=== PATIENT | male | born 1950 | race Caucasian/White ===

== ENCOUNTER 2022-06-10 05:51 | Outpatient (CLI) | payer MEDICARE, MEDICAID, SELFPAY | END 2022-06-10 05:52 | disposition home or self-care (01) | LOC: AMB 06-28 12:09 | PROVIDERS: Visit Provider Internal Medicine | DX: R10.2 Pelvic and perineal pain (principal); Z46.6 Encounter for fitting and adjustment of urinary device | CPT/HCPCS: A0425; A0429 ==

== ENCOUNTER 2022-06-10 06:03 | Emergency (ER) | payer MEDICARE, MEDICAID, SELFPAY ==
[2022-06-10 06:18] VITALS: BP 138/100; PULSE 88; RESP 18; TEMP 36.6; O2SAT 98; BMI 23.1
--- NOTE | 2022-06-10 06:22 | ED_ITS ---
HPI - Male Genitourinary General Chief complaint: Urogenital Problems, Male Stated complaint: Catheter issues Time Seen by Provider: 06/10/22 06:17 History of Present Illness HPI Narrative: Pt is a 71 year old gentleman from [place] [facility] who comes in today via EMS stating that his urinary catheter does not appear to be working. Pt has noted decreased outpt for the past 24 hours. Pt has a long history of catheter use and has had similar presentations in the past. No significant abdominal pain. No fevers chills. No other signs of urinary tract infection. Pt not sure when the catheter was last changed. Related Data Home Medications Medication Instructions Recorded Confirmed acetaminophen 325 mg tablet 650 mg PO Q6H PRN 06/10/22 06/10/22 finasteride 5 mg tablet 5 mg PO DAILY 06/10/22 06/10/22 multivitamin with folic acid 400 1 tab PO DAILY 06/10/22 06/10/22 mcg tablet (Tab-A-Jennifer) pantoprazole 40 mg tablet,delayed 40 mg PO DAILY 06/10/22 06/10/22 release polyethylene glycol 3350 17 17 g PO DAILY 06/10/22 06/10/22 gram/dose oral powder (Gavilax) sertraline 50 mg tablet 50 mg PO Q24H 06/10/22 06/10/22 tamsulosin 0.4 mg capsule 0.4 mg PO DAILY 06/10/22 06/10/22 Allergies Allergy/AdvReac Type Severity Reaction Status Date / Time No Known Drug Allergies Allergy Verified 06/10/22 06:22 Review of Systems Status of ROS: Reports: 10 or more systems reviewed and unremarkable except as noted in History and below [facility] Medical History (Updated 06/10/22 @ 07:03 by Romeo Serrano RN) Acute renal failure Benign prostatic hyperplasia with urinary retention Bipolar disorder Chronic GERD Degenerative disease of nervous system Frontotemporal dementia History of melanoma Hx of nephrolithotomy with removal of calculi Kidney stone Renal insufficiency Tinnitus Urinary retention Social History Smoking Status: Former smoker Do you use any of these nicotine containing products: None How often do you have a drink containing alcohol: never How often do you have six or more drinks on one occasion: Never AUDIT-C Alcohol total score: 0 Non-prescribed substance use: denies use Exam Narrative: Exam Narrative: EXAM GENERAL: Patient appears comfortable and well. EYES: No scleral icterus. ENT: Tympanic membranes and oropharynx normal. THYROID: no thyroid nodules or thyromegaly. LYMPH: No supraclavicular or cervical lymphadenopathy. SKIN: Visible skin seen during exam normal or with benign process only. EXT: No dependent lower extremity pedal edema. HEART: Regular rate and rhythm with no murmurs, rubs, or gallops. LUNGS: Clear to auscultation bilaterally with no crackles or wheezes. ABD: Soft, non tender, non distended. Flores catheter in place PSYCH: Good eye contact, speech is not pressured. Const: Vital Signs, click to edit/add: Vital Signs - 24 hr 06/10/22 06:18 Temperature 97.8 F Pulse Rate [Right Pulse Oximeter] 88 Respiratory Rate 18 Blood Pressure [Ri ght Upper Arm] 138/100 H Pulse Oximetry 98 Oxygen Delivery Me thod Room Air Course Course Hospital Course: Flores catheter successfully changed and is draining well. Reevaluation(s) Reevaluation #1: Doing well and ready to go home. Time: 07:28 Vital Signs Vital signs: Initial Vital Signs Temperature 97.8 F 06/10/22 06:18 Temperature Source Temporal Artery Scan 06/10/22 06:18 Pulse Rate 88 06/10/22 06:18 Respiratory Rate 18 06/10/22 06:18 Blood Pressure 138/100 H 06/10/22 06:18 Blood Pressure Mean 112 06/10/22 06:18 Blood Pressure Position Sitting 06/10/22 06:18 Pulse Oximetry 98 06/10/22 06:18 Oxygen Delivery Method 06/10/22 06:18 Vital Signs Temperature 97.8 F 06/10/22 06:18 Pulse Rate 88 06/10/22 06:18 Respiratory Rate 18 06/10/22 06:18 Blood Pressure 138/100 H 06/10/22 06:18 Pulse Oximetry 98 06/10/22 06:18 Oxygen Delivery Method 06/10/22 06:18 Temperature 97.8 F 06/10/22 06:18 Pulse Rate 88 06/10/22 06:18 Respiratory Rate 18 06/10/22 06:18 Blood Pressure 138/100 H 06/10/22 06:18 Pulse Oximetry 98 06/10/22 06:18 Oxygen Delivery Method 06/10/22 06:18 MDM - Male Genitourinary MDM Narrative Medical decision making narrative: Pt is a 71 year old gentleman with a chronic urinary catheter who shows no signs of UTI symptoms who presents with catheter not functioning. Flores was changed and pt now feeling well. Differential Diagnosis Differential diagnosis: Likely urinary tract infection, urethritis, prostatitis and acute retention of urine Discharge Plan Discharge Clinical Impression: Blocked urinary catheter Patient Disposition: Home, Self-Care Condition: Stable Additional Instructions: Continue current care and routine catheter changes. Discharge Diet: Regular Prescriptions: No Action acetaminophen 325 mg tablet 650 mg PO Q6H PRN finasteride 5 mg tablet 5 mg PO DAILY multivitamin with folic acid [Tab-A-Jennifer] 400 mcg tablet 1 tab PO DAILY pantoprazole 40 mg tablet,delayed release (DR/EC) 40 mg PO DAILY polyethylene glycol 3350 [Gavilax] 17 gram/dose powder 17 g PO DAILY sertraline 50 mg tablet 50 mg PO Q24H tamsulosin 0.4 mg capsule 0.4 mg PO DAILY Stand Alone Forms: [employer] Info Instructions
[2022-06-10] MEDS: lidocaine HCL 2 % JELLY (TOP) STERILE 6 ML UR (07:03)
--- NOTE | 2022-06-10 07:31 | PC.NURSE ---
16F coude catheter placed after urojet injection. Draining urine, herber in color, foul smelling. emptied 750 cc into graduate, catheter continues to drain into leg bag. Dr. Daniel notified of catheter placement.
--- NOTE | 2022-06-10 07:43 | PC.NURSE ---
another 800 cc drained from leg bag. pt feeling better. assisted pt dressing. trying to get a hold of [facility] to pick pt up.
--- NOTE | 2022-06-10 07:47 | PC.NURSE ---
called multiple times to [facility] with no answer, spoke to nurse Fred and she will try to get in touch with staff
--- NOTE | 2022-06-10 07:54 | ED.NURSE ---
dc complete, pt waiting for [facility] to pick him up.
== END 2022-06-10 07:55 | disposition home or self-care (01) ==
LOC: ED 07:47
PROVIDERS: Emergency Provider Internal Medicine
DX: T83.098A Other mechanical complication of other urinary catheter, initial encounter (principal); Y73.8 Miscellaneous gastroenterology and urology devices associated with adverse incidents, not elsewhere classified; Y92.019 Unspecified place in single-family (private) house as the place of occurrence of the external cause
CPT/HCPCS: 51702; 99282; 99283

== ENCOUNTER 2022-07-03 06:06 | Outpatient (CLI) | payer MEDICARE, MEDICAID, SELFPAY ==
--- OUTSIDE RECORDS SUMMARY | 2022-07-17 05:55 | XMS_ITS ---
[...] Bilirubin-Status Negative ? Ketones-Status Negative ? Sp [place]-Status 1.010 ? pH-Status 5.5 ? Protein-Status 5.0 ? Urobilinogen-Statu 0.2 ? ? s ? ? ? Nitrates-Status negative ? Blood-Status Moderate ? Leuko-Status Negative ? Specimen Type Catheterized ? Performed by SERGIO Christine/BSN ? Total Urine Volume 235ml ? ? Past Encounters 02/28/2022 Retention of Urine Erick Cooley MD: [address], [place] [address], Ph. Social History Tobacco Smoking Status Former [...]
--- OUTSIDE RECORDS SUMMARY | 2022-07-17 05:55 | XMS_ITS | Clinical Summary ---
:1950 Author Organization [facility] [place] [address] Care Team Providers Name Role Phone Feli Babin MD Primary Care Provider [phone] [facility] Unavailable Allergies No known active allergies Medications [...] Encounters Date Type Specialty Care Team Description 07/09/2022 Telephone Feli Babin Referral (u [facility]) MD [place] 05/24/2022 Nurse/Clinic Staff Only 05/24/2022 Travel 04/24/2022 Refill Feli Babin Refill Requ est MD [place] (Polyethylene G lycol) 04/23/2022 Nurse/Clinic Staff Only Art rt (Routine catheter change) 04/23/2022 Travel from Last 3 Months Immunizations Name Administration Dates Next Due COVID-19 vaccine (Moderna 100mcg/0.5mL) 09/12/2021, 12/20/19, 11/21/2020 PFLIN COVID-19 vaccine ([employer] 02/22/2022 30mcg/0.3mL) MD ERICAV Influenza, High-dose Inactivated 06/30/2018 Tdap 09/30/2014, 09/30/2009, [...] CDT Respiratory Rate 16 11/27/2021 11:55 AM 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 Oxygen Saturation 100% 02/22/2022 11:14 AM CDT Inhaled Oxygen Concentration - - Weight 75.3 kg (166 lb) 02/22/2022 11:14 AM CDT Height 182.9 cm (6') 11/23/2021 1:41 PM 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 Body Mass Index 22.51 11/23/2021 1:41 PM 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 Plan of Treatment Upcoming Encounters Date Type Specialty Care Team Description 11/29/2022 Office Visit Ryan Davies MD [address] [place] [phone] (Wo rk) Health Maintenance Due Date Last Done Comments [...] / Subscriber ID Effective Phone Address T ype Group Dates [employer] [id number] Effective [employer] for all OFFICE OF [facility] [address] [address] [place] [address] MEDICARE - PB USE MEDICARE PB ONLY [id number] 2019-Pre ATTN: CLAIMS ONLY sent [address] [place] [address] MEDICARE - PB USE MEDICARE PB ONLY [id number] 2019-Pre ATTN: CLAIMS ONLY sent [address] [place] [address] LIANA RAMIREZ 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
== END 2022-07-03 06:07 | disposition home or self-care (01) ==
PROVIDERS: Visit Provider Internal Medicine
DX: T83.038A Leakage of other urinary catheter, initial encounter (principal); N48.89 Other specified disorders of penis
CPT/HCPCS: A0425; A0429

== ENCOUNTER 2022-07-03 06:20 | Emergency (ER) | payer MEDICARE, MEDICAID, SELFPAY ==
[2022-07-03 07:03] VITALS: BP 145/79; PULSE 93; RESP 18; TEMP 37.2; O2SAT 99; BMI 24.4
[2022-07-03 07:06] VITALS: BP 145/79; PULSE 93; RESP 18; TEMP 37.2; O2SAT 99; BMI 24.4
--- NOTE | 2022-07-03 07:07 | ED.NURSE ---
Pt arrived via ems, brief full of dirt and crystallized urine. pt catheter leaking from around catheter, pt lower abdomen observably extended and hard, catheter had observable growth in leg bag tubing and into catheter tubing going into urethra. pt catheter only had 10cc fluid with balloon listed to have 30cc. removed old catheter, placed new coude 18f catheter with 30cc saline in balloon, instant output of blood tinged then yellow urine with large yellowish/white clots of 2100cc of urine. pt abdomen flat and soft post cath, pt tolerated without complaints, pt states pain relief.
--- NOTE | 2022-07-03 07:27 | ED.MALEGU ---
HPI - Male Genitourinary General Chief complaint: Urogenital Problems, Male Stated complaint: ILL Time Seen by Provider: 07/03/22 06:39 History of Present Illness HPI Narrative: Pt is a 71 gentleman who lives at [facility] and has a chronic Chun Catheter who presents with no urinary output from his catheter overnight. Pt has distension and discomfort in his bladder region but no abd pain, fever, chills nausea or vomiting. Catheter was changed upon arrival and 2200 cc of urine was removed. UA pending. Pt now feeling well. Pt presented approximately 3 weeks ago with similar presentation which was the last time the chun was replaced. Related Data Home Medications Medication Instructions Recorded Confirmed acetaminophen 325 mg tablet 650 mg PO Q6H PRN 06/10/22 06/10/22 finasteride 5 mg tablet 5 mg PO DAILY 06/10/22 06/10/22 multivitamin with folic acid 400 1 tab PO DAILY 06/10/22 06/10/22 mcg tablet (Tab-A-Jennifer) pantoprazole 40 mg tablet,delayed 40 mg PO DAILY 06/10/22 06/10/22 release polyethylene glycol 3350 17 17 g PO DAILY 06/10/22 06/10/22 gram/dose oral powder (Gavilax) sertraline 50 mg tablet 50 mg PO Q24H 06/10/22 06/10/22 tamsulosin 0.4 mg capsule 0.4 mg PO DAILY 06/10/22 06/10/22 Previous Rx's Medication Instructions Recorded ciprofloxacin HCl 250 mg tablet 250 mg PO BID UTI #14 tabs 07/03/22 Allergies Allergy/AdvReac Type Severity Reaction Status Date / Time No Known Drug Allergies Allergy Verified 06/10/22 06:22 Review of Systems Status of ROS: Reports: 10 or more systems reviewed and unremarkable except as noted in History and below [facility] Medical History (Updated 07/03/22 @ 08:11 by Mahesh Wang MD) Acute renal failure Benign prostatic hyperplasia with urinary retention Bipolar disorder Chronic GERD Degenerative disease of nervous system Frontotemporal dementia History of melanoma Hx of nephrolithotomy with removal of calculi Kidney stone Renal insufficiency Tinnitus Urinary retention Social History Smoking Status: Former smoker Do you use any of these nicotine containing products: None How often do you have a drink containing alcohol: never How often do you have six or more drinks on one occasion: Never AUDIT-C Alcohol total score: 0 Non-prescribed substance use: denies use Exam Narrative: Exam Narrative: EXAM GENERAL: Patient appears comfortable and well. EYES: No scleral icterus. THYROID: no thyroid nodules or thyromegaly. LYMPH: No supraclavicular or cervical lymphadenopathy. SKIN: Visible skin seen during exam normal or with benign process only. EXT: No dependent lower extremity pedal edema. HEART: Regular rate and rhythm with no murmurs, rubs, or gallops. LUNGS: Clear to auscultation bilaterally with no crackles or wheezes. ABD: Soft, non tender, non distended. Chun catheter in place. PSYCH: Good eye contact, speech is not pressured. Const: Vital Signs, click to edit/add: Vital Signs - 24 hr 07/03/22 07:03 07/03/22 07:06 Temperature 98.9 F 98.9 F Pulse Rate [Right Pulse Oximeter] 93 93 Respiratory Rate 18 18 Blood Pressure [Le ft Upper Arm] 145/79 H 145/79 H Pulse Oximetry 99 99 Oxygen Delivery Me thod Room Air Room Air Course Course Hospital Course: Chun replaced with excellent results. UA pending. Vital Signs Vital signs: Initial Vital Signs Temperature 98.9 F 07/03/22 07:03 Temperature Source Temporal Artery Scan 07/03/22 07:03 Pulse Rate 93 07/03/22 07:03 Respiratory Rate 18 07/03/22 07:03 Blood Pressure 145/79 H 07/03/22 07:03 Blood Pressure Mean 101 07/03/22 07:03 Blood Pressure Position Sitting 07/03/22 07:03 Pulse Oximetry 99 07/03/22 07:03 Oxygen Delivery Method 07/03/22 07:03 Vital Signs Temperature 98.9 F 07/03/22 07:03 Pulse Rate 93 07/03/22 07:03 Respiratory Rate 18 07/03/22 07:03 Blood Pressure 145/79 H 07/03/22 07:03 Pulse Oximetry 99 07/03/22 07:03 Oxygen Delivery Method 07/03/22 07:03 Temperature 98.9 F 07/03/22 07:06 Pulse Rate 93 07/03/22 07:06 Respiratory Rate 18 07/03/22 07:06 Blood Pressure 145/79 H 07/03/22 07:06 Pulse Oximetry 99 07/03/22 07:06 Oxygen Delivery Method 07/03/22 07:06 MDM - Male Genitourinary MDM Narrative Medical decision making narrative: Chun changed. Feeling fine. Urine grossly abnormal. Will send for culture and place the patient on Cipro 500 mg twice per day for 7 days. Continue current meds. Routine changing of chun catheter. Differential Diagnosis Differential diagnosis: Likely urinary tract infection, urethritis, prostatitis and acute retention of urine Lab Data Labs: Lab Results 07/03/22 Range/Units 07:12 Urine Color Yellow (Yellow) Urine Appearance Slightly Cloudy A (Clear) Urine pH >= 9.0 H (5.0-8.5) Ur Specific [place] Path 1.015 (1.000-1.030) Urine Protein 2+ A (Negative) Urine Glucose (UA) Negative (Negative) Urine Ketones 1+ A (Negative) Urine Blood 3+ A (Negative) Urine Nitrite Negative (Negative) Urine Bilirubin Negative (Negative) Urine Urobilinogen 0.2 (0.2-1.0) Ur Leukocyte Esterase 2+ A (Negative) Urine RBC 25-50 A (0-2) Urine WBC 10-25 A (0-5) Ur Squamous Epith Cells None (None-Few) Urine Bacteria Many A (None) Discharge Plan Discharge Clinical Impression: Urinary tract infection Condition: Stable Instructions: Urinary Incontinence (ED) Activity Level: No Restrictions Discharge Diet: Regular Prescriptions: New ciprofloxacin HCl 250 mg tablet 250 mg PO BID Qty: 14 0RF No Action acetaminophen 325 mg tablet 650 mg PO Q6H PRN finasteride 5 mg tablet 5 mg PO DAILY multivitamin with folic acid [Tab-A-Jennifer] 400 mcg tablet 1 tab PO DAILY pantoprazole 40 mg tablet,delayed release (DR/EC) 40 mg PO DAILY polyethylene glycol 3350 [Gavilax] 17 gram/dose powder 17 g PO DAILY sertraline 50 mg tablet 50 mg PO Q24H tamsulosin 0.4 mg capsule 0.4 mg PO DAILY Stand Alone Forms: [employer] Info Instructions
[2022-07-03 07:40] LABS: Appearance Urine Slightly Cloudy (Clear); Bilirubin Urine Negative (Negative); Blood Urine 3+ (Negative); Color Urine Yellow (Yellow); Glucose Urine Negative (Negative); Ketones Urine 1+ (Negative); Leukocyte Esterase Urine 2+ (Negative); Nitrite Urine Negative (Negative); Protein Urine 2+ (Negative); Specific Gravity Urine 1.015 (1.000-1.030); Urobilinogen Urine 0.2 (0.2-1.0)
[2022-07-03 07:50] LABS: pH Urine >= 9.0 (5.0-8.5)
[2022-07-03 07:51] LABS: Bacteria Urine Many; RBC Urine 25-50 (0-2)
--- NOTE | 2022-07-03 08:21 | ED.NURSE ---
Spoke with [facility] staff. They will send a ride. Will get a dose of cirpo here. Script sent into [facility]. This was communicated with staff at [facility]. Recommended he follow up with urologist for possible irrigation orders to prevent further plugging. Staff verbalized understanding.
--- NOTE | 2022-07-03 08:30 | ED.NURSE ---
Changed to leg bag per patient request. okay with this. Urine pink tinged. Facility aware. Watch for clots.
[2022-07-03] MEDS: CIPROFLOXACIN 250 MG TABLET PO (08:37)
== END 2022-07-03 08:45 | disposition home or self-care (01) ==
PROVIDERS: Emergency Provider Internal Medicine
DX: N39.0 Urinary tract infection, site not specified (principal)
CPT/HCPCS: 81003; 81015; 87086; 87186; 99283; A9270

== ENCOUNTER 2022-07-05 10:20 | Emergency (ER) | payer MEDICARE, MEDICAID, SELFPAY ==
[2022-07-05 10:31] VITALS: BP 92/61; PULSE 77; RESP 16; TEMP 36.6; O2SAT 100; BMI 23.1
--- NOTE | 2022-07-05 11:30 | ED.GENADULT ---
HPI - General Adult General Time Seen by Provider: 11:30 Date Seen: 07/05/22 Chief complaint: Flank Pain Stated complaint: Blood in urine/back pain Time Seen by Provider: 07/05/22 11:24 Source: patient, RN notes reviewed and old records reviewed Mode of arrival: ambulatory (With a walker) Limitations: no limitations History of Present Illness HPI narrative: Patient is a 71-year-old male from [place] coming in with concern of ongoing blood in his urine. The catheter seems like it has been occluding somewhat to the ongoing blood. He was diagnosed with a UTI in a patient with a chronic Flores catheter on 07/03/2022. He was started on Cipro and has been taking it. The blood in the urine has not improved. He is having some occasional abdominal pain and tells me it is more in the suprapubic area right now. He had noted that more flank pain to nursing staff. He does report he has a history of kidney stones. He denies any fevers, no night sweats. His appetite has been fine, is able to eat. No nausea or vomiting noted. I was able to see his urine culture is back today and showed Staphylococcus cohnii with resistance to Cipro/levofloxacin, intermediate resistance to moxifloxacin. Sensitive to clindamycin, daptomycin, doxycycline, gentamicin, Macrobid, rifampin, tetracycline, tigecycline, Septra, vancomycin. Intermediate resistance to erythromycin. Related Data Home Medications Medication Instructions Recorded Confirmed acetaminophen 325 mg tablet 650 mg PO Q6H PRN 06/10/22 07/05/22 finasteride 5 mg tablet 5 mg PO DAILY 06/10/22 07/05/22 multivitamin with folic acid 400 1 tab PO DAILY 06/10/22 07/05/22 mcg tablet (Tab-A-Jennifer) pantoprazole 40 mg tablet,delayed 40 mg PO DAILY 06/10/22 07/05/22 release polyethylene glycol 3350 17 17 g PO DAILY 06/10/22 07/05/22 gram/dose oral powder (Gavilax) sertraline 50 mg tablet 50 mg PO Q24H 06/10/22 07/05/22 tamsulosin 0.4 mg capsule 0.4 mg PO DAILY 06/10/22 07/05/22 Previous Rx's Medication Instructions Recorded ciprofloxacin HCl 250 mg tablet 250 mg PO BID UTI #14 tabs 07/03/22 doxycycline monohydrate 100 mg 100 mg PO BID #20 tabs 07/05/22 tablet Allergies Allergy/AdvReac Type Severity Reaction Status Date / Time No Known Drug Allergies Allergy Verified 07/05/22 10:39 Review of Systems Status of ROS: Reports: 6 or more systems reviewed and unremarkable except as noted in History and below [facility] Medical History (Updated 07/05/22 @ 13:29 by Yessica Patel MD) Acute renal failure Benign prostatic hyperplasia with urinary retention Bipolar disorder Chronic GERD Degenerative disease of nervous system Frontotemporal dementia History of melanoma Hx of nephrolithotomy with removal of calculi Kidney stone Renal insufficiency Tinnitus Urinary retention Social History Smoking Status: Former smoker Do you use any of these nicotine containing products: None How often do you have a drink containing alcohol: never How often do you have six or more drinks on one occasion: Never AUDIT-C Alcohol total score: 0 Non-prescribed substance use: denies use Exam Const: Vital Signs, click to edit/add: Vital Signs - 24 hr 07/05/22 10:31 Temperature 97.9 F Pulse Rate [Right Pulse Oximeter] 77 Respiratory Rate 16 Blood Pressure [Ri ght Upper Arm] 92/61 Pulse Oximetry 100 Oxygen Delivery Me thod Room Air Documenting provider has reviewed patient's vital signs: yes Common normals: no apparent distress, oriented x3, no limitations and alert General appearance: cooperative, comfortable, well kempt and frail appearing Nutritional appearance: thin HENMT: Common normals: normocephalic, head/scalp atraumatic and hearing grossly normal bilaterally Head and scalp: normocephalic and atraumatic Eye: Common normals: PERRL, EOMs intact bilaterally, conjunctivae normal and no scleral icterus Conjunctiva: conjunctiva(e) normal Pupil: PERRL Neck & C-Spine: Common normals: full ROM, no lymphadenopathy, supple and no JVD Resp: Common normals: normal respiratory effort, no retractions, no use of accessory muscles and clear to auscultation bilaterally Auscultation: clear to auscultation bilaterally Cardio: Common normals: no JVD, regular rate, regular rhythm, S1 normal heart sound, S2 normal heart sound, no gallops, no clicks and no murmurs Rate: regular rate Rhythm: regular rhythm Heart sounds: S1 normal and S2 normal GI: Common normals: Normal to inspection, nondistended, normoactive bowel sounds present, soft to palpation, non-tender, no hepatosplenomegaly and no masses Palpation: soft and no hepatosplenomegaly : Other: Flores catheter has red appearing urine in the tubing. Appears to have normal draining bloody urine. Neuro: Common normals: oriented x3 Sensorium/orientation: alert Psych: Appearance: well kempt Course Course Hospital Course: He obviously needs an antibiotic change. I do think doxycycline might be an option. Will get baseline labs and get a CT abdomen pelvis just to ensure that there is no underlying obstructive kidney stone. Reevaluation(s) Reevaluation #1: Patient states he is feeling fine. Catheter is still draining clear but red tinged urine I have reviewed with them that this is likely to continue happen until the infection is being adequately treated. I did order 100 mg oral doxycycline here. His initial blood pressure was mildly low but he absolutely has no endorsement of any fever. He states he is feeling fine, has not been lightheaded, does not feel dizzy. Is not having any significant pain at this time. Vitals prior to leaving without as intervening with anything showed a blood pressure of 131/83. He actually has been sitting up on the edge of the bed the whole time he has been here. Did review the urinary stones within the bladder that were seen. I do not feel that these are infected at this time in absolutely do not need emergent removal. I would recommend however that he follow up with Urology outpatient. Time: 13:21 Vital Signs Vital signs: Initial Vital Signs Temperature 97.9 F 07/05/22 10:31 Temperature Source Temporal Artery Scan 07/05/22 10:31 Pulse Rate 77 07/05/22 10:31 Respiratory Rate 16 07/05/22 10:31 Blood Pressure 92/61 07/05/22 10:31 Blood Pressure Mean 71 07/05/22 10:31 Blood Pressure Position Sitting 07/05/22 10:31 Pulse Oximetry 100 07/05/22 10:31 Oxygen Delivery Method 07/05/22 10:31 Vital Signs Temperature 97.9 F 07/05/22 10:31 Pulse Rate 77 07/05/22 10:31 Respiratory Rate 16 07/05/22 10:31 Blood Pressure 92/61 07/05/22 10:31 Pulse Oximetry 100 07/05/22 10:31 Oxygen Delivery Method 07/05/22 10:31 Temperature 97.9 F 07/05/22 10:31 Pulse Rate 77 07/05/22 10:31 Respiratory Rate 16 07/05/22 10:31 Blood Pressure 92/61 07/05/22 10:31 Pulse Oximetry 100 07/05/22 10:31 Oxygen Delivery Method 07/05/22 10:31 Medical Decision Making Lab Data Lab results reviewed: Yes I reviewed the patient's lab results Labs: Lab Results 07/05/22 07/05/22 07/05/22 Range/Units 11:44 11:44 11:44 WBC 3.60 L (4.50-11.00) K/uL RBC 4.06 L (4.30-5.90) m/uL Hgb 12.4 L (13.5-17.5) gm/dL Hct 38.8 (37.0-53.0) % MCV 96 (80-100) fL MCH 31 (26-34) pg MCHC 32 (32-36) gm/dL RDW Coeff of Vidhya 13.1 (11.5-15.5) % Plt Count 127 L (140-440) K/uL Neut % (Auto) 63.0 (42.0-72.0) % Lymph % (Auto) 25.0 (20-44) % [place] % (Auto) 10.0 (0.0-11.0) % Eos % (Auto) 1.7 (0.0-7.0) % Baso % (Auto) 0.3 (0.0-3.0) % Neut # (Auto) 2.30 (1.7-7.0) K/uL Lymph # (Auto) 0.90 (0.90-2.90) K/uL [place] # (Auto) 0.40 (0.00-0.90) K/UL Eos # (Auto) 0.10 (0.00-0.50) K/uL Baso # (Auto) 0.00 (0.00-0.30) K/uL Abs Immat Gran (auto) 0.00 (0.00-0.30) K/uL Sodium 144 (135-149) mmol/L Potassium 3.8 (3.6-5.1) mmol/L Chloride 106 (96-114) mmol/L Carbon Dioxide 29 (20-32) mmol/L BUN 40 H (7-30) mg/dL Creatinine 1.3 (0.5-1.5) mg/dL Estimated Creat Clear 58.49 Estimated GFR 59 ml/min Glucose 119 H (60-115) mg/dL Lactate 1.3 (0.5-1.9) mmol/L Calcium 9.8 (8.4-10.6) mg/dL C-Reactive Protein 2.5 H (0.5-1.0) mg/dL Imaging Data CT scan - abdomen: Attestation: I have reviewed the pertinent imaging results. My impression: Did review his CT images preliminarily. Flores and possible other calcified structures within the bladder. Do need to wait radiology over read on this. Radiologist's impression: Patient: RASHMI SYED Facility:?[facility] Patient ID:?[id number] Site Patient ID:?[id number]. Site :?[id number] Study:?CT Abdomen/Pelvis W/O-07/05/2022 11:54:47 AM Ordering Physician:?Jorge Jaun Final Report: INDICATION: UTI. Abdominal pain. History of kidney stones. COMPARISON: None TECHNIQUE: CT examination of the abdomen and pelvis was performed without intravenous contrast. Thin section axial images were obtained from the lung bases through the pubic symphysis. Oral contrast was not administered. The study shows technical limitations related to lack of contrast and paucity of fat planes. Please note that all CT scans at this facility use dose modulation, iterative reconstruction, and/or weight-based dosing when appropriate to reduce radiation dose to as low as reasonably achievable. FINDINGS: LUNG BASES: The lung bases as visualized appear normal.The heart size is normal at the lung bases. LIVER/BILIARY SYSTEM:The liver is normal in size and configuration given the lack of intravenous contrast. There is no visible focal mass and there is no intra- or extra hepatic biliary ductal dilatation.There is cholelithiasis but no evidence of acute cholecystitis or common duct obstruction ADRENALS: Normal non-contrast appearance KIDNEYS, URETERS and BLADDER:The kidneys are normal in size. There are no intrarenal calculi. There are scattered bilateral renal lesions that are difficult to fully characterize without contrast but probably benign. The ureters are not dilated. There is a Flores catheter in the bladder. The bladder wall is thickened and there are multiple relatively large calculi within the bladder. The prostate is significantly enlarged. SPLEEN:Normal non-contrast appearance. PANCREAS: Poorly evaluated due to lack of contrast and lack of fat planes. The body and tail appear normal. The head is not well-visualized RETROPERITONEUM and MESENTERY: Limited visualization. Atherosclerotic vascular calcifications. No lefty aneurysm GASTROINTESTINAL SYSTEM: There is no definite bowel obstruction. There is significant fecal retention diffusely but there is no indication of mechanical obstruction. Limited evaluation due to lack of contrast. PELVIS: Abnormal bladder and prostate as mentioned above. OSSEOUS STRUCTURES and ABDOMINAL WALL: There is an age-appropriate appearance of the osseous structures.No significant abdominal wall defect. OTHER: No free fluid or free air. IMPRESSION: 1. Technically limited examination. 2. A Flores catheter ends in the bladder. There is bladder wall thickening which can be due to chronic obstruction or infection. There are numerous relatively large calculi within the bladder. However, there is no hydronephrosis or hydroureter and there are no calculi identified within the kidneys or ureters. 3. Fecal retention without mechanical obstruction. 4. Cholelithiasis without indication of acute cholecystitis or common duct obstruction Please note that all CT scans at this facility use dose modulation, iterative reconstruction, and/or weight-based dosing when appropriate to reduce radiation dose to as low as reasonably achievable. Dictated by Torsten Siddiqui MD @ 07/05/2022 12:23:25 PM (Electronic Signature) Critical Care Time Critical Care Time Critical Care Time: No Discharge Plan Discharge Clinical Impression: Urinary tract infection, Bladder stones Condition: Stable Instructions: Catheter-associated Urinary Tract Infection (ED), Bladder Stones (ED) Additional Instructions: The urine culture grew a staphylococci S which was resistant to Cipro. Thus, need to stop the Cipro. He has received his 1st dose of doxycycline here and should get another dose tonight. We will initiate doxycycline 100 mg twice a day for [address] scan did demonstrate what appears to be bladder stones. Clinically, there is not concern about these being infected at this time. His urinary tract infection certainly needs adequate antibiotic treatment. I would recommend a urology followup outpatient within the next few months for routine management of his Flores catheter as well as discussion of the bladder stones. The bloody is likely to continue within the catheter until the bladder infection is being adequately treated. His catheter was draining good while he was here today but if it should become obstructed will need further management. Activity Level: Activity as Tolerated Prescriptions: New doxycycline monohydrate 100 mg tablet 100 mg PO BID Qty: 20 0RF No Action acetaminophen 325 mg tablet 650 mg PO Q6H PRN finasteride 5 mg tablet 5 mg PO DAILY multivitamin with folic acid [Tab-A-Jennifer] 400 mcg tablet 1 tab PO DAILY pantoprazole 40 mg tablet,delayed release (DR/EC) 40 mg PO DAILY polyethylene glycol 3350 [Gavilax] 17 gram/dose powder 17 g PO DAILY sertraline 50 mg tablet 50 mg PO Q24H tamsulosin 0.4 mg capsule 0.4 mg PO DAILY ciprofloxacin HCl 250 mg tablet 250 mg PO BID Qty: 14 0RF Follow Up/Referrals: Provider,Not a Local [Primary Care Provider] - Stand Alone Forms: [employer] Info Instructions
--- NOTE | 2022-07-05 11:35 | CRLHL7_ITS ---
For Patients: As a result of the 21st Century Cures Act, medical imaging exams and procedure reports are released immediately into your electronic medical record. You may view this report before your referring provider. If you have questions, please contact your health care provider. INDICATION: UTI. Abdominal pain. History of kidney stones. COMPARISON: None TECHNIQUE: CT examination of the abdomen and pelvis was performed without intravenous contrast. Thin section axial images were obtained from the lung bases through the pubic symphysis. Oral contrast was not administered. The study shows technical limitations related to lack of contrast and paucity of fat planes. Please note that all CT scans at this facility use dose modulation, iterative reconstruction, and/or weight-based dosing when appropriate to reduce radiation dose to as low as reasonably achievable. FINDINGS: LUNG BASES: The lung bases as visualized appear normal.The heart size is normal at the lung bases. LIVER/BILIARY SYSTEM:The liver is normal in size and configuration given the lack of intravenous contrast. There is no visible focal mass and there is no intra- or extra hepatic biliary ductal dilatation.There is cholelithiasis but no evidence of acute cholecystitis or common duct obstruction ADRENALS: Normal non-contrast appearance KIDNEYS, URETERS and BLADDER:The kidneys are normal in size. There are no intrarenal calculi. There are scattered bilateral renal lesions that are difficult to fully characterize without contrast but probably benign. The ureters are not dilated. There is a Flores catheter in the bladder. The bladder wall is thickened and there are multiple relatively large calculi within the bladder. The prostate is significantly enlarged. SPLEEN:Normal non-contrast appearance. PANCREAS: Poorly evaluated due to lack of contrast and lack of fat planes. The body and tail appear normal. The head is not well-visualized RETROPERITONEUM and MESENTERY: Limited visualization. Atherosclerotic vascular calcifications. No lefty aneurysm GASTROINTESTINAL SYSTEM: There is no definite bowel obstruction. There is significant fecal retention diffusely but there is no indication of mechanical obstruction. Limited evaluation due to lack of contrast. PELVIS: Abnormal bladder and prostate as mentioned above. OSSEOUS STRUCTURES and ABDOMINAL WALL: There is an age-appropriate appearance of the osseous structures.No significant abdominal wall defect. OTHER: No free fluid or free air. IMPRESSION: 1. Technically limited examination. 2. A Flores catheter ends in the bladder. There is bladder wall thickening which can be due to chronic obstruction or infection. There are numerous relatively large calculi within the bladder. However, there is no hydronephrosis or hydroureter and there are no calculi identified within the kidneys or ureters. 3. Fecal retention without mechanical obstruction. 4. Cholelithiasis without indication of acute cholecystitis or common duct obstruction Please note that all CT scans at this facility use dose modulation, iterative reconstruction, and/or weight-based dosing when appropriate to reduce radiation dose to as low as reasonably achievable. Dictated by Torsten Siddiqui MD @ 07/05/2022 12:23:25 PM (Electronically Signed)
[2022-07-05 11:47] LABS: Lactate* 1.3 mmol/L (0.5-1.9)
[2022-07-05 11:49] LABS: Basophils Percent Auto 0.3 % (0.0-3.0); Eosinophils Percent Auto 1.7 % (0.0-7.0); Hematocrit 38.8 % (37.0-53.0); Hemoglobin* 12.4 gm/dL (13.5-17.5); Mean Corpuscular HGB Conc 32 gm/dL (32-36); Mean Corpuscular Hemoglobin 31 pg (26-34); Mean Corpuscular Volume 96 fL (80-100); Platelet Count* 127 K/uL (140-440); RDW Coefficient of Variation % 13.1 % (11.5-15.5); Red Blood Count 4.06 m/uL (4.30-5.90)
[2022-07-05 11:51] LABS: Slide Review Reflex No
[2022-07-05 12:08] LABS: Chloride* 106 mmol/L (96-114); Potassium* 3.8 mmol/L (3.6-5.1); Sodium* 144 mmol/L (135-149)
[2022-07-05 12:11] LABS: Creatinine* 1.3 mg/dL (0.5-1.5); Est. Creatinine Clearance* 58.49; Estimated Glomerular Filt Rate 59 ml/min
[2022-07-05 12:12] LABS: Blood Urea Nitrogen* 40 mg/dL (7-30); Calcium* 9.8 mg/dL (8.4-10.6); Carbon Dioxide* 29 mmol/L (20-32); Glucose* 119 mg/dL (60-115)
[2022-07-05 12:15] LABS: C Reactive Protein* 2.5 mg/dL (0.5-1.0)
[2022-07-05] MEDS: DOXYCYCLINE HYCLATE 100 MG CAPSULE PO (13:22)
[2022-07-05 13:23] VITALS: BP 131/83; PULSE 63; RESP 16
--- NOTE | 2022-07-05 14:00 | ED.NURSE ---
Pt d/c instructions given to pt and RN at [facility]. Pt and RN verbalize understanding of d/c plan and rx for Doxycycline. Pt's catheter emptied and [place] on their way to transport pt back to facility.
== END 2022-07-05 14:05 | disposition home or self-care (01) ==
PROVIDERS: Emergency Provider Family Medicine
DX: N39.0 Urinary tract infection, site not specified (principal); N21.0 Calculus in bladder
CPT/HCPCS: 36415; 74176; 80048; 83605; 85025; 86140; 99284; A9270

== ENCOUNTER 2022-07-06 18:04 | Emergency (ER) | payer MEDICARE, MEDICAID, SELFPAY ==
[2022-07-06 18:16] VITALS: BP 119/78; PULSE 68; RESP 18; TEMP 36.2; O2SAT 91
--- NOTE | 2022-07-06 18:53 | ED.NURSE ---
1100cc dk colored urine
--- NOTE | 2022-07-06 18:55 | ED_ITS ---
HPI - General Adult General Chief complaint: Urogenital Problems, Male Stated complaint: Possible catheter blockage Time Seen by Provider: 07/06/22 18:12 Source: patient Mode of arrival: ambulatory Limitations: no limitations History of Present Illness HPI narrative: 71-year-old male coming in today concerned about his indwelling catheter being plugged. He has had no urine output since this morning. Complaining of suprapubic pressure. No other concerns. Had his Flores changed earlier in the week as well secondary to it being clogged up with sediment. Related Data Home Medications Medication Instructions Recorded Confirmed acetaminophen 325 mg tablet 650 mg PO Q6H PRN 06/10/22 07/05/22 finasteride 5 mg tablet 5 mg PO DAILY 06/10/22 07/05/22 multivitamin with folic acid 400 1 tab PO DAILY 06/10/22 07/05/22 mcg tablet (Tab-A-Jennifer) pantoprazole 40 mg tablet,delayed 40 mg PO DAILY 06/10/22 07/05/22 release polyethylene glycol 3350 17 17 g PO DAILY 06/10/22 07/05/22 gram/dose oral powder (Gavilax) sertraline 50 mg tablet 50 mg PO Q24H 06/10/22 07/05/22 tamsulosin 0.4 mg capsule 0.4 mg PO DAILY 06/10/22 07/05/22 Previous Rx's Medication Instructions Recorded ciprofloxacin HCl 250 mg tablet 250 mg PO BID UTI #14 tabs 07/03/22 doxycycline monohydrate 100 mg 100 mg PO BID #20 tabs 07/05/22 tablet Allergies Allergy/AdvReac Type Severity Reaction Status Date / Time No Known Drug Allergies Allergy Verified 07/05/22 10:39 Review of Systems Status of ROS: Reports: 10 or more systems reviewed and unremarkable except as noted in History and below PFSH PFS Medical History Acute renal failure Benign prostatic hyperplasia with urinary retention Bipolar disorder Chronic GERD Degenerative disease of nervous system Frontotemporal dementia History of melanoma Hx of nephrolithotomy with removal of calculi Kidney stone Renal insufficiency Tinnitus Urinary retention Social History Smoking Status: Former smoker Do you use any of these nicotine containing products: None How often do you have a drink containing alcohol: never How often do you have six or more drinks on one occasion: Never AUDIT-C Alcohol total score: 0 Non-prescribed substance use: denies use Exam Narrative: Exam Narrative: Thin, elderly patient in no acute distress. Alert and oriented. Answers questions appropriately. Mood and affect are appropriate. Thoughts are goal oriented and rational. No tangential or magical thinking noted. Patient speaks in full sentences without needing to catch his breath. HEENT: Normocephalic atraumatic. Pupils are equally round reactive to light. Extraocular muscles are intact. Conjunctivae are moist without any icterus noted. Abdomen: Soft and nondistended with normal bowel sounds. He has fullness in the suprapubic region and mild tenderness. Extremities: Bilateral lower extremities are without edema. Normal DP and PT pulses. Skin: Well perfused without any obvious rashes. Const: Vital Signs, click to edit/add: Vital Signs - 24 hr 07/06/22 18:16 Temperature 97.2 F L Pulse Rate [Right Pulse Oximeter] 68 Respiratory Rate 18 Blood Pressure [Ri ght Upper Arm] 119/78 Pulse Oximetry 91 Oxygen Delivery Me thod Room Air Course Course Hospital Course: Flores was easily changed per nursing. 1100 mL of clear urine was expelled. Sediment inside the Flores catheter. Vital Signs Vital signs: Initial Vital Signs Temperature 97.2 F L 07/06/22 18:16 Temperature Source Temporal Artery Scan 07/06/22 18:16 Pulse Rate 68 07/06/22 18:16 Respiratory Rate 18 07/06/22 18:16 Blood Pressure 119/78 07/06/22 18:16 Blood Pressure Mean 91 07/06/22 18:16 Blood Pressure Position Sitting 07/06/22 18:16 Pulse Oximetry 91 07/06/22 18:16 Oxygen Delivery Method 07/06/22 18:16 Vital Signs Temperature 97.2 F L 07/06/22 18:16 Pulse Rate 68 07/06/22 18:16 Respiratory Rate 18 07/06/22 18:16 Blood Pressure 119/78 07/06/22 18:16 Pulse Oximetry 91 07/06/22 18:16 Oxygen Delivery Method 07/06/22 18:16 Temperature 97.2 F L 07/06/22 18:16 Pulse Rate 68 07/06/22 18:16 Respiratory Rate 18 07/06/22 18:16 Blood Pressure 119/78 07/06/22 18:16 Pulse Oximetry 91 07/06/22 18:16 Oxygen Delivery Method 07/06/22 18:16 Medical Decision Making MDM Narrative Medical decision making narrative: Urinary retention secondary to a blocked Flores catheter. Flores exchange per above. Discharge Plan Discharge Clinical Impression: Acute urinary retention, Complication, blocked Flores catheter Patient Disposition: Home, Self-Care Condition: Improved Prescriptions: No Action doxycycline monohydrate 100 mg tablet 100 mg PO BID Qty: 20 0RF acetaminophen 325 mg tablet 650 mg PO Q6H PRN finasteride 5 mg tablet 5 mg PO DAILY multivitamin with folic acid [Tab-A-Jennifer] 400 mcg tablet 1 tab PO DAILY pantoprazole 40 mg tablet,delayed release (DR/EC) 40 mg PO DAILY polyethylene glycol 3350 [Gavilax] 17 gram/dose powder 17 g PO DAILY sertraline 50 mg tablet 50 mg PO Q24H tamsulosin 0.4 mg capsule 0.4 mg PO DAILY ciprofloxacin HCl 250 mg tablet 250 mg PO BID Qty: 14 0RF Follow Up/Referrals: Provider,Not a Local [Primary Care Provider] - Stand Alone Forms: [employer] Info Instructions
--- OUTSIDE RECORDS SUMMARY | 2022-07-06 19:04 | XMS_ITS ---
:1950 Author Care Team Providers Name Role Phone Erick Cooley Primary Care Provider Unavailable Allergies Code Code System Name Reaction Severity Status Onset NKDA ? Medications Notes: Finasteride 5mg; Gavilax POW; H igh-Potency MVI; Pantoprazole 40mg; Tamsulosin 0.4mg Problems Name Status Onset Date Source ? Clinical Finding Active 08/05/2015 History Procedure on Genitourinary System Active 10/14/2015 History Postoperative Care Active 10/14/2015 History Foreign Body Active 10/14/2015 History Procedures Date Name Performed by ? 10/14/2015 Cystoscopy and Treatment Information not available Notes: 10/14/2015 - CYSTOSCOPY AND CHANDLER ATMENT 08/31/2015 Fragmenting of Kidney Stone Information not available Notes: 08/31/2015 - FRAGMENTING OF KID NENA STONE Results Lab Results Date Name Specimen Result Interpretation Description Value Range Status Address ? 02/28/2022 Urinalysis, ? Color-Status Yellow ? ? Dipstick ? ? ? Clarity-Status Clear ? Glucose-Status Negative ? Bilirubin-Status Negative ? Ketones-Status Negative ? Sp [place]-Status 1.010 ? pH-Status 5.5 ? Protein-Status 5.0 ? Urobilinogen-Statu 0.2 ? ? s ? ? ? Nitrates-Status negative ? Blood-Status Moderate ? Leuko-Status Negative ? Specimen Type Catheterized ? Performed by SERGIO Christine/BSN ? Total Urine Volume 235ml ? ? Past Encounters 02/28/2022 Retention of Urine Erick Cooley MD: [address], [place] [address], Ph. Social History Tobacco Smoking Status Former Smoker Vaccine List None recorded. Plan of Care Reminders Provider Appointments None recorded. ? ? Lab None recorded. ? ? Referral None recorded. ? ? Procedures None recorded. ? ? Surgeries None recorded. ? ? Imaging None recorded. ? ? Vitals Height Weight BMI 6 ft 170 lbs 23.1 kg/m2
--- OUTSIDE RECORDS SUMMARY | 2022-07-06 19:04 | XMS_ITS | Clinical Summary ---
:[address] [facility] [place] [address] Care Team Providers Name Role Phone Feli Babin MD Primary Care Provider [phone] [facility] Unavailable Allergies No known active allergies Medications Medication Sig Dispensed Refills Start Date End Date Status finasteride (PROSCAR) 5 Take 1 Tablet (5 90 Tablet 3 2 Active mg tabletIndications: mg) by mouth BPH with urinary every morning. obstruction pantoprazole (PROTONIX) Take 1 Tablet 90 Tablet 3 11/23/2021 Active 40 mg delayed-release (40 mg) by mouth tabletIndications: once daily. Chronic GERD tamsulosin (FLOMAX) 0.4 Take 1 Capsule 90 Capsule 3 11/23/2021 Active mg capsuleIndications: (0.4 mg) by BPH with urinary mouth once daily obstruction, Chronic after a meal. constipation acetaminophen (TYLENOL) Take 650 mg by 0 11/06/2021 Active 325 mg tablet mouth every 4 hours if needed. Tab-A-Jennifer Take 1 Tablet by 0 02/13/2022 A ctive mouth once daily. 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 History of melanoma 11/23/2021 Acute renal failure 11/23/2021 Chronic GERD 11/23/2021 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 Encounters Date Type Specialty Care Team Description 05/24/2022 Nurse/Clinic Staff Only 05/24/2022 Travel 04/24/2022 Refill Feli Babin Refill Requ est MD [place] (Polyethylene G lycol) 04/23/2022 Nurse/Clinic Staff Insert (R outine catheter Only change) 04/23/2022 Travel from Last 3 Months Immunizations Name Administration Dates Next Due COVID-19 vaccine (Moderna 100mcg/0.5mL) 09/12/2021, 12/20/19, 11/21/2020 PFLIN COVID-19 vaccine ([employer] 02/22/2022 30mcg/0.3mL) PFLIN Influenza, High-dose Inactivated 06/30/2018 Tdap 09/30/2014, 09/30/2009, 07/24/2007 Family History Medical History Relation Name Comments Heart Disease Brother Relation Name Status Comments Brother Social History Tobacco Use Types Packs/Day Years Used Date Former Smoker Smokeless Tobacco: Never Used Tobacco Cessation: Counseling Given: Yes Alcohol Use Standard Drinks/Week Comments Not Currently 0 (1 standard drink = 0.6 oz pure alcoho l) very little Sex Assigned at Date Recorded Not on file Obstetrics History Last Filed Vital Signs Vital Sign Reading Time Taken Comments Blood Pressure 119/85 02/22/2022 11:14 AM CDT Pulse 72 02/22/2022 11:14 AM CDT Temperature 35.8 ??C (96.4 ??F) 04/19/2006 11:37 AM CDT Respiratory Rate 16 11/27/2021 11:55 AM 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 Oxygen Saturation 100% 02/22/2022 11:14 AM CDT Inhaled Oxygen Concentration - - Weight 75.3 kg (166 lb) 02/22/2022 11:14 AM CDT Height 182.9 cm (6') 11/23/2021 1:41 PM 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 Body Mass Index 22.51 11/23/2021 1:41 PM 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 Plan of Treatment Health Maintenance Due Date Last Done Comments Pneumococcal series for age 65+ (1 1958 - PCV) Zoster (shingles) series for age 1209/02/1971 50+ (1 of 2) Colonoscopy through age 75 1997 AAA screening age 55-77 2007 Medicare Wellness for age 65+ 2017 COVID-19 vaccine series (5 - 04/19/2022 02/22/2022, 021, Booster for Moderna series) 12/19/2020, Addition al history exists Influenza for age 65+ 05/31/2022 06/30/2018 BMI (ht and wt on same day) for 11/23/2022 11/23/2021 age 18+ Depression screening for age 12+ 11/27/2022 11/27/2021, Tetanus booster 09/30/2024 09/30/2014, 09/30/2009, 07/24/2007 Lipids for age 45-75 02/22/2027 02/22/2022 Tdap Completed 09/30/2014, 09/30/2009, 07/24/2007 Hepatitis C screening for age Completed 02/22/2022 18-79 Results Not on filefrom Last 3 Months Insurance Payer Benefit Plan / Subscriber ID Effective Phone Address T e Group Dates [employer] [id number] Effective [employer] for all OFFICE OF [facility] [address] [address] [place] [address] MEDICARE - PB USE MEDICARE PB ONLY [id number] 2019-Pre ATTN: CLAIMS ONLY sent [address] [place] [address] MEDICARE - PB USE MEDICARE PB ONLY [id number] 2019-Pre ATTN: CLAIMS ONLY sent [address] [place] [address] [facility] [id number] 2021-Pre [address] [place] [address] [facility] [id number] 2021-Pre [address] [place] [address] 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
--- OUTSIDE RECORDS SUMMARY | 2022-07-06 19:04 | XMS_ITS ---
[...] Bilirubin-Status Negative ? Ketones-Status Negative ? Sp Sharon-Status 1.010 ? pH-Status 5.5 ? Protein-Status 5.0 ? Urobilinogen-Statu 0.2 ? ? s ? ? ? Nitrates-Status negative ? Blood-Status Moderate ? Leuko-Status Negative ? Specimen Type Catheterized ? Performed by SERGIO Christine/BSN ? Total Urine Volume 235ml ? ? Past Encounters 02/28/2022 Retention of Urine Erick Cooley MD: [address], [place] [address], Ph. Social History Tobacco Smoking Status Former [...]
== END 2022-07-06 19:09 | disposition home or self-care (01) ==
LOC: ED 19:02
PROVIDERS: Emergency Provider Family Medicine
DX: R33.9 Retention of urine, unspecified (principal); T83.098A Other mechanical complication of other urinary catheter, initial encounter
CPT/HCPCS: 51702; 99283

== ENCOUNTER 2022-08-09 00:16 | Outpatient (CLI) | payer MEDICARE, MEDICAID, SELFPAY ==
--- OUTSIDE RECORDS SUMMARY | 2022-09-08 11:07 | XMS_ITS ---
[...] Bilirubin-Status Negative ? Ketones-Status Negative ? Sp [place]-Status 1.010 ? pH-Status 5.5 ? Protein-Status 5.0 ? Urobilinogen-Status 0.2 ? Nitrates-Status negative ? Blood-Status Moderate ? Leuko-Status Negative ? Specimen Type Catheterized ? Performed by Nanci,RN/BSN ? Total Urine Volume 235ml ? ? Past Encounters Encounter Date Diagnosis Provider 07/25/2022 JUAN Zepeda: [id number] [place] [phone], Ph. 02/28/2022 Retention of Urine Erick Cooley MD: [id number] [place] [phone], Ph. Social History Tobacco Smoking Status Former [...]
--- OUTSIDE RECORDS SUMMARY | 2022-09-08 11:07 | XMS_ITS | Encounter Summary ---
[...] History Tobacco Smoking Status Former Smoker What is your level of alcohol consumption? None Marital status What was the date of your most recent tobacco 02/28/2022 screening? What is your level of caffeine consumption? None Race White When did you quit smoking? 1-5yearssincelastcigarette Functional Status Unknown. Past Encounters Encounter Date Diagnosis Provider 07/25/2022 JUAN ZepedaC: [address] [facility] [place] [address], Ph. [phone] History of Present Illness Note: <div>11/27/21 ([facility]): 71 yo male with history of frontrotemporal [...] Chun was last changed around 07/10 in [place]. Remains on 0.4 mg of tamsulosin and [...]
--- OUTSIDE RECORDS SUMMARY | 2022-09-08 11:07 | XMS_ITS | Clinical Summary ---
:1950 Author Organization [facility] [place] [address] Care Team Providers Name Role Phone Feli Babin MD Primary Care Provider [phone] [facility] Unavailable Sabina Chang RN Unavailable Amelia [...] Encounters Date Type Specialty Care Team Description 08/30/2022 Patient Outreach Boni, Population Health KAYDEN Montano (Social work community resource naviga tion. /) 08/16/2022 Office Visit Feli Babin [facility] F/ U (DOD: MD Alona 08/11/22) 08/16/2022 Travel 08/14/2022 Telephone [facility], Feli Lab (Lab wo rk needed?) MD Alona 08/13/2022 Telephone Brenda Rosado Appointment JUAN Nogueira 08/13/2022 Telephone Feli Babin Concerns (Dell Sage MD leaving facilit y ) 08/09/2022 Orders Only 2 scans: (2-Ord ) ECHO COMPLETE WO CON TRAST ([id number]) 08/02/2022 Nurse/Clinic Staff Insert (Lang chun Only change) 08/02/2022 Travel 07/30/2022 Telephone Feli Babin Appointment (Nurse MD Alona visit- catheter change) 07/09/2022 Telephone Feli Babin Referral ([facility]) MD Alona from Last 3 Months Immunizations Name Administration Dates Next Due COVID-19 vaccine (Moderna 100mcg/0.5mL) 09/12/2021, 12/20/19, 11/21/2020 PF, MDV COVID-19 vaccine (Tocagen 02/22/2022 30mcg/0.3mL) PF, MDV Influenza, High-dose Inactivated 06/30/2018 Tdap 09/30/2014, 09/30/2009, 07/24/2007 Family History Medical History Relation Name Comments Heart Disease Brother Relation Name Status Comments Brother Social History Tobacco Use Types Packs/Day Years Used Date Smoking Tobacco: Former Smokeless Tobacco: Never Tobacco Cessation: Counseling Given: Yes Alcohol Use Standard Drinks/Week Comments Not Currently 0 (1 standard drink = 0.6 oz pure alcoho l) Sex Assigned at Date Recorded Not on file COVID-19 Exposure Response Date Recorded In the last 10 days, have you been in contact with No / Unsu re 08/16/2022 1:40 PM INFECTION PREVENTION PRACTITIONER someone who was confirmed or suspected to have Coronavirus/COVID-19? Obstetrics History Last Filed Vital Signs Vital Sign Reading Time Taken Comments Blood Pressure 106/70 08/16/2022 2:07 PM INFECTION PREVENTION PRACTITIONER Pulse 78 08/16/2022 2:07 PM INFECTION PREVENTION PRACTITIONER Temperature 35.8 ??C (96.4 ??F) 04/19/2006 11:37 AM CDT Respiratory Rate 16 11/27/2021 11:55 AM INFECTION PREVENTION PRACTITIONER Oxygen Saturation 98% 08/16/2022 2:07 PM INFECTION PREVENTION PRACTITIONER Inhaled Oxygen Concentration - - Weight 75.3 kg (166 lb) 08/16/2022 2:07 PM INFECTION PREVENTION PRACTITIONER Height 182.9 cm (6') 11/23/2021 1:41 PM INFECTION PREVENTION PRACTITIONER Body Mass Index 22.51 11/23/2021 1:41 PM INFECTION PREVENTION PRACTITIONER Plan of Treatment Upcoming Encounters Date Type Specialty Care Team Description 11/29/2022 Office Visit Ryan Davies MD [address] [place] [address] (Wo rk) Health Maintenance Due [...] unknown Result s for this DIFFERENTIAL PM INFECTION PREVENTION PRACTITIONER etiology procedure are i n the results section. VITAMIN B12 Routine 08/16/2022 2:56 Frontotemporal Results fo r this PM INFECTION PREVENTION PRACTITIONER dementia (HC) procedure are in the results section. TSH WITH REFLEX Routine 08/16/2022 2:56 Frontotemporal Results for this PM INFECTION PREVENTION PRACTITIONER dementia (HC) procedure are in the results section. CBC WITH AUTO Routine 08/16/2022 2:56 Anemia of unknown Result s for this DIFFERENTIAL PM INFECTION PREVENTION PRACTITIONER etiology procedure are i n the results section. COMP METABOLIC PANEL Routine 08/16/2022 2:56 Frontotemporal Re sults for this PM INFECTION PREVENTION PRACTITIONER dementia (HC) procedure are in Renal insufficiency the resu lts section. ECHO COMPLETE WO Routine 08/09/2022 4:20 Elevated tropon in Results for this CONTRAST PM INFECTION PREVENTION PRACTITIONER NSTEMI (non-ST procedure are in elevated myocardial [...] CBC WITH AUTO DIFFERENTIAL (08/16/2022 2:56 PM INFECTION PREVENTION PRACTITIONER) [facility] Method Time Signature WHITE BLOOD 4.4 (L) 4.5 - 08/16/2022 [facility] COUNT 11.0 3:09 PM [facility]/ CLINIC mm RED BLOOD COUNT 3.86 (L) 4.30 - 08/16/2022 [facility] 5.90 3:09 PM [facility]/ mm CLINIC HEMOGLOBIN 12.1 (L) 13.5 - 08/16/2022 [facility] 17.5 g/dL 3:09 PM [facility] HEMATOCRIT 35.9 (L) 37.0 - 08/16/2022 [facility] 53.0 % 3:09 PM [facility] MCV 93 80 - 100 08/16/2022 [facility] fL 3:09 PM [facility] MCH 31.3 26.0 - 08/16/2022 [facility] 34.0 pg 3:09 PM [facility] MCHC 33.7 32.0 - 08/16/2022 [facility] 36.0 g/dL 3:09 PM [facility] RDW 14.6 11.5 - 08/16/2022 [facility] 15.5 % 3:09 PM [facility] PLATELET COUNT 160 140 - 440 08/16/2022 [facility] thou/cu 3:09 PM [facility] MPV 11.3 (H) 6.5 - 08/16/2022 [facility] 11.0 fL 3:09 PM [facility] % NEUT 70.9 % 08/16/2022 [facility] 3:09 PM [facility] % LYMPH 16.7 % 08/16/2022 [facility] 3:09 PM [facility] % MONO 11.1 % 08/16/2022 [facility] 3:09 PM [facility] % EOS 1.1 % 08/16/2022 [facility] 3:09 PM [facility] % BASO 0.2 % 08/16/2022 [facility] 3:09 PM [facility] ABSOLUTE 3.1 1.7 - 7.0 08/16/2022 [facility] NEUTROPHILS thou/cu 3:09 PM [facility] ABSOLUTE 0.7 (L) 0.9 - 2.9 08/16/2022 [facility] LYMPHOCYTES thou/cu 3:09 PM [facility] ABSOLUTE 0.5 <0.9 08/16/2022 [facility] MONOCYTES thou/cu 3:09 PM [facility] ABSOLUTE 0.1 <0.5 08/16/2022 [facility] EOSINOPHILS thou/cu 3:09 PM [facility] ABSOLUTE 0.0 <0.3 08/16/2022 [facility] BASOPHILS thou/cu 3:09 PM [facility] Specimen Anatomical Collection Method / Collection Time Recei yohannes Time (Source) Location / Volume Laterality Blood BLOOD SPECIMEN / Venipuncture / 08/16/2022 2:56 2021 3:00 Unknown Unknown PM INFECTION PREVENTION PRACTITIONER PM INFECTION PREVENTION PRACTITIONER Feli Babin MD HEMATOLOGY Performing Organization Address City/State/ZIP Code Phon e Number [facility] [address] [place] [address] TSH WITH REFLEX (08/16/2022 2:56 PM INFECTION PREVENTION PRACTITIONER) athologist Signature TSH 2.47 0.35 - 4.94 08/18/2022 [facility] uIU/mL 10:32 PM INFECTION PREVENTION PRACTITIONER LABORATORY-CENTR AL LABORATORY Specimen Anatomical Collection Method / Collection Time Recei yohannes Time (Source) Location / Volume Laterality Blood BLOOD SPECIMEN / Venipuncture / 08/16/2022 2:56 2021 3:00 Unknown Unknown PM INFECTION PREVENTION PRACTITIONER PM INFECTION PREVENTION PRACTITIONER Narrative [facility] LABORATORY-CENTRAL LABORAT ORY - 08/18/2022 10:32 PM INFECTION PREVENTION PRACTITIONER In Adults, TSH values between 5.00 and 10.00 uIU/ml do not necessarily indicate the presence of Hyp othyroidism. Correlation with clinical findings such as presence of goiter and/or Thyroperoxidase (TPO) Antibody ma y be helpful. For more information please refer to LEONCIO 20 ; 291: 228-238. Feli Babin MD CHEMISTRY Performing Organization Address City/State/ZIP Code Phon e Number [facility] [address] [place] [address] [place] [address] LABORATORY-CENTRAL 2000 LABORATORY VITAMIN B12 (08/16/2022 2:56 PM INFECTION PREVENTION PRACTITIONER) P athologist Signature VITAMIN B12 651 180 - 914 08/17/2022 [facility] pg/mL 10:38 AM INFECTION PREVENTION PRACTITIONER LABORATORY-CENT RAL LABORATORY Specimen Anatomical Collection Method / Collection Time Recei yohannes Time (Source) Location / Volume Laterality Blood BLOOD SPECIMEN / Venipuncture / 08/16/2022 2:56 2021 3:00 Unknown Unknown PM INFECTION PREVENTION PRACTITIONER PM INFECTION PREVENTION PRACTITIONER Feli Babin MD CHEMISTRY Performing Organization Address City/State/ZIP Code Phon e Number [facility] [address] [place], [place] [address] [address] LABORATORY-CENTRAL 2000 LABORATORY (ABNORMAL) COMP METABOLIC PANEL (08/16/2022 2:56 PM INFECTION PREVENTION PRACTITIONER) Patholo gist Method Time Signature SODIUM 145 135 - 145 08/18/2022 [facility] mmol/L 10:16 PM INFECTION PREVENTION PRACTITIONER [facility] TRAL LABORATORY POTASSIUM 3.9 3.5 - 5.0 08/18/2022 [facility] mmol/L 10:16 PM INFECTION PREVENTION PRACTITIONER [facility] TRAL LABORATORY CHLORIDE 108 98 - 110 08/18/2022 [facility] mmol/L 10:16 PM INFECTION PREVENTION PRACTITIONER LAB[facility] TRAL LABORATORY CO2,TOTAL 30 21 - 31 08/18/2022 [facility] mmol/L 10:16 PM INFECTION PREVENTION PRACTITIONER LAB[facility] TRAL LABORATORY ANION GAP 7 5 - 18 08/18/2022 [facility] 10:16 PM INFECTION PREVENTION PRACTITIONER [facility] TRAL LABORATORY GLUCOSE 158 (H) 65 - 100 08/18/2022 [facility] mg/dL 10:16 PM INFECTION PREVENTION PRACTITIONER LAB[facility]ATORY[facility] TRAL LABORATORY CALCIUM 9.0 8.5 - 08/18/2022 [facility] 10.5 10:16 PM INFECTION PREVENTION PRACTITIONER LAB[facility]ATORY-[facility] mg/dL TRAL LABORATORY BUN 17 8 - 25 08/18/2022 [facility] mg/dL 10:16 PM INFECTION PREVENTION PRACTITIONER LAB[facility] TRAL LABORATORY CREATININE 1.29 (H) 0.72 - 08/18/2022 [facility] 1.25 10:16 PM INFECTION PREVENTION PRACTITIONER [facility] mg/dL TRAL LABORATORY BUN/CREAT RATIO 13 10 - 20 08/18/2022 [facility] 10:16 PM INFECTION PREVENTION PRACTITIONER LAB[facility]ORY[facility] TRAL LABORATORY ALBUMIN 3.6 3.2 - 4.6 08/18/2022 [facility] g/dL 10:16 PM INFECTION PREVENTION PRACTITIONER LAB[facility]AT[facility] TRAL LABORATORY PROTEIN,TOTAL 5.6 (L) 6.0 - 8.0 08/18/2022 [facility] g/dL 10:16 PM INFECTION PREVENTION PRACTITIONER LAB[facility]AT[facility] TRAL LABORATORY GLOBULIN 2.0 2.0 - 3.7 08/18/2022 [facility] g/dL 10:16 PM INFECTION PREVENTION PRACTITIONER LAB[facility]ATORY[facility] TRAL LABORATORY A/G RATIO 1.8 1.0 - 2.0 08/18/2022 [facility] 10:16 PM INFECTION PREVENTION PRACTITIONER LAB[facility]ATORY[facility] TRAL LABORATORY BILIRUBIN,TOTAL 0.4 0.2 - 1.2 08/18/2022 [facility] mg/dL 10:16 PM INFECTION PREVENTION PRACTITIONER LAB[facility]ATORY[facility] TRAL LABORATORY ALK PHOSPHATASE 79 50 - 136 08/18/2022 [facility] IU/L 10:16 PM INFECTION PREVENTION PRACTITIONER LAB[facility] TRAL LABORATORY ALT (SGPT) 47 (H) 8 - 45 08/18/2022 [facility] IU/L 10:16 PM INFECTION PREVENTION PRACTITIONER LAB[facility] LABORATORY AST (SGOT) 65 (H) 2 - 40 08/18/2022 [facility] IU/L 10:16 PM INFECTION PREVENTION PRACTITIONER LAB[facility] TRAL LABORATORY eGFR 60 (L) >90 08/18/2022 [facility] mL/min/1. 10:16 PM INFECTION PREVENTION PRACTITIONER LAB[facility]ATORY-[facility] 73m2 TRAL LABORATORY Comment: As of [...] 08/16/2022 2:56 2021 3:00 Unknown Unknown PM INFECTION PREVENTION PRACTITIONER PM INFECTION PREVENTION PRACTITIONER Feli Babin MD CHEMISTRY Performing Organization Address City/State/ZIP Code Phon e Number [facility] [address] [place] [address] LABORATORY-CENTRAL 2000 LABORATORY ECHO COMPLETE WO CONTRAST (08/09/2022 4:20 PM INFECTION PREVENTION PRACTITIONER) P athologist Signature AORTIC VALVE 14 mmHg MEAN PG EJECTION 82 % FRACTION PEAK TR 2.5 m/s VELOCITY LVEDD 3.9 cm EJECTION 70 - 75% FRACTION Anatomical Region Laterality Modality HEART Ultrasound Specimen (Source) Anatomical Collection Method Collection Time Re ceived Time Location / / Volume Laterality 08/09/2022 3:41 PM INFECTION PREVENTION PRACTITIONER Narrative 08/09/2022 4:48 PM INFECTION PREVENTION PRACTITIONER ECHOCARDIOGRAM RASHMI CUEVA ? Accessi on#: ?? [id number] : ?1950 71 years Study Date: ?? 08/09/2022 3:41:48 PM Gender: M ?BP: ? 140/84 mmHg Height: 183.00 cm ?BSA: ?1.90 m? ?? Weight: 69.00 kg ? Tech: ? MCK ? Referring MD: JESSA PERDOMO Site: ? [facility] Reading Location: [place] Procedure: 2D, Color Doppler and Spectra l [...] . This study was interpreted by an [email or web address] CC: [facility], Med/ Surg - IP [facility]. ??Final ?? Procedure Note Meet Murillo MD - 08/09/2022Forma tting of this note might be different from the original. ECHOCARDIOGRAM RASHMI CUEVA : 1950 71 years Study Date: 07/31 3:41:48 PM Gender: M BP: 140/84 mmHg Height: 183.00 cm BSA: 1.90 m? ?? Weight: 69.00 kg Tech: [facility] Referring MD: JESSA PERDOMO Site: [facility] Reading Location: [facility] Procedure: 2D, Color Doppler and Spectra l [...] . This study was interpreted by an [email or web address]. CC: [facility], Med/ Surg - IP [facility]. Final Jessa Perdomo MD ECHO ORD (ABNORMAL) URINALYSIS MICROSCOPIC (08/02/2022 9:45 AM CDT) [facility] Method Time Signature RBC - (A) 0-2, None 08/02/2022 [facility] Seen /HPF 10:03 AM CDT [facility] WBC -25 (A) 0-2, 3-5, 08/02/2022 [facility] None Seen 10:03 AM CDT [place] /HPF CLINIC BACTERIA Moderate (A) None 08/02/2022 [facility] Seen, 10:03 AM CDT [place] Rare, Few CLINIC Bacteria/ HPF EPITHELIAL Few None 08/02/2022 [facility] CELLS Seen, Few 10:03 AM CDT [place] Epi/HPF CLINIC Mucus Present 08/02/2022 [facility] 10:03 AM CDT [facility] WHITE CELL Present (A) (none) 08/02/2022 [facility] CLUMPS 10:03 AM T [facility] HYALINE CASTS -25 (A) 0-2, 3-5 08/02/2022 [facility] /LPF 10:03 AM CDT [facility] AMORPHOUS Present (A) (none) 08/02/2022 [facility] 10:03 AM T [facility] Specimen Anatomical Collection Method Collection Time Receive d Time (Source) Location / / Volume Laterality Urine URINE SPECIMEN / Non-Blood / 08/02/2022 9:45 AM 08/02 9:52 Unknown Unknown CDT AM CDT Feli Babin MD URINE Performing Organization Address City/State/ZIP Code Phon e Number [facility] [address] [place] [address] URINE CULTURE (08/02/2022 9:45 AM CDT) [facility] Method Time Signature CULTURE 10-50,000 CFU/mL 08/04/2022 [facility] H of multiple 2:12 PM CDT LABORATORY-[facility] organisms, TRAL probable LABORATORY contaminants Specimen Anatomical Collection Method Collection Time Receive d Time (Source) Location / / Volume Laterality Urine URINE SPECIMEN / Non-Blood / 08/02/2022 9:45 AM 08/02 9:52 Unknown Unknown CDT AM CDT Feli Babin MD MICROBIOLOGY Performing Organization Address City/State/ZIP Code Phon e Number [facility] [address] [place] [address] LABORATORY-CENTRAL 2000 LABORATORY (ABNORMAL) UA W/ SEDIMENT EXAM REFLEXED PER CRITERIA (08/02/2022 9:45 AM CDT) [facility] Method Time Signature COLOR Yellow Yellow Color 08/02/2022 [facility] 9:58 AM CDT [facility] CLARITY Slightly Clear 08/02/2022 [facility] Cloudy (A) Clarity 9:58 AM T [facility] SPECIFIC >=1.030 (A) 1.010, 08/02/2022 [facility] GRAVITY,URINE 1.015, 9:58 AM [facility] 1.020, 1.025 [facility] PH,URINE 6.0 6.0, 7.0, 08/02/2022 [facility] 8.0, 5.5, 9:58 AM T [place] 6.5, 7.5, CLINIC 8.5 UROBILINOGEN, Normal Normal EU/dl 08/02/2022 [facility] QUALITATIVE 9:58 AM T [facility] PROTEIN, 30 (A) Negative 08/02/2022 [facility] URINE mg/dL 9:58 AM [facility] GLUCOSE, Negative Negative 08/02/2022 [facility] URINE mg/dL 9:58 AM T [facility] KETONES,URINE Trace (A) Negative 08/02/2022 [facility] mg/dL 9:58 AM T [facility] BILIRUBIN,URI Abnormal (A) Negative 08/02/2022 [facility] NE 9:58 AM CDT [facility] Comment: A variety of metabolites and/or medications may result in a positive bilirubin result. Clinical correlation i s recommended. OCCULT BLOOD,URINE Moderate (A) Negative 08/02/2022 9:58 AM [facility] NITRITE Positive (A) Negative 08/02/2022 9:58 AM [facility] CDT [facility] LEUKOCYTE ESTERASE Small (A) Negative 08/02/2022 9:58 AM [facility] Specimen Anatomical Collection Method Collection Time Receive d Time (Source) Location / / Volume Laterality Urine URINE SPECIMEN / Non-Blood / 08/02/2022 9:45 AM 08/02 9:52 Unknown Unknown CDT AM CDT Feli Babin MD URINE Performing Organization Address City/State/ZIP Code Phon e Number [facility] [address] [place] [address] from Last 3 Months Insurance Payer Benefit Plan / Subscriber ID Effective Phone Address T e Group [place] [id number] Effective [employer] for all OFFICE OF [facility] [employer] [facility] [address] [address] [place] [address] MEDICARE - PB USE MEDICARE PB ONLY [id number] 2019-Pre ATTN: CLAIMS ONLY sent [address] [place] [address] MEDICARE - PB USE MEDICARE PB ONLY [id number] 2019-Pre ATTN: CLAIMS ONLY sent [address] [place] [address] [facility] [id number] 2021-Pre [address] [place] [address] [facility] [id number] 2021-Pre [address] [place] [address] Care Teams Want Ad Receiver Relationship Specialty Start Date End Date Feli Babin MD PCP - General Family Practice 11/15/21 [address] [place] [address] [facility] 11/15/[address] [id number] Sabina Chang, pipe line gauger - [facility] Registered Nurse 06/30/[address] [address] Amelia Mukherjee, pipe line gauger - [facility] Registered Nurse 06/30/[address] [id number]
== END 2022-08-09 00:17 | disposition home or self-care (01) ==
LOC: AMB 09-08 11:05
PROVIDERS: PCP Family Medicine; Visit Provider Family Medicine
DX: I95.9 Hypotension, unspecified (principal)
CPT/HCPCS: A0425; A0427

== ENCOUNTER 2022-08-09 00:43 | Inpatient (IN) | payer MEDICARE, MEDICAID, SELFPAY ==
[2022-08-09] VITALS (29 sets, daily range): BP systolic 89–140; BP diastolic 51–93; PULSE 64–73; RESP 15–16; TEMP 35.9–37; O2SAT 95–100; BMI 20.6
--- NOTE | 2022-08-09 01:10 | ED_ITS ---
HPI - General Adult General Time Seen by Provider: 01:11 Date Seen: 08/09/22 Chief complaint: Unspecified Complaint, Adult Stated complaint: Low Blood Pressure Time Seen by Provider: 08/09/22 01:10 Source: patient, EMS, RN notes reviewed and old records reviewed Mode of arrival: EMS Limitations: no limitations History of Present Illness HPI narrative: Dawood is a very pleasant 71-year-old male with history of bladder stones, urinary retention now with indwelling catheter, bipolar disorder and resident of [facility] who is brought to the emergency room by EMS after he was found outside walking. Dawood had departed [facility] for a walk at approximately 2200 hours per nursing report. EMS was driving by and noticed that he appeared to be staggering and when they stopped to talk to him found that he had a blood pressure of 70 systolic. They gave him IV fluids and transported him here to the emergency room. At this time Dawood states that he came in because he was staggering and had low blood pressure. He denies feeling poorly but does not know why he was staggering. He states that he has had diarrhea for a while but denies chest pain shortness of breath abdominal pain or fever. I do ask where he lives and he states [facility] although he follows up with the fact that they have told him that he does not live there. He denies any other issues at this time. He denies alcohol use or drug use. I was able to place a call to Luma the nurse from [facility]. Indeed, Dawood does live at [facility] and has been more confused. Nurse states that 48 hours ago he was telling somebody that he had COVID and he was going to be discharged shortly. She states that he she was worried about a UTI as this has happened in the past but he refused to go to the hospital. She does not know of any recent falls or trauma. Related Data Home Medications Medication Instructions Recorded Confirmed acetaminophen 325 mg tablet 650 mg PO Q6H PRN 06/10/22 07/05/22 finasteride 5 mg tablet 5 mg PO DAILY 06/10/22 07/05/22 multivitamin with folic acid 400 1 tab PO DAILY 06/10/22 07/05/22 mcg tablet (Tab-A-Jennifer) pantoprazole 40 mg tablet,delayed 40 mg PO DAILY 06/10/22 07/05/22 release polyethylene glycol 3350 17 17 g PO DAILY 06/10/22 07/05/22 gram/dose oral powder (Gavilax) sertraline 50 mg tablet 50 mg PO Q24H 06/10/22 07/05/22 tamsulosin 0.4 mg capsule 0.4 mg PO DAILY 06/10/22 07/05/22 Previous Rx's Medication Instructions Recorded ciprofloxacin HCl 250 mg tablet 250 mg PO BID UTI #14 tabs 07/03/22 doxycycline monohydrate 100 mg 100 mg PO BID #20 tabs 07/05/22 tablet Allergies Allergy/AdvReac Type Severity Reaction Status Date / Time No Known Drug Allergies Allergy Verified 07/05/22 10:39 Review of Systems Status of ROS: Reports: 10 or more systems reviewed and unremarkable except as noted in History and below Const: Denies: fever, chills or fatigue Eyes: Denies: change in vision ENMT: Denies: throat pain, neck pain or difficulty swallowing Cardio: Denies: chest pain, edema, swelling of feet/ankles or shortness of breath with exertion Resp: Denies: shortness of breath or cough GI: Reports: diarrhea; Denies: abdominal pain, nausea, vomiting, difficulty swallowing or blood in stool Musculo: Denies: back pain, neck pain or extremity pain Integ/Breast: Denies: rash Neuro: Reports: weakness in extremities; Denies: headache or slurred speech Psych: Denies: anxiety Endo: Denies: fatigue PFSH PFS Medical History Acute renal failure Benign prostatic hyperplasia with urinary retention Bipolar disorder Chronic GERD Degenerative disease of nervous system Frontotemporal dementia History of melanoma Hx of nephrolithotomy with removal of calculi Kidney stone Renal insufficiency Tinnitus Urinary retention Social History Smoking Status: Former smoker Do you use any of these nicotine containing products: None How often do you have a drink containing alcohol: never How often do you have six or more drinks on one occasion: Never AUDIT-C Alcohol total score: 0 Non-prescribed substance use: denies use Exam Narrative: Exam Narrative: Dawood is alert and oriented. Makes 1 untrue statement and that he was told by [facility] staff that he does not live there anymore. This is wrong. Moderate eye contact. Pupils are constricted at approximately 2-3 mm. EOM is full. Obeys commands. GCS of 15. Head appears atraumatic normocephalic. Neck is supple. No midline tenderness. Oral cavity with tacky mucous membranes. Heart with a regular rate and rhythm and lungs are clear to auscultation. Abdomen is soft nontender. Moving all extremities. No evidence of fall. Const: Vital Signs, click to edit/add: Vital Signs - 24 hr 08/09/22 00:50 08/09/22 01:00 08/09/22 03:00 Temperature 96.7 F L Pulse Rate Pulse Rate [Left P ulse Oximeter] 73 72 69 Respiratory Rate 16 16 16 Blood Pressure Blood Pressure [Le ft Upper Arm] 90/51 L 89/53 L 124/78 Pulse Oximetry 98 97 98 Oxygen Delivery Me thod Room Air Room Air Room Air 08/09/22 01:15 08/09/22 01:30 08/09/22 02:00 Temperature Pulse Rate Pulse Rate [Left P ulse Oximeter] 71 72 69 Respiratory Rate 16 16 16 Blood Pressure Blood Pressure [Le ft Upper Arm] 96/60 102/64 100/62 Pulse Oximetry 98 98 98 Oxygen Delivery Me thod Room Air Room Air Room Air 08/09/22 02:30 08/09/22 03:22 08/09/22 03:44 Temperature Pulse Rate 67 70 Pulse Rate [Left P ulse Oximeter] 69 Respiratory Rate 16 Blood Pressure 116/68 124/80 Blood Pressure [Le ft Upper Arm] 113/75 Pulse Oximetry 98 100 98 Oxygen Delivery Me thod Room Air 08/09/22 04:01 08/09/22 04:41 08/09/22 05:01 Temperature Pulse Rate 68 67 68 Pulse Rate [Left P ulse Oximeter] Respiratory Rate Blood Pressure 119/76 124/84 133/82 Blood Pressure [Le ft Upper Arm] Pulse Oximetry 98 99 100 Oxygen Delivery Me thod Documenting provider has reviewed patient's vital signs: yes Course Course Hospital Course: At this time Dawood is alert and oriented. Initially hypotensive at 70 systolic according to EMS he is now improved to 89 and now 96 after 500 mL of fluid. We will repeat this amount. It is noted that he appears to be more confused. We will also obtain a urinalysis, CBC, comprehensive panel, CRP, drug screen, head CT, ETOH. Reevaluation(s) Reevaluation #1: Patient noted to have a drop in his hemoglobin from 12.4-10.7. He does describe ongoing diarrhea but no reports of blood. Will guaiac stool and also check C d iff as I do see that he was placed on antibiotic recently. Also noted elevated troponin at 0.7 in the setting of a creatinine elevated at 1.7. 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 Will repeat troponin in 90 minutes. Patient denies chest pain. Vital Signs Vital signs: Initial Vital Signs Temperature 96.7 F L 08/09/22 00:50 Temperature Source Temporal Artery Scan 08/09/22 00:50 Pulse Rate 73 08/09/22 00:50 Pulse Rhythm 08/09/22 00:50 Respiratory Rate 16 08/09/22 00:50 Blood Pressure 90/51 L 08/09/22 00:50 Blood Pressure Mean 64 08/09/22 00:50 Blood Pressure Position Sitting 08/09/22 00:50 Pulse Oximetry 98 08/09/22 00:50 Oxygen Delivery Method 08/09/22 00:50 Vital Signs Temperature 96.7 F L 08/09/22 00:50 Pulse Rate 73 08/09/22 00:50 Respiratory Rate 16 08/09/22 00:50 Blood Pressure 90/51 L 08/09/22 00:50 Pulse Oximetry 98 08/09/22 00:50 Oxygen Delivery Method 08/09/22 00:50 Temperature 96.7 F L 08/09/22 00:50 Pulse Rate 68 08/09/22 05:01 Respiratory Rate 16 08/09/22 03:00 Blood Pressure 133/82 08/09/22 05:01 Pulse Oximetry 100 08/09/22 05:01 Oxygen Delivery Method 08/09/22 03:00 Medical Decision Making MDM Narrative Medical decision making narrative: 1. Hypotension-resolved with fluids. Blood pressure now 130 systolic. Likely secondary to dehydration possibly from diarrhea which patient describes as creatinine was elevated at 1.7 with previous values recently being normal. 2. UTI-Rocephin 1 g IV. No signs of sepsis at this time. 3. . Diarrhea -unable to test any stools at this time. I had ordered a Hemoccult as well as C diff. no abdominal pain. Abdominal exam benign. Recent treatment with doxycycline and Cipro. 4. . Anemia-hemoglobin previously 12.4 and now a low 10.7. No evidence of tachycardia. 5. . Elevated troponin-initial troponin 0.07 in the setting of an creatinine of 1.7. It then double to 0.14 and then 0.18. However, patient had no chest pain, nausea, dizziness during this time. 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 I did speak with Cardiology. At this time they are in agreement with aspirin but would hold off on heparin. They suggest a recheck of EKG and troponin in a few hours. They also suggest echocardiogram. Suspect that the prolonged hypotension may be the cause of leaked troponins. 6. Bipolar disorder-stable. Patient has been cooperative. 7. Disposition-admission under outpatient observation to Dr. Rosalinda HAJI. But there had been a question regarding bilateral pneumothoraces on the x-ray of the chest. This was noted by radiologist and so I did follow-up with a CT of the chest and there is no evidence of pneumothorax Medical Records Medical records reviewed: Yes I reviewed the patient's medical records Lab Data Lab results reviewed: Yes I reviewed the patient's lab results Labs: Lab Results 08/09/22 08/09/22 08/09/22 Range/Units 01:25 01:25 01:25 WBC 5.24 (4.50-11.00) K/uL RBC 3.50 L (4.30-5.90) m/uL Hgb 10.7 L (13.5-17.5) gm/dL Hct 32.4 L (37.0-53.0) % MCV 93 (80-100) fL MCH 31 (26-34) pg MCHC 33 (32-36) gm/dL RDW Coeff of Vidhya 13.2 (11.5-15.5) % Plt Count 135 L (140-440) K/uL Neut % (Auto) 81.8 H (42.0-72.0) % Lymph % (Auto) 8.8 L (20-44) % [place] % (Auto) 8.4 (0.0-11.0) % Eos % (Auto) 0.4 (0.0-7.0) % Baso % (Auto) 0.4 (0.0-3.0) % Neut # (Auto) 4.30 (1.7-7.0) K/uL Lymph # (Auto) 0.50 L (0.90-2.90) K/uL [place] # (Auto) 0.40 (0.00-0.90) K/UL Eos # (Auto) 0.02 (0.00-0.50) K/uL Baso # (Auto) 0.02 (0.00-0.30) K/uL Abs Immat Gran (auto) 0.01 (0.00-0.30) K/uL Imm/Tot Granulo (auto) 0.2 % Sodium 141 (135-149) mmol/L Potassium 3.9 (3.6-5.1) mmol/L Chloride 107 (96-114) mmol/L Carbon Dioxide 25 (20-32) mmol/L BUN 30 (7-30) mg/dL Creatinine 1.7 H (0.5-1.5) mg/dL Estimated GFR 43 ml/min Glucose 76 (60-115) mg/dL Venous Lactic Acid (Serial Order) Calcium 9.1 (8.4-10.6) mg/dL Total Bilirubin 0.7 (0.1-1.5) mg/dL AST 72 H (12-35) U/L ALT 32 (4-50) U/L Alkaline Phosphatase 77 (40-150) U/L Troponin I (0.01-0.04) ng/mL C-Reactive Protein 1.2 H (0.5-1.0) mg/dL Total Protein 5.9 L (6.0-8.3) g/dL Albumin 3.8 (3.3-5.0) g/dL Urine Color (Yellow) Urine Appearance (Clear) Urine pH (5.0-8.5) Ur Specific [place] (1.000-1.030) Urine Protein (Negative) Urine Glucose (UA) (Negative) Urine Ketones (Negative) Urine Blood (Negative) Urine Nitrite (Negative) Urine Bilirubin (Negative) Urine Urobilinogen (0.2-1.0) Ur Leukocyte Esterase (Negative) Urine RBC (0-2) Urine WBC (0-5) Ur Squamous Epith Cells (None-Few) Amorphous Sediment (None) Urine Bacteria (None) Urine Mucus (None) Urine Opiates Screen (Negative) Ur Oxycodone Screen (Negative) Urine Methadone Screen (Negative) Ur Propoxyphene Screen (Negative) Ur Barbiturates Screen (Negative) U Tricyclic Antidepress (Negative) Ur Phencyclidine Scrn (Negative) Ur Amphetamines Screen (Negative) U Methamphetamines Scrn (Negative) U Benzodiazepines Scrn (Negative) Urine Cocaine Screen (Negative) U Marijuana (THC) Screen (Negative) Ur Drug Screen Comment Ethyl Alcohol < 0.01 L (0.01-0.03) % SARS-CoV-2 (PCR) Negative SARS-CoV-2 (Negative) Influenza Type A (PCR) Negative PCR FLU A (Negative) Influenza Type B (PCR) Negative PCR FLU B (Negative) POC Creatinine (0.6-1.3) mg/dl POC Troponin I (0.01-0.04) ng/ml 08/09/22 08/09/22 08/09/22 Range/Units 01:25 01:32 01:32 WBC (4.50-11.00) K/uL RBC (4.30-5.90) m/uL Hgb (13.5-17.5) gm/dL Hct (37.0-53.0) % MCV (80-100) fL MCH (26-34) pg MCHC (32-36) gm/dL RDW Coeff of Vidhya (11.5-15.5) % Plt Count (140-440) K/uL Neut % (Auto) (42.0-72.0) % Lymph % (Auto) (20-44) % [place] % (Auto) (0.0-11.0) % Eos % (Auto) (0.0-7.0) % Baso % (Auto) (0.0-3.0) % Neut # (Auto) (1.7-7.0) K/uL Lymph # (Auto) (0.90-2.90) K/uL [place] # (Auto) (0.00-0.90) K/UL Eos # (Auto) (0.00-0.50) K/uL Baso # (Auto) (0.00-0.30) K/uL Abs Immat Gran (auto) (0.00-0.30) K/uL Imm/Tot Granulo (auto) % Sodium (135-149) mmol/L Potassium (3.6-5.1) mmol/L Chloride (96-114) mmol/L Carbon Dioxide (20-32) mmol/L BUN (7-30) mg/dL Creatinine (0.5-1.5) mg/dL Estimated GFR ml/min Glucose (60-115) mg/dL Venous Lactic Acid (Serial Order) Calcium (8.4-10.6) mg/dL Total Bilirubin (0.1-1.5) mg/dL AST (12-35) U/L ALT (4-50) U/L Alkaline Phosphatase (40-150) U/L Troponin I 0.07 H* (0.01-0.04) ng/mL C-Reactive Protein (0.5-1.0) mg/dL Total Protein (6.0-8.3) g/dL Albumin (3.3-5.0) g/dL Urine Color Yellow (Yellow) Urine Appearance Cloudy A (Clear) Urine pH 6.0 (5.0-8.5) Ur Specific [place] 1.025 (1.000-1.030) Urine Protein 2+ A (Negative) Urine Glucose (UA) Negative (Negative) Urine Ketones 1+ A (Negative) Urine Blood 3+ A (Negative) Urine Nitrite Positive A (Negative) Urine Bilirubin Negative (Negative) Urine Urobilinogen 0.2 (0.2-1.0) Ur Leukocyte Esterase 2+ A (Negative) Urine RBC 10-25 A (0-2) Urine WBC 5-10 A (0-5) Ur Squamous Epith Cells Few (None-Few) Amorphous Sediment Moderate A (None) Urine Bacteria Many A (None) Urine Mucus Moderate A (None) Urine Opiates Screen Negative (Negative) Ur Oxycodone Screen Negative (Negative) Urine Methadone Screen Negative (Negative) Ur Propoxyphene Screen Negative (Negative) Ur Barbiturates Screen Negative (Negative) U Tricyclic Antidepress Negative (Negative) Ur Phencyclidine Scrn Negative (Negative) Ur Amphetamines Screen Negative (Negative) U Methamphetamines Scrn Negative (Negative) U Benzodiazepines Scrn Negative (Negative) Urine Cocaine Screen Negative (Negative) U Marijuana (THC) Screen Negative (Negative) Ur Drug Screen Comment See Note Ethyl Alcohol (0.01-0.03) % SARS-CoV-2 (PCR) (Negative) Influenza Type A (PCR) (Negative) Influenza Type B (PCR) (Negative) POC Creatinine (0.6-1.3) mg/dl POC Troponin I (0.01-0.04) ng/ml 08/09/22 08/09/22 08/09/22 Range/Units 03:00 03:29 04:28 WBC (4.50-11.00) K/uL RBC (4.30-5.90) m/uL Hgb (13.5-17.5) gm/dL Hct (37.0-53.0) % MCV (80-100) fL MCH (26-34) pg MCHC (32-36) gm/dL RDW Coeff of Vidhya (11.5-15.5) % Plt Count (140-440) K/uL Neut % (Auto) (42.0-72.0) % Lymph % (Auto) (20-44) % [place] % (Auto) (0.0-11.0) % Eos % (Auto) (0.0-7.0) % Baso % (Auto) (0.0-3.0) % Neut # (Auto) (1.7-7.0) K/uL Lymph # (Auto) (0.90-2.90) K/uL [place] # (Auto) (0.00-0.90) K/UL Eos # (Auto) (0.00-0.50) K/uL Baso # (Auto) (0.00-0.30) K/uL Abs Immat Gran (auto) (0.00-0.30) K/uL Imm/Tot Granulo (auto) % Sodium (135-149) mmol/L Potassium (3.6-5.1) mmol/L Chloride (96-114) mmol/L Carbon Dioxide (20-32) mmol/L BUN (7-30) mg/dL Creatinine (0.5-1.5) mg/dL Estimated GFR ml/min Glucose (60-115) mg/dL Venous Lactic Acid (Serial Order) Calcium (8.4-10.6) mg/dL Total Bilirubin (0.1-1.5) mg/dL AST (12-35) U/L ALT (4-50) U/L Alkaline Phosphatase (40-150) U/L Troponin I 0.14 H* (0.01-0.04) ng/mL C-Reactive Protein (0.5-1.0) mg/dL Total Protein (6.0-8.3) g/dL Albumin (3.3-5.0) g/dL Urine Color (Yellow) Urine Appearance (Clear) Urine pH (5.0-8.5) Ur Specific [place] (1.000-1.030) Urine Protein (Negative) Urine Glucose (UA) (Negative) Urine Ketones (Negative) Urine Blood (Negative) Urine Nitrite (Negative) Urine Bilirubin (Negative) Urine Urobilinogen (0.2-1.0) Ur Leukocyte Esterase (Negative) Urine RBC (0-2) Urine WBC (0-5) Ur Squamous Epith Cells (None-Few) Amorphous Sediment (None) Urine Bacteria (None) Urine Mucus (None) Urine Opiates Screen (Negative) Ur Oxycodone Screen (Negative) Urine Methadone Screen (Negative) Ur Propoxyphene Screen (Negative) Ur Barbiturates Screen (Negative) U Tricyclic Antidepress (Negative) Ur Phencyclidine Scrn (Negative) Ur Amphetamines Screen (Negative) U Methamphetamines Scrn (Negative) U Benzodiazepines Scrn (Negative) Urine Cocaine Screen (Negative) U Marijuana (THC) Screen (Negative) Ur Drug Screen Comment Ethyl Alcohol (0.01-0.03) % SARS-CoV-2 (PCR) (Negative) Influenza Type A (PCR) (Negative) Influenza Type B (PCR) (Negative) POC Creatinine 1.6 H (0.6-1.3) mg/dl POC Troponin I 0.18 H (0.01-0.04) ng/ml 08/09/22 Range/Units 05:35 WBC (4.50-11.00) K/uL RBC (4.30-5.90) m/uL Hgb (13.5-17.5) gm/dL Hct (37.0-53.0) % MCV (80-100) fL MCH (26-34) pg MCHC (32-36) gm/dL RDW Coeff of Vidhya (11.5-15.5) % Plt Count (140-440) K/uL Neut % (Auto) (42.0-72.0) % Lymph % (Auto) (20-44) % [place] % (Auto) (0.0-11.0) % Eos % (Auto) (0.0-7.0) % Baso % (Auto) (0.0-3.0) % Neut # (Auto) (1.7-7.0) K/uL Lymph # (Auto) (0.90-2.90) K/uL [place] # (Auto) (0.00-0.90) K/UL Eos # (Auto) (0.00-0.50) K/uL Baso # (Auto) (0.00-0.30) K/uL Abs Immat Gran (auto) (0.00-0.30) K/uL Imm/Tot Granulo (auto) % Sodium (135-149) mmol/L Potassium (3.6-5.1) mmol/L Chloride (96-114) mmol/L Carbon Dioxide (20-32) mmol/L BUN (7-30) mg/dL Creatinine (0.5-1.5) mg/dL Estimated GFR ml/min Glucose (60-115) mg/dL Venous Lactic Acid (Serial Order) Calcium (8.4-10.6) mg/dL Total Bilirubin (0.1-1.5) mg/dL AST (12-35) U/L ALT (4-50) U/L Alkaline Phosphatase (40-150) U/L Troponin I (0.01-0.04) ng/mL C-Reactive Protein (0.5-1.0) mg/dL Total Protein (6.0-8.3) g/dL Albumin (3.3-5.0) g/dL Urine Color (Yellow) Urine Appearance (Clear) Urine pH (5.0-8.5) Ur Specific [place] (1.000-1.030) Urine Protein (Negative) Urine Glucose (UA) (Negative) Urine Ketones (Negative) Urine Blood (Negative) Urine Nitrite (Negative) Urine Bilirubin (Negative) Urine Urobilinogen (0.2-1.0) Ur Leukocyte Esterase (Negative) Urine RBC (0-2) Urine WBC (0-5) Ur Squamous Epith Cells (None-Few) Amorphous Sediment (None) Urine Bacteria (None) Urine Mucus (None) Urine Opiates Screen (Negative) Ur Oxycodone Screen (Negative) Urine Methadone Screen (Negative) Ur Propoxyphene Screen (Negative) Ur Barbiturates Screen (Negative) U Tricyclic Antidepress (Negative) Ur Phencyclidine Scrn (Negative) Ur Amphetamines Screen (Negative) U Methamphetamines Scrn (Negative) U Benzodiazepines Scrn (Negative) Urine Cocaine Screen (Negative) U Marijuana (THC) Screen (Negative) Ur Drug Screen Comment Ethyl Alcohol (0.01-0.03) % SARS-CoV-2 (PCR) (Negative) Influenza Type A (PCR) (Negative) Influenza Type B (PCR) (Negative) POC Creatinine (0.6-1.3) mg/dl POC Troponin I (0.01-0.04) ng/ml Imaging Data Chest x-ray: Attestation: I have reviewed the pertinent imaging results. My impression: I note no acute findings. Radiologist's impression: Cardiovascular and mediastinum: Cardiomediastinal silhouette is within normal limits. Lungs and pleural spaces: Small to moderate right pneumothorax. Moderate left pneumothorax. No focal consolidation. No pleural effusion. Bones and soft tissues: Bilateral shoulder degenerative changes. IMPRESSION: Small to moderate right and moderate left pneumothoraces. CT scan - head: Attestation: I have reviewed the pertinent imaging results. My impression: No acute abnormalities Radiologist's impression: Brain parenchyma: Mild generalized cerebral volume loss. The brown-white differentiation is maintained. No sign of mass, hemorrhage, or midline shift. Atherosclerotic calcifications of the cavernous carotids and carotid siphons. Skull base and calvarium: The visualized paranasal sinuses and mastoid air cells demonstrate no acute or significant findings. The visualized orbits are grossly unremarkable. No skull fractures. IMPRESSION: No acute intracranial abnormality. CT scan - chest: Attestation: I have reviewed the pertinent imaging results. My impression: No evidence of pneumothoraces noted on CT. Radiologist's impression: Lungs and pleura: No suspicious nodules or infiltrates.? No pleural effusions, pleural thickening, or pneumothorax. Small thin-walled cyst within the left upper lobe. Heart and vasculature: Heart size is normal. Aneurysmal dilation of the ascending thoracic aorta measuring 4.2 cm. Moderate the sclerosus of the thoracic aorta. Coronary artery calcifications and/or stents. Lymph nodes/mediastinum: No enlarged mediastinal or axillary adenopathy. Calcified right hilar nodes. Chest wall: No masses. Upper abdomen: No significant findings. Abdominal aortic calcifications. Bones: Mild multilevel degenerative spondylosis without acute fracture or aggressive osseous lesion. Multilevel anterior bridging osteophytosis which can be seen with DISH. IMPRESSION: Aneurysmal dilation of the ascending thoracic aorta measuring 4.2 cm. Atherosclerotic calcifications. No evidence of acute cardiopulmonary process on this limited unenhanced CT. ECG Data Attestation: I personally reviewed and interpreted this ECG as follows: Prior ECG tracings: not available for review Interpretation: EKG by my read shows sinus rhythm at a rate of 67. Q-waves noted in 2 3 AVF with some downward slope of the ST segment. In 3. Otherwise I do not note any acute changes. First-degree AV block with WA interval of 212 millisecond EKG 2. By my read is unchanged from previous. Discharge Plan Discharge Clinical Impression: Acute hypotension, Creatinine elevation, Elevated troponin, Acute UTI Patient Disposition: Admitted As Inpatient Condition: Improved
--- NOTE | 2022-08-09 01:23 | CRLHL7_ITS ---
For Patients: As a result of the Century Cures Act, medical imaging exams and procedure reports are released immediately into your electronic medical record. You may view this report before your referring provider. If you have questions, please contact your health care provider. INDICATION: Altered mental status. TECHNIQUE: CT head without contrast. COMPARISON: None. FINDINGS: CSF spaces: Within normal limits for age. Brain parenchyma: Mild generalized cerebral volume loss. The brown-white differentiation is maintained. No sign of mass, hemorrhage, or midline shift. Atherosclerotic calcifications of the cavernous carotids and carotid siphons. Skull base and calvarium: The visualized paranasal sinuses and mastoid air cells demonstrate no acute or significant findings. The visualized orbits are grossly unremarkable. No skull fractures. IMPRESSION: No acute intracranial abnormality. Please note that all CT scans at this facility use dose modulation, iterative reconstruction, and/or weight-based dosing when appropriate to reduce radiation dose to as low as reasonably achievable. Dictated by Sea Barney MD @ 08/09/2022 3:30:26 AM (Electronically Signed)
--- NOTE | 2022-08-09 01:23 | CRLHL7_ITS ---
For Patients: As a result of the Century Cures Act, medical imaging exams and procedure reports are released immediately into your electronic medical record. You may view this report before your referring provider. If you have questions, please contact your health care provider. INDICATION: Hypertension. Confusion. TECHNIQUE: Chest 1 view. COMPARISON: None. FINDINGS: Cardiovascular and mediastinum: Cardiomediastinal silhouette is within normal limits. Lungs and pleural spaces: Small to moderate right pneumothorax. Moderate left pneumothorax. No focal consolidation. No pleural effusion. Bones and soft tissues: Bilateral shoulder degenerative changes. IMPRESSION: Small to moderate right and moderate left pneumothoraces. Dictated by Sea Barney MD @ 08/09/2022 3:12:00 AM (Electronically Signed)
[2022-08-09] MEDS: 0.9 % SODIUM CHLORIDE 500 ML 500 ML IV (01:32)
[2022-08-09 01:36] LABS: Basophils Absolute Auto 0.02 K/uL (0.00-0.30); Basophils Percent Auto 0.4 % (0.0-3.0); Eosinophils Absolute Auto 0.02 K/uL (0.00-0.50); Eosinophils Percent Auto 0.4 % (0.0-7.0); Hematocrit 32.4 % (37.0-53.0); Hemoglobin* 10.7 gm/dL (13.5-17.5); Immature Granulocytes Abs Auto 0.01 K/uL (0.00-0.30); Immature Granulocytes Pct Auto 0.2 %; Lymphocytes Percent Auto 8.8 % (20-44); Mean Corpuscular HGB Conc 33 gm/dL (32-36); Mean Corpuscular Hemoglobin 31 pg (26-34); Mean Corpuscular Volume 93 fL (80-100); Monocytes Percent Auto 8.4 % (0.0-11.0); Neutrophils Percent Auto 81.8 % (42.0-72.0); Platelet Count* 135 K/uL (140-440); RDW Coefficient of Variation % 13.2 % (11.5-15.5); Slide Review Reflex No; White Blood Count* 5.24 K/uL (4.50-11.00)
--- OUTSIDE RECORDS SUMMARY | 2022-08-09 01:40 | XMS_ITS ---
:1950 Author Care Team Providers Name Role Phone Millicent Bishop Primary Care Provider Unavailable Allergies Code Code System Name Reaction Severity Status Onset NKDA ? Medications Name Status Start Date Stop Date ? ? finasteride 5 mg tablet Active ? Not avai lable Take 1 tablet every day by oral route. Gavilax 17 gram oral powder packet Active ? Not available Take by oral route. pantoprazole 40 mg tablet,delayed release Active ? Not available Take 1 tablet every day by oral route. sertraline 50 mg tablet Active ? Not avai lable Take 1 tablet every day by oral route. tamsulosin 0.4 mg capsule Active ? Not av ailable Take 1 capsule every day by oral route. Notes: Finasteride 5mg; Gavilax POW; H igh-Potency [...] 08/31/2015 - FRAGMENTING OF KID NENA STONE ? Excision of Melanoma Information not amira ilable Notes: nose Results Lab Results Date Name Specimen Result Interpretation Description Value Range Status Address ? 02/28/2022 Urinalysis, ? Color-Status Yellow ? ? Dipstick ? ? ? Clarity-Status Clear ? Glucose-Status Negative ? Bilirubin-Status Negative ? Ketones-Status Negative ? Sp Davis-Status 1.010 ? pH-Status 5.5 ? Protein-Status 5.0 ? Urobilinogen-Status 0.2 ? Nitrates-Status negative ? Blood-Status Moderate ? Leuko-Status Negative ? Specimen Type Catheterized ? Performed by Nanci,RN/BSN ? Total Urine Volume 235ml ? ? Past Encounters 07/25/2022 Millicent Bishop PA-C: [address] [facility] [place] [address], Ph. 02/28/2022 Retention of Urine Erick Cooley MD: [address] [place] [address], Ph. Social History Tobacco Smoking Status Former Smoker Vaccine List None recorded. Plan of Care Reminders Provider Appointments None recorded. ? ? Lab None recorded. ? ? Referral None recorded. ? ? Procedures None recorded. ? ? Surgeries None recorded. ? ? Imaging None recorded. ? ? Vitals 07/25/2022 10:20AM ESTABLISHED 20 Height Weight BMI 6 ft 170 lbs 23.1 kg/m2 02/28/2022 01:00PM URODYNAMICS PROC 90 Height Weight BMI 6 ft 170 lbs 23.1 kg/m2
--- OUTSIDE RECORDS SUMMARY | 2022-08-09 01:40 | XMS_ITS | Clinical Summary ---
:1950 Author Organization [facility] [place] [address] Care Team Providers Name Role Phone Feli Babin MD Primary Care Provider [phone] [facility] Unavailable Sabina Chang RN Unavailable Amelia Mukherjee RN Unavailable Allergies No known active allergies Medications [...] Encounters Date Type Specialty Care Team Description 08/02/2022 Nurse/Clinic Staff Only Art rt (Routine chun change) 08/02/2022 Travel 07/30/2022 Telephone Feli Babin Appointment (Nurse MD [place] visit- catheter change) 07/09/2022 Telephone Feli Babin Referral ([facility]) MD [place] 05/24/2022 Nurse/Clinic Staff Only 05/24/2022 Travel from Last 3 Months Immunizations Name Administration Dates Next Due COVID-19 vaccine (Moderna 100mcg/0.5mL) 09/12/2021, 12/20/19, 11/21/2020 PF, MDV COVID-19 vaccine (Break30-WizMeta 02/22/2022 30mcg/0.3mL) PF, MDV Influenza, High-dose Inactivated 06/30/2018 Tdap 09/30/2014, 09/30/2009, [...] Assigned at Date Recorded Not on file COVID-19 Exposure Response Date Recorded In the last 10 days, have you been in contact with No / Unsu re 08/02/2022 8:59 AM CDT someone who was confirmed or suspected to have Coronavirus/COVID-19? Obstetrics History Last Filed Vital Signs Vital Sign Reading Time Taken Comments Blood Pressure 119/85 02/22/2022 11:14 AM CDT Pulse 72 02/22/2022 11:14 AM CDT Temperature 35.8 ??C (96.4 ??F) 04/19/2006 11:37 AM CDT Respiratory Rate 16 11/27/2021 11:55 AM [employer] Oxygen Saturation 100% 02/22/2022 11:14 AM CDT Inhaled Oxygen Concentration - - Weight 75.3 kg (166 lb) 02/22/2022 11:14 AM CDT Height 182.9 cm (6') 11/23/2021 1:41 PM [employer] Body Mass Index 22.51 11/23/2021 1:41 PM [employer] Plan of Treatment Upcoming Encounters Date Type Specialty Care Team Description 11/29/2022 Office Visit Ryan Davies MD [address] [place] [address] (Wo rk) Health Maintenance Due Date Last [...] C screening for age Completed 02/22/2022 18-79 Procedures Procedure Name Priority Date/Time Associated Comments Diagnosis URINE CULTURE Add On 08/02/2022 9:45 AM Urinary retention Res ults for this CDT procedure are i n the results section. URINALYSIS Routine 08/02/2022 9:45 AM Urinary retention Resu lts for this MICROSCOPIC CDT procedure are i n the results section. UA W/ SEDIMENT EXAM Routine 08/02/2022 9:45 AM Urinary retenti on Results for this REFLEXED PER CRITERIA CDT proced ure are in the results section. from Last 3 Months Results (ABNORMAL) URINALYSIS MICROSCOPIC (08/02/2022 9:45 AM CDT) [facility] Method Time Signature RBC 11-25 (A) 0-2, None 08/02/2022 [facility] Seen /HPF 10:03 AM T [facility] WBC 11-25 (A) 0-2, 3-5, 08/02/2022 [facility] None Seen 10:03 AM CDT [facility] /[facility]INIC BACTERIA Moderate (A) None 08/02/2022 [facility] Seen, 10:03 AM CDT [facility] Rare, Few CLINIC Bacteria/ HPF EPITHELIAL Few None 08/02/2022 [facility] CELLS Seen, Few 10:03 AM T [facility] Epi/HPF CLINIC Mucus Present 08/02/2022 [facility] 10:03 AM T [facility] WHITE CELL Present (A) (none) 08/02/2022 [facility] CLUMPS 10:03 AM T [facility] HYALINE CASTS 11-25 (A) 0-2, 3-5 08/02/2022 [facility] /LPF 10:03 AM CDT [facility] AMORPHOUS Present (A) (none) 08/02/2022 [facility] 10:03 AM T [facility] Specimen Anatomical Collection Method Collection Time Receive d Time (Source) Location / / Volume Laterality Urine URINE SPECIMEN / Non-Blood / 08/02/2022 9:45 AM 08/02 9:52 Unknown Unknown CDT AM CDT Feli Babin MD URINE Performing Organization Address City/State/ZIP Code Phon e Number [facility] [address] [place], [place] [id number] URINE CULTURE (08/02/2022 9:45 AM CDT) [facility] Method Time Signature CULTURE 10-50,000 CFU/mL 08/04/2022 [facility] of multiple 2:12 PM CDT [facility] organisms, TRAL probable LABORATORY contaminants Specimen Anatomical Collection Method Collection Time Receive d Time (Source) Location / / Volume Laterality Urine URINE SPECIMEN / Non-Blood / 08/02/2022 9:45 AM 08/02 9:52 Unknown Unknown CDT AM CDT Feli Babin MD MICROBIOLOGY Performing Organization Address City/State/ZIP Code Phon e Number [id number] [place] [address] [facility] [address] LABORATORY (ABNORMAL) UA W/ SEDIMENT EXAM REFLEXED PER CRITERIA (08/02/2022 9:45 AM CDT) [facility] Method Time Signature COLOR Yellow Yellow Color 08/02/2022 [facility] 9:58 AM T [facility] CLARITY Slightly Clear 08/02/2022 [facility] Cloudy (A) Clarity 9:58 AM [facility] SPECIFIC >=1.030 (A) 1.010, 08/02/2022 [facility] GRAVITY,URINE 1.015, 9:58 AM [facility] 1.020, 1.025 [facility] PH,URINE 6.0 6.0, 7.0, 08/02/2022 [facility] 8.0, 5.5, 9:58 AM [facility] 6.5, 7.5, CLINIC 8.5 UROBILINOGEN, Normal Normal EU/dl 08/02/2022 [facility] QUALITATIVE 9:58 AM [facility] PROTEIN, 30 (A) Negative 08/02/2022 [facility] URINE mg/dL 9:58 AM [facility] GLUCOSE, Negative Negative 08/02/2022 [facility] URINE mg/dL 9:58 AM [facility] KETONES,URINE Trace (A) Negative 08/02/2022 [facility] mg/dL 9:58 AM [facility] BILIRUBIN,URI Abnormal (A) Negative 08/02/2022 [facility] 9:58 AM [facility] Comment: A variety of metabolites and/or medications may result in a positive bilirubin result. Clinical correlation i s recommended. OCCULT BLOOD,URINE Moderate (A) Negative 08/02/2022 9:58 AM [facility] NITRITE Positive (A) Negative 08/02/2022 9:58 AM [facility] LEUKOCYTE ESTERASE Small (A) Negative 08/02/2022 9:58 AM [facility] Specimen Anatomical Collection Method Collection Time Receive d Time (Source) Location / / Volume Laterality Urine URINE SPECIMEN / Non-Blood / 08/02/2022 9:45 AM 08/02 9:52 Unknown Unknown CDT AM CDT Feli Babin MD URINE Performing Organization Address City/State/ZIP Code Phon e Number [facility] [address] [place] [address] from Last 3 Months Insurance Payer Benefit Plan / Subscriber ID Effective Phone Address T ype Group Dates [employer] [id number] Effective [employer] for all OFFICE OF [facility] [employer] [facility] [address] [address] [place] [address] MEDICARE - PB USE MEDICARE PB ONLY [id number] 2019-Pre ATTN: CLAIMS ONLY sent [address] [place] [address] MEDICARE - PB USE MEDICARE PB ONLY [id number] 2019-Pre ATTN: CLAIMS ONLY sent [address] [place] [address] [facility] [id number] 2021-Pre [address] [place] [address] [facility] [id number] 2021-Pre [address] [place] [address] Care Teams English As A Second Language Teacher Relationship Specialty Start Date End Date Feli Babin MD PCP - General Family Practice 11/15/21 [address] [place] [address] [facility] 11/15/[address] [address] Sabina Chang, clinical account specialist [place] [facility] Registered Nurse 06/30/22 [address] [facility] [address] [place] [address] Amelia Mukherjee, clinical account specialist - [facility] Registered Nurse 06/30/22 [address] [facility] [address] [place] [address]
--- OUTSIDE RECORDS SUMMARY | 2022-08-09 01:41 | XMS_ITS | Encounter Summary ---
:1950 Author Reason for Visit Urinary Retention Assessment and Plan Assessment Note 71M with BPH with urinary retention, divya dder stones, and recent UTIs. 1. Benign prostatic hyperplasia with uri nary retention - continue Flomax 0.4 mg daily - continue Finasteride 5 mg daily - change chun exchanges to Q3 weeks in stead of Q4 given UTIs and chun plugging (care facility performs irrigations PRN) - TURP and Cystolitholapaxy with laser lithotripsy previously recommended by Dr. Cooley, but pt lost to follow up - We reviewed cystolitholapaxy with las er lithotripsy procedure and potential risks/complications today. F/u with Dr. Cooley to further discuss bladder stone surgery and TURP. Anticipate addressing divya dder stones first then once recovered, c an consider TURP further down the line. 2. Bladder stones - reviewed CT [place] [facility] [place] 2 (1.5 cm) stones on bladder - due to BPH / incomplete bladder empty ing - given recent UTI x2 per patient/famil y report, strongly recommend moving forward with surgery for his bladder stones at this time. Pt to meet with Dr. Cooley to discuss surgery further. Discussion Note: None recorded.Patient educational handouts: No information available. Plan of Care Reminders Provider Appointments Established 10 10/17/2022 10:20AM Erick Cooley MD Lab None recorded. ? ? Referral None recorded. ? ? Procedures None recorded. ? ? Surgeries None recorded. ? ? Imaging None recorded. ? ? Medications Name Start Date ? ? finasteride 5 mg tablet ? Take 1 tablet every day by oral route. Gavilax 17 gram oral powder packet ? Take by oral route. pantoprazole 40 mg tablet,delayed release ? Take 1 tablet every day by oral route. sertraline 50 mg tablet ? Take 1 tablet every day by oral route. tamsulosin 0.4 mg capsule ? Take 1 capsule every day by oral route. Notes: Finasteride 5mg; Gavilax POW; H igh-Potency MVI; Pantoprazole 40mg; Tamsulosin 0.4mg Medications Administered None recorded. Vitals Height Weight BMI 6 ft 170 lbs 23.1 kg/m2 Results Lab Results None recorded. Allergies Code Code System Name Reaction Severity Onset NKDA ? ? ? Problems Name Status Onset Date Source ? [...] Melanoma Information not amira ilable Notes: nose Vaccine List None recorded. Social History Tobacco Smoking Status Former Smoker Marital status What was the date of your most recent tobacco 02/28/2022 screening? When did you quit smoking? 1-5yearssincelastcigarette What is your level of alcohol consumption? None What is your level of caffeine consumption? None Race White Functional Status Unknown. Past Encounters 07/25/2022 SAVANNAH ZepedaC: [address] [facility] [address], Ph. History of Present Illness Note: <div>11/27/21 ([facility]): 71 yo male with history of frontrotemporal lobe dementia and has significant memory loss (cannot give much of a medical history) and BPH. He was admitted [place] [facility] [place] scan revealed enlarged prostate, +bladder stones, and Bilateral hydronephrosis. He was started on Flomax 0.4 mg daily and Finasteride 5 mg daily. He reports urinating every 2-4 hours during the day and 2-3x/night. + Hesitancy and slow stream. He states his catheterhas been draining well. </div><div> </div><div>CT scan (10/23/21) -no kidney stones - + bilateral hydronephrosis </div><div> - Bladder - 2 (1-1.5 cm) stones in bladder </div><div> - Prostate - 80-100 gm (with intravesical component)</div>& lt;div>
</div><div>07/25/22 ([facility]): Here today for follow up with family member who provides most of history. Lost to follow up after seeing Dr. Cooley in October. They report hewas in the hospital x2 about a month ago for UTI and chun concerns. He notes he had bypassing of the catheter with a soaked bed. Had cloudy and foul-smelling urine. Was treated the first time with oneantibiotic, but symptoms did not improve so was placed on a different antibiotic. Unfortunately, they do not recall which abx. These events were precipitated by catheter clogging.</div><div>
</div><div>He is feeling improved now. Chun was last changed around 07/10 in [place]. Remains on 0.4 mg of tamsulosin and 5 mg of finasteride. </div><div>
</div><div>
</div> Review of Systems ? Comprehensive General Adult ROS Reported By: Patient Constitutional: Constitutional: no fever, no chills Eyes: Eyes: no dry eyes, no vision change, no irritation Endocrine: Endocrine: no fatigue, no in creased thirst Cardiovascular: Cardiovascular: no chest judi n, no palpitations Integumentary: Skin: no rashes, no change i n skin color Respiratory: Respiratory: no wheezing, no cough, no shortness of breath Gastrointestinal: Gastrointestinal: no abdomin al pain, no nausea, no vomiting, no constipation, no GERD Musculoskeletal: Musculoskeletal: no neck judi n, no back pain Neurologic: Neurologic: no tremor, no di zziness, no numbness, no headaches Genitourinary: Genitourinary: ; ++chun in place, some bypassing ENMT: Ears: no ear pain. Mouth/Thr oat: no sore throat Allergic/Immunologic: Allergy/Immunologic: no itch ing, no hives Hematologic/Lymphatic: Hematologic/Lymphatic no swo llen glands, no excessive bleeding Psychiatric: Psych: no hallucinations, (n ormal) sleep disturbances: mismatch of sleep / wake mp edule with lifestyle needs Physical Exam ? Notes: <p>General: No acute distres s, appears stated age</p><div>HEENT: Conjunctiva clear, extraocular movements intact, normocephalic/atraumatic</div><div>Resp: Respirations unlabored, no a udible wheezing</div><div>Abd: Soft, non-tender, non-distended. No CVA tender ness</div><div>: chun in place with dark herber output</div><div>Skin: no pl aques or lesions</div><div>Ext: Moves all extremities, using a walker< /div><div>Neuro: CN intact, normal sensation</div><div>Psych: n ormal mood and affect</div><div>
</div>
[2022-08-09 01:48] LABS: Amphetamine Screen Urine Negative (Negative); Barbiturate Screen Urine Negative (Negative); Benzodiazepines Screen Urine Negative (Negative); Cannabinoid Screen Urine Negative (Negative); Cocaine Screen Urine Negative (Negative); Methadone Screen Urine Negative (Negative); Methamphetamines Screen Urine Negative (Negative); Opiate Screen Urine Negative (Negative); Oxycodone Screen Urine Negative (Negative); Phencyclidine Screen Urine Negative (Negative); Tricyclic Antidepressant Urine Negative (Negative)
[2022-08-09 01:50] LABS: Albumin* 3.8 g/dL (3.3-5.0); Chloride* 107 mmol/L (96-114); Sodium* 141 mmol/L (135-149)
[2022-08-09 01:51] LABS: Potassium* 3.9 mmol/L (3.6-5.1)
[2022-08-09 01:52] LABS: Creatinine* 1.7 mg/dL (0.5-1.5); Estimated Glomerular Filt Rate 43 ml/min
[2022-08-09 01:53] LABS: Alanine Aminotransferase* 32 U/L (4-50); Alkaline Phosphatase* 77 U/L (40-150); Aspartate Amino Transferase* 72 U/L (12-35); Bilirubin Total* 0.7 mg/dL (0.1-1.5); Blood Urea Nitrogen* 30 mg/dL (7-30); Carbon Dioxide* 25 mmol/L (20-32); Glucose* 76 mg/dL (60-115); Total Protein* 5.9 g/dL (6.0-8.3)
[2022-08-09 01:54] LABS: Calcium* 9.1 mg/dL (8.4-10.6)
[2022-08-09 01:56] LABS: C Reactive Protein* 1.2 mg/dL (0.5-1.0)
[2022-08-09 01:59] LABS: Ethanol* < 0.01 % (0.01-0.03)
[2022-08-09 02:11] LABS: PCR FLU A Negative PCR FLU A (Negative); PCR FLU B Negative PCR FLU B (Negative)
[2022-08-09 02:13] LABS: SARS PCR* Negative SARS-CoV-2 (Negative)
[2022-08-09 02:37] LABS: Troponin I* 0.07 ng/mL (0.01-0.04)
--- NOTE | 2022-08-09 03:28 | CRLHL7_ITS ---
For Patients: As a result of the Century Cures Act, medical imaging exams and procedure reports are released immediately into your electronic medical record. You may view this report before your referring provider. If you have questions, please contact your health care provider. INDICATION: HYPOTENSION AND CONFUSION TECHNIQUE: CT chest without contrast. COMPARISON: None. FINDINGS: Lungs and pleura: No suspicious nodules or infiltrates. No pleural effusions, pleural thickening, or pneumothorax. Small thin-walled cyst within the left upper lobe. Heart and vasculature: Heart size is normal. Aneurysmal dilation of the ascending thoracic aorta measuring 4.2 cm. Moderate the sclerosus of the thoracic aorta. Coronary artery calcifications and/or stents. Lymph nodes/mediastinum: No enlarged mediastinal or axillary adenopathy. Calcified right hilar nodes. Chest wall: No masses. Upper abdomen: No significant findings. Abdominal aortic calcifications. Bones: Mild multilevel degenerative spondylosis without acute fracture or aggressive osseous lesion. Multilevel anterior bridging osteophytosis which can be seen with DISH. IMPRESSION: Aneurysmal dilation of the ascending thoracic aorta measuring 4.2 cm. Atherosclerotic calcifications. No evidence of acute cardiopulmonary process on this limited unenhanced CT. Please note that all CT scans at this facility use dose modulation, iterative reconstruction, and/or weight-based dosing when appropriate to reduce radiation dose to as low as reasonably achievable. Dictated by Adrián Allen MD @ 08/09/2022 4:46:36 AM (Electronically Signed)
[2022-08-09 03:30] LABS: Creatinine, Point-of-Care* 1.6 mg/dl (0.6-1.3)
[2022-08-09 03:33] LABS: Troponin I* 0.14 ng/mL (0.01-0.04)
--- NOTE | 2022-08-09 03:33 | ED.NURSE ---
MD jones updated on trop elevation
[2022-08-09 03:58] LABS: Appearance Urine Cloudy (Clear); Bilirubin Urine Negative (Negative); Blood Urine 3+ (Negative); Color Urine Yellow (Yellow); Glucose Urine Negative (Negative); Ketones Urine 1+ (Negative); Leukocyte Esterase Urine 2+ (Negative); Nitrite Urine Positive (Negative); Protein Urine 2+ (Negative); Specific Gravity Urine 1.025 (1.000-1.030); Urobilinogen Urine 0.2 (0.2-1.0)
[2022-08-09 04:06] LABS: Amorphous Sediment Urine Moderate; Bacteria Urine Many; Mucus Urine Moderate; Squamous Epithelial Cell Urine Few (None-Few)
[2022-08-09] MEDS: cefTRIAXone 1 GM in 0.9 % SODIUM CHLORIDE Mini-bag 100 ML IVPB ×2 (04:19→12:53)
[2022-08-09 05:00] LABS: Troponin, Point-of-Care* 0.18 ng/ml (0.01-0.04)
[2022-08-09] MEDS: ASPIRIN 81 MG TAB.CHEW 324 MG PO (05:29)
[2022-08-09 05:39] LABS: Lactate Sepsis w/Reflex* 0.9 mmol/L (0.5-1.9)
--- NOTE | 2022-08-09 07:37 | ED.NURSE ---
hemocult stool sample negative for blood, stool sample liquid brown
[2022-08-09] MEDS: 0.9 % SODIUM CHLORIDE 1000 ml 1,000 ML 500 ML IV ×2 (07:57→10:30)
[2022-08-09] MEDS: OMEPRAZOLE 20 MG CAPSULE DR 40 MG PO (07:57)
[2022-08-09 08:07] LABS: CDIFFEPI 027 PRESUMPTIVE NEGATIVE (Negative)
[2022-08-09 08:19] LABS: C.Difficile POSITIVE (Negative)
[2022-08-09 08:34] LABS: Cholesterol* 228 mg/dL (90-199); HDL Cholesterol* 88 mg/dL (>=40); LDL Cholesterol Calculated 119 mg/dL (<100); Triglycerides* 103 mg/dL (40-149)
[2022-08-09 08:55] LABS: Troponin I* 0.27 ng/mL (0.01-0.04)
[2022-08-09] MEDS: VANCOMYCIN 125 MG CAPSULE PO ×4 (08:56→20:49)
--- NOTE | 2022-08-09 10:33 | PM.IMHP1 ---
Hospitalist- H&P: HPI History of Present Illness Date Seen: 08/09/22 Chief complaint: Low Blood Pressure Narrative: ADMISSION HISTORY AND PHYSICAL - HOSPITALIST Chief Complaint: Apparently I was wobbly while out from my walk last night HPI: 71-year-old William, new resident of [facility], was found walking in [place] and appeared to be staggering. EMS, who happened to be driving by, stopped offer assistance. He was noted to be hypotensive and a little confused but not obviously intoxicated. He was brought to our emergency room. His systolic range from 70s to 90s. He had an indwelling catheter. He looked a little disheveled. No fever or tachycardia noted. This morning in bed (he got to the floor just before 7 am) - he is telling me he remembers last night and relates not feeling well for two weeks. diarrhea has been prodominant, he has had some chills, fatigue, and SOB. He thinks his chun was recently changed, but can't be sure. He doesn't think he has had a fever. he states he used to drink, but not anymore. -workup in the ED Hypotension without tachycardia or fever. His urine reflected possible UTI (Urine was modestly concentrated, 2+ protein, 1+ ketones, 3+ blood, positive nitrate, 2+ LE, red blood cells, 5-10 white blood cells. Many bacteria), WARNER and demand ischemia by his chemistries and clinical presentation consistent urosepsis. He received a sodium chloride bolus of 500 mL, 1 g of ceftriaxone, [address] showed an ascending thoracic aorta measuring 4.2, atherosclerotic calcifications, no acute cardiopulmonary process Head CT showed no acute process CBC showed a mild depression in his white blood cell count 3.6, hemoglobin 12.4, platelet count 127 Creatinine was 1.7 (nml 1.2), normal electrolytes, normal lactic acid, mild bump in his AST with a negative alcohol level, initial troponin was 0.07, this would increase up to 0.14, increasing this morning up to 0.27. He did receive 1 full aspirin. CRP 1.2 Procalcitonin is pending Cholesterol total 228, LDL 119, triglycerides 103, HDL 88 Blood cultures x2 pending, after 1st dose of Rocephin. Urine culture pending I've updated the PFSH, medications and allergies in the [facility] tabs. INVESTIGATIONS: LABS/MICRO/ECG/IMAGING as above, ECG shows no evidence of ischemia REVIEW OF SYSTEMS: 12-point ROS completed with patient and negative unless otherwise stated in HPI or below. PHYSICAL EXAM: CODE STATUS: DNR/DNI CONSTITUTIONAL: awake, quiet/even tempered. dishelved. seems to be able to discuss his background. 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 VITAL SIGNS: see record. HEENT: Normocephalic, atraumatic. PERRL, EOMI, conjunctivae pink, no scleral icterus. Ears and nose externally normal. Pharynx normal. NECK: No JVD. No carotid bruit, no thyromegaly, no adenopathy. CHEST: Clear to auscultation bilaterally HEART: S1 and S2 normal. No harsh murmurs. no sign edema. MUSCULOSKELETAL: No gross joint deformity or swelling. NEURO: Cranial nerves intact. Grossly intact. No asymmetric findings. SKIN: No rashes, petechiae, concerning changes PSYCHIATRIC: Euthymic. ADMIT TO MEDSURG: FLOOR CARE DVT: Lovenox GI: PO intake Time spent: 70 minutes examining patient, conferring with family and patient, care staff, developing care plan [facility] Medical History Benign prostatic hyperplasia with urinary retention Bipolar 1 disorder Chronic GERD Frontotemporal dementia History of melanoma Thoracic aortic aneurysm Surgical History H/O hernia repair Hx of nephrolithotomy with removal of calculi Mohs defect of sidewall of nose Social History (Updated 08/09/22 @ 10:57 by Jessa Perdomo MD) Narrative: Lives at [place]; single. Highest level of school completed/degree received: some college, no degree Smoking Status: Former smoker Do you use any of these nicotine containing products: None How often do you have a drink containing alcohol: never How often do you have six or more drinks on one occasion: Never AUDIT-C Alcohol total score: 0 Non-prescribed substance use: denies use Caffeine: No service: Yes Meds Home Medications and Allergies Home Medications Medication Instructions Recorded Confirmed Type acetaminophen 325 mg tablet 650 mg PO Q4H PRN 06/10/22 08/09/22 History finasteride 5 mg tablet 5 mg PO DAILY 06/10/22 08/09/22 History multivitamin with folic acid 400 1 tab PO DAILY 06/10/22 08/09/22 History mcg tablet (Tab-A-Jennifer) pantoprazole 40 mg tablet,delayed 40 mg PO DAILY 06/10/22 08/09/22 History release polyethylene glycol 3350 17 17 g PO DAILY 06/10/22 08/09/22 History gram/dose oral powder (Gavilax) tamsulosin 0.4 mg capsule 0.4 mg PO DAILY 06/10/22 08/09/22 History sertraline 100 mg tablet 100 mg PO HS 08/09/22 08/09/22 History Allergies Allergy/AdvReac Type Severity Reaction Status Date / Time No Known Drug Allergies Allergy Verified 07/05/22 10:39 Exam Const: Vital Signs, click to edit/add: Vital Signs - 24 hr 08/09/22 00:50 08/09/22 01:00 08/09/22 03:00 Temperature 96.7 F L Pulse Rate Pulse Rate [Left P ulse Oximeter] 73 72 69 Respiratory Rate 16 16 16 Blood Pressure Blood Pressure [Le ft Upper Arm] 90/51 L 89/53 L 124/78 Blood Pressure [Ri ght Arm] Pulse Oximetry 98 97 98 [facility] Room Air 08/09/22 01:15 08/09/22 01:30 08/09/22 02:00 Temperature Pulse Rate Pulse Rate [Left P ulse Oximeter] 71 72 69 Respiratory Rate 16 16 16 Blood Pressure Blood Pressure [Le ft Upper Arm] 96/60 102/64 100/62 Blood Pressure [Ri ght Arm] Pulse Oximetry 98 98 98 [facility] Room Air Room Air 08/09/22 02:30 08/09/22 03:22 08/09/22 03:44 Temperature Pulse Rate 67 70 Pulse Rate [Left P ulse Oximeter] 69 Respiratory Rate 16 Blood Pressure 116/68 124/80 Blood Pressure [Le ft Upper Arm] 113/75 Blood Pressure [Ri ght Arm] Pulse Oximetry 98 100 98 [facility] 08/09/22 04:01 08/09/22 04:41 08/09/22 05:01 Temperature Pulse Rate 68 67 68 Pulse Rate [Left P ulse Oximeter] Respiratory Rate Blood Pressure 119/76 124/84 133/82 Blood Pressure [Le ft Upper Arm] Blood Pressure [Ri ght Arm] Pulse Oximetry 98 99 100 Oxygen Delivery Me thod 08/09/22 07:10 08/09/22 07:16 08/09/22 05:20 Temperature 98 F Pulse Rate Pulse Rate [Left P ulse Oximeter] 65 68 Respiratory Rate 16 16 15 Blood Pressure Blood Pressure [Le ft Upper Arm] 130/82 Blood Pressure [Ri ght Arm] 140/84 H Pulse Oximetry 100 100 98 Oxygen Delivery Me thod Room Air Room Air 08/09/22 05:02 08/09/22 05:20 08/09/22 05:22 Temperature Pulse Rate 69 69 69 Pulse Rate [Left P ulse Oximeter] Respiratory Rate Blood Pressure 130/82 Blood Pressure [Le ft Upper Arm] Blood Pressure [Ri ght Arm] Pulse Oximetry 98 98 98 Oxygen Delivery Me thod 08/09/22 05:40 08/09/22 05:41 08/09/22 06:00 Temperature Pulse Rate 67 69 65 Pulse Rate [Left P ulse Oximeter] Respiratory Rate Blood Pressure 132/82 Blood Pressure [Le ft Upper Arm] Blood Pressure [Ri ght Arm] Pulse Oximetry 100 95 99 Oxygen Delivery Me thod 08/09/22 06:02 08/09/22 06:20 08/09/22 06:21 Temperature Pulse Rate 65 66 69 Pulse Rate [Left P ulse Oximeter] Respiratory Rate Blood Pressure 131/81 140/88 H Blood Pressure [Le ft Upper Arm] Blood Pressure [Ri ght Arm] Pulse Oximetry 99 97 99 Oxygen Delivery Me thod 08/09/22 07:49 08/09/22 07:31 Temperature Pulse Rate 64 Pulse Rate [Left P ulse Oximeter] Respiratory Rate Blood Pressure Blood Pressure [Le ft Upper Arm] Blood Pressure [Ri ght Arm] Pulse Oximetry 100 Oxygen Delivery Me thod Room Air Hospitalist - H&P: Result Labs Labs: Short CBC 08/09/22 Range/Units 01:25 WBC 5.24 (4.50-11.00) K/uL Hgb 10.7 L (13.5-17.5) gm/dL Hct 32.4 L (37.0-53.0) % Plt Count 135 L (140-440) K/uL BMP 08/09/22 01:25 Sodium 141 Potassium 3.9 Chloride 107 Carbon Dioxide 25 BUN 30 Creatinine 1.7 H Glucose 76 Calcium 9.1 Cardiac Enzymes 08/09/22 08/09/22 08/09/22 Range/Units 01:25 03:00 07:51 Troponin I 0.07 H* 0.14 H* 0.27 H* (0.01-0.04) ng/mL Liver Function 08/09/22 Range/Units 01:25 Total Bilirubin 0.7 (0.1-1.5) mg/dL AST 72 H (12-35) U/L ALT 32 (4-50) U/L Alkaline Phosphatase 77 (40-150) U/L Albumin 3.8 (3.3-5.0) g/dL Urine 08/09/22 Range/Units 01:32 Urine Color Yellow (Yellow) Urine Appearance Cloudy A (Clear) Urine pH 6.0 (5.0-8.5) Ur Specific [place] 1.025 (1.000-1.030) Urine Protein 2+ A (Negative) Urine Glucose (UA) Negative (Negative) Assessment and Plan Assessment and plan (1) Acute UTI: Problem comment: change catheter, get new UA from clean catheter/bag continue rocephin; follow cultures blood culture pending Status: Acute (2) Elevated troponin: Problem comment: demand ischemia echo pending aspirin daily ECG, clinical exam consistent with underlying demand ischemia (hypotension, infection) Status: Acute (3) Clostridium difficile infection: Problem comment: staring oral vancomycin; contact precautions Status: Acute (4) WARNER (acute kidney injury): Problem comment: fluids; trend Status: Acute (5) Bipolar 1 disorder: Problem comment: will get [facility] records to see about recent medications; history Status: Acute (6) Benign prostatic hyperplasia with urinary retention: Problem comment: chronic indwelling catheter Status: Acute (7) Chronic GERD: Problem comment: continue PPI Status: Acute (8) Frontotemporal dementia: Problem comment: will get [facility] records to see about recent medications; history MOCA tomorrow or when improved clinically Status: Acute (9) Acute hypotension: Problem comment: RESOLVED Status: Acute (10) Thoracic aortic aneurysm: Problem comment: outpatient followup Status: Acute
--- NOTE | 2022-08-09 10:38 | PC.NURSE ---
Pt to floor at 0650. Pleasant and cooperative. SBA to BSC.?Chun cath changed. New chun patent and draining. Pt having loose black/brown BMs.?
[2022-08-09 11:15] LABS: Appearance Urine Cloudy (Clear); Bilirubin Urine Negative (Negative); Blood Urine 3+ (Negative); Color Urine Yellow (Yellow); Glucose Urine Negative (Negative); Ketones Urine 2+ (Negative); Leukocyte Esterase Urine 2+ (Negative); Nitrite Urine Positive (Negative); Protein Urine 2+ (Negative); Specific Gravity Urine 1.025 (1.000-1.030); Urobilinogen Urine 0.2 (0.2-1.0); pH Urine 5.5 (5.0-8.5)
[2022-08-09 11:31] LABS: Bacteria Urine Few; RBC Urine >100 (0-2); WBC Urine >100 (0-5)
--- NOTE | 2022-08-09 12:01 | PC.NURSE ---
Luma from [facility] called for update. Update provided. She expressed that he has been more confused lately and concerned about that.
[2022-08-09] MEDS: LACTATED RINGERS 1000 ML 1,000 ML 125 ML IV ×2 (12:54→20:49)
--- NOTE | 2022-08-09 13:57 | PC.SOCIAL ---
Addendum entered by KAYDEN Nova 08/09/22 15:13: Reviewed and approved social work it intern note. Germania Ojeda Original Note: Social work: requested clarification on pt's contact information. Pt is a resident of [facility]. Social work called [facility] ([phone]) to inquire about patient contacts. Received updated information from Karma, Director of [facility] on pt. case making machine operator: Nguyễn Webster, Mental Health Business Programmer: [phone], Denise Witt Business Programmer: [phone]. Noted that pt. has a son who has requested not to be on contact list. Per Karma, pt is his own decision maker. Social work had this information updated in pt chart. Social work to follow up as needed.
--- NOTE | 2022-08-09 14:29 | PC.NURSE ---
End of shift note: Patient here for UTI, cdiff and elevated trops. Getting IV antibiotics and PO antibiotics. Catheter was changed today and new urine sent off of this. Urine output is adequate, dark herber. Has had 3 loose BMs this shift. Worked with PT/OT. Patient is assist of 1 with walker and gaitbelt. Has fluids running at 125ml/hr. Vital signs within normal limits. From [facility] and will plan to return there once medically ready. Tele showing normal sinus rhythm. No skin issues noted. Tolerating a regular diet. Had yogurt for lunch. Alert and oriented. Pleasant, cooperative.
[2022-08-09 15:37] LABS: Troponin I* 0.24 ng/mL (0.01-0.04)
[2022-08-09] MEDS: SERTRALINE 100 MG TABLET PO (20:49)
[2022-08-09] MEDS: ATORVASTATIN CALCIUM 40 MG TABLET PO (20:49)
[2022-08-09] MEDS: ENOXAPARIN 40 MG/0.4 ML INJ SUBCUT (20:49)
--- NOTE | 2022-08-09 22:51 | PC.NURSE ---
End of Shift: Patient pleasant and cooperative. Afebrile. Up to bathroom and chair with SBA, walker and gait belt. Tolerating regular diet with no nausea. 3 small bowel movements this shift. Flores patient with dark herber output.
[2022-08-10] VITALS (8 sets, daily range): BP systolic 104–138; BP diastolic 72–94; PULSE 61–75; RESP 16–18; TEMP 36.6–36.8; O2SAT 95–100
[2022-08-10] MEDS: ACETAMINOPHEN 325 MG TABLET 650 MG PO ×3 (00:36→21:11)
[2022-08-10] MEDS: LACTATED RINGERS 1000 ML 1,000 ML 125 ML IV ×3 (04:28→21:10)
[2022-08-10] MEDS: OMEPRAZOLE 20 MG CAPSULE DR 40 MG PO (06:07)
--- NOTE | 2022-08-10 06:43 | PC.NURSE ---
END OF SHIFT NOTE: PT PLEASANT AND COOPERATIVE. VSS ON RA; AFEBRILE. ORTHOSTATIC BP'S COMPLETED LAY 117/72 HR63; SIT 120/91 HR68; STAND 104/77 HR75, PT C/O FEELING LIGHTHEADED/DIZZY WHEN STANDING. PT AMBULATES WITH WALKER, GB, SBA. BED/CHAIR ALARMS ON. LEFT AC LR@125ML/HR. PT WITH EPISODE OF CONFUSION @0425, PT WAS REORIENTED AND PLACED BACK IN BED. HX OF FRONTOTEMPORAL DEMENTIA. TELE READS NSR/ SINUS MILLY. PT RATES LEG PAIN 9/10 WITH RELIEF FROM TYLENOL.
[2022-08-10 06:59] LABS: HCO3 VBG 25 mmol/L (21-28); PCO2 VBG 44 mmHG (40-50); PO2 VBG 35.4 mmHG (25-47); pH VBG 7.358 (7.32-7.43)
[2022-08-10 07:13] LABS: Hematocrit 33.4 % (37.0-53.0); Hemoglobin* 11.1 gm/dL (13.5-17.5); Mean Corpuscular HGB Conc 33 gm/dL (32-36); Mean Corpuscular Hemoglobin 31 pg (26-34); Mean Corpuscular Volume 93 fL (80-100); Platelet Count* 141 K/uL (140-440); Slide Review Reflex No; White Blood Count* 4.01 K/uL (4.50-11.00)
[2022-08-10 07:29] LABS: Albumin* 3.6 g/dL (3.3-5.0); Chloride* 109 mmol/L (96-114)
[2022-08-10 07:30] LABS: Potassium* 3.4 mmol/L (3.6-5.1); Sodium* 139 mmol/L (135-149)
[2022-08-10 07:32] LABS: Alkaline Phosphatase* 70 U/L (40-150); Aspartate Amino Transferase* 93 U/L (12-35); Bilirubin Total* 0.4 mg/dL (0.1-1.5); Blood Urea Nitrogen* 23 mg/dL (7-30); Carbon Dioxide* 24 mmol/L (20-32); Creatinine* 1.2 mg/dL (0.5-1.5); Est. Creatinine Clearance* 60.42; Estimated Glomerular Filt Rate 65 ml/min; Gamma Glutamyl Transpeptidase* 21 U/L (8-55); Total Protein* 5.7 g/dL (6.0-8.3)
[2022-08-10 07:33] LABS: Alanine Aminotransferase* 38 U/L (4-50); Calcium* 8.7 mg/dL (8.4-10.6); Glucose* 74 mg/dL (60-115); Magnesium* 1.9 mg/dL (1.5-2.6)
[2022-08-10 07:35] LABS: C Reactive Protein* 0.9 mg/dL (0.5-1.0)
[2022-08-10 07:40] LABS: NT Pro B Type NatriureticPept* 1180 PG/mL (0-125)
[2022-08-10 07:45] LABS: Troponin I* 0.11 ng/mL (0.01-0.04)
[2022-08-10] MEDS: cefTRIAXone 2 GM in 0.9 % SODIUM CHLORIDE Mini-bag 100 ML IVPB (07:59)
--- NOTE | 2022-08-10 08:15 | PC.NURSE ---
Critical Value-- Notified by lab of critical troponin of 0.11. Improved from previous troponin. Dr. Pedromo notified.
[2022-08-10 08:38] LABS: Procalcitonin* 1.06 ng/mL (<0.50)
[2022-08-10] MEDS: FINASTERIDE 5 MG TABLET PO (09:26)
[2022-08-10] MEDS: ASPIRIN 81 MG TABLET EC PO (09:26)
[2022-08-10] MEDS: TAMSULOSIN HCL 0.4 MG CAPSULE PO (09:26)
[2022-08-10] MEDS: VANCOMYCIN 125 MG CAPSULE PO ×4 (09:27→21:11)
[2022-08-10] MEDS: MULTIVITAMIN/MINERALS 1 TABLET 1 TAB PO (09:28)
--- NOTE | 2022-08-10 12:10 | PM.IMPN1 ---
Progress Note: A&P Assessment and plan (1) Acute UTI: Problem details: Catheter changed 08/09/2022 (at onset of treatment for UTI) Urine culture shows Gram-negative rods, sensitivities pending Was on ceftriaxone for 2 days. Discharged on 8 more days of cefpodoxime, dosed for complicated UTI. Status: Acute (2) Elevated troponin: Problem details: suspect demand ischemia echo as below aspirin, statin daily ECG, clinical exam consistent with underlying demand ischemia (hypotension, infection) Status: Acute (3) Clostridium difficile infection: Problem details: Oral vancomycin; contact precautions Status: Acute (4) WARNER (acute kidney injury): Status: Resolved (5) Bipolar 1 disorder: Problem details: may benefit from referral to outpatient psychiatry Status: Acute (6) Benign prostatic hyperplasia with urinary retention: Problem details: chronic indwelling catheter, f/u with urology Status: Acute (7) Chronic GERD: Problem details: on PPI - hold this while on cefpodoxime Status: Acute (8) Frontotemporal dementia: Problem details: 08/10/22 MOCA 24/30 Status: Acute (9) Acute hypotension: Status: Resolved (10) Thoracic aortic aneurysm: Problem details: 08/09/2022 CT chest: Aneurysmal dilation of the ascending thoracic aorta measuring 4.2 cm. Status: Acute (11) Major depression: Status: Chronic Subjective Date Seen: 08/10/22 Interval history: Daily Progress Note - Hospital Medicine Day #: 2 CC: found staggering;wandering. UTI, CDiff, Dementia; Bipolar OVERNIGHT UPDATES FROM STAFF & MED, LAB, IMAGING UPDATES no loose stools overnight. feels improved. chun changed yesterday. no new fevers; blood per rectum; strength improving. awaiting MOCA and placement review. our thought this am was is [facility] for him if he can walk away and with his major depression is he at risk for this? does his dementia prevent insight. no connections to friends or family. recent brother committed suicide. Review of Systems: See subjective Cardiac: No new chest pain/pressure/palpitations. Respiratory: no new dyspnea. GI: No abdominal bloating Objective: quiet; more open today. Vitals: see above Lungs: Clear. Cardiac: S1S2. Disposition/Potential discharge - memory care? geriatric psych for major depression? He is his own POA. Total time is 35 minutes with greater than 50% spent in counseling and coordination of care. Exam Const: Vital Signs, click to edit/add: Vital Signs - 24 hr 08/09/22 15:00 08/09/22 15:00 08/09/22 15:00 Temperature 98.6 F Pulse Rate 70 Pulse Rate [Left P ulse Oximeter] 68 Pulse Rate [orthos tatic lying Left P ulse Oximeter] Pulse Rate [orthos tatic sitting Left Pulse Oximeter] Pulse Rate [orthos tatic standing Lef t Pulse Oximeter] Respiratory Rate 16 Blood Pressure [Le ft Arm] Blood Pressure [Ri ght Arm] 124/78 Blood Pressure [or thostatic lying Ri ght Arm] Blood Pressure [or thostatic sitting Right Arm] Blood Pressure [or thostatic standing Right Arm] Pulse Oximetry 99 99 Oxygen Delivery Ne thod Room Air Room Air 08/09/22 15:00 08/09/22 19:00 08/09/22 23:00 Temperature 98.4 F Pulse Rate 65 Pulse Rate [Left P ulse Oximeter] 68 67 Pulse Rate [orthos tatic lying Left P ulse Oximeter] Pulse Rate [orthos tatic sitting Left Pulse Oximeter] Pulse Rate [orthos tatic standing Lef t Pulse Oximeter] Respiratory Rate 16 16 Blood Pressure [Le ft Arm] Blood Pressure [Ri ght Arm] 115/71 Blood Pressure [or thostatic lying Ri ght Arm] Blood Pressure [or thostatic sitting Right Arm] Blood Pressure [or thostatic standing Right Arm] Pulse Oximetry 97 Oxygen Delivery Ne thod Room Air 08/09/22 23:00 08/09/22 23:00 08/09/22 23:00 Temperature 97.8 F Pulse Rate Pulse Rate [Left P ulse Oximeter] 70 70 Pulse Rate [orthos tatic lying Left P ulse Oximeter] Pulse Rate [orthos tatic sitting Left Pulse Oximeter] Pulse Rate [orthos tatic standing Lef t Pulse Oximeter] Respiratory Rate 16 16 16 Blood Pressure [Le ft Arm] Blood Pressure [Ri ght Arm] 122/77 Blood Pressure [or thostatic lying Ri ght Arm] Blood Pressure [or thostatic sitting Right Arm] Blood Pressure [or thostatic standing Right Arm] Pulse Oximetry 98 98 Oxygen Delivery Ne thod Room Air Room Air 08/10/22 04:30 08/10/22 06:00 08/10/22 07:00 Temperature 98.2 F 98.2 F Pulse Rate Pulse Rate [Left P ulse Oximeter] 73 69 Pulse Rate [orthos tatic lying Left P ulse Oximeter] 63 Pulse Rate [orthos tatic sitting Left Pulse Oximeter] 68 Pulse Rate [orthos tatic standing Lef t Pulse Oximeter] 75 Respiratory Rate 18 18 Blood Pressure [Le ft Arm] 125/79 Blood Pressure [Ri ght Arm] 105/91 H Blood Pressure [or thostatic lying Ri ght Arm] 117/72 Blood Pressure [or thostatic sitting Right Arm] 120/91 H Blood Pressure [or thostatic standing Right Arm] 104/77 Pulse Oximetry 96 99 Oxygen Delivery Me thod Room Air Room Air 08/10/22 11:00 Temperature 98.2 F Pulse Rate Pulse Rate [Left P ulse Oximeter] 61 Pulse Rate [orthos tatic lying Left P ulse Oximeter] Pulse Rate [orthos tatic sitting Left Pulse Oximeter] Pulse Rate [orthos tatic standing Lef t Pulse Oximeter] Respiratory Rate 18 Blood Pressure [Le ft Arm] 131/94 H Blood Pressure [Ri ght Arm] Blood Pressure [or thostatic lying Ri ght Arm] Blood Pressure [or thostatic sitting Right Arm] Blood Pressure [or thostatic standing Right Arm] Pulse Oximetry 100 Oxygen Delivery Me thod Room Air Labs Labs: Laboratory Results - last 24 hr 08/09/22 08/09/22 08/09/22 01:25 07:51 14:29 WBC RBC Hgb Hct MCV MCH MCHC Plt Count VBG pH VBG pCO2 VBG pO2 VBG HCO3 Sodium Potassium Chloride Carbon Dioxide BUN Creatinine Estimated Creat Clear Estimated GFR Glucose Hemoglobin A1c Calcium Magnesium Total Bilirubin GGT AST ALT Alkaline Phosphatase Troponin I 0.24 H* C-Reactive Protein NT-Pro-B Natriuret Pep Total Protein Albumin Triglycerides Cancelled Cholesterol Cancelled LDL Cholesterol, Calc Cancelled HDL Cholesterol Cancelled Procalcitonin 1.06 H 08/10/22 08/10/22 08/10/22 06:43 06:43 06:43 WBC 4.01 L RBC 3.60 L Hgb 11.1 L Hct 33.4 L MCV 93 MCH 31 MCHC 33 Plt Count 141 VBG pH VBG pCO2 VBG pO2 VBG HCO3 Sodium 139 Potassium 3.4 L Chloride 109 Carbon Dioxide 24 BUN 23 Creatinine 1.2 Estimated Creat Clear 60.42 Estimated GFR 65 Glucose 74 Hemoglobin A1c 5.20 Calcium 8.7 Magnesium 1.9 Total Bilirubin 0.4 GGT 21 AST 93 H ALT 38 Alkaline Phosphatase 70 Troponin I 0.11 H* C-Reactive Protein 0.9 NT-Pro-B Natriuret Pep 1180 H Total Protein 5.7 L Albumin 3.6 Triglycerides Cholesterol LDL Cholesterol, Calc HDL Cholesterol Procalcitonin 0.80 H 08/10/22 06:43 WBC RBC Hgb Hct MCV MCH MCHC Plt Count VBG pH 7.358 VBG pCO2 44 VBG pO2 35.4 VBG HCO3 25 Sodium Potassium Chloride Carbon Dioxide BUN Creatinine Estimated Creat Clear Estimated GFR Glucose Hemoglobin A1c Calcium Magnesium Total Bilirubin GGT AST ALT Alkaline Phosphatase Troponin I C-Reactive Protein NT-Pro-B Natriuret Pep Total Protein Albumin Triglycerides Cholesterol LDL Cholesterol, Calc HDL Cholesterol Procalcitonin
--- NOTE | 2022-08-10 12:24 | PC.SOCIAL ---
Addendum entered by KAYDEN Nova 08/10/22 15:45: Reviewed and approved social work grad intern note. Germania Ojeda Original Note: Discharge planning: Social work met with patient to discuss current care at [facility] and future care. Pt. was unclear about whether he thought that he was receiving the level of care he needed at [facility], but did not produce any alternatives or complaints, and was confused about whether he could return to that facility. Pt. was very concerned that he had covid and expressed guilt that others had to care for him. Social work clarified that we are here to help him find a safe place to go from the hospital. Called counter caser Nguyễn Webster ([phone]) who clarified that pt. did have covid when he first went to [facility], around five months ago. CM said that he noticed change in pt. demallennor at their last meeting on Saturday, noting elevated concerns about his health, and that he was not feeling well. CM confirmed that he is rather isolated within his community. CM believes level of care received at [facility] is appropriate for pt. at this time, unless health declines. Called Keke hawk at [facility] ([phone]) who confirmed that pt. receives nursing care for his catheter twice a day, but is very independent and cooperative, and often maintains it by himself. She says that he is able to return to [facility] after his hospital stay. Social work to follow up as needed.
--- NOTE | 2022-08-10 19:32 | PC.NURSE ---
Nursing Care Hours [id number] Pt this shift calm and cooperative. Soft spoken and delayed speech. Pt found to not be eating or drinking this shift for fear of it going right through and pt needing to [place] to the bathroom. After extra encouragement and education on healthy foods that are good for diarrhea, pt ordered lunch. Pt shared he feels like a burden to staff. Stating i am sorry you have to work with a patient like me and that he is wasting our time. Pt admitted he feels depressed lately. Verbal report from staff from [facility] is that, this depressive behaviour has been increasing. Reported pt spends time in room with lights and TV off, and declines meals. Pilot Plant Supervisor spent time throughout the shift, reassuring patient that he is just as important as anyone else on the floor. Pt stated he did not want to spend another night here because of these feelings but didn't have anywhere else to go. Pilot Plant Supervisor and pt discussed pros and cons of leaving today before treatment is done. Pt aware that he would not be safe if he left today. C/o bilat posterior leg pain that increases when walking. Tylenol effective, aware. Gait steady with walker and SB assit. Low urine output, bladder scan showed 2ml. Fluid running via IV. Tele shows NSR
[2022-08-10] MEDS: ENOXAPARIN 40 MG/0.4 ML INJ SUBCUT (21:10)
[2022-08-10] MEDS: SERTRALINE 100 MG TABLET PO (21:11)
[2022-08-10] MEDS: ATORVASTATIN CALCIUM 40 MG TABLET PO (21:11)
[2022-08-11] VITALS (7 sets, daily range): BP systolic 134–146; BP diastolic 80–89; PULSE 59–64; RESP 16–18; TEMP 36.9; O2SAT 99
[2022-08-11] MEDS: LACTATED RINGERS 1000 ML 1,000 ML 125 ML IV (06:18)
[2022-08-11] MEDS: OMEPRAZOLE 20 MG CAPSULE DR 40 MG PO (06:18)
[2022-08-11 06:24] LABS: HCO3 VBG 27 mmol/L (21-28); PCO2 VBG 42 mmHG (40-50); PO2 VBG 56.8 mmHG (25-47); pH VBG 7.417 (7.32-7.43)
[2022-08-11 06:30] LABS: Hematocrit 30.8 % (37.0-53.0); Hemoglobin* 10.3 gm/dL (13.5-17.5); Mean Corpuscular HGB Conc 33 gm/dL (32-36); Mean Corpuscular Hemoglobin 31 pg (26-34); Mean Corpuscular Volume 92 fL (80-100); Platelet Count* 122 K/uL (140-440); Red Blood Count 3.36 m/uL (4.30-5.90)
[2022-08-11 06:34] LABS: Slide Review Reflex No
[2022-08-11 06:45] LABS: Chloride* 112 mmol/L (96-114)
[2022-08-11 06:46] LABS: Potassium* 3.3 mmol/L (3.6-5.1); Sodium* 140 mmol/L (135-149)
[2022-08-11 06:48] LABS: Estimated Glomerular Filt Rate 81 ml/min
[2022-08-11 06:49] LABS: Alanine Aminotransferase* 34 U/L (4-50); Alkaline Phosphatase* 66 U/L (40-150); Aspartate Amino Transferase* 71 U/L (12-35); Bilirubin Total* 0.4 mg/dL (0.1-1.5); Blood Urea Nitrogen* 20 mg/dL (7-30); Calcium* 8.4 mg/dL (8.4-10.6); Carbon Dioxide* 25 mmol/L (20-32)
[2022-08-11 07:03] LABS: Glucose* 81 mg/dL (60-115)
--- NOTE | 2022-08-11 07:03 | PC.NURSE ---
[id number]: Patient cooperative with cares. A&Ox3. Chronic cath patent. Passing gas but no BM this shift. Afebrile. A1,tulio,GB. Moves well. Patient noted to be more interactive and conversational this shift. Encouraged oral intake.
[2022-08-11 07:15] LABS: C Reactive Protein* < 0.5 mg/dL (0.5-1.0); Troponin I* 0.06 ng/mL (0.01-0.04)
[2022-08-11] MEDS: cefTRIAXone 2 GM in 0.9 % SODIUM CHLORIDE Mini-bag 100 ML IVPB (08:05)
[2022-08-11] MEDS: ASPIRIN 81 MG TABLET EC PO (09:39)
[2022-08-11] MEDS: VANCOMYCIN 125 MG CAPSULE PO ×2 (09:40→13:25)
[2022-08-11] MEDS: TAMSULOSIN HCL 0.4 MG CAPSULE PO (09:40)
[2022-08-11] MEDS: MULTIVITAMIN/MINERALS 1 TABLET 1 TAB PO (09:40)
[2022-08-11] MEDS: FINASTERIDE 5 MG TABLET PO (09:40)
--- NOTE | 2022-08-11 12:04 | P.DS_ITS ---
DS: Providers Provider Time Seen by Provider: 10:55 Date Seen: 08/11/22 Date of admission: 08/10/22 09:22 Primary care physician: Not a Local Provider Admitting Clinician: Keke Marinelli MD Consults: 08/09/22 07:31 Consult to Occupational Therapy [CONS] Routine Comment: Reason(s) for OT Consult:: Evaluate and Treat Any Restrictions?:: No Restrictions Consult to Physical Therapy [CONS] Routine Comment: Reason(s) for PT Consult:: Evaluate and Treat Any Restrictions?:: No Restrictions Consult to Mexican [employer] [CONS] Routine Comment: Reason for Consult:: Social Service Consult Attending Physician on discharge: Mirlande Christina MD Date of Discharge: 08/11/22 DS: Diagnosis Discharge Diagnosis (1) Acute UTI: Status: Acute Problem details: Catheter changed 08/09/2022 (at onset of treatment for UTI) Urine culture shows Gram-negative rods, sensitivities pending Was on ceftriaxone for 2 days. Discharged on 8 more days of cefpodoxime, dosed for complicated UTI. (2) Acute hypotension: Status: Resolved (3) Elevated troponin: Status: Acute Problem details: suspect demand ischemia echo as below aspirin, statin daily ECG, clinical exam consistent with underlying demand ischemia (hypotension, infection) (4) WARNER (acute kidney injury): Status: Resolved (5) Clostridium difficile infection: Status: Acute Problem details: Oral vancomycin; contact precautions (6) Major depression: Status: Chronic (7) Frontotemporal dementia: Status: Acute Problem details: 08/10/22 MOCA 24/30 (8) Chronic GERD: Status: Acute Problem details: on PPI - hold this while on cefpodoxime (9) Benign prostatic hyperplasia with urinary retention: Status: Acute Problem details: chronic indwelling catheter, f/u with urology (10) Bipolar 1 disorder: Status: Acute Problem details: may benefit from referral to outpatient psychiatry (11) Thoracic aortic aneurysm: Status: Acute Problem details: 08/09/2022 CT chest: Aneurysmal dilation of the ascending thoracic aorta measuring 4.2 cm. (12) Bicuspid aortic valve: Status: Acute Problem details: seen on ECHO 08/09/22 (13) Abnormal echocardiogram: Status: Acute Problem details: 08/09/2022 Echocardiogram: Normal LV size, normal wall thickness, hyperdynamic global systolic function with an estimated EF of 70-75%. Right ventricular cavity size is normal, global systolic RV function is normal. Aortic valve is bicuspid, sclerotic and calcified, mild stenosis and trivial regurgitation. The inferior vena cava is dilated, respiratory size variation less than 50%, consistent with elevated right atrial pressure. The ascending aorta is not well seen. No Doppler evidence for coarctation. DS: Summary Hospital Course Hospital Course: This is a 71-year-old resident of [facility] who was found walking in [place] when EMS stopped to offer assistance. He was hypotensive and a little confused. Upon arrival to the emergency room he had systolic blood pressures in the range of 70s to 90s. He looks disheveled and had an indwelling catheter with no fever or tachycardia. Throughout his stay he is noted to have a very flat and depressed affect and makes statements such as he is concerned about being a bother to people or endangering them. Upon admission he had acute kidney injury and demand ischemia as noted by EKG changes and mildly elevated troponin. These improved with resolution of hypotension. He was started on aspirin and statin for this. Creatinine also improved with hydration. He was started on IV antibiotics for concern of probable urinary tract infection in the setting of chronic indwelling Flores catheter. Was also found to have a positive C diff test and had had several days of diarrhea prior to this. He was started on oral vancomycin for this. Medically he has stabilized and improved and is discharged back to [facility] today in stable condition. On day of discharge patient was concerned that he was a danger to others because he had COVID 6 months ago and thinks that once you get it you are always contagious. I took time to talk with him about viruses and specifically about COVID and how long people can be infectious with that, noting that he is likely no longer infectious because he had COVID infection months ago and has tested negative for and on admission. Despite this he continued to believe that he would always have COVID and be infectious with it. Recommendations for primary care provider: Patient states that he has seen Urology, specifically Dr. Cooley, and I think he would benefit being referred back there within the next month or 2. He will need ongoing follow-up for thoracic aortic aneurysm found incidentally on echocardiogram during this hospital stay. He may also benefit from outpatient psychiatry evaluation and treatment for suspected bipolar depression perseveration and possible delusions. Status at Discharge Functional status at discharge: independent ambulation Overall status at discharge: patient is back to baseline Time Spent with Patient Time attestation: Total time spent providing and/or coordinating discharge services: Exam Narrative: Exam Narrative: General: No acute distress. Flat affect. Awake, alert, oriented x3. No pallor. No jaundice. Oropharynx: Clear. Mucous membranes moist. Cardiovascular: Regular rate and rhythm. No murmurs, gallops, or rubs. Respiratory: Clear to auscultation bilaterally. No wheezes or crackles. Const: Vital Signs, click to edit/add: Vital Signs - 24 hr 08/10/22 15:00 08/10/22 15:00 08/10/22 15:00 Temperature 97.9 F Pulse Rate Pulse Rate [Left P ulse Oximeter] 61 66 Respiratory Rate 18 18 Blood Pressure [Le ft Arm] 126/79 Blood Pressure [Ri ght Arm] Pulse Oximetry 99 100 Oxygen Delivery Nd thod Room Air Room Air 08/10/22 19:00 08/10/22 21:24 08/10/22 23:00 Temperature 98.3 F 97.8 F Pulse Rate 61 Pulse Rate [Left P ulse Oximeter] 68 63 Respiratory Rate 18 16 Blood Pressure [Le ft Arm] 132/88 Blood Pressure [Ri ght Arm] 138/84 Pulse Oximetry 96 99 Oxygen Delivery Nd thod Room Air Room Air 08/10/22 23:00 08/11/22 03:00 08/11/22 06:00 Temperature Pulse Rate Pulse Rate [Left P ulse Oximeter] 61 Respiratory Rate 18 18 Blood Pressure [Le ft Arm] Blood Pressure [Ri ght Arm] 134/89 Pulse Oximetry 95 Oxygen Delivery Nd thod Room Air 08/11/22 07:44 08/11/22 07:00 08/11/22 09:48 Temperature 98.4 F Pulse Rate 62 Pulse Rate [Left P ulse Oximeter] 64 Respiratory Rate 16 Blood Pressure [Le ft Arm] Blood Pressure [Ri ght Arm] 135/80 Pulse Oximetry 99 99 Oxygen Delivery Nd thod Room Air Room Air 08/11/22 11:19 Temperature 98.5 F Pulse Rate Pulse Rate [Left P ulse Oximeter] 59 L Respiratory Rate 16 Blood Pressure [Le ft Arm] Blood Pressure [Ri ght Arm] 146/84 H Pulse Oximetry 99 Oxygen Delivery Nd thod Room Air DS: Data Data Completed and Pending Completed studies during hospitalization: Ordering Physician: Keke Marinelli MD Date of Service: 08/09/22 Procedure(s): XR chest 1V Accession Number(s): [id number] cc: Keke Marinelli MD; Provider,Not a Local ~ For Patients: As a result of the Cures Act, medical imaging exams and procedure reports are released immediately into your electronic medical record. You may view this report before your referring provider. If you have questions, please contact your health care provider. INDICATION: Hypertension. Confusion. TECHNIQUE: Chest 1 view. COMPARISON: None. FINDINGS: Cardiovascular and mediastinum: Cardiomediastinal silhouette is within normal limits. Lungs and pleural spaces: Small to moderate right pneumothorax. Moderate left pneumothorax. No focal consolidation. No pleural effusion. Bones and soft tissues: Bilateral shoulder degenerative changes. IMPRESSION: Small to moderate right and moderate left pneumothoraces. Dictated by Sea Barney MD @ 08/09/2022 3:12:00 AM (Electronically Signed) Ordering Physician: Keke Marinelli MD Date of Service: 08/09/22 Procedure(s): CT head/brain wo con Accession Number(s): [id number] cc: Keke Marinelli MD; Provider,Not a Local ~ For Patients: As a result of the Cures Act, medical imaging exams and procedure reports are released immediately into your electronic medical record. You may view this report before your referring provider. If you have questions, please contact your health care provider. INDICATION: Altered mental status. TECHNIQUE: CT head without contrast. COMPARISON: None. FINDINGS: CSF spaces: Within normal limits for age. Brain parenchyma: Mild generalized cerebral volume loss. The brown-white differentiation is maintained. No sign of mass, hemorrhage, or midline shift. Atherosclerotic calcifications of the cavernous carotids and carotid siphons. Skull base and calvarium: The visualized paranasal sinuses and mastoid air cells demonstrate no acute or significant findings. The visualized orbits are grossly unremarkable. No skull fractures. IMPRESSION: No acute intracranial abnormality. Please note that all CT scans at this facility use dose modulation, iterative reconstruction, and/or weight-based dosing when appropriate to reduce radiation dose to as low as reasonably achievable. Dictated by Sea Barney MD @ 08/09/2022 3:30:26 AM (Electronically Signed) Ordering Physician: Keke Marinelli MD Date of Service: 08/09/22 Procedure(s): CT chest wo con Accession Number(s): [id number] cc: Keke Marinelli MD; Provider,Not a Local ~ For Patients: As a result of the Cures Act, medical imaging exams and procedure reports are released immediately into your electronic medical record. You may view this report before your referring provider. If you have questions, please contact your health care provider. INDICATION: HYPOTENSION AND CONFUSION TECHNIQUE: CT chest without contrast. COMPARISON: None. FINDINGS: Lungs and pleura: No suspicious nodules or infiltrates. No pleural effusions, pleural thickening, or pneumothorax. Small thin-walled cyst within the left upper lobe. Heart and vasculature: Heart size is normal. Aneurysmal dilation of the ascending thoracic aorta measuring 4.2 cm. Moderate the sclerosus of the thoracic aorta. Coronary artery calcifications and/or stents. Lymph nodes/mediastinum: No enlarged mediastinal or axillary adenopathy. Calcified right hilar nodes. Chest wall: No masses. Upper abdomen: No significant findings. Abdominal aortic calcifications. Bones: Mild multilevel degenerative spondylosis without acute fracture or aggressive osseous lesion. Multilevel anterior bridging osteophytosis which can be seen with DISH. IMPRESSION: Aneurysmal dilation of the ascending thoracic aorta measuring 4.2 cm. Atherosclerotic calcifications. No evidence of acute cardiopulmonary process on this limited unenhanced CT. Please note that all CT scans at this facility use dose modulation, iterative reconstruction, and/or weight-based dosing when appropriate to reduce radiation dose to as low as reasonably achievable. Dictated by Adrián Allen MD @ 08/09/2022 4:46:36 AM (Electronically Signed) Specimen: [id number] Collected: 08/09/22 Received: 08/09/22 Source: Urine Fol Sp Descrip: Sub Dr: Jessa Perdomo M.D. Other Dr: Keke Marinelli MD Procedure Result Site Urine Culture Final ML Organism 1 Staphylococcus epidermidis Ur Raymond Count >100,000 CFU/ml S epidermi SHAWN RX --------- --- Ciprofloxacin <=0.5 S Clindamycin <=0.12 S Doxycycline >=16 R Erythromycin <=0.25 S Gentamicin <=0.5 S Levofloxacin <=0.12 S Linezolid 1 S * Oxacillin Shawn <=0.25 S Rifampin <=0.5 S Tetracycline >=16 R Tigecycline <=0.12 S 08/09/2022 Echocardiogram: Normal LV size, normal wall thickness, hyperdynamic global systolic function with an estimated EF of 70-75%. Right ventricular cavity size is normal, global systolic RV function is normal. Aortic valve is bicuspid, sclerotic and calcified, mild stenosis and trivial regurgitation. The inferior vena cava is dilated, respiratory size variation less than 50%, consistent with elevated right atrial pressure. The ascending aorta is not well seen. No Doppler evidence for coarctation. 08/09/2022 2:28 EKG: Sinus rhythm with first-degree AV block, heart rate 67 beats per minute. Low- voltage QRS. Possible lateral infarct and inferior infarct, age is undetermined. 08/09/2022 7:36 EKG: Normal sinus rhythm, heart rate 67 beats per minute, possible inferior infarct, age undetermined Pending studies at discharge: Blood culture x2 negative for 48 hours. Specimen: [id number] Collected: 08/09/22 Received: 08/09/22 Source: Urine CC Sp Descrip: Sub Dr: Keke Marinelli MD Other Dr: Jessa Perdomo M.D. Procedure Result Site Urine Culture Preliminary ML Organism 1 Gram positive cocci Ur Raymond Count 90,000 - 100,000 CFU/ml Labs on day of discharge: Labs from last 24 hours 08/11/22 08/11/22 08/11/22 06:13 06:13 06:13 WBC 3.30 L RBC 3.36 L Hgb 10.3 L Hct 30.8 L MCV 92 MCH 31 MCHC 33 Plt Count 122 L VBG pH 7.417 VBG pCO2 42 VBG pO2 56.8 H VBG HCO3 27 Sodium 140 Potassium 3.3 L Chloride 112 Carbon Dioxide 25 BUN 20 Creatinine 1.0 Estimated Creat Clear 74.30 Estimated GFR 81 Glucose 81 Venous Lactic Acid (Serial Order) Calcium 8.4 Total Bilirubin 0.4 AST 71 H ALT 34 Alkaline Phosphatase 66 Troponin I 0.06 H* C-Reactive Protein < 0.5 L Total Protein 5.0 L Albumin 3.0 L 08/09/22 05:35 WBC RBC Hgb Hct MCV MCH MCHC Plt Count VBG pH VBG pCO2 VBG pO2 VBG HCO3 Sodium Potassium Chloride Carbon Dioxide BUN Creatinine Estimated Creat Clear Estimated GFR Glucose Venous Lactic Acid (Serial Order) Calcium Total Bilirubin AST ALT Alkaline Phosphatase Troponin I C-Reactive Protein Total Protein Albumin Preliminary micro results at discharge 08/09/22 10:10 Blood Culture - Preliminary Blood - Picc Line NO GROWTH AFTER 48 HOURS 08/09/22 10:02 Blood Culture - Preliminary Blood - Picc Line NO GROWTH AFTER 48 HOURS 08/09/22 01:32 Urine Culture - Preliminary Urine,Clean Catch Gram positive cocci Discharge Plan Discharge Disposition: Home, Self-Care Date of Admission: 08/10/22 09:22 Attending Provider on Discharge: Mirlande Christina Primary Care Provider: Provider,Not a Local Condition: Improved Anticipated Discharge Date/Time: 08/11/22 12:24 Discharge Medications: New atorvastatin [Lipitor] 40 mg Tablet 40 mg PO HS Qty: 30 0RF aspirin 81 mg Tablet,Delayed Release (Dr/Ec) 81 mg PO DAILY Qty: 100 0RF vancomycin 125 mg Capsule 125 mg PO QID Qty: 56 0RF cefpodoxime 200 mg tablet 200 mg PO BID Qty: 16 0RF Rx Instructions: must administer with a meal/food Continued sertraline 100 mg tablet 100 mg PO HS acetaminophen 325 mg tablet 650 mg PO Q4H PRN finasteride 5 mg tablet 5 mg PO DAILY multivitamin with folic acid [Tab-A-Jennifer] 400 mcg tablet 1 tab PO DAILY polyethylene glycol 3350 [Gavilax] 17 gram/dose powder 17 g PO DAILY tamsulosin 0.4 mg capsule 0.4 mg PO DAILY Held pantoprazole 40 mg tablet,delayed release (DR/EC) 40 mg PO DAILY Hold Instructions: Resume on 08/19/22. Discharge Orders: Discharge Order (Routine); Ordered 08/11/22 Ordered By: Mirlande Christina Patient Education: C. Diff (Clostridioides Difficile) Infection (DC), Catheter- associated Urinary Tract Infection (DC) Activity Level: No Restrictions Discharge Diet: Regular Follow Up Appointments: Provider,Not a Local [Primary Care Provider] - (PCP Wed - check potassium) Forms: [facility] Info Instructions
--- NOTE | 2022-08-11 14:39 | PC.NURSE ---
Discharge: Patient pleasant and cooperative. up with one assist, walker and gait belt. Tolerating regular diet well. Vitals stable and WNL. Discharge instructions given to patient, questions answered, reviewed follow ups and new medication orders. IV removed and personal belongings accounted for. Discharged from floor @ 1431 via wheelchair. chief privacy officer from [place] picked up from ED entrance.
== END 2022-08-11 14:31 | disposition home or self-care (01) | DRG 698 ==
LOC: ED 05:50 → MEDSURG 06:52
PROVIDERS: Family Medicine; Admitting Provider Family Medicine; Emergency Provider Family Medicine; PCP Family Medicine; Visit Provider Family Medicine
DX: T83.511A Infection and inflammatory reaction due to indwelling urethral catheter, initial encounter (principal); I21.A1 Myocardial infarction type 2; A04.72 Enterocolitis due to Clostridium difficile, not specified as recurrent; N17.9 Acute kidney failure, unspecified; Q23.1 Congenital insufficiency of aortic valve; Z16.29 Resistance to other single specified antibiotic; B96.89 Other specified bacterial agents as the cause of diseases classified elsewhere; N39.0 Urinary tract infection, site not specified; I95.9 Hypotension, unspecified; F31.9 Bipolar disorder, unspecified; N40.1 Benign prostatic hyperplasia with lower urinary tract symptoms; R33.8 Other retention of urine; G31.09 Other frontotemporal neurocognitive disorder; F02.80 Dementia in other diseases classified elsewhere, unspecified severity, without behavioral disturbance, psychotic disturbance, mood disturbance, and anxiety; E86.0 Dehydration; I71.20 Thoracic aortic aneurysm, without rupture, unspecified; B95.7 Other staphylococcus as the cause of diseases classified elsewhere; Z85.820 Personal history of malignant melanoma of skin; Z87.442 Personal history of urinary calculi; K21.9 Gastro-esophageal reflux disease without esophagitis
CPT/HCPCS: 36415; 51798; 70450; 71045; 71250; 80053; 80061; 80306; 81001; 82077; 82565; 82803; 82977; 83036; 83735; 83880; 84145; 84484; 85025; 85027; 86140; 87040; 87086; 87186; 87493; 87631; 93005; 93306; 97110; 97116; 97162; 97165; 97530; 97535; 99285; G0378; A9153; A9270; J0696; J1650; J7030; J7120

== ENCOUNTER 2022-08-13 05:44 | Outpatient (CLI) | payer MEDICARE, MEDICAID, SELFPAY ==
--- OUTSIDE RECORDS SUMMARY | 2022-09-08 21:02 | XMS_ITS ---
[...] Bilirubin-Status Negative ? Ketones-Status Negative ? Sp [place]-Status 1.010 ? pH-Status 5.5 ? Protein-Status 5.0 ? Urobilinogen-Status 0.2 ? Nitrates-Status negative ? Blood-Status Moderate ? Leuko-Status Negative ? Specimen Type Catheterized ? Performed by Nanci,RN/BSN ? Total Urine Volume 235ml ? ? Past Encounters Encounter Date Diagnosis Provider 07/25/2022 JUAN Zepeda: [address] [place] [phone], Ph. 02/28/2022 Retention of Urine Erick Cooley MD: [address] [place] [phone], Ph. Social History Tobacco Smoking Status Former [...]
--- OUTSIDE RECORDS SUMMARY | 2022-09-08 21:02 | XMS_ITS | Clinical Summary ---
:1950 Author Organization [facility] [place] [address] Care Team Providers Name Role Phone Feli Babin MD Primary Care Provider [phone] [facility] Unavailable Sabina Chang RN Unavailable Amelia Mukherjee [...] tion. /) 08/16/2022 Office Visit Feli Babin [facility] F/ U (DOD: MD [place] 08/11/22) 08/16/2022 Travel 08/14/2022 Telephone [facility], Feli Lab (Lab wo rk needed?) MD [place] 08/13/2022 Telephone Brenda Rosado Appointment JUAN Nogueira 08/13/2022 Telephone Feli Babin Concerns (Dell Sage MD leaving facilit y ) 08/09/2022 Orders Only 2 scans: (2-Ord ) ECHO COMPLETE WO CON TRAST ([id number]) 08/02/2022 Nurse/Clinic Staff Insert (Lang chun Only change) 08/02/2022 Travel 07/30/2022 Telephone Feli Babin Appointment (Nurse MD [place] visit- catheter change) 07/09/2022 Telephone Feli Babin Referral (u [facility]) MD Alona from Last 3 Months Immunizations Name Administration Dates Next Due COVID-19 vaccine (Moderna 100mcg/0.5mL) 09/12/2021, 12/20/19, 11/21/2020 PF, MDV COVID-19 vaccine (Baloonr 02/22/2022 30mcg/0.3mL) PF, MDV Influenza, High-dose Inactivated [...] No / Unsu re 08/16/2022 1:40 PM CANTILEVER CRANE OPERATOR someone who was confirmed or suspected to have Coronavirus/COVID-19? Obstetrics History Last Filed Vital Signs Vital Sign Reading Time Taken Comments Blood Pressure 106/70 08/16/2022 2:07 PM CANTILEVER CRANE OPERATOR Pulse 78 08/16/2022 2:07 PM CANTILEVER CRANE OPERATOR Temperature 35.8 ??C (96.4 ??F) 04/19/2006 11:37 AM CDT Respiratory Rate 16 11/27/2021 11:55 AM CANTILEVER CRANE OPERATOR Oxygen Saturation 98% 08/16/2022 2:07 PM CANTILEVER CRANE OPERATOR Inhaled Oxygen Concentration - - Weight 75.3 kg (166 lb) 08/16/2022 2:07 PM CANTILEVER CRANE OPERATOR Height 182.9 cm (6') 11/23/2021 1:41 PM CANTILEVER CRANE OPERATOR Body Mass Index 22.51 11/23/2021 1:41 PM CANTILEVER CRANE OPERATOR Plan of Treatment Upcoming Encounters Date Type Specialty Care Team Description 11/29/2022 Office Visit Ryan Davies MD [address] [place] [address] (Wo rk) Health Maintenance Due [...] unknown Result s for this DIFFERENTIAL PM CANTILEVER CRANE OPERATOR etiology procedure are i n the results section. VITAMIN B12 Routine 08/16/2022 2:56 Frontotemporal Results fo r this PM CANTILEVER CRANE OPERATOR dementia (HC) procedure are in the results section. TSH WITH REFLEX Routine 08/16/2022 2:56 Frontotemporal Results for this PM CANTILEVER CRANE OPERATOR dementia (HC) procedure are in the results section. CBC WITH AUTO Routine 08/16/2022 2:56 Anemia of unknown Result s for this DIFFERENTIAL PM CANTILEVER CRANE OPERATOR etiology procedure are i n the results section. COMP METABOLIC PANEL Routine 08/16/2022 2:56 Frontotemporal Re sults for this PM CANTILEVER CRANE OPERATOR dementia (HC) procedure are in Renal insufficiency the resu lts section. ECHO COMPLETE WO Routine 08/09/2022 4:20 Elevated tropon in Results for this CONTRAST PM CANTILEVER CRANE OPERATOR NSTEMI (non-ST procedure are in elevated myocardial [...] CBC WITH AUTO DIFFERENTIAL (08/16/2022 2:56 PM CANTILEVER CRANE OPERATOR) [facility] Method Time Signature WHITE BLOOD 4.4 (L) 4.5 - 08/16/2022 [facility] COUNT 11.0 3:09 PM [facility]/ CLINIC mm RED BLOOD COUNT 3.86 (L) 4.30 - 08/16/2022 [facility] 5.90 3:09 PM [facility]/ mm CLINIC HEMOGLOBIN 12.1 (L) 13.5 - 08/16/2022 [facility] 17.5 g/dL 3:09 PM [facility] HEMATOCRIT 35.9 (L) 37.0 - 08/16/2022 [facility] 53.0 % 3:09 PM [facility] MCV 93 80 - 100 08/16/2022 [facility] fL 3:09 PM [facility] MCH 31.3 26.0 - 08/16/2022 [facility] 34.0 pg 3:09 PM [facility] MCHC 33.7 32.0 - 08/16/2022 [facility] 36.0 g/dL 3:09 PM [facility] RDW 14.6 11.5 - 08/16/2022 [facility] 15.5 % 3:09 PM [facility] PLATELET COUNT 160 140 - 440 08/16/2022 [facility] thou/cu 3:09 PM [facility] MPV 11.3 (H) 6.5 - 08/16/2022 [facility] 11.0 fL 3:09 PM [facility] % NEUT 70.9 % 08/16/2022 [facility] 3:09 PM [facility] % LYMPH 16.7 % 08/16/2022 [facility] 3:09 PM [facility] % MONO 11.1 % 08/16/2022 [facility] 3:09 PM [facility] % EOS 1.1 % 08/16/2022 [facility] 3:09 PM [facility] % BASO 0.2 % 08/16/2022 [facility] 3:09 PM [facility] ABSOLUTE 3.1 1.7 - 7.0 08/16/2022 [facility] NEUTROPHILS thou/cu 3:09 PM [facility] ABSOLUTE 0.7 (L) 0.9 - 2.9 08/16/2022 [facility] LYMPHOCYTES thou/cu 3:09 PM [facility] ABSOLUTE 0.5 <0.9 08/16/2022 [facility] MONOCYTES thou/cu 3:09 PM [facility] ABSOLUTE 0.1 <0.5 08/16/2022 [facility] EOSINOPHILS thou/cu 3:09 PM [facility] ABSOLUTE 0.0 <0.3 08/16/2022 [facility] BASOPHILS thou/cu 3:09 PM [facility] Specimen Anatomical Collection Method / Collection Time Recei yohannes Time (Source) Location / Volume Laterality Blood BLOOD SPECIMEN / Venipuncture / 08/16/2022 2:56 2021 3:00 Unknown Unknown PM CANTILEVER CRANE OPERATOR PM CANTILEVER CRANE OPERATOR Feli Babin MD HEMATOLOGY Performing Organization Address City/State/ZIP Code Phon e Number [facility] [address] [place] [address] TSH WITH REFLEX (08/16/2022 2:56 PM CANTILEVER CRANE OPERATOR) athologist Signature TSH 2.47 0.35 - 4.94 08/18/2022 [facility] uIU/mL 10:32 PM CANTILEVER CRANE OPERATOR LABORATORY-CENTR AL LABORATORY Specimen Anatomical Collection Method / Collection Time Recei yohannes Time (Source) Location / Volume Laterality Blood BLOOD SPECIMEN / Venipuncture / 08/16/2022 2:56 2021 3:00 Unknown Unknown PM CANTILEVER CRANE OPERATOR PM CANTILEVER CRANE OPERATOR Narrative [facility] LABORATORY-CENTRAL LABORAT ORY - 08/18/2022 10:32 PM CANTILEVER CRANE OPERATOR In Adults, TSH values between 5.00 and 10.00 uIU/ml do not necessarily indicate the presence of Hyp othyroidism. Correlation with clinical findings such as presence of goiter and/or Thyroperoxidase (TPO) Antibody ma y be helpful. For more information please refer to LEONCIO 20 ; 291: [id number]. Feli Babin MD CHEMISTRY Performing Organization Address City/State/ZIP Code Phon e Number [facility] [employer] [address] [place] [address] [place] [address] LABORATORY-CENTRAL 2000 LABORATORY VITAMIN B12 (08/16/2022 2:56 PM CANTILEVER CRANE OPERATOR) P athologist Signature VITAMIN B12 651 180 - 914 08/17/2022 [facility] [employer] [facility] pg/mL 10:38 AM CANTILEVER CRANE OPERATOR LABORATORY-CENT RAL LABORATORY Specimen Anatomical Collection Method / Collection Time Recei yohannes Time (Source) Location / Volume Laterality Blood BLOOD SPECIMEN / Venipuncture / 08/16/2022 2:56 2021 3:00 Unknown Unknown PM CANTILEVER CRANE OPERATOR PM CANTILEVER CRANE OPERATOR Feli Babin MD CHEMISTRY Performing Organization Address City/State/ZIP Code Phon e Number [facility] [employer] [address] [place], [place] [address] [address] LABORATORY-CENTRAL 2000 LABORATORY (ABNORMAL) COMP METABOLIC PANEL (08/16/2022 2:56 PM CANTILEVER CRANE OPERATOR) Patholo gist Method Time Signature SODIUM 145 135 - 145 08/18/2022 [facility] mmol/L 10:16 PM CANTILEVER CRANE OPERATOR LABORATORY-[facility] TRAL LABORATORY POTASSIUM 3.9 3.5 - 5.0 08/18/2022 [facility] mmol/L 10:16 PM CANTILEVER CRANE OPERATOR LABORATORY-[facility] TRAL LABORATORY CHLORIDE 108 98 - 110 08/18/2022 [facility] mmol/L 10:16 PM CANTILEVER CRANE OPERATOR LABORATORY-[facility] TRAL LABORATORY CO2,TOTAL 30 21 - 31 08/18/2022 [facility] mmol/L 10:16 PM CANTILEVER CRANE OPERATOR LABORATORY-[facility] TRAL LABORATORY ANION GAP 7 5 - 18 08/18/2022 [facility] 10:16 PM CANTILEVER CRANE OPERATOR LABORATORY-[facility] TRAL LABORATORY GLUCOSE 158 (H) 65 - 100 08/18/2022 [facility] mg/dL 10:16 PM CANTILEVER CRANE OPERATOR LABORATORY-[facility] TRAL LABORATORY CALCIUM 9.0 8.5 - 08/18/2022 [facility] 10.5 10:16 PM CANTILEVER CRANE OPERATOR LABORATORY-[facility] mg/dL TRAL LABORATORY BUN 17 8 - 25 08/18/2022 [facility] mg/dL 10:16 PM CANTILEVER CRANE OPERATOR LABORATORY-[facility] TRAL LABORATORY CREATININE 1.29 (H) 0.72 - 08/18/2022 [facility] 1.25 10:16 PM CANTILEVER CRANE OPERATOR LABORATORY-[facility] mg/dL TRAL LABORATORY BUN/CREAT RATIO 13 10 - 20 08/18/2022 [facility] 10:16 PM CANTILEVER CRANE OPERATOR LABORATORY-[facility] TRAL LABORATORY ALBUMIN 3.6 3.2 - 4.6 08/18/2022 [facility] g/dL 10:16 PM CANTILEVER CRANE OPERATOR LABORATORY-[facility] TRAL LABORATORY PROTEIN,TOTAL 5.6 (L) 6.0 - 8.0 08/18/2022 [facility] g/dL 10:16 PM CANTILEVER CRANE OPERATOR LABORATORY-[facility] TRAL LABORATORY GLOBULIN 2.0 2.0 - 3.7 08/18/2022 [facility] g/dL 10:16 PM CANTILEVER CRANE OPERATOR LABORATORY-[facility] TRAL LABORATORY A/G RATIO 1.8 1.0 - 2.0 08/18/2022 [facility] 10:16 PM CANTILEVER CRANE OPERATOR LABORATORY-[facility] TRAL LABORATORY BILIRUBIN,TOTAL 0.4 0.2 - 1.2 08/18/2022 [facility] mg/dL 10:16 PM CANTILEVER CRANE OPERATOR LABORATORY-[facility] TRAL LABORATORY ALK PHOSPHATASE 79 50 - 136 08/18/2022 [facility] IU/L 10:16 PM CANTILEVER CRANE OPERATOR LABORATORY-[facility] TRAL LABORATORY ALT (SGPT) 47 (H) 8 - 45 08/18/2022 [facility] IU/L 10:16 PM CANTILEVER CRANE OPERATOR LABORATORY-[facility] TRAL LABORATORY AST (SGOT) 65 (H) 2 - 40 08/18/2022 [facility] IU/L 10:16 PM CANTILEVER CRANE OPERATOR LABORATORY[facility] TRAL LABORATORY eGFR 60 (L) >90 08/18/2022 [facility] mL/min/1. 10:16 PM CANTILEVER CRANE OPERATOR LABORATORY-[facility] 73m2 TRAL LABORATORY Comment: As of [...] 08/16/2022 2:56 2021 3:00 Unknown Unknown PM CANTILEVER CRANE OPERATOR PM CANTILEVER CRANE OPERATOR Feli Babin MD CHEMISTRY Performing Organization Address City/State/ZIP Code Phon e Number [facility] [address] [place] [address] LABORATORY-CENTRAL 2000 LABORATORY ECHO COMPLETE WO CONTRAST (08/09/2022 4:20 PM CANTILEVER CRANE OPERATOR) P athologist Signature AORTIC VALVE 14 mmHg MEAN PG EJECTION 82 % FRACTION PEAK TR 2.5 m/s VELOCITY LVEDD 3.9 cm EJECTION 70 - 75% FRACTION Anatomical Region Laterality Modality HEART Ultrasound Specimen (Source) Anatomical Collection Method Collection Time Re ceived Time Location / / Volume Laterality 08/09/2022 3:41 PM CANTILEVER CRANE OPERATOR Narrative 08/09/2022 4:48 PM CANTILEVER CRANE OPERATOR ECHOCARDIOGRAM RASHMI CUEVA ? Accessi on#: ?? [id number] : ?1950 71 years Study Date: ?? 08/09/2022 3:41:48 PM Gender: M ?BP: ? 140/84 mmHg Height: 183.00 cm ?BSA: ?1.90 m? ?? Weight: 69.00 kg ? Tech: ? MCK ? Referring MD: JESSA PERDOMO Site: ? [facility] Reading Location: [place] Procedure: 2D, Color Doppler and Spectra l [...] . This study was interpreted by an [facility]. CC: [facility], Med/ Surg - IP [facility]. ??Final ?? Procedure Note Meet Murillo MD - 08/09/2022Forma tting of this note might be different from the original. ECHOCARDIOGRAM RASHMI CUEVA : 1950 71 years Study Date: 07/31 3:41:48 PM Gender: M BP: 140/84 mmHg Height: 183.00 cm BSA: 1.90 m? ?? Weight: 69.00 kg Tech: [facility] Referring MD: JESSA PERDOMO Site: [facility] Reading Location: [facility] Procedure: 2D, Color Doppler and Spectra l [...] . This study was interpreted by an [facility]. CC: [facility], Med/ Surg - IP [facility]. Final Jessa Perdomo MD ECHO ORD (ABNORMAL) URINALYSIS MICROSCOPIC (08/02/2022 9:45 AM CDT) [facility] Method Time Signature RBC - (A) 0-2, None 08/02/2022 [facility] Seen /HPF 10:03 AM CDT [facility] WBC -25 (A) 0-2, 3-5, 08/02/2022 [facility] None Seen 10:03 AM CDT [place] /HPF CLINIC BACTERIA Moderate (A) None 08/02/2022 [facility] Seen, 10:03 AM CDT [place] Rare, Few CLINIC Bacteria/ HPF EPITHELIAL Few None 08/02/2022 [facility] CELLS Seen, Few 10:03 AM CDT [place] Epi/HPF CLINIC Mucus Present 08/02/2022 [facility] 10:03 AM CDT [facility] WHITE CELL Present (A) (none) 08/02/2022 [facility] CLUMPS 10:03 AM T [facility] HYALINE CASTS -25 (A) 0-2, 3-5 08/02/2022 [facility] /LPF 10:03 AM CDT [facility] AMORPHOUS Present (A) (none) 08/02/2022 [facility] 10:03 AM T [facility] Specimen Anatomical Collection Method Collection Time Receive d Time (Source) Location / / Volume Laterality Urine URINE SPECIMEN / Non-Blood / 08/02/2022 9:45 AM 08/02 9:52 Unknown Unknown CDT AM CDT Feli Babin MD URINE Performing Organization Address City/State/ZIP Code Phon e Number [facility] [address] [place] [address] URINE CULTURE (08/02/2022 9:45 AM CDT) [facility] Method Time Signature CULTURE 10-50,000 CFU/mL 08/04/2022 [facility] H of multiple 2:12 PM CDT LABORATORY-[facility] organisms, TRAL probable LABORATORY contaminants Specimen Anatomical Collection Method Collection Time Receive d Time (Source) Location / / Volume Laterality Urine URINE SPECIMEN / Non-Blood / 08/02/2022 9:45 AM 08/02 9:52 Unknown Unknown CDT AM CDT Feli Babin MD MICROBIOLOGY Performing Organization Address City/State/ZIP Code Phon e Number [facility] [address] [place] [address] LABORATORY-CENTRAL 2000 LABORATORY (ABNORMAL) UA W/ SEDIMENT EXAM REFLEXED PER CRITERIA (08/02/2022 9:45 AM CDT) [facility] Method Time Signature COLOR Yellow Yellow Color 08/02/2022 [facility] 9:58 AM CDT [facility] CLARITY Slightly Clear 08/02/2022 [facility] Cloudy (A) Clarity 9:58 AM T [facility] SPECIFIC >=1.030 (A) 1.010, 08/02/2022 [facility] GRAVITY,URINE 1.015, 9:58 AM [facility] 1.020, 1.025 [facility] PH,URINE 6.0 6.0, 7.0, 08/02/2022 [facility] 8.0, 5.5, 9:58 AM T [place] 6.5, 7.5, CLINIC 8.5 UROBILINOGEN, Normal Normal EU/dl 08/02/2022 [facility] QUALITATIVE 9:58 AM T [facility] PROTEIN, 30 (A) Negative 08/02/2022 [facility] URINE mg/dL 9:58 AM [facility] GLUCOSE, Negative Negative 08/02/2022 [facility] URINE mg/dL 9:58 AM T [facility] KETONES,URINE Trace (A) Negative 08/02/2022 [facility] mg/dL 9:58 AM T [facility] BILIRUBIN,URI Abnormal (A) Negative 08/02/2022 [facility] NE 9:58 AM CDT [facility] Comment: A variety of metabolites and/or medications may result in a positive bilirubin result. Clinical correlation i s recommended. OCCULT BLOOD,URINE Moderate (A) Negative 08/02/2022 9:58 AM [facility] NITRITE Positive (A) Negative 08/02/2022 9:58 AM [facility] LEUKOCYTE ESTERASE Small (A) Negative 08/02/2022 9:58 AM [facility] Specimen Anatomical Collection Method Collection Time Receive d Time (Source) Location / / Volume Laterality Urine URINE SPECIMEN / Non-Blood / 08/02/2022 9:45 AM 08/02 9:52 Unknown Unknown CDT AM CDT Feli Babin MD URINE Performing Organization Address City/State/ZIP Code Phon e Number [facility] [address] [place] [address] from Last 3 Months Insurance Payer Benefit Plan / Subscriber ID Effective Phone Address T e Group [employer] [id number] Effective [employer] for all OFFICE OF IRA [facility] Liiiike [facility] [address] [address] [place] [address] MEDICARE - PB USE MEDICARE PB ONLY [id number] 2019-Pre ATTN: CLAIMS ONLY sent [address] [place] [address] MEDICARE - PB USE MEDICARE [place] ONLY [id number] 2019-Pre ATTN: CLAIMS ONLY sent [address] [place] [address] [facility] [id number] 2021-Pre [address] [place] [address] [facility] [id number] 2021-Pre [address] [place] [address] Care Teams [employer] Relationship Specialty Start Date End Date Feli Babin MD PCP - General Family Practice 11/15/21 [address] [place] [address] [facility] 11/15/[address] [id number] Sabina Chang, sheriff officer - [facility] Registered Nurse 06/30/[address] [address] Amelia Mukherjee, sheriff officer - [facility] Registered Nurse 06/30/[address] [id number]
--- OUTSIDE RECORDS SUMMARY | 2022-09-08 21:02 | XMS_ITS | Encounter Summary ---
[...] stones - reviewed CT scan images from [facility] - 2 (1.5 cm) stones on bladder [...] Smoking Status Former Smoker Marital status What is your level of alcohol consumption? None What was the date of your most recent tobacco 02/28/2022 screening? When did you quit smoking? 1-5yearssincelastcigarette What is your level of caffeine consumption? None Race White Functional Status Unknown. Past Encounters Encounter Date Diagnosis Provider 07/25/2022 JUAN ZepedaC: [address] [facility] [place] [address], Ph. History of Present Illness Note: <div>11/27/21 ([facility]): 71 yo male with history of frontrotemporal lobe dementia and has significant memory loss (cannot give much of a medical history) and BPH. He was admitted to [facility] on 10/23/[address] scan [...] Chun was last changed around 07/10 in [place]. Remains on 0.4 mg of tamsulosin and [...] sleep disturbances: mismatch of sleep / wake pm edule with lifestyle needs Physical Exam ? [...]
== END 2022-08-13 05:45 | disposition home or self-care (01) ==
LOC: AMB 09-08 21:00
PROVIDERS: PCP Family Medicine; Visit Provider Family Medicine
DX: F03.90 Unspecified dementia, unspecified severity, without behavioral disturbance, psychotic disturbance, mood disturbance, and anxiety (principal)
CPT/HCPCS: A0998

== ENCOUNTER 2022-08-13 14:22 | Emergency (ER) | payer MEDICARE, MEDICAID, SELFPAY ==
[2022-08-13 14:39] VITALS: BP 114/63; PULSE 84; RESP 16; TEMP 36.9; O2SAT 96; BMI 22.5
--- NOTE | 2022-08-13 14:57 | ED_ITS ---
HPI - Male Genitourinary General Chief complaint: Urogenital Problems, Male Stated complaint: Plugged catheter Time Seen by Provider: 08/13/22 14:43 History of Present Illness HPI Narrative: This 71-year-old male is a resident at [place] and is encouraged to come here to check his Flores catheter. He states that he has not had any output to speak of over the past couple days and thinks that it is plugged. He was seen a week ago with similar circumstances and is Flores catheter was changed at that time. There was sediment in the previous catheter. He does not report any fevers. He does have bright red blood in the catheter bag. There is no clot present there. He does take a baby aspirin daily. He does not report any abdominal pain but has pain at his penis related to the catheter. Related Data Home Medications Medication Instructions Recorded Confirmed acetaminophen 325 mg tablet 650 mg PO Q4H PRN 06/10/22 08/13/22 finasteride 5 mg tablet 5 mg PO DAILY 06/10/22 08/13/22 multivitamin with folic acid 400 1 tab PO DAILY 06/10/22 08/13/22 mcg tablet (Tab-A-Jennifer) pantoprazole 40 mg tablet,delayed 40 mg PO DAILY 06/10/22 08/13/22 release polyethylene glycol 3350 17 17 g PO DAILY 06/10/22 08/13/22 gram/dose oral powder (Gavilax) tamsulosin 0.4 mg capsule 0.4 mg PO DAILY 06/10/22 08/13/22 sertraline 100 mg tablet 100 mg PO HS 08/09/22 08/13/22 Previous Rx's Medication Instructions Recorded aspirin 81 mg tablet,delayed 81 mg PO DAILY #100 tabs 08/11/22 release atorvastatin 40 mg tablet (Lipitor) 40 mg PO HS #30 tabs 08/11/22 cefpodoxime 200 mg tablet 200 mg PO BID #16 tabs 08/11/22 vancomycin 125 mg capsule 125 mg PO QID #56 caps 08/11/22 Allergies Allergy/AdvReac Type Severity Reaction Status Date / Time No Known Drug Allergies Allergy Verified 08/13/22 14:45 Review of Systems Status of ROS: Reports: 10 or more systems reviewed and unremarkable except as noted in History and below Narrative: Constitutional: No fevers, no weight gain or loss. Eyes: No discharge. No vision changes. HENT: No congestion, no sore throat, no ear pain. Cardiovascular: No chest pain, no palpitations. Respiratory: No shortness of breath, no wheezes, no cough. Gastrointestinal: No abdominal pain, no vomiting, no diarrhea. Genitourinary: He reports urinary retention due to a dysfunctional urinary catheter. He has had a catheter in place for many months. Musculoskeletal: Normal range of motion. Skin: No rashes, no pruritis. Neurological: No dizziness, weakness, sensory change, speech change. Endo/Heme/Allergies: No bruising or bleeding. No polydipsia. Pysch: no suicidality, no anxiety, no insomnia. All other systems reviewed and are negative. [facility] Medical History (Updated 08/13/22 @ 19:01 by Phil Kilpatrick MD) Abnormal echocardiogram Benign prostatic hyperplasia with urinary retention Bicuspid aortic valve Bipolar 1 disorder Chronic GERD Frontotemporal dementia History of melanoma Thoracic aortic aneurysm Surgical History H/O hernia repair Hx of nephrolithotomy with removal of calculi Mohs defect of sidewall of nose Social History (Updated 08/09/22 @ 10:57 by Jessa Perdomo MD) Narrative: Lives at [place]; single. Highest level of school completed/degree received: some college, no degree Smoking Status: Former smoker Do you use any of these nicotine containing products: None How often do you have a drink containing alcohol: never How often do you have six or more drinks on one occasion: Never AUDIT-C Alcohol total score: 0 Non-prescribed substance use: denies use Caffeine: No service: Yes Exam Narrative: Exam Narrative: Constitutional: Well-developed, well-nourished, no acute distress. HEENT: Normocephalic, atraumatic. Neck: Normal range of motion. Nontender. Supple. Heart: Regular. No murmurs. Normal rate. Intact distal pulses. Lungs: Clear to auscultation. No chest discomfort. No wheezes, rhonchi, or rales. Abdomen: Normal bowel sounds. Nontender. No rebound tenderness. Genitalia: Deferred. Urinary catheter bag has small amount of red tinged fluid present. Back: No midline tenderness. Normal range of motion. Extremities: Normal range of motion. No injury. Skin: Intact. No rash. Warm. No erythema or pallor. Neurologic: No altered sensation. No weakness. Alert and oriented. Psychiatric: No suicidality. No anxiety or depression. No insomnia. Nursing notes and vitals signs are reviewed. Const: Vital Signs, click to edit/add: Vital Signs - 24 hr 08/13/22 14:39 08/13/22 17:11 08/13/22 18:49 Temperature 98.4 F 98.5 F 98.2 F Pulse Rate [Right Pulse Oximeter] 84 70 80 Respiratory Rate 16 18 18 Blood Pressure [Ri t Upper Arm] 114/63 111/90 H 120/77 Pulse Oximetry 96 97 Oxygen Delivery Me thod Room Air Course Vital Signs Vital signs: Initial Vital Signs Temperature 98.4 F 08/13/22 14:39 Temperature Source Temporal Artery Scan 08/13/22 14:39 Pulse Rate 84 08/13/22 14:39 Respiratory Rate 16 08/13/22 14:39 Blood Pressure 114/63 08/13/22 14:39 Blood Pressure Mean 80 08/13/22 14:39 Blood Pressure Position Sitting 08/13/22 14:39 Pulse Oximetry 96 08/13/22 14:39 Oxygen Delivery Method 08/13/22 14:39 Vital Signs Temperature 98.4 F 08/13/22 14:39 Pulse Rate 84 08/13/22 14:39 Respiratory Rate 16 08/13/22 14:39 Blood Pressure 114/63 08/13/22 14:39 Pulse Oximetry 96 08/13/22 14:39 Oxygen Delivery Method 08/13/22 14:39 Temperature 98.2 F 08/13/22 18:49 Pulse Rate 80 08/13/22 18:49 Respiratory Rate 18 08/13/22 18:49 Blood Pressure 120/77 08/13/22 18:49 Pulse Oximetry 97 08/13/22 18:49 Oxygen Delivery Method 08/13/22 14:39 MDM - Male Genitourinary MDM Narrative Medical decision making narrative: This patient comes in reporting urinary retention. He has a chronic indwelling Flores catheter and states that there is no particular drainage from the catheter over the last day or 2. A bladder scan was done which showed around 500 mL of urine. An attempt was made to flush the catheter which was done without any particular resistance but this did not produce any return of urine. The catheter was then removed and there was suspicion that it was not inserted far enough into the bladder to function properly. A new Flores catheter was placed and is functioning properly. Urinalysis shows hematuria but no sign of infectio n. The patient is feeling better and is okay to return home to continue current plans. Lab Data Labs: Lab Results 08/13/22 Range/Units 17:51 Urine Color Brown A (Yellow) Urine Appearance Clear (Clear) Urine pH 5.5 (5.0-8.5) Ur Specific Almond 1.020 (1.000-1.030) Urine Protein 1+ A (Negative) Urine Glucose (UA) Negative (Negative) Urine Ketones 2+ A (Negative) Urine Blood 3+ A (Negative) Urine Nitrite Negative (Negative) Urine Bilirubin Negative (Negative) Urine Urobilinogen 0.2 (0.2-1.0) Ur Leukocyte Esterase Negative (Negative) Urine RBC >100 A (0-2) Urine WBC 0-2 (0-5) Ur Squamous Epith Cells None (None-Few) Urine Bacteria None (None) Discharge Plan Discharge Clinical Impression: Problem with urinary catheter Patient Disposition: Home, Self-Care Condition: Improved Additional Instructions: Continue current plans. Follow up with MD or return if worsening. Prescriptions: No Action sertraline 100 mg tablet 100 mg PO HS atorvastatin [Lipitor] 40 mg Tablet 40 mg PO HS Qty: 30 0RF aspirin 81 mg Tablet,Delayed Release (Dr/Ec) 81 mg PO DAILY Qty: 100 0RF vancomycin 125 mg Capsule 125 mg PO QID Qty: 56 0RF cefpodoxime 200 mg tablet 200 mg PO BID Qty: 16 0RF Rx Instructions: must administer with a meal/food acetaminophen 325 mg tablet 650 mg PO Q4H PRN finasteride 5 mg tablet 5 mg PO DAILY multivitamin with folic acid [Tab-A-Jennifer] 400 mcg tablet 1 tab PO DAILY pantoprazole 40 mg tablet,delayed release (DR/EC) 40 mg PO DAILY Hold Instructions: Resume on 08/19/22. polyethylene glycol 3350 [Gavilax] 17 gram/dose powder 17 g PO DAILY tamsulosin 0.4 mg capsule 0.4 mg PO DAILY Follow Up/Referrals: Feli Babin MD [Primary Care Provider] - Stand Alone Forms: [employer] Info Instructions
--- OUTSIDE RECORDS SUMMARY | 2022-08-13 15:37 | XMS_ITS | Clinical Summary ---
:1950 Author Organization [facility] [place] [address] Care Team Providers Name Role Phone Feli Babin MD Primary Care Provider [phone] [facility] Unavailable Sabina Chang RN Unavailable Amelia Mukherjee [...] Encounters Date Type Specialty Care Team Description 08/13/2022 Telephone Brenda Rosado Appointment JUAN Nogueira 08/13/2022 Telephone Feli Babin Concerns (P nan Sage MD leaving facilit y ) 08/09/2022 Orders Only <No scans attac hed> 08/02/2022 Nurse/Clinic Staff Insert (R outine chun Only change) 08/02/2022 Travel 07/30/2022 Telephone Feli Babin Appointment (Nurse Alona MD visit- catheter change) 07/09/2022 Telephone Feli Babin Referral ([facility]) MD Alona 05/24/2022 Nurse/Clinic Staff Only 05/24/2022 Travel from Last 3 Months Immunizations Name Administration Dates Next Due COVID-19 vaccine (Moderna 100mcg/0.5mL) 09/12/2021, 12/20/19, 11/21/2020 PF MDV COVID-19 vaccine ([employer] 02/22/2022 30mcg/0.3mL) PF, V Influenza, High-dose Inactivated 06/30/2018 Tdap 09/30/2014, 09/30/2009, [...] CDT Respiratory Rate 16 11/27/2021 11:55 AM [employer]PER[employer] Oxygen Saturation 100% 02/22/2022 11:14 AM CDT Inhaled Oxygen Concentration - - Weight 75.3 kg (166 lb) 02/22/2022 11:14 AM CDT Height 182.9 cm (6') 11/23/2021 1:41 PM [employer] OPERATOR [employer]IAL Body Mass Index 22.51 11/23/2021 1:41 PM [employer] UP OPERATOR [employer]IAL Plan of Treatment Upcoming Encounters Date Type Specialty Care Team Description 08/15/2022 Orders Only Lab, [place] 08/16/2022 Office Visit Feli Babin MD [address] [place], [place] [address] (Wo rk) 08/27/2022 Nurse/Clinic Staff Only 11/29/2022 Office Visit Ryan Davies MD [address] [place] [address] (Wo rk) Health Maintenance Due [...] Procedure Name Priority Date/Time Associated Comments Diagnosis ECHO COMPLETE WO Routine 08/09/2022 4:20 PM Elevated tro ponin Results for this CONTRAST [employer] OPERATOR [employer]IAL NSTEMI (non-ST procedure are in elevated myocardial the resu lts infarction) (HC) section. URINE CULTURE Add On 08/02/2022 9:45 AM [...] results section. from Last 3 Months Results ECHO COMPLETE WO CONTRAST (08/09/2022 4:20 PM [employer] UP OPERATOR RADIAL) P athologist Signature AORTIC VALVE 14 mmHg MEAN PG EJECTION 82 % FRACTION PEAK TR 2.5 m/s VELOCITY LVEDD 3.9 cm EJECTION 70 - 75% FRACTION Anatomical Region Laterality Modality HEART Ultrasound Specimen (Source) Anatomical Collection Method Collection Time Re ceived Time Location / / Volume Laterality 08/09/2022 3:41 PM [employer] UP OPERATOR [facility]IAL Narrative 08/09/2022 4:48 PM [employer] UP OPERATOR RADIAL ECHOCARDIOGRAM RASHMI CUEVA ? Accessi on#: ?? [id number] : ?1950 71 years Study Date: ?? 08/09/2022 3:41:48 PM Gender: M ?BP: ? 140/84 mmHg Height: 183.00 cm ?BSA: ?1.90 m? ?? Weight: 69.00 kg ? Tech: ? MCK ? Referring MD: JESSA PERDOMO Site: ? [facility] Reading Location: [place] Procedure: 2D, Color Doppler and Spectra l Doppler. Indication for study: Elevated troponin, NSTEMI Cardiac Rhythm: Normal sinus.Study quali ty: Fair. Final Impressions: 1. Normal LV size, normal wall thicknes s, hyperdynamic global systolic function with an estimated EF of 70 - 75%. 2. Right ventricular cavity size is nor mal, global systolic RV function is normal. 3. The aortic valve is bicuspid, sclero tic and calcified, mild stenosis and trivial regurgitation. 4. The inferior vena cava is dilated, r espiratory size variation less than 50%, consistent with elevated right atrial pressure. 5. The ascending aorta is not well seen . 6. No Doppler evidence for coarctation. Chamber Sizes and Function Normal left ventricular size, normal wal l thickness, hyperdynamic global systolic function with an estimated EF of 70 - 75%. Left atrial size is normal. Right ventricular cavity size is normal, global s ystolic RV function is normal. RV wall t hickness is normal. The right atrium is normal. Right atrial volume index is 30 ml/m? ??. Right atrial area is 19 cm? ??. The pulmonary artery is of normal size a nd origin. The sinus of Valsalva is norm al sized. The ascending aorta is not well visualized. Valves, RV Pressures and Diastolic Funct ion The aortic valve is bicuspid, sclerotic and calcified, mild stenosis and trivial regurgitation. The mitral valve is normal in structure, trace mitral regurgitation. Normal diastolic function. The tricus pid valve is normal in structure. Tricus pid regurgitation is mild regurgitation. The tricuspid regurgitant velocity is 2.5 m/s, the estimated right ventricular systolic pressure is 26 mmHg plus right at rial pressure. There is normal estimated pulmonary pressure by tricuspid regurgitation velocity and right atrial pressure. The pulmonic valve is normal. Trace pulmonary regurgitation. Masses, Effusion, Shunts There is no pericardial effusion. The in ferior vena cava is dilated, respiratory size variation less than 50%, consistent with elevated right atrial pressure. No left to right shunting was detected by l imited color flow Doppler interrogation of the interatrial septum. MEASUREMENTS AND CALCULATIONS 2-D Measurements and LV Function: LVID (d) 3.9 cm LV FS% (2D) ?? 47 % LVID (s) 2.1 cm LVOT diameter 2.2 cm IVS (d) ??1.0 cm HR ?69 bpm LVPW (d) 1.1 cm LA Vol index ??21 ml/m2 Ao Sinus 4.1 cm RA Vol index ??30 ml/m2 LA ? 3.0 cm RA area ? 19 c m? ?? Diastology: Mitral ?Tissue Doppler ?Pulmonary veins E Peak 0.9 m/s ??e', Septum ? 0.09 m /s Pulm s ?65.7 cm/s A Peak 0.8 m/s ??e', Lateral ?0.09 m /s Pulm d ?38.0 cm/s E/A ?1.1 ?E/e' Average ?? 9.6 0 ? Pulm s/d ratio ??1.73 DT ? 261 msec IVRT ?? 95 msec Aortic Valve: Vmax ? 2.5 m/s ??ABNER (V) ?? 1.88 cm? ?? VTI ?0.57 m ?? ABNER (I ) ?? 2.00 cm? ?? LVOT V max ? 1.2 m/s ??Max PG ?26 mmHg LVOT VTI ? 0.29 m ?? Mean PG ? ? 14 mmHg SV ? 114 ml ?? Dim In dex 0.51 SV index ? 60 ml/m? ?? CO ?7.9 l/min AV Ejection Time 0.31 sec CI ? 4.1 l/min/m? ?? AV Flow Rate ? 371 ml/s Mitral Valve: MVA ?2.9 cm? ?? MV P 1/2 76 msec Tricuspid Valve and estimated PA pressur es: TR Vmax 2.5 m/s TAPSE 2.6 cm TR maxG 26 mmHg . This study was interpreted by an [facility]. CC: [facility], Med/ Surg - IP [facility]. ??Final ?? Procedure Note Meet Murillo MD - 08/09/2022Forma tting of this note might be different from the original. ECHOCARDIOGRAM RASHMI CUEVA : 1950 71 years Study Date: 07/31 3:41:48 PM Gender: M BP: 140/84 mmHg Height: 183.00 cm BSA: 1.90 m? ?? Weight: 69.00 kg Tech: JOHANNA Referring MD: JESSA PERDOMO Site: [facility] Reading Location: [facility] Procedure: 2D, Color Doppler and Spectra l Doppler. Indication for study: Elevated troponin, NSTEMI Cardiac Rhythm: Normal sinus.Study quali ty: Fair. Final Impressions: 1. Normal LV size, normal wall thicknes s, hyperdynamic global systolic function with an estimated EF of 70 - 75%. 2. Right ventricular cavity size is nor mal, global systolic RV function is normal. 3. The aortic valve is bicuspid, sclero tic and calcified, mild stenosis and trivial regurgitation. 4. The inferior vena cava is dilated, r espiratory size variation less than 50%, consistent with elevated right atrial pressure. 5. The ascending aorta is not well seen . 6. No Doppler evidence for coarctation. Chamber Sizes and Function Normal left ventricular size, normal wal l thickness, hyperdynamic global systolic function with an estimated EF of 70 - 75%. Left atrial size is normal. Right ventricular cavity size is normal, global systolic RV function is normal. RV wall thickness is normal. The right atrium is normal. Right atrial volume index is 30 ml/m? ??. Right atrial area is 19 cm? ??. The pulmonary artery is of normal size and origin. The sinus of Valsalva is normal sized. The ascending aorta is not well visualized. Valves, RV Pressures and Diastolic Funct ion The aortic valve is bicuspid, sclerotic and calcified, mild stenosis and trivial regurgitation. The mitral valve is normal in structure, trace mitral regurgitation. Normal diastolic function. The tricuspid valve is normal in structure. Tricuspid regurgita tion is mild regurgitation. The tricuspid regurgitant velocity is 2.5 m/s, the estimated right ventricular systolic pressure is 26 mmHg plus right atrial pressure. There is normal estimated pulmonary pressure by tricuspi d regurgitation velocity and right atrial pressure. The pulmonic valve is normal. Trace pulmonary regurgitation. Masses, Effusion, Shunts There is no pericardial effusion. The in ferior vena cava is dilated, respiratory size variation less than 50%, consistent with elevated right atrial pressure. No left to right shunting was detected by limited color flow Doppler interrogation of the intera trial septum. MEASUREMENTS AND CALCULATIONS 2-D Measurements and LV Function: LVID (d) 3.9 cm LV FS% (2D) 47 % LVID (s) 2.1 cm LVOT diameter 2.2 cm IVS (d) 1.0 cm HR 69 bpm LVPW (d) 1.1 cm LA Vol index 21 ml/m2 Ao Sinus 4.1 cm RA Vol index 30 ml/m2 LA 3.0 cm RA area 19 cm? ?? Diastology: Mitral Tissue Doppler Pulmonary veins E Peak 0.9 m/s e', Septum 0.09 m/s Pulm s 65.7 cm/s A Peak 0.8 m/s e', Lateral 0.09 m/s Pulm d 38.0 cm/s E/A 1.1 E/e' Average 9.60 Pulm s/d ratio 1.73 DT 261 msec IVRT 95 msec Aortic Valve: Vmax 2.5 m/s ABNER (V) 1.88 cm? ?? VTI 0.57 m ABNER (I) 2.00 cm? ?? LVOT V max 1.2 m/s Max PG 26 mmHg LVOT VTI 0.29 m Mean PG 14 mmHg SV 114 ml Dim Index 0.51 SV index 60 ml/m? ?? CO 7.9 l/min AV Ejection Time 0.31 sec CI 4.1 l/min/m ? ?? AV Flow Rate 371 ml/s Mitral Valve: MVA 2.9 cm? ?? MV P 1/2 76 msec Tricuspid Valve and estimated PA pressur es: TR Vmax 2.5 m/s TAPSE 2.6 cm TR maxG 26 mmHg . This study was interpreted by an [facility] facility. CC: [facility], Med/ Surg - IP [facility]. Final Jessa Perdomo MD ECHO ORD (ABNORMAL) URINALYSIS MICROSCOPIC (08/02/2022 9:45 AM CDT) [facility] Method Time Signature RBC - (A) 0-2, None 08/02/2022 [facility] Seen /HPF 10:03 AM T [facility] WBC -25 (A) 0-2, 3-5, 08/02/2022 [facility] None Seen 10:03 AM [facility] /HPF CLINIC BACTERIA Moderate (A) None 08/02/2022 [facility] Seen, 10:03 AM [facility] Rare, Few CLINIC Bacteria/ HPF EPITHELIAL Few None 08/02/2022 [facility] CELLS Seen, Few 10:03 AM [facility] Epi/HPF CLINIC Mucus Present 08/02/2022 [facility] 10:03 AM T [facility] WHITE CELL Present (A) (none) 08/02/2022 [facility] CLUMPS 10:03 AM T [facility] HYALINE CASTS -25 (A) 0-2, 3-5 08/02/2022 [facility] /LPF 10:03 AM T [facility] AMORPHOUS Present (A) (none) 08/02/2022 [facility] 10:03 AM [facility] Specimen Anatomical Collection Method Collection Time Receive d Time (Source) Location / / Volume Laterality Urine URINE SPECIMEN / Non-Blood / 08/02/2022 9:45 AM 08/02 9:52 Unknown Unknown CDT AM CDT Feli Babin MD URINE Performing Organization Address City/State/ZIP Code Phon e Number [facility] [address] [place] [address] URINE CULTURE (08/02/2022 9:45 AM CDT) [facility] Method Time Signature CULTURE 10-50,000 CFU/mL 08/04/2022 [facility] H of multiple 2:12 PM CDT LABORATORY-[facility] organisms, TRAL probable LABORATORY contaminants Specimen Anatomical Collection Method Collection Time Receive d Time (Source) Location / / Volume Laterality Urine URINE SPECIMEN / Non-Blood / 08/02/2022 9:45 AM 08/02 9:52 Unknown Unknown CDT AM CDT Feli Babin MD MICROBIOLOGY Performing Organization Address City/State/ZIP Code Phon e Number [facility] [address] [address] LABORATORY-CENTRAL 2000 LABORATORY (ABNORMAL) UA W/ SEDIMENT EXAM REFLEXED PER CRITERIA (08/02/2022 9:45 AM CDT) [facility] Method Time Signature COLOR Yellow Yellow Color 08/02/2022 [facility] 9:58 AM T [facility] CLARITY Slightly Clear 08/02/2022 [facility] Cloudy (A) Clarity 9:58 AM T [facility] SPECIFIC >=1.030 (A) 1.010, 08/02/2022 [facility] GRAVITY,URINE 1.015, 9:58 AM [facility] 1.020, 1.025 [facility] PH,URINE 6.0 6.0, 7.0, 08/02/2022 [facility] 8.0, 5.5, 9:58 AM [facility] 6.5, 7.5, CLINIC 8.5 UROBILINOGEN, Normal Normal EU/dl 08/02/2022 [facility] 9:58 AM T [facility] PROTEIN, 30 (A) Negative 08/02/2022 [facility] URINE mg/dL 9:58 AM T [facility] GLUCOSE, Negative Negative 08/02/2022 [facility] URINE mg/dL 9:58 AM T [facility] KETONES,URINE Trace (A) Negative 08/02/2022 [facility] mg/dL 9:58 AM CDT [facility] BILIRUBIN,URI Abnormal (A) Negative 08/02/2022 [facility] NE 9:58 AM CDT [facility] Comment: A variety of metabolites and/or medications may result in a positive bilirubin result. Clinical correlation i s recommended. OCCULT BLOOD,URINE Moderate (A) Negative 08/02/2022 9:58 AM [facility] CDT [facility] NITRITE Positive (A) Negative 08/02/2022 9:58 AM [facility] CDT [facility] LEUKOCYTE ESTERASE Small (A) Negative 08/02/2022 9:58 AM [facility] CDT [facility] Specimen Anatomical Collection Method Collection Time Receive d Time (Source) Location / / Volume Laterality Urine URINE SPECIMEN / Non-Blood / 08/02/2022 9:45 AM 08/02 9:52 Unknown Unknown CDT AM CDT Feli Babin MD URINE Performing Organization Address City/State/ZIP Code Phon e Number [facility] [address] [place] [address] from Last 3 Months Insurance Payer Benefit Plan / Subscriber ID Effective Phone Address T e Group Dates [employer] [id number] Effective [employer] for all OFFICE OF [facility] [address] [address] [place] [address] MEDICARE - PB USE MEDICARE PB ONLY [id number] 2019-Pre ATTN: CLAIMS ONLY sent [address] [place] [address] MEDICARE - PB USE MEDICARE PB ONLY [id number] 2019-Pre ATTN: CLAIMS ONLY sent [address] [place] [address] [facility] [id number] 2021-Pre [address] [place] [address] [facility] [id number] 2021-Pre [address] [place] [address] Care Teams No Experience Relationship Specialty Start Date End Date Feli Babin MD PCP - General Family Practice 11/15/21 [address] [place] [address] [facility] 11/15/21 [address] [facility] [address] [place], [place] [id number] Sabina Chang, steam shovel oiler - [facility] Registered Nurse 06/30/22 [facility] [address] [place], [place] [phone] Amelia Mukherjee, steam shovel oiler - [facility] Registered Nurse 06/30/22 [facility] [address] [place], [place] [id number]
--- OUTSIDE RECORDS SUMMARY | 2022-08-13 15:37 | XMS_ITS ---
[...] Bilirubin-Status Negative ? Ketones-Status Negative ? Sp Brock-Status 1.010 ? pH-Status 5.5 ? Protein-Status 5.0 ? Urobilinogen-Status 0.2 ? Nitrates-Status negative ? Blood-Status Moderate ? Leuko-Status Negative ? Specimen Type Catheterized ? Performed by Nanci,RN/BSN ? Total Urine Volume 235ml ? ? Past Encounters 07/25/2022 Millicent Bishop PA-C: [address] [facility] [place] [address], Ph. 02/28/2022 Retention of Urine Erick Cooley MD: [address] [place] [address], Ph. Social History Tobacco Smoking Status Former [...]
--- OUTSIDE RECORDS SUMMARY | 2022-08-13 15:37 | XMS_ITS | Encounter Summary ---
[...] stones - reviewed CT scan images from [facility] - 2 (1.5 cm) stones on bladder [...] Social History Tobacco Smoking Status Former Smoker What was the date of your most recent tobacco 02/28/2022 screening? What is your level of alcohol consumption? None Marital status What is your level of caffeine consumption? None Race White When did you quit smoking? 1-5yearssincelastcigarette Functional Status Unknown. Past Encounters 07/25/2022 SAVANNAH ZepedaC: [address] [facility] [place] [address], Ph. History of Present Illness Note: <div>11/27/21 ([facility]): 71 yo male with history of frontrotemporal lobe dementia and has significant memory loss (cannot give much of a medical history) and BPH. He was admitted to [facility] on 10/23/[address] scan [...] Chun was last changed around 07/10 in [place]. Remains on 0.4 mg of tamsulosin and [...]
--- NOTE | 2022-08-13 15:46 | ED.NURSE ---
Spoke to Luma, nurse from [place]. States pt has left twice during the night since being back from the hospital. Pt does live in assisted living and is free to come and go. Staff feels that he is acting odd and acitign different, mentally. Dr Kilpatrick updated.
[2022-08-13] MEDS: lidocaine HCL 2 % JELLY (TOP) STERILE 6 ML TOPICAL (16:58)
--- NOTE | 2022-08-13 16:59 | ED.NURSE ---
18F chun placed without difficulty. 525ml herber colored urine drained.
[2022-08-13 17:11] VITALS: BP 111/90; PULSE 70; RESP 18; TEMP 36.9
[2022-08-13 18:03] LABS: Appearance Urine Clear (Clear); Bilirubin Urine Negative (Negative); Blood Urine 3+ (Negative); Color Urine Brown (Yellow); Glucose Urine Negative (Negative); Ketones Urine 2+ (Negative); Leukocyte Esterase Urine Negative (Negative); Nitrite Urine Negative (Negative); Protein Urine 1+ (Negative); Urobilinogen Urine 0.2 (0.2-1.0); pH Urine 5.5 (5.0-8.5)
[2022-08-13 18:22] LABS: RBC Urine >100 (0-2); WBC Urine 0-2 (0-5)
[2022-08-13 18:49] VITALS: BP 120/77; PULSE 80; RESP 18; TEMP 36.8; O2SAT 97
--- NOTE | 2022-08-13 19:00 | ED.NURSE ---
Called and updated Joshua Ge nurse. Informed of d/c. 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
== END 2022-08-13 19:20 | disposition home or self-care (01) ==
PROVIDERS: Emergency Provider Emergency Medicine Emergency Medical Services; PCP Family Medicine
DX: Z46.6 Encounter for fitting and adjustment of urinary device (principal); R33.8 Other retention of urine
CPT/HCPCS: 51702; 81001; 99281; 99284

== ENCOUNTER 2022-08-20 09:38 | Inpatient (IN) | payer MEDICARE, MEDICAID, SELFPAY ==
[2022-08-20 09:49] VITALS: BP 104/65; PULSE 58; RESP 18; TEMP 36.6; O2SAT 97
--- NOTE | 2022-08-20 10:32 | ED.GENADULT ---
HPI - General Adult General Time Seen by Provider: 10:32 <Yessica Patel MD - Last Filed: 08/20/22 20:51> Date Seen: 08/20/22 <Yessica Patel MD - Last Filed: 08/20/22 20:51> Chief complaint: Psychiatric Problem/Disorder <Yessica Patel MD - Last Filed: 08/20/22 20:51> Stated complaint: Mental health <Yessica Patel MD - Last Filed: 08/20/22 20:51> Time Seen by Provider: 08/20/22 10:32 <Yessica Patel MD - Last Filed: 08/20/22 20:51> Source: patient, RN notes reviewed and old records reviewed <Yessica Patel MD - Last Filed: 08/20/22 20:51> Limitations: no limitations <Yessica Patel MD - Last Filed: 08/20/22 20:51> History of Present Illness HPI narrative: Patient is a 71-year-old male whom is a resident of [facility] brought in by the category director a [facility]. She is stating she does not feel safe with him there. He tells me has no plan to harm himself. He denies suicidality initially to me but then later states that he may think of it sometimes. He states he does not have a plan. clinical nursing assistant seems somewhat frustrated when he states he is not suicidal in front of me but I tried to reassure her. He did tell this to nursing staff earlier and she states he certainly was telling her that he wants to leave [facility] because he is suicidal. She states they are trying to do hourly checks. She is the only nurse that is there. He did have a follow-up visit with Dr. Benjamin Bashirimer his primary care physician Cheryl on 08/16/2022, have been able to review that note. He was recently hospitalized at [facility] 08-10. He has been found wandering out in the middle of the night multiple times. On the night that he was hospitalized here his blood pressure was low, he was diagnosed with urinary tract infection plus C difficile. He is still on oral vancomycin at this point, as a few days left. He was on Vantin for the UTI. He is chronically catheterized. 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 He has been found outside wandering on more than 1 occasion. On 08/13/2022 there is documentation of update from a phone call to his primary care provider that he is leaving the facility at night. She has called his medical case worker and social work here at [facility]. He had documented [facility] from [facility] of in 2019. His directive nursing states he just had some sort of cognitive test this last and scored . She is worried about him making poor judgments, she does not feel safe with them in an independent facility where they do not have locked door capacity. They continue to try to do hourly safety checks. This morning they found him with his jacket on and the directive nursing staff stated she thought he was trying to leave. States he did leave his room but did not go. He she notes he had his coat on and was ready to go. On review of him being here he states he feels his head hurts and that they put him on more meds for, he trails off at this point when ask him what he was going to state he states antidepressant. Reviewed the directive nursing that if he does have frontotemporal dementia, can complicate issues. He may from moment to moment not remember certain things. He does have underlying bipolar disorder earlier. Again it is thought that he has probable fronto temporal dementia. <Yessica Patel MD - Last Filed: 08/20/22 20:51> Related Data Home medications: Home Medications Medication Instructions Recorded Confirmed acetaminophen 325 mg tablet 650 mg PO Q4H PRN 06/10/22 08/20/22 finasteride 5 mg tablet 5 mg PO DAILY 06/10/22 08/20/22 multivitamin with folic acid 400 1 tab PO DAILY 06/10/22 08/20/22 mcg tablet (Tab-A-Jennifer) pantoprazole 40 mg tablet,delayed 40 mg PO DAILY 06/10/22 08/20/22 release tamsulosin 0.4 mg capsule 0.4 mg PO DAILY 06/10/22 08/20/22 sertraline 100 mg tablet 200 mg PO HS 08/09/22 08/20/22 Previous Rx's Medication Instructions Recorded aspirin 81 mg tablet,delayed 81 mg PO DAILY #100 tabs 08/11/22 release atorvastatin 40 mg tablet (Lipitor) 40 mg PO HS #30 tabs 08/11/22 <Yessica Patel MD - Last Filed: 08/20/22 20:51> Allergies/adverse reactions: Allergies Allergy/AdvReac Type Severity Reaction Status Date / Time No Known Drug Allergies Allergy Verified 08/20/22 09:53 <Yessica Patel MD - Last Filed: 08/20/22 20:51> Review of Systems Status of ROS: Reports: 10 or more systems reviewed and unremarkable except as noted in History and below <Yessica Patel MD - Last Filed: 08/20/22 20:51> [facility] Medical History: Medical History (Updated 08/23/22 @ 15:37 by Mirlande Christina MD) 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 Benign prostatic hyperplasia with urinary retention Bicuspid aortic valve Bipolar 1 disorder Chronic GERD Chronic indwelling Flores catheter Clostridium difficile infection Frontotemporal dementia History of melanoma Major depression Thoracic aortic aneurysm <Yessica Patel MD - Last Filed: 08/20/22 20:51> Surgical History: Surgical History H/O hernia repair Hx of nephrolithotomy with removal of calculi Mohs defect of sidewall of nose <Yessica Patel MD - Last Filed: 08/20/22 20:51> Social History: Social History (Updated 08/21/22 @ 19:04 by Jessa Perdoom MD) Narrative: Lives at [facility]; single. Apparently has a [facility] case management coordinator and assistance by social work. Patient does not have contact with family. Highest level of school completed/degree received: some college, no degree Smoking Status: Former smoker Do you use any of these nicotine containing products: None Second hand tobacco smoke exposure: No How often do you have a drink containing alcohol: never How often do you have six or more drinks on one occasion: Never AUDIT-C Alcohol total score: 0 Non-prescribed substance use: denies use Caffeine: Yes (cup roughly weekle) service: Yes <Yessica Patel MD - Last Filed: 08/20/22 20:51> Exam Const: Vital Signs, click to edit/add: Vital Signs - 24 hr 08/20/22 19:02 Pulse Rate [Right Pulse Oximeter] 57 L Respiratory Rate 18 Blood Pressure [Ri ght Upper Arm] 110/68 Pulse Oximetry 99 Oxygen Delivery Me thod Room Air <Yessica Patel MD - Last Filed: 08/20/22 20:51> Vital Signs, click to edit/add: Vital Signs - 24 hr 08/20/22 19:02 Pulse Rate [Right Pulse Oximeter] 57 L Respiratory Rate 18 Blood Pressure [Ri ght Upper Arm] 110/68 Pulse Oximetry 99 Oxygen Delivery Me thod Room Air <Vivek Guthrie MD - Last Filed: 08/24/22 01:50> Vital Signs, click to edit/add: Vital Signs - 24 hr 08/20/22 19:02 Pulse Rate [Right Pulse Oximeter] 57 L Respiratory Rate 18 Blood Pressure [Ri ght Upper Arm] 110/68 Pulse Oximetry 99 Oxygen Delivery Me thod Room Air <Phil Kilpatrick MD - Last Filed: 08/21/22 16:36> Documenting provider has reviewed patient's vital signs: yes <Yessica Patel MD - Last Filed: 08/20/22 20:51> Common normals: no apparent distress, oriented x3, no limitations and alert <Yessica Patel MD - Last Filed: 08/20/22 20:51> General appearance: cooperative, comfortable, well kempt and frail appearing <Yessica Patel MD - Last Filed: 08/20/22 20:51> Nutritional appearance: thin <Yessica Patel MD - Last Filed: 08/20/22 20:51> Orientation/consciousness: Yes awake, Yes oriented to person, Yes oriented to place and Yes oriented to time <Yessica Patel MD - Last Filed: 08/20/22 20:51> HENMT: Common normals: normocephalic, head/scalp atraumatic, hearing grossly normal bilaterally, external ears normal, external nose normal, nasal mucous membranes and turbinates normal, moist oral mucous membranes and oropharynx normal <Yessica Patel MD - Last Filed: 08/20/22 20:51> Head and scalp: normocephalic and atraumatic <Yessica Patel MD - Last Filed: 08/20/22 20:51> Nose: external nose normal and nasal mucous membranes and turbinates normal <Yessica Patel MD - Last Filed: 08/20/22 20:51> External ear: external ears normal <Yessica Patel MD - Last Filed: 08/20/22 20:51> Eye: Common normals: PERRL, EOMs intact bilaterally, conjunctivae normal and no scleral icterus <Yessica Patel MD - Last Filed: 08/20/22 20:51> Conjunctiva: conjunctiva(e) normal <Yessica Patel MD - Last Filed: 08/20/22 20:51> Pupil: PERRL <Yessica Patel MD - Last Filed: 08/20/22 20:51> Neck & C-Spine: Common normals: full ROM, no lymphadenopathy, supple, no meningeal signs and no JVD <Yessica Patel MD - Last Filed: 08/20/22 20:51> Resp: Common normals: normal respiratory effort, no retractions, no use of accessory muscles and clear to auscultation bilaterally (Somewhat distant breath sounds) <Yessica Patel MD - Last Filed: 08/20/22 20:51> Auscultation: clear to auscultation bilaterally (Somewhat distant breath sounds) <MD Costa Cabrera Last Filed: 08/20/22 20:51> Cardio: Common normals: no JVD, regular rhythm, S1 normal heart sound, S2 normal heart sound, no gallops, no clicks and no murmurs <MD Costa Cabrera Last Filed: 08/20/22 20:51> Rate: bradycardic <Yessica Patel MD - Last Filed: 08/20/22 20:51> Rhythm: regular rhythm <Yessica Patel MD - Last Filed: 08/20/22 20:51> Heart sounds: S1 normal and S2 normal <Yessica Patel MD - Last Filed: 08/20/22 20:51> GI: Common normals: Normal to inspection, nondistended, normoactive bowel sounds present, soft to palpation, non-tender, no hepatosplenomegaly and no masses <Yessica Patel MD - Last Filed: 08/20/22 20:51> Palpation: soft and no hepatosplenomegaly <Yessica Patel MD - Last Filed: 08/20/22 20:51> Extremity: Common normals: no calf tenderness and no pedal edema <Yessica Patel MD - Last Filed: 08/20/22 20:51> Neuro: Common normals: oriented x3, CN's II-XII intact bilaterally, moves all extremities, no focal motor deficits, no sensory deficits noted and gait normal <Yessica Patel MD - Last Filed: 08/20/22 20:51> Sensorium/orientation: awake, alert, oriented to person, oriented to place and oriented to time <Yessica Patel MD - Last Filed: 08/20/22 20:51> Meningeal signs: no meningeal signs <Yessica Patel MD - Last Filed: 08/20/22 20:51> Speech: speech normal <Yessica Patel MD - Last Filed: 08/20/22 20:51> Psych: Common normals: cooperative, denies hallucinations and denies homicidal ideation <Yessica Patel MD - Last Filed: 08/20/22 20:51> Appearance: grossly normal and well kempt <Yessica Patel MD - Last Filed: 08/20/22 20:51> Attitude: calm and withdrawn <Yessica Patel MD - Last Filed: 08/20/22 20:51> Activity/motor behavior: avoids eye contact <Yessica Patel MD - Last Filed: 08/20/22 20:51> Speech: minimal (But normal content when he does talk) <Yessica Patel MD - Last Filed: 08/20/22 20:51> Mood and affect: apathetic and flat affect <Yessica Patel MD - Last Filed: 08/20/22 20:51> Thought process: other (Responds appropriately but does not offer much outside of elicited response) <Yessica Patel MD - Last Filed: 08/20/22 20:51> Thought content: suicidality (Intermittently endorses suicidality but no plan) <Yessica Patel MD - Last Filed: 08/20/22 20:51> Attention/concentration: attention grossly intact and concentration grossly intact <Yessica Patel MD - Last Filed: 08/20/22 20:51> Memory/cognition: memory grossly intact <Yessica Patel MD - Last Filed: 08/20/22 20:51> Insight: limited <Yessica Patel MD - Last Filed: 08/20/22 20:51> Judgement: limited <Yessica Patel MD - Last Filed: 08/20/22 20:51> Skin: Common normals: no rashes or lesions noted <Yessica Patel MD - Last Filed: 08/20/22 20:51> General skin exam: no rashes or lesions noted <Yessica Patel MD - Last Filed: 08/20/22 20:51> Course Course Hospital Course: Spoke with William that we will do laboratory evaluation, he is in agreement. Will need to do the screening COVID. His disposition is going to be difficult. He is still on vancomycin for his C difficile and states he is still having some diarrhea. Will see where his white count is in his laboratory evaluation is. His abdomen is nontender on exam today. <Yessica Patel MD - Last Filed: 08/20/22 20:51> Reevaluation(s) Reevaluation #1: Care accepted in sign-out from Dr. Norma treviño. Briefly this 71-year-old male well-known to the emergency department with history of bipolar disorder, presents suicide ideation and also wondering way from his assisted living where they are no longer able to take care of him. Waiting for geriatric mental health placement, plan sign-out from oncoming provider. <Vivek Guthrie MD - Last Filed: 08/24/22 01:50> Time: 20:00 <Vivek Guthrie MD - Last Filed: 08/24/22 01:50> Consultations Consultation #1: Spoke with social services immediately after seeing this patient. I do not feel that a telehealth consultation is going to be at all fruitful. [employer] will try to contact his case workers and we will attempt to come up with a plan. <Yessica Patel MD - Last Filed: 08/20/22 20:51> Time: 10:49 <Yessica Patel MD - Last Filed: 08/20/22 20:51> Consultation #2: Did ultimately employ the services of telehealth as social services requested. They did want their input. Will from the telehealth services interviewed time. Patient does have thoughts of suicide today but really can not explain any intent or plan. He describes forgetfulness and difficult communications with a [facility] facility as causes for his stress/anxiety and depression. She really frustrated and depressed about the forgetfulness in his difficulty communicating with staff. He does not feel safe going back there per report. Will also talked to the director nursing and she certainly obviously expressed to him that they do not feel that he is safe there. He is eloped quite a bit recently. He states he might try to harm and kill himself to Will if he went back but again had no identifiable plan. Will is recommending hospitalization. Reviewed with Will that this patient is medically clear but does have ongoing treatment needs to complete treatment for C difficile colitis which could complicate a hospital stay for psychiatric services. I ultimately would like to see this patient get into a geriatric psych facility. <Yessica Patel MD - Last Filed: 08/20/22 20:51> Time: 14:16 <Yessica Patel MD - Last Filed: 08/20/22 20:51> Vital Signs Vital signs: Initial Vital Signs Temperature 97.8 F 08/20/22 09:49 Temperature Source Temporal Artery Scan 08/20/22 09:49 Pulse Rate 58 L 08/20/22 09:49 Pulse Rhythm 08/20/22 09:49 Respiratory Rate 18 08/20/22 09:49 Blood Pressure 104/65 08/20/22 09:49 Blood Pressure Mean 78 08/20/22 09:49 Blood Pressure Position Sitting 08/20/22 09:49 Pulse Oximetry 97 08/20/22 09:49 Oxygen Delivery Method 08/20/22 09:49 Vital Signs Temperature 97.8 F 08/20/22 09:49 Pulse Rate 58 L 08/20/22 09:49 Respiratory Rate 18 08/20/22 09:49 Blood Pressure 104/65 08/20/22 09:49 Pulse Oximetry 97 08/20/22 09:49 Oxygen Delivery Method 08/20/22 09:49 Temperature 97.5 F L 08/23/22 23:00 Pulse Rate 58 L 08/23/22 23:00 Respiratory Rate 18 08/23/22 23:00 Blood Pressure 102/65 08/23/22 23:00 Pulse Oximetry 97 08/23/22 23:00 Oxygen Delivery Method 08/23/22 23:00 <Yessica Patel MD - Last Filed: 08/20/22 20:51> Initial Vital Signs Temperature 97.8 F 08/20/22 09:49 Temperature Source Temporal Artery Scan 08/20/22 09:49 Pulse Rate 58 L 08/20/22 09:49 Pulse Rhythm 08/20/22 09:49 Respiratory Rate 18 08/20/22 09:49 Blood Pressure 104/65 08/20/22 09:49 Blood Pressure Mean 78 08/20/22 09:49 Blood Pressure Position Sitting 08/20/22 09:49 Pulse Oximetry 97 08/20/22 09:49 Oxygen Delivery Method 08/20/22 09:49 Vital Signs Temperature 97.8 F 08/20/22 09:49 Pulse Rate 58 L 08/20/22 09:49 Respiratory Rate 18 08/20/22 09:49 Blood Pressure 104/65 08/20/22 09:49 Pulse Oximetry 97 08/20/22 09:49 Oxygen Delivery Method 08/20/22 09:49 Temperature 97.5 F L 08/23/22 23:00 Pulse Rate 58 L 08/23/22 23:00 Respiratory Rate 18 08/23/22 23:00 Blood Pressure 102/65 08/23/22 23:00 Pulse Oximetry 97 08/23/22 23:00 Oxygen Delivery Method 08/23/22 23:00 <Vivek Guthrie MD - Last Filed: 08/24/22 01:50> Initial Vital Signs Temperature 97.8 F 08/20/22 09:49 Temperature Source Temporal Artery Scan 08/20/22 09:49 Pulse Rate 58 L 08/20/22 09:49 Pulse Rhythm 08/20/22 09:49 Respiratory Rate 18 08/20/22 09:49 Blood Pressure 104/65 08/20/22 09:49 Blood Pressure Mean 78 08/20/22 09:49 Blood Pressure Position Sitting 08/20/22 09:49 Pulse Oximetry 97 08/20/22 09:49 Oxygen Delivery Method 08/20/22 09:49 Vital Signs Temperature 97.8 F 08/20/22 09:49 Pulse Rate 58 L 08/20/22 09:49 Respiratory Rate 18 08/20/22 09:49 Blood Pressure 104/65 08/20/22 09:49 Pulse Oximetry 97 08/20/22 09:49 Oxygen Delivery Method 08/20/22 09:49 Temperature 97.5 F L 08/23/22 23:00 Pulse Rate 58 L 08/23/22 23:00 Respiratory Rate 18 08/23/22 23:00 Blood Pressure 102/65 08/23/22 23:00 Pulse Oximetry 97 08/23/22 23:00 Oxygen Delivery Method 08/23/22 23:00 <Phil Kilpatrick MD - Last Filed: 08/21/22 16:36> Medical Decision Making MDM Narrative Medical decision making narrative: This patient has been residing in the emergency department for more than 24 hours and throughout this whole time he is been cooperative and pleasant and redirectable if needed. He is appropriate for placement in a long-term facility. Social service consult was completed and agrees with this plan for his care going forward. ostrich farm worker was able to find of placement that is very likely. This will not happen until tomorrow so I did speak with the hospitalist pest control applicator, Dr. Metz, who agrees to his admission overnight. <Phil Kilpatrick MD - Last Filed: 08/21/22 16:36> Lab Data Lab results reviewed: Yes I reviewed the patient's lab results <Yessica Patel MD - Last Filed: 08/20/22 20:51> Labs: Lab Results 08/20/22 08/20/22 08/20/22 Range/Units 11:26 11:26 11:44 WBC 7.22 (4.50-11.00) K/uL RBC 3.68 L (4.30-5.90) m/uL Hgb 11.3 L (13.5-17.5) gm/dL Hct 34.6 L (37.0-53.0) % MCV 94 (80-100) fL MCH 31 (26-34) pg MCHC 33 (32-36) gm/dL RDW Coeff of Vidhya 13.5 (11.5-15.5) % Plt Count 157 (140-440) K/uL Neut % (Auto) 79.7 H (42.0-72.0) % Lymph % (Auto) 10.5 L (20-44) % [place] % (Auto) 9.1 (0.0-11.0) % Eos % (Auto) 0.3 (0.0-7.0) % Baso % (Auto) 0.4 (0.0-3.0) % Neut # (Auto) 5.80 (1.7-7.0) K/uL Lymph # (Auto) 0.80 L (0.90-2.90) K/uL [place] # (Auto) 0.70 (0.00-0.90) K/UL Eos # (Auto) 0.02 (0.00-0.50) K/uL Baso # (Auto) 0.03 (0.00-0.30) K/uL Abs Immat Gran (auto) 0.00 (0.00-0.30) K/uL Imm/Tot Granulo (auto) 0.0 % Sodium (135-149) mmol/L Potassium (3.6-5.1) mmol/L Chloride (96-114) mmol/L Carbon Dioxide (20-32) mmol/L BUN (7-30) mg/dL Creatinine (0.5-1.5) mg/dL Estimated GFR ml/min Glucose (60-115) mg/dL Calcium (8.4-10.6) mg/dL Total Bilirubin (0.1-1.5) mg/dL AST (12-35) U/L ALT (4-50) U/L Alkaline Phosphatase (40-150) U/L Total Protein (6.0-8.3) g/dL Albumin (3.3-5.0) g/dL TSH (0.270-4.200) uIU/mL Urine Color (Yellow) Urine Appearance (Clear) Urine pH (5.0-8.5) Ur Specific [place] (1.000-1.030) Urine Protein (Negative) Urine Glucose (UA) (Negative) Urine Ketones (Negative) Urine Blood (Negative) Urine Nitrite (Negative) Urine Bilirubin (Negative) Urine Urobilinogen (0.2-1.0) Ur Leukocyte Esterase (Negative) Urine RBC (0-2) Urine WBC (0-5) Ur Squamous Epith Cells (None-Few) Calcium Oxalate Crystal (None) Urine Bacteria (None) Salicylates (1.0-10) mg/dL Urine Opiates Screen Negative (Negative) Ur Oxycodone Screen Negative (Negative) Urine Methadone Screen Negative (Negative) Ur Propoxyphene Screen Negative (Negative) Acetaminophen (10.0-30.0) ug/mL Ur Barbiturates Screen Negative (Negative) U Tricyclic Antidepress Negative (Negative) Ur Phencyclidine Scrn Negative (Negative) Ur Amphetamines Screen Negative (Negative) U Methamphetamines Scrn Negative (Negative) U Benzodiazepines Scrn Negative (Negative) Urine Cocaine Screen Negative (Negative) U Marijuana (THC) Screen Negative (Negative) Ur Drug Screen Comment See Note Ethyl Alcohol (0.01-0.03) % SARS-CoV-2 (PCR) Negative SARS-CoV-2 (Negative) 08/20/22 08/20/22 08/20/22 Range/Units 11:44 11:44 11:44 WBC (4.50-11.00) K/uL RBC (4.30-5.90) m/uL Hgb (13.5-17.5) gm/dL Hct (37.0-53.0) % MCV (80-100) fL MCH (26-34) pg MCHC (32-36) gm/dL RDW Coeff of Vidhya (11.5-15.5) % Plt Count (140-440) K/uL Neut % (Auto) (42.0-72.0) % Lymph % (Auto) (20-44) % [place] % (Auto) (0.0-11.0) % Eos % (Auto) (0.0-7.0) % Baso % (Auto) (0.0-3.0) % Neut # (Auto) (1.7-7.0) K/uL Lymph # (Auto) (0.90-2.90) K/uL [place] # (Auto) (0.00-0.90) K/UL Eos # (Auto) (0.00-0.50) K/uL Baso # (Auto) (0.00-0.30) K/uL Abs Immat Gran (auto) (0.00-0.30) K/uL Imm/Tot Granulo (auto) % Sodium 142 (135-149) mmol/L Potassium 4.5 (3.6-5.1) mmol/L Chloride 106 (96-114) mmol/L Carbon Dioxide 35 H (20-32) mmol/L BUN 19 (7-30) mg/dL Creatinine 1.2 (0.5-1.5) mg/dL Estimated GFR 65 ml/min Glucose 91 (60-115) mg/dL Calcium 9.1 (8.4-10.6) mg/dL Total Bilirubin 0.5 (0.1-1.5) mg/dL AST 50 H (12-35) U/L ALT 45 (4-50) U/L Alkaline Phosphatase 73 (40-150) U/L Total Protein 5.9 L (6.0-8.3) g/dL Albumin 3.7 (3.3-5.0) g/dL TSH 2.860 (0.270-4.200) uIU/mL Urine Color (Yellow) Urine Appearance (Clear) Urine pH (5.0-8.5) Ur Specific [place] (1.000-1.030) Urine Protein (Negative) Urine Glucose (UA) (Negative) Urine Ketones (Negative) Urine Blood (Negative) Urine Nitrite (Negative) Urine Bilirubin (Negative) Urine Urobilinogen (0.2-1.0) Ur Leukocyte Esterase (Negative) Urine RBC (0-2) Urine WBC (0-5) Ur Squamous Epith Cells (None-Few) Calcium Oxalate Crystal (None) Urine Bacteria (None) Salicylates (1.0-10) mg/dL Urine Opiates Screen (Negative) Ur Oxycodone Screen (Negative) Urine Methadone Screen (Negative) Ur Propoxyphene Screen (Negative) Acetaminophen < 10.0 L (10.0-30.0) ug/mL Ur Barbiturates Screen (Negative) U Tricyclic Antidepress (Negative) Ur Phencyclidine Scrn (Negative) Ur Amphetamines Screen (Negative) U Methamphetamines Scrn (Negative) U Benzodiazepines Scrn (Negative) Urine Cocaine Screen (Negative) U Marijuana (THC) Screen (Negative) Ur Drug Screen Comment Ethyl Alcohol < 0.01 L (0.01-0.03) % SARS-CoV-2 (PCR) (Negative) 08/20/22 08/20/22 Range/Units 11:44 14:25 WBC (4.50-11.00) K/uL RBC (4.30-5.90) m/uL Hgb (13.5-17.5) gm/dL Hct (37.0-53.0) % MCV (80-100) fL MCH (26-34) pg MCHC (32-36) gm/dL RDW Coeff of Vidhya (11.5-15.5) % Plt Count (140-440) K/uL Neut % (Auto) (42.0-72.0) % Lymph % (Auto) (20-44) % [place] % (Auto) (0.0-11.0) % Eos % (Auto) (0.0-7.0) % Baso % (Auto) (0.0-3.0) % Neut # (Auto) (1.7-7.0) K/uL Lymph # (Auto) (0.90-2.90) K/uL [place] # (Auto) (0.00-0.90) K/UL Eos # (Auto) (0.00-0.50) K/uL Baso # (Auto) (0.00-0.30) K/uL Abs Immat Gran (auto) (0.00-0.30) K/uL Imm/Tot Granulo (auto) % Sodium (135-149) mmol/L Potassium (3.6-5.1) mmol/L Chloride (96-114) mmol/L Carbon Dioxide (20-32) mmol/L BUN (7-30) mg/dL Creatinine (0.5-1.5) mg/dL Estimated GFR ml/min Glucose (60-115) mg/dL Calcium (8.4-10.6) mg/dL Total Bilirubin (0.1-1.5) mg/dL AST (12-35) U/L ALT (4-50) U/L Alkaline Phosphatase (40-150) U/L Total Protein (6.0-8.3) g/dL Albumin (3.3-5.0) g/dL TSH (0.270-4.200) uIU/mL Urine Color Yellow (Yellow) Urine Appearance Cloudy A (Clear) Urine pH 7.0 (5.0-8.5) Ur Specific [place] 1.025 (1.000-1.030) Urine Protein 2+ A (Negative) Urine Glucose (UA) Negative (Negative) Urine Ketones Negative (Negative) Urine Blood 3+ A (Negative) Urine Nitrite Negative (Negative) Urine Bilirubin Negative (Negative) Urine Urobilinogen 0.2 (0.2-1.0) Ur Leukocyte Esterase Negative (Negative) Urine RBC >100 A (0-2) Urine WBC 2-5 (0-5) Ur Squamous Epith Cells Few (None-Few) Calcium Oxalate Crystal Few A (None) Urine Bacteria None (None) Salicylates < 1.0 L (1.0-10) mg/dL Urine Opiates Screen (Negative) Ur Oxycodone Screen (Negative) Urine Methadone Screen (Negative) Ur Propoxyphene Screen (Negative) Acetaminophen (10.0-30.0) ug/mL Ur Barbiturates Screen (Negative) U Tricyclic Antidepress (Negative) Ur Phencyclidine Scrn (Negative) Ur Amphetamines Screen (Negative) U Methamphetamines Scrn (Negative) U Benzodiazepines Scrn (Negative) Urine Cocaine Screen (Negative) U Marijuana (THC) Screen (Negative) Ur Drug Screen Comment Ethyl Alcohol (0.01-0.03) % SARS-CoV-2 (PCR) (Negative) <Yessica Patel MD - Last Filed: 08/20/22 20:51> Lab Results 08/20/22 08/20/22 08/20/22 Range/Units 11:26 11:26 11:44 WBC 7.22 (4.50-11.00) K/uL RBC 3.68 L (4.30-5.90) m/uL Hgb 11.3 L (13.5-17.5) gm/dL Hct 34.6 L (37.0-53.0) % MCV 94 (80-100) fL MCH 31 (26-34) pg MCHC 33 (32-36) gm/dL RDW Coeff of Vidhya 13.5 (11.5-15.5) % Plt Count 157 (140-440) K/uL Neut % (Auto) 79.7 H (42.0-72.0) % Lymph % (Auto) 10.5 L (20-44) % [place] % (Auto) 9.1 (0.0-11.0) % Eos % (Auto) 0.3 (0.0-7.0) % Baso % (Auto) 0.4 (0.0-3.0) % Neut # (Auto) 5.80 (1.7-7.0) K/uL Lymph # (Auto) 0.80 L (0.90-2.90) K/uL [place] # (Auto) 0.70 (0.00-0.90) K/UL Eos # (Auto) 0.02 (0.00-0.50) K/uL Baso # (Auto) 0.03 (0.00-0.30) K/uL Abs Immat Gran (auto) 0.00 (0.00-0.30) K/uL Imm/Tot Granulo (auto) 0.0 % Sodium (135-149) mmol/L Potassium (3.6-5.1) mmol/L Chloride (96-114) mmol/L Carbon Dioxide (20-32) mmol/L BUN (7-30) mg/dL Creatinine (0.5-1.5) mg/dL Estimated GFR ml/min Glucose (60-115) mg/dL Calcium (8.4-10.6) mg/dL Total Bilirubin (0.1-1.5) mg/dL AST (12-35) U/L ALT (4-50) U/L Alkaline Phosphatase (40-150) U/L Total Protein (6.0-8.3) g/dL Albumin (3.3-5.0) g/dL TSH (0.270-4.200) uIU/mL Urine Color (Yellow) Urine Appearance (Clear) Urine pH (5.0-8.5) Ur Specific [place] (1.000-1.030) Urine Protein (Negative) Urine Glucose (UA) (Negative) Urine Ketones (Negative) Urine Blood (Negative) Urine Nitrite (Negative) Urine Bilirubin (Negative) Urine Urobilinogen (0.2-1.0) Ur Leukocyte Esterase (Negative) Urine RBC (0-2) Urine WBC (0-5) Ur Squamous Epith Cells (None-Few) Calcium Oxalate Crystal (None) Urine Bacteria (None) Salicylates (1.0-10) mg/dL Urine Opiates Screen Negative (Negative) Ur Oxycodone Screen Negative (Negative) Urine Methadone Screen Negative (Negative) Ur Propoxyphene Screen Negative (Negative) Acetaminophen (10.0-30.0) ug/mL Ur Barbiturates Screen Negative (Negative) U Tricyclic Antidepress Negative (Negative) Ur Phencyclidine Scrn Negative (Negative) Ur Amphetamines Screen Negative (Negative) U Methamphetamines Scrn Negative (Negative) U Benzodiazepines Scrn Negative (Negative) Urine Cocaine Screen Negative (Negative) U Marijuana (THC) Screen Negative (Negative) Ur Drug Screen Comment See Note Ethyl Alcohol (0.01-0.03) % SARS-CoV-2 (PCR) Negative SARS-CoV-2 (Negative) 08/20/22 08/20/22 08/20/22 Range/Units 11:44 11:44 11:44 WBC (4.50-11.00) K/uL RBC (4.30-5.90) m/uL Hgb (13.5-17.5) gm/dL Hct (37.0-53.0) % MCV (80-100) fL MCH (26-34) pg MCHC (32-36) gm/dL RDW Coeff of Vidhya (11.5-15.5) % Plt Count (140-440) K/uL Neut % (Auto) (42.0-72.0) % Lymph % (Auto) (20-44) % [place] % (Auto) (0.0-11.0) % Eos % (Auto) (0.0-7.0) % Baso % (Auto) (0.0-3.0) % Neut # (Auto) (1.7-7.0) K/uL Lymph # (Auto) (0.90-2.90) K/uL [place] # (Auto) (0.00-0.90) K/UL Eos # (Auto) (0.00-0.50) K/uL Baso # (Auto) (0.00-0.30) K/uL Abs Immat Gran (auto) (0.00-0.30) K/uL Imm/Tot Granulo (auto) % Sodium 142 (135-149) mmol/L Potassium 4.5 (3.6-5.1) mmol/L Chloride 106 (96-114) mmol/L Carbon Dioxide 35 H (20-32) mmol/L BUN 19 (7-30) mg/dL Creatinine 1.2 (0.5-1.5) mg/dL Estimated GFR 65 ml/min Glucose 91 (60-115) mg/dL Calcium 9.1 (8.4-10.6) mg/dL Total Bilirubin 0.5 (0.1-1.5) mg/dL AST 50 H (12-35) U/L ALT 45 (4-50) U/L Alkaline Phosphatase 73 (40-150) U/L Total Protein 5.9 L (6.0-8.3) g/dL Albumin 3.7 (3.3-5.0) g/dL TSH 2.860 (0.270-4.200) uIU/mL Urine Color (Yellow) Urine Appearance (Clear) Urine pH (5.0-8.5) Ur Specific [place] (1.000-1.030) Urine Protein (Negative) Urine Glucose (UA) (Negative) Urine Ketones (Negative) Urine Blood (Negative) Urine Nitrite (Negative) Urine Bilirubin (Negative) Urine Urobilinogen (0.2-1.0) Ur Leukocyte Esterase (Negative) Urine RBC (0-2) Urine WBC (0-5) Ur Squamous Epith Cells (None-Few) Calcium Oxalate Crystal (None) Urine Bacteria (None) Salicylates (1.0-10) mg/dL Urine Opiates Screen (Negative) Ur Oxycodone Screen (Negative) Urine Methadone Screen (Negative) Ur Propoxyphene Screen (Negative) Acetaminophen < 10.0 L (10.0-30.0) ug/mL Ur Barbiturates Screen (Negative) U Tricyclic Antidepress (Negative) Ur Phencyclidine Scrn (Negative) Ur Amphetamines Screen (Negative) U Methamphetamines Scrn (Negative) U Benzodiazepines Scrn (Negative) Urine Cocaine Screen (Negative) U Marijuana (THC) Screen (Negative) Ur Drug Screen Comment Ethyl Alcohol < 0.01 L (0.01-0.03) % SARS-CoV-2 (PCR) (Negative) 08/20/22 08/20/22 Range/Units 11:44 14:25 WBC (4.50-11.00) K/uL RBC (4.30-5.90) m/uL Hgb (13.5-17.5) gm/dL Hct (37.0-53.0) % MCV (80-100) fL MCH (26-34) pg MCHC (32-36) gm/dL RDW Coeff of Vidhya (11.5-15.5) % Plt Count (140-440) K/uL Neut % (Auto) (42.0-72.0) % Lymph % (Auto) (20-44) % [place] % (Auto) (0.0-11.0) % Eos % (Auto) (0.0-7.0) % Baso % (Auto) (0.0-3.0) % Neut # (Auto) (1.7-7.0) K/uL Lymph # (Auto) (0.90-2.90) K/uL [place] # (Auto) (0.00-0.90) K/UL Eos # (Auto) (0.00-0.50) K/uL Baso # (Auto) (0.00-0.30) K/uL Abs Immat Gran (auto) (0.00-0.30) K/uL Imm/Tot Granulo (auto) % Sodium (135-149) mmol/L Potassium (3.6-5.1) mmol/L Chloride (96-114) mmol/L Carbon Dioxide (20-32) mmol/L BUN (7-30) mg/dL Creatinine (0.5-1.5) mg/dL Estimated GFR ml/min Glucose (60-115) mg/dL Calcium (8.4-10.6) mg/dL Total Bilirubin (0.1-1.5) mg/dL AST (12-35) U/L ALT (4-50) U/L Alkaline Phosphatase (40-150) U/L Total Protein (6.0-8.3) g/dL Albumin (3.3-5.0) g/dL TSH (0.270-4.200) uIU/mL Urine Color Yellow (Yellow) Urine Appearance Cloudy A (Clear) Urine pH 7.0 (5.0-8.5) Ur Specific [place] 1.025 (1.000-1.030) Urine Protein 2+ A (Negative) Urine Glucose (UA) Negative (Negative) Urine Ketones Negative (Negative) Urine Blood 3+ A (Negative) Urine Nitrite Negative (Negative) Urine Bilirubin Negative (Negative) Urine Urobilinogen 0.2 (0.2-1.0) Ur Leukocyte Esterase Negative (Negative) Urine RBC >100 A (0-2) Urine WBC 2-5 (0-5) Ur Squamous Epith Cells Few (None-Few) Calcium Oxalate Crystal Few A (None) Urine Bacteria None (None) Salicylates < 1.0 L (1.0-10) mg/dL Urine Opiates Screen (Negative) Ur Oxycodone Screen (Negative) Urine Methadone Screen (Negative) Ur Propoxyphene Screen (Negative) Acetaminophen (10.0-30.0) ug/mL Ur Barbiturates Screen (Negative) U Tricyclic Antidepress (Negative) Ur Phencyclidine Scrn (Negative) Ur Amphetamines Screen (Negative) U Methamphetamines Scrn (Negative) U Benzodiazepines Scrn (Negative) Urine Cocaine Screen (Negative) U Marijuana (THC) Screen (Negative) Ur Drug Screen Comment Ethyl Alcohol (0.01-0.03) % SARS-CoV-2 (PCR) (Negative) <Vivek Guthrie MD - Last Filed: 08/24/22 01:50> Lab Results 08/20/22 08/20/22 08/20/22 Range/Units 11:26 11:26 11:44 WBC 7.22 (4.50-11.00) K/uL RBC 3.68 L (4.30-5.90) m/uL Hgb 11.3 L (13.5-17.5) gm/dL Hct 34.6 L (37.0-53.0) % MCV 94 (80-100) fL MCH 31 (26-34) pg MCHC 33 (32-36) gm/dL RDW Coeff of Vidhya 13.5 (11.5-15.5) % Plt Count 157 (140-440) K/uL Neut % (Auto) 79.7 H (42.0-72.0) % Lymph % (Auto) 10.5 L (20-44) % [place] % (Auto) 9.1 (0.0-11.0) % Eos % (Auto) 0.3 (0.0-7.0) % Baso % (Auto) 0.4 (0.0-3.0) % Neut # (Auto) 5.80 (1.7-7.0) K/uL Lymph # (Auto) 0.80 L (0.90-2.90) K/uL [place] # (Auto) 0.70 (0.00-0.90) K/UL Eos # (Auto) 0.02 (0.00-0.50) K/uL Baso # (Auto) 0.03 (0.00-0.30) K/uL Abs Immat Gran (auto) 0.00 (0.00-0.30) K/uL Imm/Tot Granulo (auto) 0.0 % Sodium (135-149) mmol/L Potassium (3.6-5.1) mmol/L Chloride (96-114) mmol/L Carbon Dioxide (20-32) mmol/L BUN (7-30) mg/dL Creatinine (0.5-1.5) mg/dL Estimated GFR ml/min Glucose (60-115) mg/dL Calcium (8.4-10.6) mg/dL Total Bilirubin (0.1-1.5) mg/dL AST (12-35) U/L ALT (4-50) U/L Alkaline Phosphatase (40-150) U/L Total Protein (6.0-8.3) g/dL Albumin (3.3-5.0) g/dL TSH (0.270-4.200) uIU/mL Urine Color (Yellow) Urine Appearance (Clear) Urine pH (5.0-8.5) Ur Specific [place] (1.000-1.030) Urine Protein (Negative) Urine Glucose (UA) (Negative) Urine Ketones (Negative) Urine Blood (Negative) Urine Nitrite (Negative) Urine Bilirubin (Negative) Urine Urobilinogen (0.2-1.0) Ur Leukocyte Esterase (Negative) Urine RBC (0-2) Urine WBC (0-5) Ur Squamous Epith Cells (None-Few) Calcium Oxalate Crystal (None) Urine Bacteria (None) Salicylates (1.0-10) mg/dL Urine Opiates Screen Negative (Negative) Ur Oxycodone Screen Negative (Negative) Urine Methadone Screen Negative (Negative) Ur Propoxyphene Screen Negative (Negative) Acetaminophen (10.0-30.0) ug/mL Ur Barbiturates Screen Negative (Negative) U Tricyclic Antidepress Negative (Negative) Ur Phencyclidine Scrn Negative (Negative) Ur Amphetamines Screen Negative (Negative) U Methamphetamines Scrn Negative (Negative) U Benzodiazepines Scrn Negative (Negative) Urine Cocaine Screen Negative (Negative) U Marijuana (THC) Screen Negative (Negative) Ur Drug Screen Comment See Note Ethyl Alcohol (0.01-0.03) % SARS-CoV-2 (PCR) Negative SARS-CoV-2 (Negative) 08/20/22 08/20/22 08/20/22 Range/Units 11:44 11:44 11:44 WBC (4.50-11.00) K/uL RBC (4.30-5.90) m/uL Hgb (13.5-17.5) gm/dL Hct (37.0-53.0) % MCV (80-100) fL MCH (26-34) pg MCHC (32-36) gm/dL RDW Coeff of Vidhya (11.5-15.5) % Plt Count (140-440) K/uL Neut % (Auto) (42.0-72.0) % Lymph % (Auto) (20-44) % [place] % (Auto) (0.0-11.0) % Eos % (Auto) (0.0-7.0) % Baso % (Auto) (0.0-3.0) % Neut # (Auto) (1.7-7.0) K/uL Lymph # (Auto) (0.90-2.90) K/uL [place] # (Auto) (0.00-0.90) K/UL Eos # (Auto) (0.00-0.50) K/uL Baso # (Auto) (0.00-0.30) K/uL Abs Immat Gran (auto) (0.00-0.30) K/uL Imm/Tot Granulo (auto) % Sodium 142 (135-149) mmol/L Potassium 4.5 (3.6-5.1) mmol/L Chloride 106 (96-114) mmol/L Carbon Dioxide 35 H (20-32) mmol/L BUN 19 (7-30) mg/dL Creatinine 1.2 (0.5-1.5) mg/dL Estimated GFR 65 ml/min Glucose 91 (60-115) mg/dL Calcium 9.1 (8.4-10.6) mg/dL Total Bilirubin 0.5 (0.1-1.5) mg/dL AST 50 H (12-35) U/L ALT 45 (4-50) U/L Alkaline Phosphatase 73 (40-150) U/L Total Protein 5.9 L (6.0-8.3) g/dL Albumin 3.7 (3.3-5.0) g/dL TSH 2.860 (0.270-4.200) uIU/mL Urine Color (Yellow) Urine Appearance (Clear) Urine pH (5.0-8.5) Ur Specific [place] (1.000-1.030) Urine Protein (Negative) Urine Glucose (UA) (Negative) Urine Ketones (Negative) Urine Blood (Negative) Urine Nitrite (Negative) Urine Bilirubin (Negative) Urine Urobilinogen (0.2-1.0) Ur Leukocyte Esterase (Negative) Urine RBC (0-2) Urine WBC (0-5) Ur Squamous Epith Cells (None-Few) Calcium Oxalate Crystal (None) Urine Bacteria (None) Salicylates (1.0-10) mg/dL Urine Opiates Screen (Negative) Ur Oxycodone Screen (Negative) Urine Methadone Screen (Negative) Ur Propoxyphene Screen (Negative) Acetaminophen < 10.0 L (10.0-30.0) ug/mL Ur Barbiturates Screen (Negative) U Tricyclic Antidepress (Negative) Ur Phencyclidine Scrn (Negative) Ur Amphetamines Screen (Negative) U Methamphetamines Scrn (Negative) U Benzodiazepines Scrn (Negative) Urine Cocaine Screen (Negative) U Marijuana (THC) Screen (Negative) Ur Drug Screen Comment Ethyl Alcohol < 0.01 L (0.01-0.03) % SARS-CoV-2 (PCR) (Negative) 08/20/22 08/20/22 Range/Units 11:44 14:25 WBC (4.50-11.00) K/uL RBC (4.30-5.90) m/uL Hgb (13.5-17.5) gm/dL Hct (37.0-53.0) % MCV (80-100) fL MCH (26-34) pg MCHC (32-36) gm/dL RDW Coeff of Vidhya (11.5-15.5) % Plt Count (140-440) K/uL Neut % (Auto) (42.0-72.0) % Lymph % (Auto) (20-44) % [place] % (Auto) (0.0-11.0) % Eos % (Auto) (0.0-7.0) % Baso % (Auto) (0.0-3.0) % Neut # (Auto) (1.7-7.0) K/uL Lymph # (Auto) (0.90-2.90) K/uL [place] # (Auto) (0.00-0.90) K/UL Eos # (Auto) (0.00-0.50) K/uL Baso # (Auto) (0.00-0.30) K/uL Abs Immat Gran (auto) (0.00-0.30) K/uL Imm/Tot Granulo (auto) % Sodium (135-149) mmol/L Potassium (3.6-5.1) mmol/L Chloride (96-114) mmol/L Carbon Dioxide (20-32) mmol/L BUN (7-30) mg/dL Creatinine (0.5-1.5) mg/dL Estimated GFR ml/min Glucose (60-115) mg/dL Calcium (8.4-10.6) mg/dL Total Bilirubin (0.1-1.5) mg/dL AST (12-35) U/L ALT (4-50) U/L Alkaline Phosphatase (40-150) U/L Total Protein (6.0-8.3) g/dL Albumin (3.3-5.0) g/dL TSH (0.270-4.200) uIU/mL Urine Color Yellow (Yellow) Urine Appearance Cloudy A (Clear) Urine pH 7.0 (5.0-8.5) Ur Specific [place] 1.025 (1.000-1.030) Urine Protein 2+ A (Negative) Urine Glucose (UA) Negative (Negative) Urine Ketones Negative (Negative) Urine Blood 3+ A (Negative) Urine Nitrite Negative (Negative) Urine Bilirubin Negative (Negative) Urine Urobilinogen 0.2 (0.2-1.0) Ur Leukocyte Esterase Negative (Negative) Urine RBC >100 A (0-2) Urine WBC 2-5 (0-5) Ur Squamous Epith Cells Few (None-Few) Calcium Oxalate Crystal Few A (None) Urine Bacteria None (None) Salicylates < 1.0 L (1.0-10) mg/dL Urine Opiates Screen (Negative) Ur Oxycodone Screen (Negative) Urine Methadone Screen (Negative) Ur Propoxyphene Screen (Negative) Acetaminophen (10.0-30.0) ug/mL Ur Barbiturates Screen (Negative) U Tricyclic Antidepress (Negative) Ur Phencyclidine Scrn (Negative) Ur Amphetamines Screen (Negative) U Methamphetamines Scrn (Negative) U Benzodiazepines Scrn (Negative) Urine Cocaine Screen (Negative) U Marijuana (THC) Screen (Negative) Ur Drug Screen Comment Ethyl Alcohol (0.01-0.03) % SARS-CoV-2 (PCR) (Negative) <Phil Kilpatrick MD - Last Filed: 08/21/22 16:36> Critical Care Time Critical Care Time Critical Care Time: No <Yessica Patel MD - Last Filed: 08/20/22 20:51> Discharge Plan Discharge Clinical Impression: History of bipolar disorder, Suicidal ideation <Yessica Patel MD - Last Filed: 08/20/22 20:51> Patient Disposition: Admitted As Inpatient <Yessica Patel MD - Last Filed: 08/20/22 20:51> Condition: Unchanged <Yessica Patel MD - Last Filed: 08/20/22 20:51> Activity Level: Activity as Tolerated <Yessica Patel MD - Last Filed: 08/20/22 20:51> Activity as Tolerated <Vivek Guthrie MD - Last Filed: 08/24/22 01:50> Activity as Tolerated <Phil Kilpatrick MD - Last Filed: 08/21/22 16:36> Discharge Diet: Regular <Yessica Patel MD - Last Filed: 08/20/22 20:51> Regular <Vivek Guthrie MD - Last Filed: 08/24/22 01:50> Regular <Phil Kilpatrick MD - Last Filed: 08/21/22 16:36>
--- OUTSIDE RECORDS SUMMARY | 2022-08-20 11:01 | XMS_ITS | Clinical Summary ---
:1950 Author Organization [employer] [facility] [place] [address] Care Team Providers Name Role Phone Feli Babin MD Primary Care Provider [phone] [facility] Unavailable Sabina Chang RN Unavailable Amelia Mukherjee RN Unavailable Allergies No known active allergies Medications Medication Sig Dispensed Refills Start Date End Date Status finasteride Take 1 90 Tablet 3 11/23/2021 Active (PROSCAR) 5 mg Tablet (5 tabletIndications: mg) by mouth BPH with urinary every obstruction morning. pantoprazole Take 1 90 Tablet 3 11/23/2021 Active (PROTONIX) 40 mg Tablet (40 delayed-release mg) by mouth tabletIndications: once daily. Chronic GERD tamsulosin Take 1 90 Capsule 3 11/23/2021 Active (FLOMAX) 0.4 mg Capsule (0.4 capsuleIndications mg) by mouth : BPH with urinary once daily obstruction, after a Chronic meal. constipation acetaminophen Take 650 mg 0 11/06/2021 Act dio (TYLENOL) 325 mg by mouth tablet every 4 hours if needed. High Potency TAKE 1 30 Each 11 04/06/2022 Active Multivit, w-iron, TABLET BY 9 mg iron-400 mcg MOUTH DAILY tabletIndications: Screening for endocrine, nutritional, metabolic and immunity disorder polyethylene MIX 17 GRAMS 1530 g 0 04/27/2022 Act dio glycoL (MIRALAX) IN 4-8 17 gram/dose OUNCES OF powderIndications: WATER OR Chronic GERD JUICE AND DRINK DAILY aspirin (ECOTRIN) Take 1 0 08/11/2022 A ctive 81 mg enteric Tablet by coated tablet mouth once daily. atorvastatin Take 1 0 08/11/2022 Active (LIPITOR) 40 mg Tablet by tablet mouth at bedtime. vancomycin Take 1 0 08/11/2022 Active (VANCOCIN) 125 mg Capsule by capsule mouth four times daily. sertraline Take 2 180 Tablet 3 08/16/2022 Active (ZOLOFT) 100 mg Tablets (200 tabletIndications: mg) by mouth Depression, major, once daily. single episode, moderate (HC) Tab-A-Jennifer Take 1 0 02/13/2022 Disconti nued Tablet by 2 (Duplicate mouth once therapy ( E-cancel daily. not sent)) cefpodoxime Take 2 0 08/11/2022 (VANTIN) 100 mg Tablets by 2 tablet mouth two times daily. sertraline Take 1 0 08/06/2022 Disconti nued (ZOLOFT) 100 mg Tablet by 2 (Reo rder tablet mouth at (E-cancel not bedtime. 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 Encounters Date Type Specialty Care Team Description [facility]: MD [place] 08/11/22) 08/16/2022 Travel 08/14/2022 Telephone Feli Babin Lab (Lab wo rk needed?) MD [place] 08/13/2022 Telephone Brenda Rosado PA 08/13/2022 Telephone Feli Babin Concerns (Dell Sage MD leaving facilit y ) 08/09/2022 Orders Only <No scans attac hed> 08/02/2022 Nurse/Clinic Staff Insert (Lang chun Only change) 08/02/2022 Travel 07/30/2022 Telephone Feli Babin Appointment (Nurse MD [place] visit- catheter change) 07/09/2022 Telephone Feli Babin Referral (u [facility]) MD [place] 05/24/2022 Nurse/Clinic Staff Only 05/24/2022 Travel from Last 3 Months Immunizations Name Administration Dates Next Due COVID-19 vaccine (Moderna 100mcg/0.5mL) 09/12/2021, 12/20/19, 11/21/2020 PF, MDV COVID-19 vaccine (Stella & Dot 02/22/2022 30mcg/0.3mL) PF, MDV Influenza, High-dose Inactivated [...] drink = 0.6 oz pure alcoho l) Sex Assigned at Date Recorded Not on file COVID-19 Exposure Response Date Recorded In the last 10 days, have you been in contact with No / Unsu re 08/16/2022 1:40 PM INSTITUTION DIRECTOR someone who was confirmed or suspected to have Coronavirus/COVID-19? Obstetrics History Last Filed Vital Signs Vital Sign Reading Time Taken Comments Blood Pressure 106/70 08/16/2022 2:07 PM INSTITUTION DIRECTOR Pulse 78 08/16/2022 2:07 PM INSTITUTION DIRECTOR Temperature 35.8 ??C (96.4 ??F) 04/19/2006 11:37 AM CDT Respiratory Rate 16 11/27/2021 11:55 AM INSTITUTION DIRECTOR Oxygen Saturation 98% 08/16/2022 2:07 PM INSTITUTION DIRECTOR Inhaled Oxygen Concentration - - Weight 75.3 kg (166 lb) 08/16/2022 2:07 PM INSTITUTION DIRECTOR Height 182.9 cm (6') 11/23/2021 1:41 PM INSTITUTION DIRECTOR Body Mass Index 22.51 11/23/2021 1:41 PM INSTITUTION DIRECTOR Plan of Treatment Upcoming Encounters Date Type Specialty Care Team Description 08/27/2022 Nurse/Clinic Staff Only 11/29/2022 Office Visit Ryan Davies MD [address] [place] [address] (Wo rk) Health Maintenance Due [...] 18-79 Procedures Procedure Name Priority Date/Time Associated Diagnosis Comme nts CBC WITH AUTO Routine 08/16/2022 2:56 Anemia of unknown Result s for this DIFFERENTIAL PM INSTITUTION DIRECTOR etiology procedure are i n the results section. VITAMIN B12 Routine 08/16/2022 2:56 Frontotemporal Results fo r this PM INSTITUTION DIRECTOR dementia (HC) procedure are in the results section. TSH WITH REFLEX Routine 08/16/2022 2:56 Frontotemporal Results for this PM INSTITUTION DIRECTOR dementia (HC) procedure are in the results section. CBC WITH AUTO Routine 08/16/2022 2:56 Anemia of unknown Result s for this DIFFERENTIAL PM INSTITUTION DIRECTOR etiology procedure are i n the results section. COMP METABOLIC PANEL Routine 08/16/2022 2:56 Frontotemporal Re sults for this PM INSTITUTION DIRECTOR dementia (HC) procedure are in Renal insufficiency the resu lts section. ECHO COMPLETE WO Routine 08/09/2022 4:20 Elevated tropon in Results for this CONTRAST PM INSTITUTION DIRECTOR NSTEMI (non-ST procedure are in elevated myocardial the resu lts infarction) (HC) section. URINE CULTURE Add On 08/02/2022 9:45 Urinary retention Result s for this AM CDT procedure are i n the results section. URINALYSIS Routine 08/02/2022 9:45 Urinary retention Results for this MICROSCOPIC AM CDT procedure are i n the results section. UA W/ SEDIMENT EXAM Routine 08/02/2022 9:45 Urinary retention Results for this REFLEXED PER AM CDT procedure are i n CRITERIA the results section. from Last 3 Months Results (ABNORMAL) CBC WITH AUTO DIFFERENTIAL (08/16/2022 2:56 PM INSTITUTION DIRECTOR) [facility] Method Time Signature WHITE BLOOD 4.4 (L) 4.5 - 08/16/2022 [facility] COUNT 11.0 3:09 PM [facility] thou/cu CLINIC mm RED BLOOD COUNT 3.86 (L) 4.30 - 08/16/2022 [facility] 5.90 3:09 PM [facility]/ mm CLINIC HEMOGLOBIN 12.1 (L) 13.5 - 08/16/2022 [facility] 17.5 g/dL 3:09 PM [facility] HEMATOCRIT 35.9 (L) 37.0 - 08/16/2022 [facility] 53.0 % 3:09 PM [facility] MCV 93 80 - 100 08/16/2022 [facility] fL 3:09 PM [facility] MCH 31.3 26.0 - 08/16/2022 [facility] 34.0 pg 3:09 PM [facility] MCHC 33.7 32.0 - 08/16/2022 [facility] 36.0 g/dL 3:09 PM [facility] RDW 14.6 11.5 - 08/16/2022 [facility] 15.5 % 3:09 PM [facility] PLATELET COUNT 160 140 - 440 08/16/2022 [facility] thou/cu 3:09 PM [facility] MPV 11.3 (H) 6.5 - 08/16/2022 [facility] 11.0 fL 3:09 PM [facility] % NEUT 70.9 % 08/16/2022 [facility] 3:09 PM INSTITUTION DIRECTOR [facility] % LYMPH 16.7 % 08/16/2022 [facility] 3:09 PM [facility] % MONO 11.1 % 08/16/2022 [facility] 3:09 PM [facility] % EOS 1.1 % 08/16/2022 [facility] 3:09 PM [facility] % BASO 0.2 % 08/16/2022 [facility] 3:09 PM [facility] ABSOLUTE 3.1 1.7 - 7.0 08/16/2022 [facility] NEUTROPHILS thou/cu 3:09 PM [facility] ABSOLUTE 0.7 (L) 0.9 - 2.9 08/16/2022 [facility] LYMPHOCYTES thou/cu 3:09 PM [facility] ABSOLUTE 0.5 <0.9 08/16/2022 [facility] MONOCYTES thou/cu 3:09 PM INSTITUTION DIRECTOR [facility] ABSOLUTE 0.1 <0.5 08/16/2022 [facility] EOSINOPHILS thou/cu 3:09 PM INSTITUTION DIRECTOR [facility] ABSOLUTE 0.0 <0.3 08/16/2022 [facility] BASOPHILS thou/cu 3:09 PM [facility] Specimen Anatomical Collection Method / Collection Time Recei yohannes Time (Source) Location / Volume Laterality Blood BLOOD SPECIMEN / Venipuncture / 08/16/2022 2:56 2021 3:00 Unknown Unknown PM INSTITUTION DIRECTOR PM INSTITUTION DIRECTOR Feli Babin MD HEMATOLOGY Performing Organization Address City/State/ZIP Code Phon e Number [facility] [address] [place] [address] TSH WITH REFLEX (08/16/2022 2:56 PM INSTITUTION DIRECTOR) P athologist Signature TSH 2.47 0.35 - 4.94 08/18/2022 [facility] uIU/mL 10:32 PM INSTITUTION DIRECTOR LABORATORY-CENTR AL LABORATORY Specimen Anatomical Collection Method / Collection Time Recei yohannes Time (Source) Location / Volume Laterality Blood BLOOD SPECIMEN / Venipuncture / 08/16/2022 2:56 2021 3:00 Unknown Unknown PM INSTITUTION DIRECTOR PM INSTITUTION DIRECTOR Narrative [facility] LABORATORY-CENTRAL LABORAT ORY - 08/18/2022 10:32 PM INSTITUTION DIRECTOR In Adults, TSH values between 5.00 and 10.00 uIU/ml do not necessarily indicate the presence of Hyp othyroidism. Correlation with clinical findings such as presence of goiter and/or Thyroperoxidase (TPO) Antibody ma y be helpful. For more information please refer to LEONCIO 20 ; 291: [id number]. Feli Babin MD CHEMISTRY Performing Organization Address City/[facility] Phon e Number [facility] [phone] [place] [id number] LABORATORY-CENTRAL [facility] LABORATORY VITAMIN B12 (08/16/2022 2:56 PM INSTITUTION DIRECTOR) athologist Signature VITAMIN B12 651 180 - 914 08/17/2022 [facility] pg/mL 10:38 AM INSTITUTION DIRECTOR [facility]AT[facility] LABORATORY Specimen Anatomical Collection Method / Collection Time Recei yohannes Time (Source) Location / Volume Laterality Blood BLOOD SPECIMEN / Venipuncture / 08/16/2022 2:56 2021 3:00 Unknown Unknown PM INSTITUTION DIRECTOR PM INSTITUTION DIRECTOR Feli Babin MD CHEMISTRY Performing Organization Address City/State/ZIP [facility] Phon e Number [facility] [phone] [place] [address] LABORATORY-CENTRAL [facility] LABORATORY (ABNORMAL) COMP METABOLIC PANEL (08/16/2022 2:56 PM INSTITUTION DIRECTOR) [facility] gist Method Time Signature SODIUM 145 135 - 145 08/18/2022 [facility] mmol/L 10:16 PM INSTITUTION DIRECTOR LABORATORY-[facility] TRAL LABORATORY POTASSIUM 3.9 3.5 - 5.0 08/18/2022 [facility] mmol/L 10:16 PM INSTITUTION DIRECTOR LABORATORY-[facility] TRAL LABORATORY CHLORIDE 108 98 - 110 08/18/2022 [facility] mmol/L 10:16 PM INSTITUTION DIRECTOR LABORATORY-[facility] TRAL LABORATORY CO2,TOTAL 30 21 - 31 08/18/2022 [facility] mmol/L 10:16 PM INSTITUTION DIRECTOR LABORATORY-[facility] TRAL LABORATORY ANION GAP 7 5 - 18 08/18/2022 [facility] 10:16 PM INSTITUTION DIRECTOR LABORATORY-[facility]IE TRAL LABORATORY GLUCOSE 158 (H) 65 - 100 08/18/2022 [facility] mg/dL 10:16 PM INSTITUTION DIRECTOR LABORATORY-[facility] TRAL LABORATORY CALCIUM 9.0 8.5 - 08/18/2022 [facility] 10.5 10:16 PM INSTITUTION DIRECTOR LABORATORY-[facility] mg/dL TRAL LABORATORY BUN 17 8 - 25 08/18/2022 [facility] mg/dL 10:16 PM INSTITUTION DIRECTOR LABORATORY-[facility] TRAL LABORATORY CREATININE 1.29 (H) 0.72 - 08/18/2022 [facility] 1.25 10:16 PM INSTITUTION DIRECTOR LABORATORY-[facility] mg/dL TRAL LABORATORY BUN/CREAT RATIO 13 10 - 20 08/18/2022 [facility] 10:16 PM INSTITUTION DIRECTOR LABORATORY-[facility] TRAL LABORATORY ALBUMIN 3.6 3.2 - 4.6 08/18/2022 [facility] g/dL 10:16 PM INSTITUTION DIRECTOR LABORATORY-[facility] TRAL LABORATORY PROTEIN,TOTAL 5.6 (L) 6.0 - 8.0 08/18/2022 [facility] g/dL 10:16 PM INSTITUTION DIRECTOR LABORATORY-[facility] TRAL LABORATORY GLOBULIN 2.0 2.0 - 3.7 08/18/2022 [facility] g/dL 10:16 PM INSTITUTION DIRECTOR LABORATORY-[facility] TRAL LABORATORY A/G RATIO 1.8 1.0 - 2.0 08/18/2022 [facility] 10:16 PM INSTITUTION DIRECTOR LABORATORY-[facility]ZIE TRAL LABORATORY BILIRUBIN,TOTAL 0.4 0.2 - 1.2 08/18/2022 [facility] mg/dL 10:16 PM INSTITUTION DIRECTOR LABORATORY-[facility] TRAL LABORATORY ALK PHOSPHATASE 79 50 - 136 08/18/2022 [facility] IU/L 10:16 PM INSTITUTION DIRECTOR LABORATORY-[facility] TRAL LABORATORY ALT (SGPT) 47 (H) 8 - 45 08/18/2022 [facility] IU/L 10:16 PM INSTITUTION DIRECTOR LABORATORY-[facility] TRAL LABORATORY AST (SGOT) 65 (H) 2 - 40 08/18/2022 [facility] IU/L 10:16 PM INSTITUTION DIRECTOR LABORATORY-[facility] TRAL LABORATORY eGFR 60 (L) >90 08/18/2022 [facility] mL/min/1. 10:16 PM INSTITUTION DIRECTOR LABORATORY-[facility] 73m2 TRAL LABORATORY Comment: As of 2021, eGFR is calcu lated by the CKD-EPI creatinine equation without race adjustment. eGFR can be inf luenced by muscle mass, exercise, and diet. The reported eGFR is an estimation only and is only applicable if the renal function is stable. Specimen Anatomical Collection Method / Collection Time Recei yohannes Time (Source) Location / Volume Laterality Blood BLOOD SPECIMEN / Venipuncture / 08/16/2022 2:56 2021 3:00 Unknown Unknown PM INSTITUTION DIRECTOR PM INSTITUTION DIRECTOR Feli Babin MD CHEMISTRY Performing Organization Address City/State/ZIP Code Phon e Number [facility] [address] [place] [address] LABORATORY-CENTRAL 2000 LABORATORY ECHO COMPLETE WO CONTRAST (08/09/2022 4:20 PM INSTITUTION DIRECTOR) P athologist Signature AORTIC VALVE 14 mmHg MEAN PG EJECTION 82 % FRACTION PEAK TR 2.5 m/s VELOCITY LVEDD 3.9 cm EJECTION 70 - 75% FRACTION Anatomical Region Laterality Modality HEART Ultrasound Specimen (Source) Anatomical Collection Method Collection Time Re ceived Time Location / / Volume Laterality 08/09/2022 3:41 PM INSTITUTION DIRECTOR Narrative 08/09/2022 4:48 PM INSTITUTION DIRECTOR ECHOCARDIOGRAM RASHMI CUEVA ? Accessi on#: ?? [id number] : ?1950 71 years Study Date: ?? 08/09/2022 3:41:48 PM Gender: M ?BP: ? 140/84 mmHg Height: 183.00 cm ?BSA: ?1.90 m? ?? Weight: 69.00 kg ? Tech: ? MCK ? Referring MD: JESSA PERDOMO Site: ? [facility] Reading Location: [facility] Procedure: 2D, Color Doppler and Spectra l [...] . This study was interpreted by an [facility]. CC: [facility], Med/ Surg - IP [facility]. ??Final ?? Procedure Note Meet Murillo MD - 08/09/2022Forma tting of this note might be different from the original. ECHOCARDIOGRAM RASHMI CUEVA : 1950 71 years Study Date: 07/31 3:41:48 PM Gender: M BP: 140/84 mmHg Height: 183.00 cm BSA: 1.90 m? ?? Weight: 69.00 kg Tech: JOHANNA Referring MD: JESSA PERDOMO Site: [facility] Reading Location: [facility] Procedure: 2D, Color Doppler and Spectra l [...] . This study was interpreted by an [facility]. CC: [facility], Med/ Surg - IP [facility]. Final Jessa Perdomo MD ECHO ORD (ABNORMAL) URINALYSIS MICROSCOPIC (08/02/2022 9:45 AM CDT) [facility] Method Time Signature RBC -25 (A) 0-2, None 08/02/2022 [facility] Seen /HPF 10:03 AM CDT [facility] WBC -25 (A) 0-2, 3-5, 08/02/2022 [facility] None Seen 10:03 AM CDT [place] /HPF CLINIC BACTERIA Moderate (A) None 08/02/2022 [facility] Seen, 10:03 AM CDT [place] Rare, Few CLINIC Bacteria/ HPF EPITHELIAL Few None 08/02/2022 [facility] CELLS Seen, Few 10:03 AM CDT [place] Epi/HPF CLINIC Mucus Present 08/02/2022 [facility] 10:03 AM CDT [facility] WHITE CELL Present (A) (none) 08/02/2022 [facility] CLUMPS 10:03 AM CDT [facility] HYALINE CASTS - (A) 0-2, 3-5 08/02/2022 [facility] /LPF 10:03 AM CDT [facility] AMORPHOUS Present (A) (none) 08/02/2022 [facility] 10:03 AM T [facility] Specimen Anatomical Collection Method Collection Time Receive d Time (Source) Location / / Volume Laterality Urine URINE SPECIMEN / Non-Blood / 08/02/2022 9:45 AM 08/02 9:52 Unknown Unknown CDT AM CDT Feli Babin MD URINE Performing Organization Address City/State/ZIP Code Phon e Number [facility] [address] [place] [address] URINE CULTURE (08/02/2022 9:45 AM CDT) [facility] Method Time Signature CULTURE 10-50,000 CFU/mL 08/04/2022 [facility] H of multiple 2:12 PM CDT LABORATORY-[facility] organisms, TRAL probable LABORATORY contaminants Specimen Anatomical Collection Method Collection Time Receive d Time (Source) Location / / Volume Laterality Urine URINE SPECIMEN / Non-Blood / 08/02/2022 9:45 AM 08/02 9:52 Unknown Unknown CDT AM CDT Feli Babin MD MICROBIOLOGY Performing Organization Address City/State/ZIP Code Phon e Number [facility] [address] [place] [address] LABORATORY-CENTRAL 2000 LABORATORY (ABNORMAL) UA W/ SEDIMENT EXAM REFLEXED PER CRITERIA (08/02/2022 9:45 AM CDT) [facility] Method Time Signature COLOR Yellow Yellow Color 08/02/2022 [facility] 9:58 AM CDT [facility] CLARITY Slightly Clear 08/02/2022 [facility] Cloudy (A) Clarity 9:58 AM T [facility] SPECIFIC >=1.030 (A) 1.010, 08/02/2022 [facility] GRAVITY,URINE 1.015, 9:58 AM T [place] 1.020, 1.025 [facility] PH,URINE 6.0 6.0, 7.0, 08/02/2022 [facility] 8.0, 5.5, 9:58 AM [facility] 6.5, 7.5, CLINIC 8.5 UROBILINOGEN, Normal Normal EU/dl 08/02/2022 [facility] QUALITATIVE 9:58 AM [facility] PROTEIN, 30 (A) Negative 08/02/2022 [facility] URINE mg/dL 9:58 AM [facility] GLUCOSE, Negative Negative 08/02/2022 [facility] URINE mg/dL 9:58 AM T [facility] KETONES,URINE Trace (A) Negative 08/02/2022 [facility] mg/dL 9:58 AM [facility] BILIRUBIN,URI Abnormal (A) Negative 08/02/2022 [facility] 9[facility]58 AM T [facility] Comment: A variety of metabolites and/or medications may result in a positive bilirubin result. Clinical correlation i s recommended. OCCULT BLOOD,URINE Moderate (A) Negative 08/02/2022 9:58 AM [facility] NITRITE Positive (A) Negative 08/02/2022 9:58 AM [facility] LEUKOCYTE ESTERASE Small (A) Negative 08/02/2022 9:58 AM [facility] Specimen Anatomical Collection Method Collection Time Receive d Time (Source) Location / / Volume Laterality Urine URINE SPECIMEN / Non-Blood / 08/02/2022 9:45 AM 08/02 9:52 Unknown Unknown CDT AM CDT Feli Babin MD URINE Performing Organization Address City/State/ZIP Code Phon e Number [facility] [address] [place] [address] from Last 3 Months Insurance Payer Benefit Plan / Subscriber ID Effective Phone Address T ype Group Dates [employer] [id number] Effective [employer] for all OFFICE OF [facility] SERVICE [address] [address] [place] [address] MEDICARE - PB USE MEDICARE PB ONLY [id number] 2019-Pre ATTN: CLAIMS ONLY sent [address] [place] [address] MEDICARE - PB USE MEDICARE PB ONLY [id number] 2019-Pre ATTN: CLAIMS ONLY sent [address] [place] [address] [facility] [id number] 2021-Pre [address] [place] [address] [facility] [id number] 2021-Pre [address] [place] [address] Care Teams Repairer [employer]ished [employer] Relationship Specialty Start Date End Date Feli Babin MD PCP - General Family Practice 11/15/21 [address] [place] [address] [facility] 11/15/[address] [id number] Sabina Chang, [place] [facility] [place] Registered Nurse 06/30/22 Critical access hospital[facility] [address] [phone] Amelia Mukherjee, mail [place] [facility] [place] Registered Nurse 06/30/22 Critical access hospital[facility] [address] [phone]
--- OUTSIDE RECORDS SUMMARY | 2022-08-20 11:01 | XMS_ITS | Encounter Summary ---
[...] stones - reviewed CT scan images from [facility] - 2 (1.5 cm) stones on bladder [...] Unknown. Past Encounters 07/25/2022 SAVANNAH ZepedaC: [address] [facility] [place] [address], Ph. History of Present Illness Note: <div>11/27/21 ([facility]): 71 yo male with history of frontrotemporal lobe dementia and has significant memory loss (cannot give much of a medical history) and BPH. He was admitted to [facility] on 10/23/[address] scan [...] Chun was last changed around 07/10 in [place]. Remains on 0.4 mg of tamsulosin and [...]
--- OUTSIDE RECORDS SUMMARY | 2022-08-20 11:01 | XMS_ITS ---
[...] Bilirubin-Status Negative ? Ketones-Status Negative ? Sp Troy-Status 1.010 ? pH-Status 5.5 ? Protein-Status 5.0 ? Urobilinogen-Status 0.2 ? Nitrates-Status negative ? Blood-Status Moderate ? Leuko-Status Negative ? Specimen Type Catheterized ? Performed by Nanci,RN/BSN ? Total Urine Volume 235ml ? ? Past Encounters 07/25/2022 Millicent Bishop PA-C: [address] [facility] [place] [address], Ph. 02/28/2022 Retention of Urine Erick Cooley MD: [address] [facility] [place] [address], Ph. Social History Tobacco Smoking Status Former [...]
[2022-08-20 12:03] LABS: Basophils Absolute Auto 0.03 K/uL (0.00-0.30); Basophils Percent Auto 0.4 % (0.0-3.0); Eosinophils Absolute Auto 0.02 K/uL (0.00-0.50); Eosinophils Percent Auto 0.3 % (0.0-7.0); Hematocrit 34.6 % (37.0-53.0); Hemoglobin* 11.3 gm/dL (13.5-17.5); Lymphocytes Percent Auto 10.5 % (20-44); Mean Corpuscular HGB Conc 33 gm/dL (32-36); Mean Corpuscular Hemoglobin 31 pg (26-34); Mean Corpuscular Volume 94 fL (80-100); Monocytes Percent Auto 9.1 % (0.0-11.0); Neutrophils Percent Auto 79.7 % (42.0-72.0); Platelet Count* 157 K/uL (140-440); RDW Coefficient of Variation % 13.5 % (11.5-15.5); Red Blood Count 3.68 m/uL (4.30-5.90); White Blood Count* 7.22 K/uL (4.50-11.00)
--- NOTE | 2022-08-20 12:10 | ED.NURSE ---
ART MANAGER swabbed for covid
[2022-08-20 12:16] LABS: Slide Review Reflex No
[2022-08-20 12:26] LABS: Ethanol* < 0.01 % (0.01-0.03)
[2022-08-20 12:32] LABS: Albumin* 3.7 g/dL (3.3-5.0); Chloride* 106 mmol/L (96-114); Potassium* 4.5 mmol/L (3.6-5.1)
[2022-08-20 12:34] LABS: Aspartate Amino Transferase* 50 U/L (12-35); Bilirubin Total* 0.5 mg/dL (0.1-1.5); Carbon Dioxide* 35 mmol/L (20-32); Creatinine* 1.2 mg/dL (0.5-1.5); Estimated Glomerular Filt Rate 65 ml/min; Total Protein* 5.9 g/dL (6.0-8.3)
[2022-08-20 12:35] LABS: Alanine Aminotransferase* 45 U/L (4-50); Alkaline Phosphatase* 73 U/L (40-150); Blood Urea Nitrogen* 19 mg/dL (7-30); Calcium* 9.1 mg/dL (8.4-10.6); Glucose* 91 mg/dL (60-115)
[2022-08-20 12:38] LABS: Salicylate* < 1.0 mg/dL (1.0-10)
[2022-08-20 12:41] LABS: Acetaminophen* < 10.0 ug/mL (10.0-30.0)
[2022-08-20 12:45] LABS: Sodium* 142 mmol/L (135-149)
[2022-08-20 12:54] LABS: SARS PCR* Negative SARS-CoV-2 (Negative)
--- NOTE | 2022-08-20 13:07 | ED.NURSE ---
Pt speaking w/ the AUG.
--- NOTE | 2022-08-20 14:26 | ED.NURSE ---
Rounded on pt. Catheter emptied ~500cc cloudy yellow urine out. Pt declines offer for food or fluids. Denies pain at this time. Is cooperative.
[2022-08-20 14:33] LABS: Bilirubin Urine Negative (Negative); Blood Urine 3+ (Negative); Color Urine Yellow (Yellow); Glucose Urine Negative (Negative); Ketones Urine Negative (Negative); Leukocyte Esterase Urine Negative (Negative); Nitrite Urine Negative (Negative); Protein Urine 2+ (Negative); Specific Gravity Urine 1.025 (1.000-1.030); Urobilinogen Urine 0.2 (0.2-1.0)
[2022-08-20 14:38] LABS: Amphetamine Screen Urine Negative (Negative); Barbiturate Screen Urine Negative (Negative); Benzodiazepines Screen Urine Negative (Negative); Cannabinoid Screen Urine Negative (Negative); Cocaine Screen Urine Negative (Negative); Methadone Screen Urine Negative (Negative); Methamphetamines Screen Urine Negative (Negative); Opiate Screen Urine Negative (Negative); Oxycodone Screen Urine Negative (Negative); Phencyclidine Screen Urine Negative (Negative); Tricyclic Antidepressant Urine Negative (Negative)
[2022-08-20 14:47] LABS: RBC Urine >100 (0-2); Squamous Epithelial Cell Urine Few (None-Few)
[2022-08-20 14:48] LABS: Calcium Oxalate Crystals Urine Few
[2022-08-20 14:52] LABS: Appearance Urine Cloudy (Clear)
--- NOTE | 2022-08-20 14:56 | ED.NURSE ---
Call to Luma - at [facility]. Requested med list and most recent MAR. Did provide her w/ a fax number as well.
[2022-08-20] MEDS: VANCOMYCIN 125 MG CAPSULE PO ×2 (17:15→22:59)
--- NOTE | 2022-08-20 17:46 | ED.NURSE ---
Multiple calls made for pt placement: 1738: [facility] - Assisted Unit - No beds tonight. Can fax info for consideration in the morning. Referral form w/ fax number printed to be filled out and faxed. 1739: [facility] - 8-9 patients ahead being evaluated for placement. Call back later tonight or tomorrow for consideration. 1741: [facility] ([phone])- No beds available tonight. Basic info provided about patient. Can call again tomorrow.
--- NOTE | 2022-08-20 18:03 | ED.NURSE ---
Pt provided w/ meal tray. Did eat 100% of his meal.
[2022-08-20 19:02] VITALS: BP 110/68; PULSE 57; RESP 18; O2SAT 99
--- NOTE | 2022-08-20 19:03 | ED.NURSE ---
Updated pt that he more than likely will be staying here for the night due to lack of bed availability. Pt verbalized understanding.
--- NOTE | 2022-08-20 21:36 | ED.NURSE ---
in to talk to patient, pt denies needing any food, water, or extra pillows or blankets. education on plan overnight and pt agrees, states he doesnt need anything further at this point.
[2022-08-20] MEDS: ATORVASTATIN CALCIUM 40 MG TABLET PO (22:58)
--- NOTE | 2022-08-20 23:12 | ED.NURSE ---
Patient changed into scrubs. Offered toileting and teeth cares, patient declines at this time. Fresh water provided and PM medications administered. Catheter emptied of 350ml.
--- NOTE | 2022-08-21 00:38 | ED.NURSE ---
pt resting in bed, denies any needs at this time.
[2022-08-21] MEDS: OLANZapine 5 MG TAB.RAPDIS 2.5 MG PO (02:10)
[2022-08-21] MEDS: OMEPRAZOLE 20 MG CAPSULE DR PO (07:40)
[2022-08-21] MEDS: SERTRALINE 100 MG TABLET 200 MG PO ×2 (09:18→21:48)
[2022-08-21] MEDS: ASPIRIN 81 MG TABLET EC PO (09:18)
[2022-08-21] MEDS: polyethylene glycoL 3350 17 GM PACK PO (09:18)
[2022-08-21] MEDS: TAMSULOSIN HCL 0.4 MG CAPSULE PO (09:18)
[2022-08-21] MEDS: VANCOMYCIN 125 MG CAPSULE PO ×4 (09:18→21:47)
[2022-08-21] MEDS: FINASTERIDE 5 MG TABLET PO (09:18)
--- NOTE | 2022-08-21 16:57 | PC.SOCIAL ---
Discharge planning: Per MD order for in-pt mental health placement, called the following facilities, non of which had bed available or declined patient; [facility] ([facility], [place], [facility], [place], [facility], [facility], [facility], [facility], [facility], [facility]. Left messages at [facility] and [facility]. Facilities that declined admit, shared that it was due to pt having a catheter and/or his CDIFF diagnosis. copy worker then looked for an appropriate bed in a intermediate facility that also provides mental health services. Information was faxed to [facility] locations at [facility] and [facility], and to [place] at [facility]. Messages requesting bed availability were left at [facility], [facility], [facility], and [facility]. Call was received from an in-pt geriatric Mental Health Unit called [facility] ([phone]) in [place], [place] requesting information be faxed for evaluation for a bed that will be available tomorrow, 08/22/22. Faxed information ([phone]) and awaiting call back with decision on admit. Requested [place] contact ED RN with clinical questions and decision on admit. copy worker to follow up as needed.
[2022-08-21 17:53] VITALS: BP 130/79; PULSE 64; RESP 16; TEMP 36.5; O2SAT 98; BMI 21.8
[2022-08-21 18:01] VITALS: RESP 16; O2SAT 98
--- NOTE | 2022-08-21 18:58 | PM.IMHP1 ---
Hospitalist- H&P: HPI History of Present Illness Date Seen: 08/21/22 Chief complaint: Mental health Narrative: ADMISSION HISTORY AND PHYSICAL - HOSPITALIST Chief Complaint: needs placement HPI: pt is a 71 y/o with a long history of mental illness. There is likely superimposed dementia. Patient was just on our service 12 days ago for urosepsis. He did well with this diagnosis and treatment plan. However he continues to wander and puts himself at considerable risk given the this is [place] and it is winter time. Currently he lives in a correction that is not a locked facility. He has been found wandering sometimes up to couple a miles from the facility. He is not aggressive. He is not danger to anyone else. He is intermittently apathetic about living. There have been no active attempts at taking his life. He does not smoke, drink or take drugs. He was brought to the ER yesterday for safety concerns as our weather has been intolerably cold. I've updated the [facility], medications and allergies in the [place] tabs. INVESTIGATIONS: LABS/MICRO/ECG/IMAGING Vital signs are stable and reviewed In the ED -WBC 7.2 -hemoglobin 11.3 -platelets 157 -complete metabolic panel, TSH all essentially unremarkable -urine constantly looks either infected or colonized, however this cathed urine is negative -UDS negative -SARS-CoV-2 negative REVIEW OF SYSTEMS: 12-point ROS completed with patient and negative unless otherwise stated in HPI or below. PHYSICAL EXAM: CODE STATUS: FULL CODE CONSTITUTIONAL: flat; knows context. VITAL SIGNS: see record. HEENT: Normocephalic, atraumatic. PERRL, EOMI, conjunctivae pink, no scleral icterus. Ears and nose externally normal. Pharynx normal. NECK: No JVD. No carotid bruit, no thyromegaly, no adenopathy. CHEST: Clear to auscultation bilaterally HEART: S1 and S2 normal. No harsh murmurs. Edema MUSCULOSKELETAL: No gross joint deformity or swelling. NEURO: Cranial nerves intact. Grossly intact. No asymmetric findings. SKIN: No rashes, petechiae, concerning changes PSYCHIATRIC: Euthymic. flat. 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 Apparently has a [facility] field nurse case manager and assistance by social work. Patient does not have contact with family. Highest level of school completed/degree received: some college, no degree Smoking Status: Former smoker Do you use any of these nicotine containing products: None Second hand tobacco smoke exposure: No How often do you have a drink containing alcohol: never How often do you have six or more drinks on one occasion: Never AUDIT-C Alcohol total score: 0 Non-prescribed substance use: denies use Caffeine: Yes (cup roughly weekle) service: Yes Meds Home Medications and Allergies Home Medications Medication Instructions Recorded Confirmed Type acetaminophen 325 mg tablet 650 mg PO Q4H PRN 06/10/22 08/20/22 History finasteride 5 mg tablet 5 mg PO DAILY 06/10/22 08/20/22 History multivitamin with folic acid 400 1 tab PO DAILY 06/10/22 08/20/22 History mcg tablet (Tab-A-Jennifer) pantoprazole 40 mg tablet,delayed 40 mg PO DAILY 06/10/22 08/20/22 History release tamsulosin 0.4 mg capsule 0.4 mg PO DAILY 06/10/22 08/20/22 History sertraline 100 mg tablet 200 mg PO HS 08/09/22 08/20/22 History Allergies Allergy/AdvReac Type Severity Reaction Status Date / Time No Known Drug Allergies Allergy Verified 08/20/22 09:53 Exam Const: Vital Signs, click to edit/add: Vital Signs - 24 hr 08/20/22 19:02 08/21/22 17:53 08/21/22 18:01 Temperature 97.7 F Pulse Rate [Pulse Oximeter] 64 Pulse Rate [Right Pulse Oximeter] 57 L Respiratory Rate 18 16 16 Blood Pressure [Ri ght Arm] 130/79 Blood Pressure [Ri ght Upper Arm] 110/68 Pulse Oximetry 99 98 98 Oxygen Delivery Me thod Room Air Room Air Room Air Assessment and Plan Assessment and plan (1) Frontotemporal dementia: Problem comment: 08/10/22 MOCA 24/30 Will need assistance by social work and state representatives to assume care of this vulnerable adult Placement currently being arranged Status: Acute (2) Major depression: Problem comment: Continue Zoloft Status: Acute (3) 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 The patient appears apathetic about living. Status: Acute (4) Chronic indwelling Flores catheter: Problem comment: Recent urine culture negative. Typically changed monthly by nursing staff and or outpatient urology Status: Acute (5) History of bipolar disorder: Status: Acute (6) Benign prostatic hyperplasia with urinary retention: Problem comment: chronic indwelling catheter, f/u with urology Status: Acute (7) Bicuspid aortic valve: Problem comment: seen on ECHO 08/09/22, mild stenosis. Preserved EF. Normal LVEF. Status: Acute (8) Thoracic aortic aneurysm: Problem comment: 08/09/2022 CT chest: Aneurysmal dilation of the ascending thoracic aorta measuring 4.2 cm. This can be followed up yearly by Cardiology or primary care Status: Acute
[2022-08-21] MEDS: ACETAMINOPHEN 325 MG TABLET 650 MG PO (19:04)
--- NOTE | 2022-08-21 19:38 | PC.NURSE ---
Admission-- Pleasant and cooperative, alert and oriented, though flat, patient was admitted to [facility] via wheel chair at approximately 1730. VSS and pt is afebrile. SPO2 >90% on RA. He c/o some mild generalized aches and pains and was given Tylenol per standing orders. LS CTA. He denied nausea and ate 100% of a regular diet independently. Catheter is patent and 600ml of light herber urine was emptied shortly after arrival. Report to SERGIO Flaherty
[2022-08-21 19:45] VITALS: BP 120/75; PULSE 57; RESP 18; TEMP 36.4; O2SAT 99
[2022-08-21] MEDS: ATORVASTATIN CALCIUM 40 MG TABLET PO (21:48)
[2022-08-21 23:00] VITALS: BP 128/80; PULSE 57; RESP 18; TEMP 36.4; O2SAT 98
[2022-08-22 03:00] VITALS: BP 107/67; PULSE 58; RESP 18; TEMP 36.4; O2SAT 95
[2022-08-22] MEDS: OMEPRAZOLE 20 MG CAPSULE DR PO (06:45)
--- NOTE | 2022-08-22 06:53 | PC.NURSE ---
Shift note: Pt has been doing well tonight. No inappropriate behavior noted. Flores draining well. Denied any pain. V/S WNL.
[2022-08-22 07:00] VITALS: BP 126/80; PULSE 59; RESP 18; TEMP 36.5; O2SAT 98
[2022-08-22] MEDS: TAMSULOSIN HCL 0.4 MG CAPSULE PO (09:14)
[2022-08-22] MEDS: VANCOMYCIN 125 MG CAPSULE PO ×4 (09:14→21:33)
[2022-08-22] MEDS: OMEPRAZOLE 20 MG CAPSULE DR 40 MG PO (09:14)
[2022-08-22] MEDS: polyethylene glycoL 3350 17 GM PACK PO (09:15)
[2022-08-22] MEDS: ASPIRIN 81 MG TABLET EC PO (09:15)
[2022-08-22] MEDS: FINASTERIDE 5 MG TABLET PO (09:15)
[2022-08-22 11:00] VITALS: BP 117/75; PULSE 67; RESP 20; TEMP 36.6; O2SAT 97
--- NOTE | 2022-08-22 12:57 | PM.IMPN1 ---
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 The patient appears apathetic about living. Status: Acute (2) Frontotemporal dementia: Problem details: 08/10/22 MOCA 2430 Will need assistance by social work and state representatives to assume care of this vulnerable adult Placement currently being arranged Status: Acute (3) History of bipolar disorder: Status: Acute (4) Benign prostatic hyperplasia with urinary retention: Problem details: chronic indwelling catheter, f/u with urology Status: Acute (5) Chronic indwelling Flores catheter: Problem details: Recent urine culture negative. Typically changed monthly by nursing staff and or outpatient urology Status: Acute (6) Major depression: Problem details: Continue Zoloft Status: Acute (7) Bicuspid aortic valve: Problem details: seen on ECHO 08/09/22, mild stenosis. Preserved EF. Normal LVEF. Status: Acute (8) Thoracic aortic aneurysm: Problem details: 08/09/2022 CT chest: Aneurysmal dilation of the ascending thoracic aorta measuring 4.2 cm. This can be followed up yearly by Cardiology or primary care Status: Acute Plan 1. Continue with supportive efforts as presently instituted. 2. Await safe disposition plan. 3. Patient agreeable to above stated plans and recommendations. Time Spent With Patient Total time spent: 30 minutes Subjective Time Seen by Provider: 09:00 Date Seen: 08/22/22 Interval history: Hospital day 2. 71-year-old man with frontotemporal dementia and superimposed bipolar disorder who has had several episodes of elopement from the non-locked residential in which he resides. His vulnerability is such that he now requires higher level of support for his safety's sake than what he is currently receiving. He is in the hospital as we await finding a placement option for him. He tells me he slept well. He is currently not interested in eating. He tells me he has no concerns. Exam Narrative: Exam Narrative: No acute distress, appears comfortable. Very flat affect, not new. Vision and hearing are grossly normal. Lungs are clear to auscultation. Heart tones with regular rhythm. Abdomen is thin, soft, active bowel sounds, nontender. Able to transfer from supine to sitting to standing and back. No focal motor neurologic deficits. Const: Vital Signs, click to edit/add: Vital Signs - 24 hr 08/21/22 17:53 08/21/22 18:01 08/21/22 19:45 Temperature 97.7 F 97.6 F Pulse Rate [Pulse Oximeter] 64 57 L Respiratory Rate 16 16 18 Blood Pressure [Ri ght Arm] 130/79 120/75 Pulse Oximetry 98 98 99 Oxygen Delivery Me thod Room Air Room Air Room Air 08/21/22 23:00 08/22/22 03:00 08/22/22 07:00 Temperature 97.5 F L 97.5 F L Pulse Rate [Pulse Oximeter] 57 L 58 L 59 L Respiratory Rate 18 18 18 Blood Pressure [Ri ght Arm] 128/80 107/67 Pulse Oximetry 98 95 Oxygen Delivery Me thod Room Air Room Air 08/22/22 07:00 08/22/22 11:00 Temperature 97.7 F 97.8 F Pulse Rate [Pulse Oximeter] 59 L 67 Respiratory Rate 18 20 Blood Pressure [Ri ght Arm] 126/80 117/75 Pulse Oximetry 98 97 Oxygen Delivery Me thod Room Air Room Air Documenting provider has reviewed patient's vital signs: yes
[2022-08-22 15:00] VITALS: BP 114/75; PULSE 66; RESP 18; TEMP 36.5; O2SAT 98
--- NOTE | 2022-08-22 15:09 | PC.SOCIAL ---
Addendum entered by KAYDEN Pearson 08/22/22 15:50: Waiting for physiican to fill out the physician statement in support of guardianship. Charge nurse is aware to fax referral to [facility] when complete. Note reviewed for social work risk management internship. Original Note: Discharge planning: Social work followed up with [facility] ([phone], Tenisha) to provide necessary information for assessment today. [facility] requested to speak with pt. over phone to determine whether he would be able to sign himself in upon arrival at the facility. Social work met with pt. to discuss [facility] as an option for discharge, where pt. expressed uncertainty about discharging from hospital. aniline press worker reassured pt. that we are here to work together to find the best option for him after he leaves the hospital. Physician also met with pt. to discuss discharge plan. After pt. conversation with Tenisha at [facility], she determined that pt. would not be able to sign himself in, and they cannot accept him for this reason. After discussion with physician, physician would like to move forward with emergency guardianship through [facility], since all facilities have declined pt. Called Viviane Read ([facility] [phone]) to inform her of referral for emergency guardianship. Social work to follow up as needed.
--- NOTE | 2022-08-22 17:43 | PC.NURSE ---
Addendum entered by Kandy Doshi RN 08/22/22 19:00: Last hour of shift patient has been out of room, standing outside his door or walking the [place] with staff. Original Note: End of Shift: Patient pleasant and cooperative. Patient does not talk much. Patient vitally stable, lung clear, BS WNL, IV intact. Patient denies pain, and independent in room. Patient with chun, intact and draining. No BM this shift, patient expressed if I have one it doesn't stop. Patient expressed he has had thoughts of harming himself lately but no plan to harm. Patient has been sitting up to side of bed all day. Patient is not a big eater but tolerating regular diet.
[2022-08-22 19:00] VITALS: BP 94/63; PULSE 72; RESP 18; TEMP 36.5; O2SAT 97
[2022-08-22] MEDS: SERTRALINE 100 MG TABLET 200 MG PO (21:32)
[2022-08-22] MEDS: ATORVASTATIN CALCIUM 40 MG TABLET PO (21:32)
[2022-08-22 23:00] VITALS: RESP 18
[2022-08-23] VITALS (10 sets, daily range): BP systolic 71–154; BP diastolic 41–87; PULSE 58–84; RESP 16–18; TEMP 36.4–36.6; O2SAT 97–100
--- NOTE | 2022-08-23 05:17 | PC.NURSE ---
[id number]: Patient verbalized suicidal idealization but confirmed he did not have a plan. Inside Technical Sales Representative and ARNOLD removed all potential harmful item from room. Denies pain. Flores patent. Patient sat on edge of bed almost entire shift with arms and legs crossed. Inside Technical Sales Representative frequently checked video monitor to visualize patient throughout noc. Inside Technical Sales Representative checked in q2h and encouraged patient to lie down for comfort but patient refused. Inside Technical Sales Representative offered patient a chair to sit in but again declined. Patient is slow to respond and soft spoken but does respond appropriately to questions.
--- NOTE | 2022-08-23 07:50 | P.IMPN_ITS ---
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: Problem details: - there has been no active suicide plan or intent, Dawood expresses apathy about living - consider phone psych consult if unable to place in a timely fashion Status: Acute (2) Frontotemporal dementia: Problem details: - 08/10/22 MOCA 24/ - Will need assistance by social work and state representatives to assume care of this vulnerable adult; guardianship initiated Status: Acute (3) History of bipolar disorder: Status: Acute (4) Benign prostatic hyperplasia with urinary retention: Problem details: - chronic indwelling catheter, outpatient f/u with urology Status: Acute (5) Chronic indwelling Flores catheter: Problem details: - recent urine culture negative. Typically changed monthly by nursing staff and or outpatient urology Status: Acute (6) Major depression: Problem details: - continue Zoloft Status: Acute (7) Bicuspid aortic valve: Problem details: - seen on ECHO 08/09/22, mild stenosis. Preserved EF. Normal LVEF. Status: Acute (8) Thoracic aortic aneurysm: Problem details: - 08/09/2022 CT chest: Aneurysmal dilation of the ascending thoracic aorta measuring 4.2 cm - Annual f/u by Cardiology or primary care Status: Acute Plan - per above - ambulation and SCDs for ppx Subjective Date Seen: 08/23/22 Interval history: 71 yo male with frontotemporal dementia, depression, bipolar disorder, admitted on 08/21 for repeated elopement from [facility] and suicidal ideation. No acute events overnight; patient sat on the edge of his bed overnight and didn't sleep. This morning he did eat breakfast. He states he feels poorly but has no other concerns for the hospitalist team this morning. We continue to await medical terminologist placement for him. Exam Narrative: Exam Narrative: GEN: Alert, sitting comfortably in bed HEENT: Normal external ears, EOMIs bilaterally, pupils miotic but reactive CV: RRR, No concerning murmurs, rubs, or gallops R: LCTA bilaterally without concerning wheezing, rales, or rhonchi, air movement adequate Skin: No concerning skin lesions or rashes on exposed skin Neuro: No focal deficits, no resting tremor Psych: Denies active suicidal ideation, psychomotor slowing Const: Vital Signs, click to edit/add: Vital Signs - 24 hr 08/22/22 11:00 08/22/22 15:00 08/22/22 15:00 Temperature 97.8 F 97.7 F Pulse Rate [Pulse Oximeter] 67 66 66 Respiratory Rate 20 18 18 Blood Pressure [Ri t Arm] 117/75 114/75 Pulse Oximetry 97 98 Oxygen Delivery Me thod Room Air Room Air 08/22/22 19:00 08/22/22 23:00 08/23/22 03:00 Temperature 97.7 F Pulse Rate [Pulse Oximeter] 72 Respiratory Rate 18 18 18 Blood [facility] 94/63 Pulse Oximetry 97 Oxygen Delivery Oh thod Room Air
[2022-08-23] MEDS: OMEPRAZOLE 20 MG CAPSULE DR 40 MG PO (08:56)
[2022-08-23] MEDS: FINASTERIDE 5 MG TABLET PO (08:56)
[2022-08-23] MEDS: VANCOMYCIN 125 MG CAPSULE PO ×4 (08:56→20:50)
[2022-08-23] MEDS: TAMSULOSIN HCL 0.4 MG CAPSULE PO (08:57)
[2022-08-23] MEDS: polyethylene glycoL 3350 17 GM PACK PO (08:57)
[2022-08-23] MEDS: ASPIRIN 81 MG TABLET EC PO (08:57)
[2022-08-23] MEDS: LORazepam 1 MG TABLET PO (14:54)
--- NOTE | 2022-08-23 15:26 | P.IMPN_ITS ---
Progress Note: A&P Assessment and plan (1) Low blood pressure: Status: Acute Assessment and Plan: Unlikely to have been caused by ativan. Obtain labs for sepsis, although there are no other signs/symptoms of sepsis at this time, not febrile. Suspect low oral fluid intake. Place IV and give IVF bolus. Monitor I/Os and orthostatic BPs. 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: Problem details: - there has been no active suicide plan or intent, Dawood expresses apathy about living - consider phone psych consult if unable to place in a timely fashion Status: Acute (3) Frontotemporal dementia: Problem details: - 08/10/22 MOCA - Will need assistance by social work and state representatives to assume care of this vulnerable adult; guardianship initiated Status: Acute (4) History of bipolar disorder: Status: Acute (5) Benign prostatic hyperplasia with urinary retention: Problem details: - chronic indwelling catheter, outpatient f/u with urology Status: Acute (6) Chronic indwelling Flores catheter: Problem details: - recent urine culture negative. Typically changed monthly by nursing staff and or outpatient urology Status: Acute Assessment and Plan: Obtain repeat UA/UC. (7) Major depression: Problem details: - continue Zoloft Status: Acute (8) Bicuspid aortic valve: Problem details: - seen on ECHO 08/09/22, mild stenosis. Preserved EF. Normal LVEF. Status: Acute (9) Thoracic aortic aneurysm: Problem details: - 08/09/2022 CT chest: Aneurysmal dilation of the ascending thoracic aorta measuring 4.2 cm - Annual f/u by Cardiology or primary care Status: Acute Subjective Time Seen by Provider: 15:26 Date Seen: 08/23/22 Interval history: I was called by the patient's nurse, Kandy, who obtained his routine vital signs and his systolic blood pressure was in the 90's, whereas it had been in the 150's today. William was standing at the time she took his vitals, so she laid him down in [facility] and rechecked his blood pressure, which was similar. William appeared stiff when I walked in the room, but he moved his eyes to look at me even before I spoke. I introduced myself and noted that we had met during his last and recent hospital stay. He said, yes. When I asked him how he was feeling, he said, poor right now. The police have charged me with something and I cannot leave here until that's solved. I spoke with him about his low blood pressure and asked him if it was okay if we put in an IV and obtained labs to help us treat him. He said it was okay. He said he has pain in his shoulders and back and that this is chronic pain, no different than usual. He received a dose of oral ativan about 1 hour ago. Reviewing his vitals, I note that his SBP has ranged from 94-150 over the last few days. Exam Narrative: Exam Narrative: General: No acute distress. Responds verbally to my questions without delay. Does not make any attempts to move. He does take a deep breath when I ask him to do so. Awake, alert, oriented to self. No pallor. No jaundice. Oropharynx: Clear. Mucous membranes slightly dry. Cardiovascular: Regular rate and rhythm. No murmurs, gallops, or rubs. Respiratory: Clear to auscultation bilaterally. No wheezes or crackles. Abdomen: Bowel sounds present. Soft, nondistended, nontender. Extremities: 2+ nonpitting edema bilaterally at ankles. Const: Vital Signs, click to edit/add: Vital Signs - 24 hr 08/22/22 19:00 08/22/22 23:00 08/23/22 03:00 Temperature 97.7 F Pulse Rate [Pulse Oximeter] 72 Respiratory Rate 18 18 18 Blood Pressure [Ri ght Arm] 94/63 Pulse Oximetry 97 Oxygen Delivery Me thod Room Air 08/23/22 07:00 08/23/22 07:00 08/23/22 11:00 Temperature 97.8 F 97.8 F Pulse Rate [Pulse Oximeter] 65 65 64 Respiratory Rate 16 16 18 Blood Pressure [Ri ght Arm] 154/87 H 150/47 H Pulse Oximetry 97 98 Oxygen Delivery Me thod Room Air Room Air Documenting provider has reviewed patient's vital signs: yes
[2022-08-23 15:59] LABS: Basophils Percent Auto 0.5 % (0.0-3.0); Eosinophils Percent Auto 0.7 % (0.0-7.0); Hematocrit 33.3 % (37.0-53.0); Hemoglobin* 10.6 gm/dL (13.5-17.5); Immature Granulocytes Pct Auto 0.2 %; Lactate* 1.7 mmol/L (0.5-1.9); Lymphocytes Percent Auto 13.3 % (20-44); Mean Corpuscular HGB Conc 32 gm/dL (32-36); Mean Corpuscular Hemoglobin 30 pg (26-34); Mean Corpuscular Volume 95 fL (80-100); Monocytes Percent Auto 9.9 % (0.0-11.0); Neutrophils Percent Auto 75.4 % (42.0-72.0); Platelet Count* 161 K/uL (140-440); White Blood Count* 4.35 K/uL (4.50-11.00)
[2022-08-23] MEDS: 0.9 % SODIUM CHLORIDE 1000 ml 1,000 ML 500 ML IV (15:59)
[2022-08-23 16:01] LABS: Slide Review Reflex No
[2022-08-23 16:17] LABS: Chloride* 107 mmol/L (96-114); Sodium* 143 mmol/L (135-149)
[2022-08-23 16:18] LABS: Potassium* 4.4 mmol/L (3.6-5.1)
[2022-08-23 16:20] LABS: Bilirubin Total* 0.4 mg/dL (0.1-1.5); Creatinine* 1.6 mg/dL (0.5-1.5); Est. Creatinine Clearance* 44.84; Estimated Glomerular Filt Rate 46 ml/min
[2022-08-23 16:21] LABS: Alanine Aminotransferase* 34 U/L (4-50); Alkaline Phosphatase* 69 U/L (40-150); Aspartate Amino Transferase* 31 U/L (12-35); Blood Urea Nitrogen* 30 mg/dL (7-30); Calcium* 9.2 mg/dL (8.4-10.6); Carbon Dioxide* 32 mmol/L (20-32); Glucose* 126 mg/dL (60-115); Total Protein* 6.1 g/dL (6.0-8.3)
[2022-08-23 16:24] LABS: C Reactive Protein* 0.5 mg/dL (0.5-1.0)
--- NOTE | 2022-08-23 17:47 | PC.NURSE ---
End of Shift: Patient cooperative and slow when verbal. Patient vitally stable, lung clear, BS WNL, IV inserted in left forearm. Patient was hypertensive at about 1500, with BP's systolically 70-80's. MD notified labs and bolus ordered. With patient in trendelenburg and some fluids patient's BP's increased to low 100's systolically. Patient spent a lot of time siting in the same exact position for some hours, then standing in the same position for some hours. When hypotensive patient cooperated with commercial loan underwriter when told to lay in bed. Patient was given 1 mg of ativan for catatonia, patient has become less delayed when talking with commercial loan underwriter after administration of ativan. Patient had 3 small/mod loose stool, chun intact and draining. Patient tolerating regular diet.
[2022-08-23] MEDS: SERTRALINE 100 MG TABLET 200 MG PO (20:50)
[2022-08-23] MEDS: ATORVASTATIN CALCIUM 40 MG TABLET PO (20:50)
[2022-08-24 03:00] VITALS: BP 100/63; PULSE 63; RESP 18; TEMP 36.6; O2SAT 96
--- NOTE | 2022-08-24 05:22 | PC.NURSE ---
Shift note: Pt is still on video monitor due to potential suicide ideation. No inappropriate behavior, comment or suicidal action observed. Cooperated with treatment and care. Systolic Bp has been above 100.
[2022-08-24 07:00] VITALS: BP 112/70; PULSE 59; RESP 18; TEMP 36.7; O2SAT 96
[2022-08-24 07:27] LABS: Chloride* 110 mmol/L (96-114); Sodium* 142 mmol/L (135-149)
[2022-08-24 07:28] LABS: Potassium* 3.8 mmol/L (3.6-5.1)
[2022-08-24 07:30] LABS: Creatinine* 1.3 mg/dL (0.5-1.5); Estimated Glomerular Filt Rate 59 ml/min
[2022-08-24 07:31] LABS: Blood Urea Nitrogen* 26 mg/dL (7-30); Calcium* 8.7 mg/dL (8.4-10.6); Carbon Dioxide* 31 mmol/L (20-32); Glucose* 82 mg/dL (60-115)
[2022-08-24] MEDS: FINASTERIDE 5 MG TABLET PO (09:20)
[2022-08-24] MEDS: ASPIRIN 81 MG TABLET EC PO (09:20)
[2022-08-24] MEDS: TAMSULOSIN HCL 0.4 MG CAPSULE PO (09:20)
[2022-08-24] MEDS: VANCOMYCIN 125 MG CAPSULE PO ×4 (09:20→20:47)
[2022-08-24] MEDS: OMEPRAZOLE 20 MG CAPSULE DR 40 MG PO (09:20)
[2022-08-24] MEDS: polyethylene glycoL 3350 17 GM PACK PO (09:22)
[2022-08-24 11:00] VITALS: BP 128/75; PULSE 58; RESP 18; TEMP 36.7; O2SAT 100
--- NOTE | 2022-08-24 12:45 | PC.SOCIAL ---
Social work: Following up on physician request for emergency guardianship, located packet in pt's chart which was faxed to [facility] on 08/22/22 at 17:00. Called and left messages with both [facility] Social Workers, Calvin, informing them that the information has been faxed and requesting an update on plan for moving forward with emergency guardianship. sanitation worker to follow up as needed.
--- NOTE | 2022-08-24 13:16 | PM.IMPN1 ---
Progress Note: A&P Assessment and plan (1) Low blood pressure: Problem details: - intermittent, has improved after IV fluid bolus. Patient remains asymptomatic Status: Acute 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: Problem details: - there has been no active suicide plan or intent, Dawood expresses apathy about living - consider phone psych consult if unable to place in a timely fashion Status: Acute (3) Frontotemporal dementia: Problem details: - 08/10/22 MOCA - Will need assistance by social work and state representatives to assume care of this vulnerable adult; guardianship initiated Status: Acute (4) History of bipolar disorder: Status: Acute (5) Benign prostatic hyperplasia with urinary retention: Problem details: - chronic indwelling catheter, outpatient f/u with urology - intermittently has low urine output, will provide p.r.n. IV fluid boluses Status: Acute (6) Chronic indwelling Flores catheter: Problem details: - recent urine culture negative. Typically changed monthly by nursing staff and or outpatient urology Status: Acute (7) Major depression: Problem details: - continue Zoloft Status: Acute (8) Bicuspid aortic valve: Problem details: - seen on ECHO 08/09/22, mild stenosis. Preserved EF. Normal LVEF. Status: Acute (9) Thoracic aortic aneurysm: Problem details: - 08/09/2022 CT chest: Aneurysmal dilation of the ascending thoracic aorta measuring 4.2 cm - Annual f/u by Cardiology or primary care Status: Acute Plan - per above - aspirin, ambulation, SCDs for prophylaxis - continue to work on safe discharge plan for patient given comorbidities. Guardianship has been initiated Subjective Date Seen: 08/24/22 Interval history: Patient had an IV placed last night in a fluid bolus administered for hypotension. Patient remained asymptomatic from low blood pressures. Labs exhibited an elevated creatinine, resolved this morning after bolus. Patient has exhibited more mobility in the last 24 hours. He denies any pain and has no concerns for me this morning. We continue to work on a safe discharge plan. Exam Narrative: Exam Narrative: GEN: Alert, thin, nontoxic in appearance HEENT: Normal external ears, EOMIs bilaterally, no scleral icterus CV: RRR, soft systolic murmur without concerning features R: LCTA bilaterally without concerning wheezing, rales, or rhonchi Ext: wwp, no concerning edema Skin: No concerning skin lesions or rashes on exposed skin Neuro: Nonfocal Psych: Appropriate Const: Vital Signs, click to edit/add: Vital Signs - 24 hr 08/23/22 15:00 08/23/22 15:10 08/23/22 15:17 Temperature 98 F Pulse Rate [Pulse Oximeter] 80 74 Pulse Rate [orthos tatic lying] Pulse Rate [orthos tatic sitting] Pulse Rate [orthos tatic standing] Respiratory Rate 18 Blood Pressure [Ri ght Arm] 71/41 L 76/58 L 94/56 L Blood Pressure [or thostatic lying] Blood Pressure [or thostatic sitting] Blood Pressure [or thostatic standing ] Pulse Oximetry 98 Oxygen Delivery Me thod Room Air 08/23/22 15:35 08/23/22 15:00 08/23/22 15:41 Temperature Pulse Rate [Pulse Oximeter] 65 80 Pulse Rate [orthos tatic lying] 66 Pulse Rate [orthos tatic sitting] 73 Pulse Rate [orthos tatic standing] 84 Respiratory Rate 18 Blood Pressure [Ri ght Arm] 95/62 Blood Pressure [or thostatic lying] 107/66 Blood Pressure [or thostatic sitting] 100/64 Blood Pressure [or thostatic standing ] 105/69 Pulse Oximetry Oxygen Delivery Me thod 08/23/22 19:00 08/23/22 23:00 08/24/22 03:00 Temperature 97.7 F 97.5 F L 97.9 F Pulse Rate [Pulse Oximeter] 68 58 L 63 Pulse Rate [orthos tatic lying] Pulse Rate [orthos tatic sitting] Pulse Rate [orthos tatic standing] Respiratory Rate 18 18 18 Blood Pressure [Ri ght Arm] 110/69 102/65 100/63 Blood Pressure [or thostatic lying] Blood Pressure [or thostatic sitting] Blood Pressure [or thostatic standing ] Pulse Oximetry 100 97 96 Oxygen Delivery Me thod Room Air Room Air Room Air 08/24/22 07:00 08/24/22 07:00 08/24/22 11:00 Temperature 98.1 F 98.0 F Pulse Rate [Pulse Oximeter] 59 L 59 L 58 L Pulse Rate [orthos tatic lying] Pulse Rate [orthos tatic sitting] Pulse Rate [orthos tatic standing] Respiratory Rate 18 18 18 Blood Pressure [Ri ght Arm] 112/70 128/75 Blood Pressure [or thostatic lying] Blood Pressure [or thostatic sitting] Blood Pressure [or thostatic standing ] Pulse Oximetry 96 100 Oxygen Delivery Me thod Room Air Room Air Labs Labs: Laboratory Results - last 24 hr 08/23/22 08/23/22 08/23/22 15:43 15:43 15:43 WBC 4.35 L RBC 3.50 L Hgb 10.6 L Hct 33.3 L MCV 95 MCH 30 MCHC 32 RDW Coeff of Vidhya 14.0 Plt Count 161 Neut % (Auto) 75.4 H Lymph % (Auto) 13.3 L [place] % (Auto) 9.9 Eos % (Auto) 0.7 Baso % (Auto) 0.5 Neut # (Auto) 3.30 Lymph # (Auto) 0.60 L [place] # (Auto) 0.40 Eos # (Auto) 0.00 Baso # (Auto) 0.00 Abs Immat Gran (auto) 0.00 Imm/Tot Granulo (auto) 0.2 Sodium 143 Potassium 4.4 Chloride 107 Carbon Dioxide 32 BUN 30 Creatinine 1.6 H Estimated Creat Clear 44.84 Estimated GFR 46 Glucose 126 H Lactate 1.7 Calcium 9.2 Total Bilirubin 0.4 AST 31 ALT 34 Alkaline Phosphatase 69 C-Reactive Protein 0.5 Total Protein 6.1 Albumin 4.0 08/24/22 05:52 WBC RBC Hgb Hct MCV MCH MCHC RDW Coeff of Vidhya Plt Count Neut % (Auto) Lymph % (Auto) [place] % (Auto) Eos % (Auto) Baso % (Auto) Neut # (Auto) Lymph # (Auto) [place] # (Auto) Eos # (Auto) Baso # (Auto) Abs Immat Gran (auto) Imm/Tot Granulo (auto) Sodium 142 Potassium 3.8 Chloride 110 Carbon Dioxide 31 BUN 26 Creatinine 1.3 Estimated Creat Clear 55.50 Estimated GFR 59 Glucose 82 Lactate Calcium 8.7 Total Bilirubin AST ALT Alkaline Phosphatase C-Reactive Protein Total Protein Albumin
[2022-08-24 15:00] VITALS: BP 119/75; PULSE 69; RESP 18; TEMP 36.4; O2SAT 99
--- NOTE | 2022-08-24 18:49 | PC.NURSE ---
Pt. alert and cooperative. Slow to respond to questions but answers all questions asked. VSS, lungs clear, BS WNL, IV in left forearm DC'd by patient this morning, intact. Patient spent most shift sitting in a chair in room for some hours, ambulated in room only. Pt. stated he had 1 med loose stool this afternoon Flores intact and draining, pt. emptied catheter himself, unable to log output. Patient tolerating regular diet.
[2022-08-24 19:00] VITALS: BP 120/72; PULSE 68; RESP 18; TEMP 36.4; O2SAT 97
[2022-08-24] MEDS: ATORVASTATIN CALCIUM 40 MG TABLET PO (20:47)
[2022-08-24] MEDS: SERTRALINE 100 MG TABLET 200 MG PO (20:47)
[2022-08-24] MEDS: MELATONIN 3 MG TABLET PO (20:47)
[2022-08-24 23:00] VITALS: PULSE 68
--- NOTE | 2022-08-25 07:08 | PM.IMPN1 ---
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: Problem details: - there has been no active suicide plan or intent, Dawood expresses apathy about living - consider phone psych consult if unable to place in a timely fashion Status: Acute (2) Frontotemporal dementia: Problem details: - 08/10/22 MOCA - Will need assistance by social work and state representatives to assume care of this vulnerable adult; guardianship initiated Status: Acute (3) History of bipolar disorder: Problem details: - no evidence of tristian Status: Acute (4) Benign prostatic hyperplasia with urinary retention: Problem details: - chronic indwelling catheter, outpatient f/u with urology - intermittently has low urine output, will provide p.r.n. IV fluid boluses Status: Acute (5) Low blood pressure: Problem details: - intermittent, improved after IV fluid bolus on 08/23. Patient remains asymptomatic - p.r.n. fluid boluses available Status: Acute (6) Chronic indwelling Flores catheter: Problem details: - recent urine culture negative. Typically changed monthly by nursing staff and or outpatient urology Status: Acute (7) Major depression: Problem details: - continue Zoloft Status: Acute (8) Bicuspid aortic valve: Problem details: - seen on ECHO 08/09/22, mild stenosis. Preserved EF. Normal LVEF. Status: Acute (9) Thoracic aortic aneurysm: Problem details: - 08/09/2022 CT chest: Aneurysmal dilation of the ascending thoracic aorta measuring 4.2 cm - routine outpatient f/u by Cardiology or primary care Status: Acute (10) C. difficile colitis: Problem details: + on 08/09, has completed 14 day course of oral Vanco. No current diarrhea Status: Acute Plan - per above - continue to work on safe discharge plan, guardianship has been initiated Subjective Date Seen: 08/25/22 Interval history: No acute events overnight. William notes that he has some achiness in his back and hips today, would like to try Tylenol for symptoms. William has no other concerns for me this morning. VS are stable. We continue to work on a safe discharge plan for patient. Exam Narrative: Exam Narrative: GEN: Alert and sitting in bedside chair HEENT: Normal external ears, EOMIs bilaterally CV: RRR, intermittent soft systolic murmur without concerning features noted R: LCTA bilaterally without concerning wheezing, rales, or rhonchi, air movement adequate Ext: wwp, no concerning edema, does occasionally ambulate throughout the room without signs of pain Neuro: No focal deficits, no resting tremor Psych: Psychomotor slowing, no purposeful movements while sitting erect in bedside chair, but not catatonic Const: Vital Signs, click to edit/add: Vital Signs - 24 hr 08/24/22 11:00 08/24/22 15:00 08/24/22 15:00 Temperature 98.0 F 97.6 F Pulse Rate [Pulse Oximeter] 58 L 69 69 Respiratory Rate 18 18 18 Blood Pressure [Ri ght Arm] 128/75 119/75 Pulse Oximetry 100 99 Oxygen Delivery Me thod Room Air Room Air 08/24/22 19:00 08/24/22 23:00 Temperature 97.6 F Pulse Rate [Pulse Oximeter] 68 68 Respiratory Rate 18 Blood Pressure [Ri ght Arm] 120/72 Pulse Oximetry 97 Oxygen Delivery Me thod Room Air Labs Labs: Laboratory Results - last 24 hr 08/24/22 05:52 Sodium 142 Potassium 3.8 Chloride 110 Carbon Dioxide 31 BUN 26 Creatinine 1.3 Estimated Creat Clear 55.50 Estimated GFR 59 Glucose 82 Calcium 8.7
[2022-08-25 08:40] VITALS: BP 119/72; PULSE 59; RESP 18; TEMP 36.7; O2SAT 99
[2022-08-25] MEDS: ASPIRIN 81 MG TABLET EC PO (08:42)
[2022-08-25] MEDS: FINASTERIDE 5 MG TABLET PO (08:42)
[2022-08-25] MEDS: ACETAMINOPHEN 500 MG TABLET 1000 MG PO ×2 (08:42→21:31)
[2022-08-25] MEDS: OMEPRAZOLE 20 MG CAPSULE DR 40 MG PO (08:42)
[2022-08-25] MEDS: TAMSULOSIN HCL 0.4 MG CAPSULE PO (08:42)
[2022-08-25 20:00] VITALS: BP 120/71; PULSE 58; RESP 18; TEMP 36.5; O2SAT 94
[2022-08-25] MEDS: SERTRALINE 100 MG TABLET 200 MG PO (21:31)
[2022-08-25] MEDS: ATORVASTATIN CALCIUM 40 MG TABLET PO (21:31)
[2022-08-25] MEDS: MELATONIN 3 MG TABLET PO (21:33)
--- NOTE | 2022-08-26 05:07 | PC.NURSE ---
[id number]: Patient cooperative with cares. Verbalized suicide idealization with no plan. Patient appropriately interacts with staff. Patient noted to empty catheter by himself with no measurement. Appeared to rest well during noc.
[2022-08-26 07:57] VITALS: BP 116/72; PULSE 57; RESP 16; TEMP 36.6; O2SAT 99
[2022-08-26] MEDS: FINASTERIDE 5 MG TABLET PO (08:57)
[2022-08-26] MEDS: ACETAMINOPHEN 500 MG TABLET 1000 MG PO ×2 (08:58→21:19)
[2022-08-26] MEDS: OMEPRAZOLE 20 MG CAPSULE DR 40 MG PO (08:58)
[2022-08-26] MEDS: TAMSULOSIN HCL 0.4 MG CAPSULE PO (08:58)
[2022-08-26] MEDS: ASPIRIN 81 MG TABLET EC PO (08:58)
--- NOTE | 2022-08-26 11:23 | P.IMPN_ITS ---
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: Problem details: - there has been no active suicide plan or intent, Dawood expresses apathy about living - no evidence of acute suicidal ideation at this time, no tristian Status: Acute (2) Frontotemporal dementia: Problem details: - 08/10/22 MOCA - Will need assistance by social work and state representatives to assume care of this vulnerable adult; guardianship initiated Status: Acute (3) History of bipolar disorder: Problem details: - no evidence of tristian Status: Acute (4) Benign prostatic hyperplasia with urinary retention: Problem details: - chronic indwelling catheter, outpatient f/u with urology - intermittently has low urine output, will provide p.r.n. IV fluid boluses Status: Acute (5) Low blood pressure: Problem details: - intermittent, improved after IV fluid bolus on 08/23. Patient remains asy mptomatic - p.r.n. fluid boluses available Status: Acute (6) Chronic indwelling Flores catheter: Problem details: - recent urine culture negative. Typically changed monthly by nursing staff and or outpatient urology Status: Acute (7) Major depression: Problem details: - continue Zoloft Status: Acute (8) Bicuspid aortic valve: Problem details: - seen on ECHO 08/09/22, mild stenosis. Preserved EF. Normal LVEF. Status: Acute (9) Thoracic aortic aneurysm: Problem details: - 08/09/2022 CT chest: Aneurysmal dilation of the ascending thoracic aorta measuring 4.2 cm - routine outpatient f/u by Cardiology or primary care Status: Acute (10) C. difficile colitis: Problem details: + on 08/09, has completed 14 day course of oral Vanco. No current diarrhea Status: Acute Plan - per above - placement pending guardianship Subjective Date Seen: 08/26/22 Interval history: No acute events overnight. William notes that to his back achiness has improved with scheduled Tylenol. William has no other concerns for me this morning. VS remain stable with no hypotension over the last 24 hours. We continue to work on a safe discharge plan for patient. Exam Narrative: Exam Narrative: GEN: Alert, sitting upright in chair in room, nontoxic HEENT: Normal external ears, EOMIs bilaterally CV: RRR, No concerning murmurs, rubs, or gallops R: LCTA bilaterally without concerning wheezing, rales, or rhonchi Ext: Thin, no concerning edema Skin: No concerning skin lesions or rashes on exposed skin Neuro: No focal deficits Psych: Psychomotor slowing when asked questions, apathetic Const: Vital Signs, click to edit/add: Vital Signs - 24 hr 08/25/22 20:00 08/26/22 07:57 Temperature 97.7 F 97.9 F Pulse Rate [Pulse Oximeter] 58 L 57 L Respiratory Rate 18 16 Blood Pressure [Ri ght Arm] 120/71 116/72 Pulse Oximetry 94 99 Oxygen Delivery Me thod Room Air Room Air
[2022-08-26] MEDS: MELATONIN 3 MG TABLET PO (21:19)
[2022-08-26] MEDS: ATORVASTATIN CALCIUM 40 MG TABLET PO (21:19)
[2022-08-26] MEDS: SERTRALINE 100 MG TABLET 200 MG PO (21:19)
[2022-08-26 23:00] VITALS: PULSE 61; RESP 16
--- NOTE | 2022-08-27 05:10 | PC.NURSE ---
[id number]: patient cooperative with cares, flat affect. no suicidal ideation. appears to have slept entire night.
--- NOTE | 2022-08-27 07:39 | PM.IMPN1 ---
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: Problem details: - there has been no active suicide plan or intent, Dawood expresses apathy about living - no evidence of acute suicidal ideation at this time, no tristian Status: Acute (2) Frontotemporal dementia: Problem details: - 08/10/22 MOCA / - Will need assistance by social work and state representatives to assume care of this vulnerable adult; guardianship has been initiated Status: Acute (3) History of bipolar disorder: Problem details: - no evidence of tristian Status: Acute (4) Benign prostatic hyperplasia with urinary retention: Problem details: - chronic indwelling catheter, outpatient f/u with urology - intermittently has had low urine output, will provide p.r.n. IV fluid boluses Status: Acute (5) Low blood pressure: Problem details: - intermittent, improved after IV fluid bolus on 08/23. Patient remains asymptomatic with normal vital signs at this time - p.r.n. fluid boluses available Status: Acute (6) Chronic indwelling Flores catheter: Problem details: - recent urine culture negative. Typically changed monthly by nursing staff and or outpatient urology Status: Acute (7) Major depression: Problem details: - continue Zoloft Status: Acute (8) Bicuspid aortic valve: Problem details: - seen on ECHO 08/09/22, mild stenosis. Preserved EF. Normal LVEF. Status: Acute (9) Thoracic aortic aneurysm: Problem details: - 08/09/2022 CT chest: Aneurysmal dilation of the ascending thoracic aorta measuring 4.2 cm - routine outpatient f/u by Cardiology or primary care Status: Acute (10) C. difficile colitis: Problem details: + on 08/09, has completed 14 day course of oral Vanco. No current diarrhea Status: Acute Plan - per above - aspirin, ambulation, SCDs for prophylaxis - continue to work on placement Subjective Date Seen: 08/27/22 Interval history: No acute events overnight. No concerns from nursing staff. William has been sleeping at night, states that he is not sleeping particularly well, does not feel that any medication or intervention would be helpful. He has no other concerns for me this morning. VS stable. We continue to work on a safe discharge plan for patient. Exam Narrative: Exam Narrative: GEN: Alert and sitting comfortably in chair in room, nontoxic HEENT: Normal external ears, EOMIs bilaterally Ext: wwp, no concerning edema : Clear urine noted in Flores bag Skin: No concerning skin lesions or rashes on exposed skin Neuro: No focal deficits, no resting tremor, gait not observed today Psych: Psychomotor slowing with responses to my questions, baseline. Appears apathetic Const: Vital Signs, click to edit/add: Vital Signs - 24 hr 08/26/22 07:57 08/26/22 23:00 Temperature 97.9 F Pulse Rate [Left A pical] 61 Pulse Rate [Pulse Oximeter] 57 L Respiratory Rate 16 16 Blood Pressure [Ri ght Arm] 116/72 Pulse Oximetry 99 Oxygen Delivery Me thod Room Air
[2022-08-27 08:00] VITALS: BP 136/74; PULSE 55; RESP 16; TEMP 36.6; O2SAT 98
[2022-08-27] MEDS: OMEPRAZOLE 20 MG CAPSULE DR 40 MG PO (08:33)
[2022-08-27] MEDS: FINASTERIDE 5 MG TABLET PO (08:33)
[2022-08-27] MEDS: ASPIRIN 81 MG TABLET EC PO (08:33)
[2022-08-27] MEDS: ACETAMINOPHEN 500 MG TABLET 1000 MG PO ×2 (08:34→20:24)
[2022-08-27] MEDS: TAMSULOSIN HCL 0.4 MG CAPSULE PO (08:34)
--- NOTE | 2022-08-27 14:26 | PC.NURSE ---
Shift Summary: Patient pleasant and cooperative. Up independently, emptied catheter per self around noon with 200cc out. Flores cath draining clear yellow urine. Denies pain, nausea or SOB. Appears withdrawn but pleasant when talking with staff. Reports having one BM today.
[2022-08-27 15:00] VITALS: PULSE 62; RESP 14
--- NOTE | 2022-08-27 15:56 | PC.SOCIAL ---
Spoke with Viviane Read at [facility] adult protection. Pt. has been in [facility] since moving to [facility] in October but is actually a [facility] case. Pt.'s mental health telephonic nurse case manager is Nguyễn Smart at [phone] and EW waiver worker Sabina Chang at [phone]. Viviane states that [facility] is responsible and we need to pursue guardianship through [facility] rather that [place]. Discussed pt.'s case further and Viviane called both of pt.'s home health care case manager and [facility] and said pt. should return to [facility]. They should obtain a wanderguard until other placement can be arranged. Left a message for pt.'s telephonic nurse case manager, Nguyễn Smart and spoke to Sabina Chang. Sabina thinks pt. should return to [facility] as well and states pt. was not getting many services to begin with at [facility] and his cognitive scores have always been good. He does not want to take away pt.'s rights to make his own decisions. Sabina is not pursuing other placement at this time for pt. He will call [facility] to update and that pt. should return there.
[2022-08-27] MEDS: SERTRALINE 100 MG TABLET 200 MG PO (20:24)
[2022-08-27] MEDS: ATORVASTATIN CALCIUM 40 MG TABLET PO (20:25)
--- NOTE | 2022-08-27 21:58 | PC.NURSE ---
End of shift [id number]: Pt. pleasant and cooperative. Up independently in room. Flores catheter patent draining, pt. independently drains catheter himself. Denies pain, nausea or SOB. Pt. is quiet and withdrawn but pleasant when conversing with staff.
--- NOTE | 2022-08-28 04:42 | PC.NURSE ---
Shift note: Pt has been awake throughout the night, sitting in chair. Able to respond effectively well with staff but refused to sleep. Field Cane Scaler Helper noted delayed speech and difficulty finding words. Cooperated well with emptying urine bag and medication. Denied any pain.
[2022-08-28 06:52] LABS: Basophils Percent Auto 0.9 % (0.0-3.0); Eosinophils Percent Auto 1.7 % (0.0-7.0); Hematocrit 36.9 % (37.0-53.0); Hemoglobin* 11.9 gm/dL (13.5-17.5); Immature Granulocytes Pct Auto 0.6 %; Lymphocytes Percent Auto 27.4 % (20-44); Mean Corpuscular HGB Conc 32 gm/dL (32-36); Mean Corpuscular Hemoglobin 31 pg (26-34); Mean Corpuscular Volume 95 fL (80-100); Neutrophils Percent Auto 57.4 % (42.0-72.0); Platelet Count* 168 K/uL (140-440); RDW Coefficient of Variation % 13.9 % (11.5-15.5); White Blood Count* 3.43 K/uL (4.50-11.00)
[2022-08-28 06:57] LABS: Slide Review Reflex No
[2022-08-28 07:00] VITALS: RESP 16
[2022-08-28 07:06] LABS: Chloride* 108 mmol/L (96-114); Potassium* 4.3 mmol/L (3.6-5.1); Sodium* 144 mmol/L (135-149)
[2022-08-28 07:09] LABS: Blood Urea Nitrogen* 23 mg/dL (7-30); Carbon Dioxide* 33 mmol/L (20-32); Est. Creatinine Clearance* 73.05; Estimated Glomerular Filt Rate 81 ml/min; Glucose* 86 mg/dL (60-115)
[2022-08-28 07:10] LABS: Calcium* 9.5 mg/dL (8.4-10.6)
--- NOTE | 2022-08-28 07:52 | P.IMPN_ITS ---
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: Problem details: - there has been no active suicide plan or intent, Dawood expresses apathy about living - no evidence of acute suicidal ideation at this time, no tristian Status: Acute Assessment and Plan: - continue to work to find placement for patient, as his intermittent confusion paranoia requires specialty management - trial of Zyprexa at HS. (2) Frontotemporal dementia: Problem details: - 08/10/22 MOCA - Will need assistance by social work and state representatives to assume care of this vulnerable adult; guardianship has been initiated Status: Acute (3) History of bipolar disorder: Problem details: - no evidence of tristian Status: Acute (4) Benign prostatic hyperplasia with urinary retention: Problem details: - chronic indwelling catheter, outpatient f/u with urology - intermittently has had low urine output, will provide p.r.n. IV fluid boluses Status: Acute (5) Low blood pressure: Problem details: - intermittent, improved after IV fluid bolus on 08/23. Patient remains asymptomatic with normal vital signs at this time - p.r.n. fluid boluses available Status: Acute (6) Chronic indwelling Flores catheter: Problem details: - recent urine culture negative. Typically changed monthly by nursing staff and or outpatient urology, last changed 08/02/22 Status: Acute (7) Major depression: Problem details: - continue Zoloft Status: Acute (8) Bicuspid aortic valve: Problem details: - seen on ECHO 08/09/22, mild stenosis. Preserved EF. Normal LVEF. Status: Acute (9) Thoracic aortic aneurysm: Problem details: - 08/09/2022 CT chest: Aneurysmal dilation of the ascending thoracic aorta measuring 4.2 cm - routine outpatient f/u by Cardiology or primary care Status: Acute (10) C. difficile colitis: Problem details: + on 08/09, has completed 14 day course of oral Vanco. No current diarrhea Status: Acute Plan - per above - trial of Zyprexa Subjective Date Seen: 08/28/22 Interval history: No acute events overnight. No concerns from patient or nursing staff. VS stable. We continue to work on a safe discharge plan for patient. Exam Narrative: Exam Narrative: Patient is alert, intermittently confused, and talks about needing to see the police about the wrongs he's committed. His pulse palpates as regular rate and rhythm. Patient and I walked to the halls together during our morning interview, his gait is slow but not ataxic, strength appears baseline. Const: Vital Signs, click to edit/add: Vital Signs - 24 hr 08/27/22 08:00 08/27/22 15:00 Temperature 97.8 F Pulse Rate [Left A pical] 55 L Pulse Rate [Pulse Oximeter] 62 Respiratory Rate 16 14 Blood Pressure [Ri ght Arm] 136/74 Pulse Oximetry 98 Oxygen Delivery Me thod Room Air Labs Labs: Laboratory Results - last 24 hr 08/28/22 08/28/22 06:14 06:14 WBC 3.43 L RBC 3.90 L Hgb 11.9 L Hct 36.9 L MCV 95 MCH 31 MCHC 32 RDW Coeff of Vidhya 13.9 Plt Count 168 Neut % (Auto) 57.4 Lymph % (Auto) 27.4 [place] % (Auto) 12.0 H Eos % (Auto) 1.7 Baso % (Auto) 0.9 Neut # (Auto) 2.00 Lymph # (Auto) 0.90 [place] # (Auto) 0.40 Eos # (Auto) 0.10 Baso # (Auto) 0.00 Abs Immat Gran (auto) 0.00 Imm/Tot Granulo (auto) 0.6 Sodium 144 Potassium 4.3 Chloride 108 Carbon Dioxide 33 H BUN 23 Creatinine 1.0 Estimated Creat Clear 73.05 Estimated GFR 81 Glucose 86 Calcium 9.5
--- NOTE | 2022-08-28 13:58 | PC.NURSE ---
Patient refused AM assessment, meds, vitals. flat affect and withdrawn. Took patient on a walk this afternoon and tolerated well, pt continued to refused vitals. good appetite.
[2022-08-28] MEDS: ACETAMINOPHEN 500 MG TABLET 1000 MG PO (21:08)
[2022-08-28] MEDS: ATORVASTATIN CALCIUM 40 MG TABLET PO (21:08)
[2022-08-28] MEDS: OLANZapine 5 MG TAB.RAPDIS PO (21:08)
[2022-08-28] MEDS: SERTRALINE 100 MG TABLET 200 MG PO (21:08)
--- NOTE | 2022-08-28 22:20 | PC.NURSE ---
Shift [id number]- Patient declines vitals this shift, does agree to take PM medications. He is often standing or sitting at doorway to room observing nurses station and unit. He is up ad reyna. He attempts to situate chun around/through pants leg, though was pulling on it in the process. RN provided leg band and unlooped chun tube from around pants and brief, and observed chun was still in place. Pt was also educated to not pull tubing and to keep bag below his waist.
[2022-08-28] MEDS: MELATONIN 3 MG TABLET PO (23:57)
[2022-08-28] MEDS: LORazepam 1 MG TABLET PO (23:57)
--- NOTE | 2022-08-29 05:06 | PC.NURSE ---
Shift note: Pt was confused, flat mood, delayed speach and wandered in his room at the start of the shift. PRN Lorazepam and Melatonin given which was effective by inducing sleep. Urine bag changed for leg strap and pt seems to like it and doing well with it. He continuous to be on video monitoring.
--- NOTE | 2022-08-29 11:31 | PC.SOCIAL ---
Social work: Late entry: On 08/28/22, social science instructor looked into the following multiple options for care after discharge: 1. Called all the geriatric psych facilities in the [facility] to see if there was any availability for placement if needed. [facility], [facility], [facility], and [place] had no availability. [facility] in [facility] had availability but is unable to accept any pt who has a catheter. Both [facility] and [facility] had a bed available and do accept geriatric patients with dementia and with a catheter. However, both facilities state they will not accept a patient with dementia who does not have a guardian in place as there would be no one to sign consent for treatment. Both of these facilities state that if there is a guardian in place, they will consider pt for admit. 2. Called secure memory care unit at [facility], and spoke with admissions staff who confirms pt can not be accepted to a secure memory care unit as his own decision maker, but they could evaluate pt for admit if he had a guardian in place. admission staff confirmed this would be the same requirement at any secure memory care unit. 3. Met with pt 08/28/22 regarding possibility of returning to [facility] where pt resides. Pt states he is not wiling to go back to [facility] at discharge because he did something bad there and they don't want him back. When asked to share more about that concern, pt states he is a criminal and a thief and needs to serve my time. When asked where he would like to go at discharge, pt does not answer. His responses to questions about discharge plans during this meeting were mostly not connected with the questions asked. Pt was pleasant during the meeting.
--- NOTE | 2022-08-29 11:45 | PC.SOCIAL ---
Discharge planning: [facility] Shared with [facility]uma that hospital is unable to arrange for admission to mental health facility r secure memory care unit without a guardian in place. Luma confirms that pt has children who have visited him at [facility] but pt refused to have them added to his emergency contact list, so [facility] does not have their contact information. Shared with Luma that the hospital has contacted both [facility] and [facility] with request for emergency guardianship and that at this time we are waiting to hear back from the counties about whether either of them will pursue guardianship. If they are unwilling to complete guardianship process, [facility] is aware we will be calling them back to discuss discharge plan back to them if appropriate. refuse and recycling worker to follow up as needed.
--- NOTE | 2022-08-29 11:59 | PC.SOCIAL ---
Discharge plan: Per MD request, called [facility] in [place] [phone] and left message stating, per MD, pt is agreeable to admission to their facility for in-pt mental health and requesting call back regarding their interest in evaluating pt for admit as a voluntary patient.workers' compensation claims examiner to follow up as needed.
--- NOTE | 2022-08-29 13:31 | PM.IMPN1 ---
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: Problem details: - there has been no active suicide plan or intent, Dawood expresses apathy about living - no evidence of acute suicidal ideation at this time, no tristian - continuing home Zoloft dose, Zyprexa at bedtime Status: Acute (2) Frontotemporal dementia: Problem details: - 08/10/22 MOCA - Will need assistance by social work and state representatives to assume care of this vulnerable adult; guardianship has been initiated - unclear how or when frontotemporal dementia was diagnosed (noted in chart review); patient certainly is presenting more as severely depressed - psych inpatient stay most appropriate at this time Status: Acute (3) History of bipolar disorder: Problem details: - no evidence of tristian Status: Acute (4) Benign prostatic hyperplasia with urinary retention: Problem details: - chronic indwelling catheter, outpatient f/u with urology - intermittently has had low urine output, will provide p.r.n. IV fluid boluses Status: Acute (5) Low blood pressure: Problem details: - intermittent, improved after IV fluid bolus on 08/23. Patient remains asymptomatic with normal vital signs at this time - p.r.n. fluid boluses available Status: Acute (6) Chronic indwelling Flores catheter: Problem details: - recent urine culture negative. Typically changed monthly by nursing staff and or outpatient urology, last changed 08/02/22 Status: Acute (7) Major depression: Problem details: - see above Status: Acute (8) Bicuspid aortic valve: Problem details: - seen on ECHO 08/09/22, mild stenosis. Preserved EF. Normal LVEF. Status: Acute (9) Thoracic aortic aneurysm: Problem details: - 08/09/2022 CT chest: Aneurysmal dilation of the ascending thoracic aorta measuring 4.2 cm - routine outpatient f/u by Cardiology or primary care Status: Acute (10) C. difficile colitis: Problem details: + on 08/09, has completed 14 day course of oral Vanco. No current diarrhea Status: Acute Plan - per above - appreciate input from social work regarding placement - aspirin, ambulation for prophylaxis Subjective Date Seen: 08/29/22 Interval history: No acute events overnight. William has no concerns for hospitalist team. He has had a little bit of drainage from his right eye with mild conjunctival injection, declines any medications for this. Vision is preserved. After discussion today, William and I discussed his depression is likely source of symptoms. He is now amenable to an inpatient psych stay to assist with management of his depression and apathy, previous suicidal thoughts. Exam Narrative: Exam Narrative: GEN: Alert and answering questions appropriately, sitting comfortably in chair HEENT: Normal external ears, mild right conjunctival injection without eyelid abnormalities, mild tearing noted on the right, EOMIs CV: RRR, No concerning murmurs, rubs, or gallops R: LCTA bilaterally without concerning wheezing, rales, or rhonchi Ext: wwp, no concerning edema Skin: No concerning skin lesions or rashes on exposed skin Neuro: Nonfocal Psych: Psychomotor slowing noted
--- NOTE | 2022-08-29 17:58 | PC.NURSE ---
Addendum entered by Kandy Doshi RN 08/29/22 20:00: Patient denies suicidal ideation. Original Note: End of shift: Patient pleasant and cooperative. Patient with lungs clear, BS WNL, NO IV. Patient chun intact and draining. Patient tolerating regular diet. Patient either sitting in chair or security systems engineer room or in room doorway. At times paces ferguson.
[2022-08-29] MEDS: ACETAMINOPHEN 500 MG TABLET 1000 MG PO (21:13)
[2022-08-29] MEDS: SERTRALINE 100 MG TABLET 200 MG PO (21:13)
[2022-08-29] MEDS: MELATONIN 3 MG TABLET PO (21:13)
[2022-08-29] MEDS: ATORVASTATIN CALCIUM 40 MG TABLET PO (21:13)
[2022-08-29] MEDS: LORazepam 1 MG TABLET PO (21:13)
[2022-08-29] MEDS: OLANZapine 5 MG TAB.RAPDIS PO (21:13)
--- NOTE | 2022-08-30 07:51 | PC.NURSE ---
Pt has flat affect but is cooperative. He was given ativan and melatonin at bed time and slept most of the night. Up 2x to void.
[2022-08-30 09:09] VITALS: BP 130/72; PULSE 67; RESP 16; TEMP 36.7; O2SAT 94
[2022-08-30] MEDS: ASPIRIN 81 MG TABLET EC PO (09:10)
[2022-08-30] MEDS: OMEPRAZOLE 20 MG CAPSULE DR 40 MG PO (09:10)
[2022-08-30] MEDS: FINASTERIDE 5 MG TABLET PO (09:10)
[2022-08-30] MEDS: ACETAMINOPHEN 500 MG TABLET 1000 MG PO ×2 (09:10→20:52)
[2022-08-30] MEDS: TAMSULOSIN HCL 0.4 MG CAPSULE PO (09:10)
--- NOTE | 2022-08-30 09:27 | NUTR.NU ---
LOS Note day 8. Patient admitted with need for placement. Has history of cognitive impairment. SW currently seeking emergency guardianship for patient. Diet is Regular with meal intakes mainly 100%. Weight has been stable during visit, current weight 164 lbs, BMI is normal at 22.2 kg/m2. With stable weight and good meal intakes, no nutrition interventions at this time. RDN will continue to monitor and follow-up prn.
--- NOTE | 2022-08-30 10:44 | PC.SOCIAL ---
Late Entry note from 08/29/22. Phone call to the [facility] Adult Protection at [phone]. Asked for more information on how to send over information to [facility] APS for a guardianship to be filed. Was informed by the APS worker that [facility] does not take on guardianship only cases. Was provided with the phone number to the [facility] Attorney's office to get more information, which is [phone]. Informed that pt has a mental health worker and a elderly waiver worker through [facility] but the case workers are not actually [facility] employees as [facility] contracts out for those services to other agencies. APS worker states that if pt was not properly discharged from [facility] then [facility] can file a [facility] report for caregiver neglect on the facility. APS worker states that this will likely be assigned to [facility] because the pt currently resides in [facility] and the issue that would be investigated would be in [facility] jurisdiction. APS worker suggested contacting the [facility] at [phone] if [facility] is unwilling to take pt back to their facility. APS worker provided information on [employer] ([phone]) and stated that they assist with guardianship questions and clarification for the state [facility]. Worker states that [facility] uses [employer] as a resource. Informed that pt was under a commitment order through [facility] that ended in July of 2018. Phone call to [facility] Attorney's office at [phone]. Was informed that Gear Machine Operator Brandon Key handles guardianship questions in the [facility]. Left a voicemail for [employer] Key. Received a voicemail from [employer] Representatives[employer] Key with a direct phone number to reach him which is [phone]. Phone call to [employer] Representativeshanon Key. Consulted on pt's case and asked if [facility] handles filing guardianship paperwork. [employer] Representativeshanon Key states that [facility] will not be the petitioner for the guardianship and states that the hospital or a family member would need to be the petitioner for the pt on the guardianship. If the hospital was the petitioner then the hospital would need an deputy commonwealth's attorney to represent them in court. [employer] Representative Shahid states that [facility] does not do guardianships directly. [employer] Representative Shahid states that a commitment for the pt would be the fastest route to go to get authority to treat pt. [employer] Representative Shahid states that after getting commitment then [facility] could look at getting pt into another facility for placement. [employer] Representative Shahid provided his contact information and states he can be contacted with anymore questions. Brandon Key Asst. [facility] Attorney [address] [address] ? [phone] cell ? [email or web address]
--- NOTE | 2022-08-30 15:39 | PM.IMPN1 ---
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: Problem details: - there has been no active suicide plan or intent, Dawood expresses apathy about living - no evidence of acute suicidal ideation at this time, no tristian - continuing home Zoloft dose, Zyprexa at bedtime Status: Acute (2) Frontotemporal dementia: Problem details: - 08/10/22 MOCA 24/30 - Will need assistance by social work and state representatives to assume care of this vulnerable adult; guardianship has been initiated - unclear how or when frontotemporal dementia was diagnosed (noted in chart review); patient certainly is presenting more as severely depressed - psych inpatient stay most appropriate at this time Status: Acute (3) History of bipolar disorder: Problem details: - no evidence of tristian Status: Acute (4) Benign prostatic hyperplasia with urinary retention: Problem details: - chronic indwelling catheter, outpatient f/u with urology - intermittently has had low urine output, prn IV fluid boluses Status: Acute (5) Low blood pressure: Problem details: - intermittent, improved after IV fluid bolus on 08/23. Patient remains asymptomatic with normal vital signs at this time - prn fluid boluses available Status: Acute (6) Chronic indwelling Flores catheter: Problem details: - recent urine culture negative. Typically changed monthly by nursing staff and or outpatient urology, last changed 08/02/22 Status: Acute (7) Major depression: Problem details: - see above Status: Acute (8) Bicuspid aortic valve: Problem details: - seen on ECHO 08/09/22, mild stenosis. Preserved EF. Normal LVEF. Status: Acute (9) Thoracic aortic aneurysm: Problem details: - 08/09/2022 CT chest: Aneurysmal dilation of the ascending thoracic aorta measuring 4.2 cm - routine outpatient f/u by Cardiology or primary care Status: Acute (10) C. difficile colitis: Problem details: + on 08/09, has completed 14 day course of oral Vanco. No current diarrhea Status: Acute Plan - continue to attempt placement via guardianship Subjective Date Seen: 08/30/22 Interval history: No acute events overnight. William has no concerns for hospitalist team. Vital signs remained stable. No concerns from nursing staff. Exam Narrative: Exam Narrative: Patient is alert and nontoxic in appearance He continues to have psychomotor slowing upon answering questions Const: Vital Signs, click to edit/add: Vital Signs - 24 hr 08/30/22 09:09 Temperature 98.1 F Pulse Rate [Pulse Oximeter] 67 Respiratory Rate 16 Blood Pressure [Ri ght Arm] 130/72 Pulse Oximetry 94 Oxygen Delivery Me thod Room Air
[2022-08-30 20:15] VITALS: BP 115/64; PULSE 56; RESP 18; TEMP 36.2; O2SAT 97
[2022-08-30] MEDS: OLANZapine 5 MG TAB.RAPDIS PO (20:53)
[2022-08-30] MEDS: SERTRALINE 100 MG TABLET 200 MG PO (20:53)
[2022-08-30] MEDS: ATORVASTATIN CALCIUM 40 MG TABLET PO (20:53)
[2022-08-30] MEDS: MELATONIN 3 MG TABLET PO (23:49)
[2022-08-30] MEDS: LORazepam 1 MG TABLET PO (23:49)
[2022-08-31 07:00] VITALS: PULSE 63; RESP 18
--- NOTE | 2022-08-31 07:43 | PC.NURSE ---
Patient sat in chair until approx 0100, then went to bed. 1-2+ pitting edema in bilat ankles. States mild shortness of breath when walking. VSS, o2 sat wnl. MD to round this morning and assess these concerns.
[2022-08-31] MEDS: ASPIRIN 81 MG TABLET EC PO (09:23)
[2022-08-31] MEDS: TAMSULOSIN HCL 0.4 MG CAPSULE PO (09:23)
[2022-08-31] MEDS: ACETAMINOPHEN 500 MG TABLET 1000 MG PO ×2 (09:23→19:53)
[2022-08-31] MEDS: FINASTERIDE 5 MG TABLET PO (09:23)
[2022-08-31] MEDS: OMEPRAZOLE 20 MG CAPSULE DR 40 MG PO (09:24)
[2022-08-31 09:36] VITALS: BP 129/78; PULSE 63; RESP 18; TEMP 37.1; O2SAT 98
--- NOTE | 2022-08-31 12:13 | PC.SOCIAL ---
Social work: Late Entry: On 08/30/22, faxed updated information and Medical Statement in Support of Emergency Guardianship to [facility] Vulnerable Adult office. Haven Read states they are reviewing this case to decide if they will move forward with guardianship and if this should be handled by [facility]. boil off worker awaiting decision from [facility] Vulnerable Adult Department and will follow up as needed. Received call from [facility] Business System Consultant, Karma. Karma shared that because pt's care needs have changed and he needs a secure unit or an assisted living facility with a [employer], [facility] is unable to accept pt back. Karma states [facility] is no longer licensed for memory care and because of this, they are able to discharge pt without a 30 day notice, as he needs this level of care. Karma states she has confirmed this with the Ombudsman. Karma states pt's wandering and level of dementia were not known to be an issue when he admitted to their facility and they had been appropriate placement for pt prior to his recent wandering. Karma states she had alerted his critical access hospital disease case manager to the need for a different level of care prior to sending him to the hospital. boil off worker to follow up as needed.
--- NOTE | 2022-08-31 14:59 | PC.NURSE ---
refusing his TEDS
[2022-08-31 15:00] VITALS: RESP 18
--- NOTE | 2022-08-31 17:01 | PM.IMPN1 ---
Progress Note: A&P Assessment and plan (1) Lower extremity edema: Problem details: Chronic. Patient agrees to support hose for treatment Status: Acute (2) Frontotemporal dementia: Problem details: - 08/10/22 MOCA - Will need assistance by social work and state representatives to assume care of this vulnerable adult; guardianship has been initiated - unclear how or when frontotemporal dementia was diagnosed (noted in chart review); patient certainly is presenting more as severely depressed - psych inpatient stay most appropriate at this time Status: Acute (3) History of bipolar disorder: Problem details: - no evidence of tristian Status: Acute (4) Chronic indwelling Flores catheter: Problem details: - recent urine culture negative. Typically changed monthly by nursing staff and or outpatient urology, last changed 08/02/22 Status: Acute (5) 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: Problem details: - there has been no active suicide plan or intent, Dawood expresses apathy about living - no evidence of acute suicidal ideation at this time, no tristian - continuing home Zoloft dose, Zyprexa at bedtime Status: Acute (6) Major depression: Problem details: - see above Status: Acute Plan Continue in hospital for cares pending safe discharge plan. Time Spent With Patient Total time spent: Total time spent today is 40 minutes, 35 minutes in coordination care discussing with other staff ongoing evaluation management of mental health problems Subjective Date Seen: 08/31/22 Interval history: 71-year-old male seen in followup of hospitalization for inability to care for himself. Patient has had a significant recent past medical history of being unable to care for himself. Intermittently homeless. Intermittently found wandering outside with improper clothing for the weather. He is pending evaluation by a [employer] [place] for guardianship. Patient tells me that he is bothered by his mental health concerns but is not more specific than that. He is not having suicidal ideation or hallucinations or delusions. He has no other concerns today. Nursing staff noted some ankle edema which the patient tells me is chronic. He has some chronic shortness of breath with exertion which has not changed recently. He is very sedentary Exam Narrative: Exam Narrative: He is alert and appears in no distress. Somewhat slow to respond to questions but speaks fluently. He is pleasant and cooperative. A relatively flat affect without agitation. He is oriented to his circumstances. Head is without evidence of trauma. Eyes are normal. No facial asymmetry. Respirations are clear to auscultation. Cardiovascular: S1, S2, 1/6 systolic ejection murmur. No gallop or rub. Abdomen is soft without tenderness or mass. Extremities with 1+ edema bilaterally in the ankles. Const: Vital Signs, click to edit/add: Vital Signs - 24 hr 08/30/22 20:15 08/31/22 07:00 08/31/22 09:36 Temperature 97.2 F L 98.7 F Pulse Rate [Left A pical] 56 L 63 63 Respiratory Rate 18 18 18 Blood Pressure [Ri ght Arm] 115/64 129/78 Pulse Oximetry 97 98 Oxygen Delivery Me thod Room Air Room Air 08/31/22 15:00 Temperature Pulse Rate [Left A pical] Respiratory Rate 18 Blood Pressure [Ri ght Arm] Pulse Oximetry Oxygen Delivery Me thod Documenting provider has reviewed patient's vital signs: yes
--- NOTE | 2022-08-31 17:08 | PC.NURSE ---
Nurse Note: Patient has not had any complaints today except for a little swelling in his lower extremities. Have enc him to try and elevate his feet. Does have TEDS order but is declining having these place at this time. Only ate breakfast he slept thru lunch time. Will be getting him up to see if he will eat dinner. will continue to monitor.
--- NOTE | 2022-08-31 18:59 | PC.SOCIAL ---
Social work: Received call from Viviane Read [facility] Vulnerable Adult worker, stating [facility] will be taking this to court for Emergency Guardianship. Viviane expects this to go to court today or Saturday. Once Emergency Guardianship is received, pt can be placed in geriatric mental health or secure dementia unit as appropriate with the emergency guardian signing pt in for care. [facility] Court will be faxing court order to [facility] when completed.
[2022-08-31 19:51] VITALS: BP 109/66; PULSE 58; RESP 18; TEMP 36.5; O2SAT 97
[2022-08-31] MEDS: OLANZapine 5 MG TAB.RAPDIS PO (19:52)
[2022-08-31] MEDS: SERTRALINE 100 MG TABLET 200 MG PO (19:52)
[2022-08-31] MEDS: ATORVASTATIN CALCIUM 40 MG TABLET PO (19:53)
[2022-08-31 22:49] VITALS: PULSE 58; RESP 18
--- NOTE | 2022-09-01 06:50 | PC.NURSE ---
Pt alert and oriented. Flat affect but pleasant and cooperative. C/o headache, scheduled tylenol given. VSS on room air. Flores catheter patent. Declining SCD/BROOKE use overnight. Up independently in room. Continues to have BLE edema, encouraging elevation. Pt observed resting well throughout night.
[2022-09-01 07:00] VITALS: BP 129/80; PULSE 56; RESP 16; TEMP 36.4; O2SAT 97
[2022-09-01] MEDS: ACETAMINOPHEN 500 MG TABLET 1000 MG PO ×2 (08:42→20:48)
[2022-09-01] MEDS: TAMSULOSIN HCL 0.4 MG CAPSULE PO (08:43)
[2022-09-01] MEDS: FINASTERIDE 5 MG TABLET PO (08:43)
[2022-09-01] MEDS: OMEPRAZOLE 20 MG CAPSULE DR 40 MG PO (08:43)
[2022-09-01] MEDS: ASPIRIN 81 MG TABLET EC PO (08:43)
--- NOTE | 2022-09-01 14:48 | P.IMPN_ITS ---
Progress Note: A&P Assessment and plan (1) Lower extremity edema: Problem details: Chronic. Patient agrees to support hose for treatment Status: Acute (2) Frontotemporal dementia: Problem details: - 08/10/22 MOCA - Will need assistance by social work and state representatives to assume care of this vulnerable adult; guardianship has been initiated - unclear how or when frontotemporal dementia was diagnosed (noted in chart review); patient certainly is presenting more as severely depressed - psych inpatient stay most appropriate at this time Status: Acute (3) History of bipolar disorder: Problem details: - no evidence of tristian Status: Acute (4) Chronic indwelling Flores catheter: Problem details: - recent urine culture negative. Typically changed monthly by nursing staff and or outpatient urology, last changed 08/02/22 Status: Acute (5) 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: Problem details: - there has been no active suicide plan or intent, Dawood expresses apathy about living - no evidence of acute suicidal ideation at this time, no tristian - continuing home Zoloft dose, Zyprexa at bedtime Status: Acute (6) Major depression: Problem details: - see above Status: Acute Plan Continue in hospital pending a safe discharge plan. Anticipating guardianship arrangements through [facility]. Time Spent With Patient Total time spent: Total time spent today is 20 minutes, 15 minutes in coordination of care and discussing with patient and other providers ongoing evaluation management of mental health problems Subjective Date Seen: 09/01/22 Interval history: 71-year-old male seen in followup of hospitalization for inability care for himself. He reports generally doing a little better today. He has no specific concerns today. He was able to eat today he has been very sedentary primarily in bed or chair. Nursing reports no behavioral problems Exam Narrative: Exam Narrative: He is sitting in a chair pleasant and cooperative. Speech is normal. Respirations are clear to auscultation. Cardiovascular: S1, S2, regular rate and rhythm. No murmur gallop or rub. Abdomen is soft without tenderness or mass. Minimal edema with support hose in place Const: Vital Signs, click to edit/add: Vital Signs - 24 hr 08/31/22 15:00 08/31/22 19:51 08/31/22 22:49 Temperature 97.7 F Pulse Rate [Pulse Oximeter] 58 L 58 L Respiratory Rate 18 18 18 Blood Pressure [Le ft Arm] Blood Pressure [Ri ght Arm] 109/66 Pulse Oximetry 97 Oxygen Delivery Me thod Room Air 09/01/22 07:00 09/01/22 07:00 Temperature 97.6 F Pulse Rate [Pulse Oximeter] 56 L 56 L Respiratory Rate 16 16 Blood Pressure [Le ft Arm] 129/80 Blood Pressure [Ri ght Arm] Pulse Oximetry 97 Oxygen Delivery Me thod Room Air Documenting provider has reviewed patient's vital signs: yes
--- NOTE | 2022-09-01 18:14 | PC.NURSE ---
End of Shift: Patient pleasant and cooperative. Patient vitally stable, lungs clear, BS WNL, No IV. Patient with 2+pitting edema, improved with applying TEDS. Patient's chun intact and draining. Patient denied suicidal ideation but reported suicidal ideation this afternoon, patient reported saying no in the morning was not true. Patient tolerating regular diet, eating every meal.
[2022-09-01 20:43] VITALS: BP 124/77; PULSE 52; RESP 16; TEMP 36.5; O2SAT 98
[2022-09-01] MEDS: LORazepam 1 MG TABLET PO (20:48)
[2022-09-01] MEDS: ATORVASTATIN CALCIUM 40 MG TABLET PO (20:48)
[2022-09-01] MEDS: MELATONIN 3 MG TABLET PO (20:48)
[2022-09-01] MEDS: SERTRALINE 100 MG TABLET 200 MG PO (20:48)
[2022-09-01] MEDS: OLANZapine 5 MG TAB.RAPDIS PO (20:48)
[2022-09-01 23:00] VITALS: PULSE 52; RESP 16
--- NOTE | 2022-09-02 06:31 | PC.NURSE ---
Pt alert and oriented. Pleasant and cooperative. Flat affect and withdrawn. Reports flank pain, relieved by draining catheter and scheduled tylenol given. VSS on room air. Reports thoughts of self-harm with no intent to act on those thoughts. Up independently in room. PRN melatonin and ativan given at bedtime. Flores catheter patent, declined catheter care at bedtime. Pt observed resting throughout the night.
[2022-09-02 07:00] VITALS: PULSE 63; RESP 14
[2022-09-02 08:34] VITALS: BP 118/76; PULSE 95; RESP 14; TEMP 36.6; O2SAT 95
[2022-09-02] MEDS: OMEPRAZOLE 20 MG CAPSULE DR 40 MG PO (08:40)
[2022-09-02] MEDS: TAMSULOSIN HCL 0.4 MG CAPSULE PO (08:40)
[2022-09-02] MEDS: ACETAMINOPHEN 500 MG TABLET 1000 MG PO ×2 (08:40→21:04)
[2022-09-02] MEDS: FINASTERIDE 5 MG TABLET PO (08:40)
[2022-09-02] MEDS: ASPIRIN 81 MG TABLET EC PO (08:40)
--- NOTE | 2022-09-02 12:14 | P.IMPN_ITS ---
Progress Note: A&P Assessment and plan (1) Lower extremity edema: Problem details: Chronic. Patient agrees to support hose for treatment Status: Acute (2) Frontotemporal dementia: Problem details: - 08/10/22 MOCA - Will need assistance by social work and state representatives to assume care of this vulnerable adult; guardianship has been initiated - unclear how or when frontotemporal dementia was diagnosed (noted in chart review); patient certainly is presenting more as severely depressed - psych inpatient stay most appropriate at this time Status: Acute (3) History of bipolar disorder: Problem details: Primarily exhibiting depression at this time. I am going to add Seroquel to h is sertraline pending mental health consultation Status: Acute (4) Chronic indwelling Florse catheter: Problem details: - recent urine culture negative. 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 Chronic passive suicidal ideation Status: Acute (6) Major depression: Problem details: - see above Status: Acute (7) Suicidal ideation: Problem details: Chronic concern. No specific plan. Agrees to contact me if thinking about acting on his suicidal ideation Status: Acute Plan Continue in hospital pending appropriate discharge plan Time Spent With Patient Total time spent: Total time spent today is 30 minutes, 20 minutes in coordination of care and discussing depression, suicidality with the patient and other providers Subjective Date Seen: 09/02/22 Interval history: 72-year-old male seen in followup hospitalization for inability to care for himself. He reports no specific concerns today. Does tell me that he has ongoing suicidal ideation. This is a longstanding problem for him. He has no specific plan or intent. He has had no previous suicidal attempt. He tells me that he would that me know if he was feeling desperate and contemplating taking action on his suicidal ideation Exam Narrative: Exam Narrative: He is alert and appears in no distress. Speech is normal. He is not agitated. He is oriented to his circumstances. Mood and affect are relatively flat. Breathing is unlabored. Const: Vital Signs, click to edit/add: Vital Signs - 24 hr 09/01/22 20:43 09/01/22 23:00 09/02/22 07:00 Temperature 97.7 F Pulse Rate [Pulse Oximeter] 52 L 52 L 63 Respiratory Rate 16 16 14 Blood Pressure [Le ft Arm] 124/77 Pulse Oximetry 98 Oxygen Delivery Me thod Room Air 09/02/22 08:34 Temperature 97.9 F Pulse Rate [Pulse Oximeter] 95 Respiratory Rate 14 Blood Pressure [Le ft Arm] 118/76 Pulse Oximetry 95 Oxygen Delivery Me thod Room Air Documenting provider has reviewed patient's vital signs: yes
--- NOTE | 2022-09-02 18:01 | PC.NURSE ---
End of Shift: Patient pleasant and cooperative. Patient vitally stable, lungs clear, BS WNL, No IV. Patient reports suicidal ideation with no plan. Patient always rates lower back/flank pain 5/10, patient reports it is chronic, scheduled tylenol given. Patient chun intact and draining. No BM this shift. Patient sits in chair all shift. Patient did come out the ferguson once and pushed the button to the exit, comic book writer explained to patient that he had to stay on this unit. Patient tolerating regular diet, eating 100% of meals. Teds applied, no edema.
[2022-09-02 21:00] VITALS: BP 120/77; PULSE 53; RESP 16; TEMP 36.6; O2SAT 99
[2022-09-02] MEDS: ATORVASTATIN CALCIUM 40 MG TABLET PO (21:05)
[2022-09-02] MEDS: MELATONIN 3 MG TABLET PO (21:05)
[2022-09-02] MEDS: QUETIAPINE 25 MG TABLET PO (21:05)
[2022-09-02] MEDS: SERTRALINE 100 MG TABLET 200 MG PO (21:05)
[2022-09-02 23:15] VITALS: RESP 16
--- NOTE | 2022-09-03 06:42 | PC.NURSE ---
End of shift status [id number] Pt alert and oriented. C/o chronic flank pain, scheduled tylenol given. VSS on room air. Up independently in room. Reports thoughts of self-harm but no plan. Flores patent. No BM this shift. Pt sat in chair all night, refused to lay down. Pt able to doze in chair but not observed sleeping throughout night.
[2022-09-03 09:00] VITALS: PULSE 53; RESP 18
[2022-09-03] MEDS: ASPIRIN 81 MG TABLET EC PO (09:16)
[2022-09-03] MEDS: TAMSULOSIN HCL 0.4 MG CAPSULE PO (09:16)
[2022-09-03] MEDS: ACETAMINOPHEN 500 MG TABLET 1000 MG PO ×2 (09:16→21:07)
[2022-09-03] MEDS: OMEPRAZOLE 20 MG CAPSULE DR 40 MG PO (09:16)
[2022-09-03] MEDS: FINASTERIDE 5 MG TABLET PO (09:16)
--- NOTE | 2022-09-03 15:33 | PC.SOCIAL ---
Pt. was served his paperwork from [facility] for his petition for Emergency guardianship. Pt. will attend a hearing on 09/05 at 1:30pm via zoom.
--- NOTE | 2022-09-03 18:14 | PM.IMPN1 ---
Progress Note: A&P Assessment and plan (1) Major depression: Problem details: Sertraline plus Seroquel Status: Acute (2) Lower extremity edema: Problem details: Chronic. Patient agrees to support hose for treatment Status: Acute (3) Frontotemporal dementia: Problem details: - 08/10/22 MOCA 24/30 - Will need assistance by social work and state representatives to assume care of this vulnerable adult; guardianship has been initiated - unclear how or when frontotemporal dementia was diagnosed (noted in chart review); patient certainly is presenting more as severely depressed - psych inpatient stay most appropriate at this time Status: Acute (4) History of bipolar disorder: Problem details: Primarily exhibiting depression at this time. Sertraline plus Seroquel. Status: Acute (5) Chronic indwelling Flores catheter: Problem details: - recent urine culture negative. Typically changed monthly by nursing staff and or outpatient urology, last changed 08/02/22 Status: Acute (6) 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: Problem details: Apathy due to depression as well as dementia. Chronic passive suicidal ideation Status: Acute (7) Suicidal ideation: Problem details: Chronic concern. No specific plan. Agrees to contact me if thinking about acting on his suicidal ideation Status: Acute Plan Continue in hospital pending safe discharge plan coordinated with [facility]. Time Spent With Patient Total time spent: Total time spent today is 15 minutes, all of it in discussing ongoing management of inability to care for himself Subjective Date Seen: 09/03/22 Interval history: 72-year-old male seen in followup of hospitalization for inability care for himself. Patient reports generally doing about the same today. He still reports some depressed mood. He reports he did not sleep well last night. He has been eating normally. He has no special concerns today. When I see him he is looking at papers presented from the [facility] indicating that he will have a zoom meeting regarding conservatorship/guardianship. I asked him what he thought of this and he said that he was in favor of it. Exam Narrative: Exam Narrative: He is alert pleasant and appears in no distress. Mood and affect are relatively flat. He is pleasant and cooperative. Const: Vital Signs, click to edit/add: Vital Signs - 24 hr 09/02/22 21:00 09/02/22 23:15 09/03/22 09:00 Temperature 97.8 F Pulse Rate [Pulse Oximeter] 53 L 53 L Respiratory Rate 16 16 18 Blood Pressure [Le ft Arm] 120/77 Pulse Oximetry 99 Oxygen Delivery Me thod Room Air Documenting provider has reviewed patient's vital signs: yes
[2022-09-03 21:00] VITALS: BP 126/75; PULSE 68; PULSE 97; RESP 16; TEMP 36.7
[2022-09-03] MEDS: MELATONIN 3 MG TABLET PO (21:08)
[2022-09-03] MEDS: ATORVASTATIN CALCIUM 40 MG TABLET PO (21:08)
[2022-09-03] MEDS: QUETIAPINE 25 MG TABLET PO (21:09)
[2022-09-03] MEDS: SERTRALINE 100 MG TABLET 200 MG PO (21:10)
[2022-09-03 23:00] VITALS: PULSE 68; PULSE 97; RESP 16
--- NOTE | 2022-09-03 23:03 | PC.NURSE ---
Intake 360cc U/o- 200 plus x1
[2022-09-04 08:00] VITALS: PULSE 75; RESP 16
[2022-09-04 08:30] VITALS: BP 139/94; PULSE 75; RESP 16; TEMP 36.3; O2SAT 100
[2022-09-04] MEDS: FINASTERIDE 5 MG TABLET PO (08:47)
[2022-09-04] MEDS: ASPIRIN 81 MG TABLET EC PO (08:47)
[2022-09-04] MEDS: TAMSULOSIN HCL 0.4 MG CAPSULE PO (08:47)
[2022-09-04] MEDS: OMEPRAZOLE 20 MG CAPSULE DR 40 MG PO (08:48)
[2022-09-04] MEDS: ACETAMINOPHEN 500 MG TABLET 1000 MG PO ×2 (08:48→20:58)
--- NOTE | 2022-09-04 16:32 | P.IMPN_ITS ---
Progress Note: A&P Assessment and plan (1) Major depression: Problem details: Sertraline plus Seroquel Status: Acute (2) Lower extremity edema: Problem details: Chronic. Patient agrees to support hose for treatment. Status: Acute (3) Frontotemporal dementia: Problem details: - 08/10/22 MOCA 24/30 - Will need assistance by social work and state representatives to assume care of this vulnerable adult; guardianship has been initiated - unclear how or when frontotemporal dementia was diagnosed (noted in chart review); patient certainly is presenting more as severely depressed - psych inpatient stay most appropriate at this time Status: Acute (4) History of bipolar disorder: Problem details: Primarily exhibiting depression at this time. Sertraline plus Seroquel. Status: Acute (5) Chronic indwelling Flores catheter: Problem details: - recent urine culture negative. Typically changed monthly by nursing staff and or outpatient urology, last changed 08/02/22 Status: Acute (6) 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: Problem details: Apathy due to depression as well as dementia. Chronic passive suicidal ideation Status: Acute (7) Suicidal ideation: Problem details: Chronic concern. No specific plan. Agrees to contact me if thinking about acting on his suicidal ideation Status: Acute (8) Guilty feelings: Problem details: Patient appears to have guilty feelings about thinks he may have done in the p ast as well as the possibility that he may have given COVID to somebody else. I reassured him that he is not in trouble for this and there will not be punishment for this. Status: Acute Plan Continue in-hospital pending court meeting tomorrow for decision about placement Time Spent With Patient Total time spent: Total time spent today is 20 minutes, all of that in discussing with patient and other providers ongoing evaluation management of conservatorship guardianship and placement Subjective Date Seen: 09/04/22 Interval history: 72-year-old male seen in followup of hospitalization for inability to care for himself. He met with his trademark attorney today. This was in preparation for the hearing to be done over zoom tomorrow regarding conservatorship/guardianship. Patient notes he is anxious about this. He is concerned that he might get in trouble because of something he has done in the past. I informed him the purpose of this meeting was not punitive but was rather to arrange for conservatorship or guardianship so that we can make the best decisions to take care of him. I encouraged him to walk in the hallway. He was up and took a few steps out of his room today but then went back in his room despite encouragement for him to walk in the hallway. Exam Narrative: Exam Narrative: He is alert and appears in no distress. He is pleasant cooperative speaks openly. Still some mental slowing. Otherwise cooperative. Const: Vital Signs, click to edit/add: Vital Signs - 24 hr 09/03/22 21:00 09/03/22 23:00 09/04/22 08:30 Temperature 98.0 F 97.4 F L Pulse Rate [Left A pical] 68 68 75 Pulse Rate [Pulse Oximeter] 97 97 75 Respiratory Rate 16 16 16 Blood Pressure [Le ft Arm] 126/75 139/94 H Pulse Oximetry 100 Oxygen Delivery Me thod Room Air 09/04/22 08:00 Temperature Pulse Rate [Left A pical] 75 Pulse Rate [Pulse Oximeter] 75 Respiratory Rate 16 Blood Pressure [Le ft Arm] Pulse Oximetry Oxygen Delivery Me thod Documenting provider has reviewed patient's vital signs: yes
--- NOTE | 2022-09-04 18:28 | PC.NURSE ---
shift note: pt up indept in room and hallway. pt pleasant. vss stable. pt denies pain. pt empties own leg bag.
[2022-09-04] MEDS: SERTRALINE 100 MG TABLET 200 MG PO (20:58)
[2022-09-04] MEDS: QUETIAPINE 25 MG TABLET PO (20:58)
[2022-09-04] MEDS: MELATONIN 3 MG TABLET PO (20:58)
[2022-09-04] MEDS: ATORVASTATIN CALCIUM 40 MG TABLET PO (20:58)
[2022-09-04 21:00] VITALS: BP 162/96; PULSE 63; RESP 16; TEMP 36.3; O2SAT 98
--- NOTE | 2022-09-05 05:02 | PC.NURSE ---
[id number] Pt pleasant and cooperative, fell asleep on floor, helped to bed approx 0230, has been sleeping since.
[2022-09-05] MEDS: OMEPRAZOLE 20 MG CAPSULE DR 40 MG PO (09:47)
[2022-09-05] MEDS: TAMSULOSIN HCL 0.4 MG CAPSULE PO (09:47)
[2022-09-05] MEDS: ASPIRIN 81 MG TABLET EC PO (09:47)
[2022-09-05] MEDS: FINASTERIDE 5 MG TABLET PO (09:48)
[2022-09-05] MEDS: ACETAMINOPHEN 500 MG TABLET 1000 MG PO ×2 (09:48→20:05)
--- NOTE | 2022-09-05 13:49 | PC.NURSE ---
End of shift report: Patient achieved goals today set by patient and senior technical writer. He ate breakfast, took a shower, brushed his teeth, emptied his catheter. Provided word search and a dull pencil to work on word searches per patient request. Shared that he was in the [employer], had 1 biological son who is 45, has 4 step children with his x- and 13 adopted children. He has not had contact with them in some time. Has bi-polar disorder and has lost contact with a lot of people due to that. His brother, Edwar and sister Tamiko showed up today. He had his court hearing via zoom today as well. See social work note for more information. Patient has been calm and cooperative. Slow to follow directions and needs multiple reminders. Refused to let senior technical writer help with catheter care but did empty on own. Patient stated a few times I have no worth to this world. Offered active listening and reassurance.
--- NOTE | 2022-09-05 14:14 | PC.SOCIAL ---
Social work: combination worker met with pt this morning to confirm he would like to participate in his Emergency Guardianship Hearing at 1:30 today. Pt confirmed his plan to attend. combination worker brought computer into pt's room to connect to zoom meeting. Pt has two visitors in the room at the time. Visitors introduced themselves as pt's brother, Edwar Cueva (phone [phone]) and sister Tamiko Herron (phone [phone]). Brother asked pt if he could stay for the zoom meeting and pt stated be did not want him to stay. Pt did give permission to have his brother and sister added to his chart as contacts who can get information on him. At pt request, nursing home social worker stayed in pt's room for zoom meeting in case he had technical difficulty. PT participated in the Emergency Guardianship court hearing. Pt has been granted a 90day emergency guardian, Sera Haywood, [employer] [phone]. combination worker called [employer] and left message with contact information of hospital nursing home social worker. At request of brother and sister, met with them and updated them on pt's stay at the hospital and discharge plans. Family is aware and agrees with plans for a secure memory care unit. Brother requested to be updated by hospital when discharge plans are finalized. Social work to continue to work on appropriate placement for pt.
[2022-09-05 15:00] VITALS: RESP 16
--- NOTE | 2022-09-05 15:53 | PC.SOCIAL ---
Social work: Spoke with pt's [employer] yadira Sera Haywood, [facility] requested social work look for secure memory care in the [place] area as this is closer to her agency. At [facility], called [facility] secure memory care and spoke with Taras who requested information be faxed. called [facility] and spoke with admissions who state they do not accept pt's with catheter care at their memory care facility. drag out worker to follow up with [facility] memory care unit regardign evaluation for admit.
--- NOTE | 2022-09-05 16:52 | PC.SOCIAL ---
Social work: Social work continues outreach to facilities for placement. [facility] in [place] declined pt. due to no beds and inappropriate need for mental health placement. Faxed referrals to [facility] (Jessa, admissions, , fax [phone]), [facility] [place] (fax [phone]), and [facility] in [place] (fax [phone]). Left message with [facility] (Justina, admissions, ). Social work to arrange a virtual [id number] meeting with pt. and [facility] staff tomorrow as part of admissions process. Social work to follow up as needed.
--- NOTE | 2022-09-05 16:53 | PC.SOCIAL ---
Received additional phoen call from guardian, Sera, who requested social media campaign manager try additional secure facilities near her agency. Called the following as requested : [facility] M[facility]ry in [facility] [phone] left message; [facility] [phone] no option to leave message; [facility]den jason in [place] [phone] left message; Yeimi Fragoso in [place] [phone] left message. facility maintenance worker to follow up as needed.
[2022-09-05] MEDS: MELATONIN 3 MG TABLET PO (20:03)
[2022-09-05] MEDS: ATORVASTATIN CALCIUM 40 MG TABLET PO (20:03)
[2022-09-05] MEDS: SERTRALINE 100 MG TABLET 200 MG PO (20:04)
[2022-09-05] MEDS: QUETIAPINE 25 MG TABLET PO (20:04)
[2022-09-05 21:00] VITALS: BP 92/48; PULSE 85; RESP 16; TEMP 36.4; O2SAT 96
[2022-09-05] MEDS: polyethylene glycoL 3350 17 GM PACK PO (23:54)
[2022-09-05] MEDS: MAGNESIUM HYDROXIDE 30 ML ORAL.SUSP PO (23:54)
--- NOTE | 2022-09-06 06:04 | PC.NURSE ---
[id number]: Patient in a depressed state expressing suicidal idealization stating he has a plan but not a good one. When asked what his plan was he said to shoot myself with a gun. Surgery Specialist asked patient if he had a gun to which he replied not at the moment. Surgery Specialist utilized therapeutic communication and allowed patient to express himself. Later in the shift, patient apologized for his behavior and comments. Patient was noted to be awake most of the night. Patient spent half the night laying in bed and the other half up on his feet and sitting in the chair. Surgery Specialist encouraged walks around the unit and patient complied x2. Newspaper was offered but declined. Surgery Specialist educated patient on elevating lower extremities d/t increased edema. Chronic Flores cath patent draining only 150mL during shift. PO intake encouraged and patient consumed 250mL water. Other fluids/food offered but refused.
[2022-09-06 08:20] VITALS: RESP 16
[2022-09-06 08:30] VITALS: BP 110/55; PULSE 64; RESP 16; TEMP 36.6; O2SAT 98
--- NOTE | 2022-09-06 09:39 | NUTR.NU ---
LOS Note day 16. Patient admitted with need for placement. Has history of cognitive impairment, now with emergency guardian. Diet is Regular with meal intakes mainly 100%, however yesterday meal intakes were 50% x2 (will sometimes decline a meal). Weight has been stable during visit, current weight 161 lbs, BMI is normal at 21.8 kg/m2. With stable weight and good meal intakes, no nutrition interventions at this time. RDN will continue to monitor and follow-up prn.
--- NOTE | 2022-09-06 13:44 | P.IMPN_ITS ---
Progress Note: A&P Assessment and plan (1) Major depression: Problem details: Sertraline plus Seroquel Status: Acute (2) Lower extremity edema: Problem details: Chronic. Patient agrees to support hose for treatment. Status: Acute (3) Frontotemporal dementia: Problem details: - 08/10/22 MOCA 24/30 - Will need assistance by social work and state representatives to assume care of this vulnerable adult; guardianship has been initiated - unclear how or when frontotemporal dementia was diagnosed (noted in chart review); patient certainly is presenting more as severely depressed - psych inpatient stay most appropriate at this time Status: Acute (4) History of bipolar disorder: Problem details: Primarily exhibiting depression at this time. Sertraline plus Seroquel. Status: Acute (5) Chronic indwelling Flores catheter: Problem details: - recent urine culture negative. Typically changed monthly by nursing staff and or outpatient urology, last changed 08/02/22 Status: Acute (6) 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: Problem details: Apathy due to depression as well as dementia. Chronic passive suicidal ideation Status: Acute (7) Suicidal ideation: Problem details: Chronic concern. No specific plan. Agrees to contact me if thinking about acting on his suicidal ideation Status: Acute (8) Guilty feelings: Problem details: Patient appears to have guilty feelings about thinks he may have done in the p ast as well as the possibility that he may have given COVID to somebody else. I reassured him that he is not in trouble for this and he will not be punishment for this. Status: Acute Plan Continue in hospital pending safe discharge plan Time Spent With Patient Total time spent: Total time spent is 15 minutes is. All this in coordination of care and discussing with patient and other providers disposition Subjective Date Seen: 09/06/22 Interval history: 72-year-old male seen in followup of hospitalization for inability care for himself. Patient reports ongoing concerns that are primarily feeling guilty about things that have happened in his past. Court hearing went fairly well yesterday and apparently his guardianship has been approved. He is still pending placement. Nurses have not noted any behavioral problems. He has been wandering a little bit more in the hallway. Exam Narrative: Exam Narrative: He is pleasant and in no distress. Speech is still quite slow in response to questions. He is fluent. Still primarily verbalizing thoughts of guilt about his past. Still feeling like he should be punished. Otherwise appears comfortable. Observed ambulate in the ferguson without disturbing anybody else Const: Vital Signs, click to edit/add: Vital Signs - 24 hr 09/05/22 15:00 09/05/22 21:00 09/06/22 08:30 Temperature 97.6 F 97.8 F Pulse Rate [Left A pical] 85 Pulse Rate [Pulse Oximeter] 64 Respiratory Rate 16 16 16 Blood Pressure [Le ft Arm] 92/48 L Blood Pressure [Ri ght Arm] 110/55 L Pulse Oximetry 96 98 Oxygen Delivery Me thod Room Air Room Air Documenting provider has reviewed patient's vital signs: yes
--- NOTE | 2022-09-06 14:05 | PC.SOCIAL ---
Addendum entered by CHAY Palma 09/06/22 16:24: Survey Director reviewed and agrees with the initial note and amendment. Pt is currently scheduled for a [employer] meeting for face to face evaluation by RN at [facility] at 1:00 and by Clyde Montana at 2:30 on Saturday09/07/22. [facility] Neumann has stated that if accepted after this face to face meeting, they would be able to admit him to their facility early next week. community service worker to follow up as needed. Addendum entered by DAISY Coreas Student Energy Control Officer 09/06/22 15:57: [facility] Woodward returned call and has one shared room opening at their [place] location, faxed referral to [phone]. Clyde Montana ([place], ) returned call and requested a virtual meeting with pt. tomorrow at 2:30pm. Social work to arrange meeting. Social work to follow up as needed. Original Note: Social work: Social work continues outreach to memory care facilities. [facility] and [facility] (Justina, ), awaiting responses. Yeimi Coleo ([phone], fax [phone]) has an opening, sent referral, and will assess pt. tomorrow morning, earliest admit likely on Saturday. Virtual meeting arranged with [facility] tomorrow at 1pm. Sent referral to [facility] (Atul, director, , fax [phone]), awaiting update, left message. [facility] does not have bed for 2 weeks. [facility] has no beds, waitlist full. Social work to follow up as needed.
--- NOTE | 2022-09-06 14:46 | PC.NURSE ---
Pt. refused AM medications, as well as offer for suppository. Pleasant but guarded this shift. Walked in halls x1 with staff. Eating meals offered. Confused on day/date, but oriented to self and situation. Shows remorse for things I've said, and failing my test. Reinforced that staff are here to help and assist in keeping him safe, and to let us know if we can be helpful. Endorses suicidal ideation of shooting self, but notes no access to gun at home. Pt. has been sitting or pacing/standing in room most of this shift.
[2022-09-06 15:00] VITALS: RESP 16
--- NOTE | 2022-09-06 15:00 | PC.NURSE ---
Pt. declined to have RN empty urinary bag emptied this afternoon, but agreed to have staff re-approach him later on the subject.
[2022-09-06] MEDS: ACETAMINOPHEN 500 MG TABLET 1000 MG PO (21:28)
[2022-09-06] MEDS: QUETIAPINE 25 MG TABLET PO (21:29)
[2022-09-06] MEDS: ATORVASTATIN CALCIUM 40 MG TABLET PO (21:29)
[2022-09-06] MEDS: MELATONIN 3 MG TABLET PO (21:29)
[2022-09-06] MEDS: SERTRALINE 100 MG TABLET 200 MG PO (21:29)
[2022-09-06 23:00] VITALS: PULSE 69; PULSE 85; RESP 16
[2022-09-06 23:10] VITALS: BP 120/73; PULSE 69; RESP 16; TEMP 36.4; O2SAT 97
--- NOTE | 2022-09-07 06:06 | PC.NURSE ---
End of shift status [id number] Pt alert with chronic confusion. Pt very suspicious of staff and medications. Voiced concern that we have the doors locked and nobody can leave. Denied suicidal ideation when asked this shift. Up independently. VSS on room air. Pt was up in room until 0100, then observed resting in bed this AM. SW seeking placement.
[2022-09-07 07:00] VITALS: PULSE 72; RESP 18
[2022-09-07] MEDS: ACETAMINOPHEN 500 MG TABLET 1000 MG PO ×2 (08:59→20:50)
[2022-09-07] MEDS: OMEPRAZOLE 20 MG CAPSULE DR 40 MG PO (08:59)
[2022-09-07] MEDS: TAMSULOSIN HCL 0.4 MG CAPSULE PO (09:00)
[2022-09-07] MEDS: ASPIRIN 81 MG TABLET EC PO (09:00)
[2022-09-07] MEDS: polyethylene glycoL 3350 17 GM PACK PO (09:00)
[2022-09-07] MEDS: FINASTERIDE 5 MG TABLET PO (09:00)
[2022-09-07 09:11] VITALS: BP 114/61; PULSE 72; RESP 18; TEMP 36.8; O2SAT 98
--- NOTE | 2022-09-07 13:05 | PM.IMPN1 ---
Progress Note: A&P Assessment and plan (1) Major depression: Problem details: Sertraline plus Seroquel. Increase Seroquel to 50 mg daily. Status: Acute (2) Lower extremity edema: Problem details: Chronic. Patient agrees to support hose for treatment. Status: Acute (3) Frontotemporal dementia: Problem details: - 08/10/22 MOCA 24/30 - Will need assistance by social work and state representatives to assume care of this vulnerable adult; guardianship has been initiated - unclear how or when frontotemporal dementia was diagnosed (noted in chart review); patient certainly is presenting more as severely depressed - psych inpatient stay most appropriate at this time Status: Acute (4) History of bipolar disorder: Problem details: Primarily exhibiting depression at this time. Sertraline plus Seroquel. Status: Acute (5) Chronic indwelling Flores catheter: Problem details: - recent urine culture negative. Typically changed monthly by nursing staff and or outpatient urology, last changed 08/02/22 Status: Acute (6) 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: Problem details: Apathy due to depression as well as dementia. Chronic passive suicidal ideation Status: Acute (7) Suicidal ideation: Problem details: Chronic concern. No specific plan. Agrees to contact care providers if thinking about acting on his suicidal ideation Status: Acute (8) Guilty feelings: Problem details: Patient appears to have guilty feelings about thinks he may have done in the past as well as the possibility that he may have given COVID to somebody else. I reassured him that he is not in trouble for this and he will not be punished for this. Status: Acute Plan Continue in hospital pending safe discharge plan. Time Spent With Patient Total time spent: Total time spent today is 15 minutes. All the discussing with patient and other providers management of mental illness and disposition Subjective Date Seen: 09/07/22 Interval history: 72-year-old male seen in followup of hospitalization for inability care for himself and mental illness. Currently being treated for bipolar depression. Patient verbalized to the nurse last night some suicidal ideation. He tells me he has continued to have some occasional passive thoughts about this but has not currently suicidal or having a plan. He has stated a willingness to let his care providers know if he is actively suicidal. Nursing staff note that he has been pleasant and cooperative. Occasionally wandering in the [place]. Continues to verbalize guilt over his past unspecified actions and is feeling that he should be punished for what he has done. Exam Narrative: Exam Narrative: He is alert, pleasant in no distress. Speech is normal. Mentation is somewhat slow but otherwise articulate and appropriate. No evidence of delusions or hallucinations. No agitation Const: Vital Signs, click to edit/add: Vital Signs - 24 hr 09/06/22 15:00 09/06/22 23:10 09/06/22 23:00 Temperature 97.5 F L Pulse Rate [Left A pical] 85 Pulse Rate [Pulse Oximeter] 69 69 Respiratory Rate 16 16 16 Blood Pressure [Le ft Arm] 120/73 Blood Pressure [Ri ght Arm] Pulse Oximetry 97 Oxygen Delivery Me thod Room Air 09/07/22 09:11 09/07/22 07:00 Temperature 98.3 F Pulse Rate [Left A pical] Pulse Rate [Pulse Oximeter] 72 72 Respiratory Rate 18 18 Blood Pressure [Le ft Arm] Blood Pressure [Ri ght Arm] 114/61 Pulse Oximetry 98 Oxygen Delivery Me thod Room Air Documenting provider has reviewed patient's vital signs: yes
--- NOTE | 2022-09-07 16:13 | PC.SOCIAL ---
Addendum entered by CHAY Palma 09/07/22 16:17: Spray I Painter reviewed and agrees with this note. Original Note: Social work: Social work continues outreach to memory care facilities. Pt. participated in a virtual Webex meeting with RN at [facility] at 1pm today, social work faxed over information to supplement (fax [phone]), awaits admission updates. [facility] ([place], ) rescheduled to Saturday, social work to arrange. [facility] ([place], ) [facility] still [facility]. Yeimi Armstrong ([phone], fax [phone]) to update social work on referral by end of day today. [facility] ([place], director, , fax [phone]) is still assessing pt., but says if accepted, admit early next week is possible. Caleb Mabry ([place], , fax [phone]) returned call and will assess, social work sent referral. Social work to follow up as needed.
--- NOTE | 2022-09-07 18:49 | PC.NURSE ---
End of Shift: Patient pleasant and cooperative. Patient vitally stable with morning vitals, lungs clear, BS WNL, NO IV. Patient rated hip pain 5/10, scheduled tylenol given. Patient independent in room and used shower today to clean self up. Patient with 1+ pitting edema in LE. Patient tolerating regular diet, chun patent and intact, No BM this shift. Patient did take his miralax this morning. Patient denied suicidal ideation this morning with no plan, but reported suicidal ideation this afternoon with no plan. Patient had an hour long teleinterview for potential placement.
[2022-09-07] MEDS: ATORVASTATIN CALCIUM 40 MG TABLET PO (20:50)
[2022-09-07] MEDS: MELATONIN 3 MG TABLET PO (20:50)
[2022-09-07] MEDS: QUETIAPINE 25 MG TABLET 50 MG PO (20:51)
[2022-09-07] MEDS: SERTRALINE 100 MG TABLET 150 MG PO (20:51)
[2022-09-07 23:00] VITALS: RESP 18
[2022-09-08] MEDS: OLANZapine 5 MG/ML inj IM (00:40)
--- NOTE | 2022-09-08 05:32 | PC.NURSE ---
Shift note: Pt repeatedly tried to leave facility. Facility security was on guard. Pt re-directed several times and educated about the need to remain at the facility. IM Olanzapine was given as ordered and pt finally retired to bed at 0130 and has been sleeping for the rest of the night.
[2022-09-08 07:22] VITALS: BP 133/77; PULSE 72; RESP 18; TEMP 36.7; O2SAT 97
[2022-09-08 07:26] VITALS: PULSE 72; RESP 18
--- NOTE | 2022-09-08 08:14 | PC.NURSE ---
house keeping notified charge nurse that the pt was downstairs. pt was found in the cafeteria area and brought back to med/surg
[2022-09-08] MEDS: TAMSULOSIN HCL 0.4 MG CAPSULE PO (08:33)
[2022-09-08] MEDS: OMEPRAZOLE 20 MG CAPSULE DR 40 MG PO (08:33)
[2022-09-08] MEDS: polyethylene glycoL 3350 17 GM PACK PO (08:34)
[2022-09-08] MEDS: ACETAMINOPHEN 500 MG TABLET 1000 MG PO ×2 (08:34→20:55)
[2022-09-08] MEDS: ASPIRIN 81 MG TABLET EC PO (08:34)
[2022-09-08] MEDS: FINASTERIDE 5 MG TABLET PO (08:35)
[2022-09-08] MEDS: MAGNESIUM HYDROXIDE 30 ML ORAL.SUSP PO (11:24)
--- NOTE | 2022-09-08 12:35 | PM.IMPN1 ---
Progress Note: A&P Assessment and plan (1) Major depression: Problem details: Sertraline plus Seroquel. Status: Acute (2) Lower extremity edema: Problem details: Chronic. Patient agrees to support hose for treatment. Status: Acute (3) Frontotemporal dementia: Problem details: - 08/10/22 MOCA 24/30 - Will need assistance by social work and state representatives to assume care of this vulnerable adult; guardianship has been initiated - unclear how or when frontotemporal dementia was diagnosed (noted in chart review); patient certainly is presenting more as severely depressed - psych inpatient stay most appropriate at this time Status: Acute (4) History of bipolar disorder: Problem details: Primarily exhibiting depression at this time. Sertraline plus Seroquel. Status: Acute (5) Chronic indwelling Flores catheter: Problem details: - recent urine culture negative. Typically changed monthly by nursing staff and or outpatient urology, last changed 08/02/22 Status: Acute (6) 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: Problem details: Apathy due to depression as well as dementia. Chronic passive suicidal ideation Status: Acute (7) Suicidal ideation: Problem details: Chronic concern. No specific plan. Agrees to contact care providers if thinking about acting on his suicidal ideation Status: Acute (8) Guilty feelings: Problem details: Patient appears to have guilty feelings about thinks he may have done in the past as well as the possibility that he may have given COVID to somebody else. He has been reassured that he is not in trouble for this and he will not be punished for this. Status: Acute Plan This is a 72-year-old male here for mental illness and inability to care for himself. He is currently being treated with sertraline and Seroquel for bipolar depression with suicidal ideation. Several residential facilities are in the process of assessing his case. There is no safe discharge plan for him at present. Subjective Time Seen by Provider: 11:46 Date Seen: 09/08/22 Interval history: Continues to wander and tries to leave unit at times. He was sitting in a chair right behind the curtain this morning. He was just sitting without doing anything else. No TV or radio on. He denied any complains or concerns. Exam Narrative: Exam Narrative: General: No acute distress. Pleasant. Awake, alert. No pallor. No jaundice. Cardiovascular: Regular rate and rhythm. No murmurs, gallops, or rubs. Respiratory: Clear to auscultation bilaterally. No wheezes or crackles. Const: Vital Signs, click to edit/add: Vital Signs - 24 hr 09/07/22 23:00 09/08/22 07:22 09/08/22 07:26 Temperature 98.1 F Pulse Rate [Pulse Oximeter] 72 72 Respiratory Rate 18 18 18 Blood Pressure [Ri ght Arm] 133/77 Pulse Oximetry 97 Oxygen Delivery Me thod Room Air Documenting provider has reviewed patient's vital signs: yes
[2022-09-08 14:55] VITALS: PULSE 72; RESP 18
--- NOTE | 2022-09-08 16:50 | PC.NURSE ---
End of Shift: Pt has been pleasant. no behavior problems. it is his one month anniversary here. no pain per pt, he got MOM today and later he had a BM. he has not tried to escape, the floor today 7a -7p. Pt is up ab reyna, in his room. He washed up and brushed his teeth, Flores cath is patent, and hooked to a leg bag, and it was emptied. Pt has 1+ pitting edema to leg. he is eating, drinking with no problems. he says, he is not hungry and wants nothing to eat. but he does eat a tray that we ordered for him. Pt denied suicidal ideation today, he got sweat pants and sweat shirt today. he is very bored. offered to get him a variety of things to do and he did declined all ideas.
[2022-09-08 20:55] VITALS: TEMP 36.7
[2022-09-08] MEDS: QUETIAPINE 25 MG TABLET 50 MG PO (20:55)
[2022-09-08] MEDS: SENNOSIDES/DOCUSATE TABLET 2 TAB PO (20:55)
[2022-09-08] MEDS: MELATONIN 3 MG TABLET PO (20:56)
[2022-09-08] MEDS: LORazepam 1 MG TABLET PO (20:56)
[2022-09-08] MEDS: SERTRALINE 100 MG TABLET 150 MG PO (20:56)
[2022-09-08] MEDS: ATORVASTATIN CALCIUM 40 MG TABLET PO (20:56)
[2022-09-08 22:46] VITALS: PULSE 72; RESP 18
--- NOTE | 2022-09-09 04:12 | PC.NURSE ---
Pt was cooperative and rested well most of the night.
[2022-09-09 08:15] VITALS: BP 116/71; PULSE 69; RESP 16; TEMP 36.7; O2SAT 97
[2022-09-09 08:17] VITALS: RESP 16
[2022-09-09] MEDS: polyethylene glycoL 3350 17 GM PACK PO (08:27)
[2022-09-09] MEDS: ACETAMINOPHEN 500 MG TABLET 1000 MG PO ×2 (08:27→20:54)
[2022-09-09] MEDS: FINASTERIDE 5 MG TABLET PO (08:28)
[2022-09-09] MEDS: OMEPRAZOLE 20 MG CAPSULE DR 40 MG PO (08:28)
[2022-09-09] MEDS: ASPIRIN 81 MG TABLET EC PO (08:29)
[2022-09-09] MEDS: TAMSULOSIN HCL 0.4 MG CAPSULE PO (08:29)
--- NOTE | 2022-09-09 10:31 | PM.IMPN1 ---
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 Chronic passive suicidal ideation Status: Acute (2) Guilty feelings: Problem details: Patient appears to have guilty feelings about thinks he may have done in the past as well as the possibility that he may have given COVID to somebody else. He has been reassured that he is not in trouble for this and he will not be punished for this. Status: Acute (3) Major depression: Problem details: Sertraline plus Seroquel. Status: Acute (4) Suicidal ideation: Problem details: Chronic concern. No specific plan. Agrees to contact care providers if thinking about acting on his suicidal ideation Status: Acute (5) Frontotemporal dementia: Problem details: - 08/10/22 MOCA - Will need assistance by social work and state representatives to assume care of this vulnerable adult; guardianship has been initiated - unclear how or when frontotemporal dementia was diagnosed (noted in chart review); patient certainly is presenting more as severely depressed - psych inpatient stay most appropriate at this time Status: Acute (6) History of bipolar disorder: Problem details: Primarily exhibiting depression at this time. Sertraline plus Seroquel. Status: Acute (7) Lower extremity edema: Problem details: Chronic. Patient agrees to support hose for treatment. Status: Acute (8) Chronic indwelling Flores catheter: Problem details: - recent urine culture negative. Typically changed monthly by nursing staff and or outpatient urology, last changed 08/02/22 Status: Acute Plan This is a 72-year-old male here for mental illness and inability to care for himself. He is currently being treated with sertraline and Seroquel for bipolar depression with suicidal ideation and appears to have stabilized on these medications for now. Several assisted facilities are in the process of assessing his case. There is no safe discharge plan for him at present. Subjective Time Seen by Provider: 09:11 Date Seen: 09/08/22 Interval history: William was sitting in a chair right behind the curtain again this morning. He was reading the book of Job in the Bible. He denied any complains or concerns. He was not talkative. Exam Narrative: Exam Narrative: General: No acute distress. Pleasant. Awake, alert. No pallor. No jaundice. Respiratory: Clear to auscultation bilaterally. No wheezes or crackles. Const: Vital Signs, click to edit/add: Vital Signs - 24 hr 09/08/22 14:55 09/08/22 20:55 09/08/22 22:46 Temperature 98.1 F Pulse Rate [Pulse Oximeter] 72 72 Respiratory Rate 18 18 Blood Pressure [Le ft Arm] Pulse Oximetry Oxygen Delivery Me thod 09/09/22 08:15 09/09/22 08:17 Temperature 98.0 F Pulse Rate [Pulse Oximeter] 69 Respiratory Rate 16 16 Blood Pressure [Le ft Arm] 116/71 Pulse Oximetry 97 Oxygen Delivery Me thod Room Air Documenting provider has reviewed patient's vital signs: yes
[2022-09-09 15:00] VITALS: RESP 16
--- NOTE | 2022-09-09 18:38 | PC.NURSE ---
End of Shift: ? Pt is? pleasant.? no behavior problems today he did not try to leave today.? no pain per pt,?? Pt is up ab reyna,? Flores cath is patent,? and hooked to a leg bag,? and it was emptied. ? Pt has +2 pitting edema to leg. ? he is eating, drinking with no problems.? Pt denied any suicidal ideation today,?
[2022-09-09] MEDS: MELATONIN 3 MG TABLET PO (20:54)
[2022-09-09] MEDS: ATORVASTATIN CALCIUM 40 MG TABLET PO (20:54)
[2022-09-09] MEDS: QUETIAPINE 25 MG TABLET 50 MG PO (20:55)
[2022-09-09] MEDS: SENNOSIDES/DOCUSATE TABLET 2 TAB PO (20:55)
[2022-09-09] MEDS: SERTRALINE 100 MG TABLET 150 MG PO (20:55)
--- NOTE | 2022-09-10 05:36 | PC.NURSE ---
Shift note: Pt has been sleeping well tonight. No wandering noted. Denied pain.
[2022-09-10 07:00] VITALS: RESP 16
[2022-09-10] MEDS: OMEPRAZOLE 20 MG CAPSULE DR 40 MG PO (08:52)
[2022-09-10] MEDS: polyethylene glycoL 3350 17 GM PACK PO (08:53)
[2022-09-10] MEDS: ASPIRIN 81 MG TABLET EC PO (08:53)
[2022-09-10] MEDS: FINASTERIDE 5 MG TABLET PO (08:53)
[2022-09-10] MEDS: ACETAMINOPHEN 500 MG TABLET 1000 MG PO ×2 (08:53→20:45)
[2022-09-10] MEDS: TAMSULOSIN HCL 0.4 MG CAPSULE PO (08:53)
[2022-09-10 09:00] VITALS: BP 102/74; RESP 16; TEMP 36.6; O2SAT 97
--- NOTE | 2022-09-10 13:59 | PC.NURSE ---
pleasant and cooperative with AM assessment. refused ambulation in hallway x2 today. Flores patent - leg bag in place. urine cloudy, encouraged patient to drink more fluids.
--- NOTE | 2022-09-10 14:19 | PM.IMPN1 ---
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 Chronic passive suicidal ideation Status: Acute (2) Guilty feelings: Problem details: Patient appears to have guilty feelings about thinks he may have done in the past as well as the possibility that he may have given COVID to somebody else. He has been reassured that he is not in trouble for this and he will not be punished for this. Status: Acute (3) Major depression: Problem details: Sertraline plus Seroquel. Status: Acute (4) Suicidal ideation: Problem details: Chronic concern. No specific plan. Agrees to contact care providers if thinking about acting on his suicidal ideation Status: Acute (5) Frontotemporal dementia: Problem details: - 08/10/22 MOCA - Will need assistance by social work and state representatives to assume care of this vulnerable adult; guardianship has been initiated - unclear how or when frontotemporal dementia was diagnosed (noted in chart review); patient certainly is presenting more as severely depressed Status: Acute (6) History of bipolar disorder: Problem details: Primarily exhibiting depression at this time. Sertraline plus Seroquel. Status: Acute (7) Lower extremity edema: Problem details: Chronic. Patient agrees to support hose for treatment. Status: Acute (8) Chronic indwelling Flores catheter: Problem details: - recent urine culture negative. Typically changed monthly by nursing staff and or outpatient urology, last changed 08/02/22 Status: Acute Plan This is a 72-year-old male here for mental illness and inability to care for himself. He is currently being treated with sertraline and Seroquel for bipolar depression with suicidal ideation and appears to have stabilized on these medications for now. Several facilities are in the process of assessing his case. There is no safe discharge plan for him at present. Subjective Time Seen by Provider: 08:18 Date Seen: 09/10/22 Interval history: William was sitting in a chair right behind the curtain reading the Bible. He denied any complains or concerns. He did not have any questions. He has not been wandering in the last 2 days. Exam Narrative: Exam Narrative: General: No acute distress. Pleasant. Awake, alert. No pallor. No jaundice. Const: Vital Signs, click to edit/add: Vital Signs - 24 hr 09/09/22 15:00 09/10/22 07:00 09/10/22 09:00 Temperature 97.8 F Respiratory Rate 16 16 16 Blood Pressure [Le ft Arm] 102/74 Pulse Oximetry 97 Oxygen Delivery Me thod Room Air Documenting provider has reviewed patient's vital signs: yes
--- NOTE | 2022-09-10 15:08 | PC.SOCIAL ---
Addendum entered by CHAY Palma 09/11/22 08:27: Co Supervisor Grounds And Landscape has reviewed and agrees with this note. Original Note: Social work: [facility] ([phone], Ryan) updated social work that they are still working on admissions process for pt., will call social work as soon as update is available. [facility] ([phone]) was assessing as of this morning, will call social work with update. Social work left messages with [facility] (Justina, ), [facility] ([phone]), and [facility] (Atul, director, ) requesting updates. Communicated update on facilities with pt.'s guardian Sera Haywood. Social work to follow up as needed.
--- NOTE | 2022-09-10 16:39 | PC.SOCIAL ---
Received a phone call from Nadeen at [facility] ([phone]). Nadeen would like to come in person to assess pt for possible admission. Nadeen will come on September 14, 2022 (Saturday) at 11:00 am. Social Work will follow up as necessary. Provided information to charge nurse.
[2022-09-10] MEDS: ATORVASTATIN CALCIUM 40 MG TABLET PO (20:46)
[2022-09-10] MEDS: QUETIAPINE 25 MG TABLET 50 MG PO (20:47)
[2022-09-10] MEDS: SENNOSIDES/DOCUSATE TABLET 2 TAB PO (20:47)
[2022-09-10] MEDS: MELATONIN 3 MG TABLET PO (20:47)
[2022-09-10] MEDS: SERTRALINE 100 MG TABLET 150 MG PO (20:48)
[2022-09-10 21:00] VITALS: BP 137/84; PULSE 68; RESP 16; TEMP 36.6; O2SAT 98
--- NOTE | 2022-09-10 21:12 | PC.NURSE ---
William has been more talkative today. Reading in his room. Did refuse to walk and put TEDS on x2.
[2022-09-11 07:00] VITALS: PULSE 75; RESP 20
--- NOTE | 2022-09-11 08:44 | PC.SOCIAL ---
Social work: Information on pt's brother and sister who visited pt at the hospital during this stay is being included in this note.Ptt has a court appointed guardian, who is his decision maker. This information on family is being included in the chart and has been provided to pt's guardian. These family members are not able to make decisions for pt. Edwar Cueva (brother), [address] [place], [place] phone [phone]. Tamiko Herron (sister) [address], [place] [address], phone [phone].
[2022-09-11 09:13] VITALS: BP 101/66; PULSE 75; RESP 20; TEMP 36.9; O2SAT 98
[2022-09-11] MEDS: ACETAMINOPHEN 500 MG TABLET 1000 MG PO (09:44)
[2022-09-11] MEDS: TAMSULOSIN HCL 0.4 MG CAPSULE PO (09:45)
[2022-09-11] MEDS: FINASTERIDE 5 MG TABLET PO (09:45)
[2022-09-11] MEDS: OMEPRAZOLE 20 MG CAPSULE DR 40 MG PO (09:45)
[2022-09-11] MEDS: ASPIRIN 81 MG TABLET EC PO (09:45)
[2022-09-11] MEDS: polyethylene glycoL 3350 17 GM PACK PO (09:46)
--- NOTE | 2022-09-11 13:51 | PC.NURSE ---
End of Shift Note: Damian has not had any behaviors this shift. Has been up in his room sitting in a chair and reading the holy bible. Took medications without any problem. Offers no complaints of anything will continue to monitor.
--- NOTE | 2022-09-11 14:02 | PM.IMPN1 ---
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 Chronic passive suicidal ideation Status: Acute (2) Guilty feelings: Problem details: Patient appears to have guilty feelings about thinks he may have done in the past as well as the possibility that he may have given COVID to somebody else. He has been reassured that he is not in trouble for this and he will not be punished for this. Status: Acute (3) Major depression: Problem details: Sertraline plus Seroquel. Status: Acute (4) Suicidal ideation: Problem details: Chronic concern. No specific plan. Agrees to contact care providers if thinking about acting on his suicidal ideation Status: Acute (5) Frontotemporal dementia: Problem details: - 08/10/22 MOCA - Will need assistance by social work and state representatives to assume care of this vulnerable adult; guardianship has been initiated - unclear how or when frontotemporal dementia was diagnosed (noted in chart review); patient certainly is presenting more as severely depressed Status: Acute (6) History of bipolar disorder: Problem details: Primarily exhibiting depression at this time. Sertraline plus Seroquel. Status: Acute (7) Lower extremity edema: Problem details: Chronic. Patient agrees to support hose for treatment. Status: Acute (8) Chronic indwelling Flores catheter: Problem details: - recent urine culture negative. Typically changed monthly by nursing staff and or outpatient urology, last changed 09/11/22 - change [id number] Status: Acute Plan This is a 72-year-old male here for mental illness and inability to care for himself. He is currently being treated with sertraline and Seroquel for bipolar depression with suicidal ideation and appears to have stabilized on these medications for now. Several facilities are in the process of assessing his case. There is no safe discharge plan for him at present. Urinary catheter needs to be changed q30 days. Last changed 08/02/22. Change catheter today. Subjective Time Seen by Provider: 08:07 Date Seen: 09/11/22 Interval history: William was sitting in a chair right behind the curtain eating breakfast. He smiled at a joke I made this morning. This is the first time I have seen him smile. He denied any complains or concerns. He did not have any questions. Exam Narrative: Exam Narrative: General: No acute distress. Pleasant. Awake, alert. No pallor. No jaundice. Cardiovascular: RRR. Chest: CTAB. No crackles or wheezes. Const: Vital Signs, click to edit/add: Vital Signs - 24 hr 09/10/22 21:00 09/11/22 07:00 09/11/22 09:13 Temperature 97.8 F 98.5 F Pulse Rate [Left A pical] 68 75 75 Respiratory Rate 16 20 20 Blood Pressure [Le ft Arm] 137/84 101/66 Pulse Oximetry 98 98 Oxygen Delivery Me thod Room Air Room Air Documenting provider has reviewed patient's vital signs: yes
[2022-09-11 15:00] VITALS: RESP 18
[2022-09-11] MEDS: ATORVASTATIN CALCIUM 40 MG TABLET PO (19:29)
[2022-09-11] MEDS: MELATONIN 3 MG TABLET PO (19:29)
[2022-09-11] MEDS: SENNOSIDES/DOCUSATE TABLET 2 TAB PO (19:29)
[2022-09-11] MEDS: QUETIAPINE 25 MG TABLET 50 MG PO (19:29)
[2022-09-11] MEDS: SERTRALINE 100 MG TABLET 150 MG PO (19:30)
[2022-09-11] MEDS: ACETAMINOPHEN 325 MG TABLET PO (19:35)
[2022-09-11 19:45] VITALS: BP 121/72; PULSE 64; RESP 18; TEMP 36.6; O2SAT 98
--- NOTE | 2022-09-11 21:49 | PC.NURSE ---
Shift Note [id number]: Pt alert and oriented. Spent majority of the afternoon reading the bible in a chair just inside his room. Defense Travel Administrator approached pt about changing his catheter and pt stated he did not want to at that moment. Pt was reapproached after dinner and he continued to state he did not want to have his catheter changed. Defense Travel Administrator discussed risks associated with not changing it out and informed him it has been greater than 30 days since his catheter was changed. Pt agreed this will need to be done but again stated he did not want to do it at that moment. Pt was reapproached for a third time at in which he again refused. Defense Travel Administrator discussed with pt when a good time would be for him and again stated this needed to occur to prevent infection. Pt verbalized understanding and stated he was willing to have his catheter changed tomorrow 09/12/22.
[2022-09-12 01:01] VITALS: PULSE 68; RESP 18
--- NOTE | 2022-09-12 05:06 | PC.NURSE ---
Shift note: The pt has been pleasant and cooperative. Denied any distress or concerns this shift. Denied suicidal ideation. Sleeping intermittently. The pt is agreed to replace Flores catheter in the morning. .
[2022-09-12 08:25] VITALS: PULSE 68; RESP 18
[2022-09-12 08:27] VITALS: BP 119/77; PULSE 57; RESP 16; TEMP 36.7; O2SAT 95
[2022-09-12] MEDS: TAMSULOSIN HCL 0.4 MG CAPSULE PO (08:55)
[2022-09-12] MEDS: ACETAMINOPHEN 500 MG TABLET 1000 MG PO ×2 (08:55→20:13)
[2022-09-12] MEDS: polyethylene glycoL 3350 17 GM PACK PO (08:55)
[2022-09-12] MEDS: FINASTERIDE 5 MG TABLET PO (08:55)
[2022-09-12] MEDS: ASPIRIN 81 MG TABLET EC PO (08:55)
[2022-09-12] MEDS: OMEPRAZOLE 20 MG CAPSULE DR 40 MG PO (08:55)
--- NOTE | 2022-09-12 09:59 | PM.IMPN1 ---
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 Chronic passive suicidal ideation Status: Acute (2) Guilty feelings: Problem details: Patient appears to have guilty feelings about thinks he may have done in the past as well as the possibility that he may have given COVID to somebody else. He has been reassured that he is not in trouble for this and he will not be punished for this. Status: Acute (3) Major depression: Problem details: Sertraline plus Seroquel. Status: Acute (4) Suicidal ideation: Problem details: Chronic concern. No specific plan. Agrees to contact care providers if thinking about acting on his suicidal ideation Status: Acute (5) Frontotemporal dementia: Problem details: - 08/10/22 MOCA - Will need assistance by social work and state representatives to assume care of this vulnerable adult; guardianship has been initiated - unclear how or when frontotemporal dementia was diagnosed (noted in chart review); patient certainly is presenting more as severely depressed Status: Acute (6) History of bipolar disorder: Problem details: Primarily exhibiting depression at this time. Sertraline plus Seroquel. Status: Acute (7) Lower extremity edema: Problem details: Chronic. Patient agrees to support hose for treatment. Status: Acute (8) Chronic indwelling Flores catheter: Problem details: - recent urine culture negative. Typically changed monthly by nursing staff and or outpatient urology, last changed 09/11/22 - change [id number] Status: Acute Plan This is a 72-year-old male here for mental illness and inability to care for himself. He is currently being treated with sertraline and Seroquel for bipolar depression with suicidal ideation and appears to have stabilized on these medications. Several facilities are still in the process of assessing his case. There is no safe discharge plan for him at present. Urinary catheter needs to be changed q30 days. Last changed 09/11/22. Subjective Time Seen by Provider: 08:09 Date Seen: 09/12/22 Interval history: William was eating breakfast in the chair this morning. He denies questions, complaints, or concerns. Exam Narrative: Exam Narrative: General: No acute distress. Pleasant. Awake, alert. No pallor. No jaundice. Cardiovascular: RRR. Chest: CTAB. No crackles or wheezes. Const: Vital Signs, click to edit/add: Vital Signs - 24 hr 09/11/22 15:00 09/11/22 19:45 09/12/22 01:01 Temperature 97.9 F Pulse Rate [Left A pical] 64 68 Respiratory Rate 18 18 18 Blood Pressure [Le ft Arm] 121/72 Pulse Oximetry 98 Oxygen Delivery Me thod Room Air 09/12/22 08:25 09/12/22 08:27 Temperature 98.0 F Pulse Rate [Left A pical] 68 57 L Respiratory Rate 18 16 Blood Pressure [Le ft Arm] 119/77 Pulse Oximetry 95 Oxygen Delivery Me thod Room Air Documenting provider has reviewed patient's vital signs: yes
[2022-09-12 15:55] VITALS: RESP 16
--- NOTE | 2022-09-12 16:06 | PC.SOCIAL ---
Addendum entered by CHAY Palma 09/14/22 20:35: Facility Manager has reviewed and agrees with this note. Original Note: Social work: Called [facility], said that they have no openings and cannot accept pt. at this time. [facility] ([phone], Ryan) updated that they have accepted pt., earliest that they can take pt. is Saturday due to other admits on Saturday and Saturday. Social work called yadira Haywood ([phone]), who requested to stay updated on pt.'s discharge plan tomorrow so that she can visit pt. Social work left message to update on pt.'s discharge plan and ask what time she would like to meet pt. at the hospital tomorrow. Social work to follow up as needed.
[2022-09-12] MEDS: lidocaine HCL 2 % JELLY (TOP) STERILE 6 ML UR (18:01)
--- NOTE | 2022-09-12 18:09 | PC.NURSE ---
End of Shift: ? Pt has been pleasant.? no behavior problems or issues. pt is reading the BIBLE. ? he did not try to leave today.? no pain. ?? Pt is up ab reyna,? Flores cath is patent,? and hooked to a leg bag,? and it was emptied. ? and it was changed. Uro jet was used, Pt has +1 pitting edema to leg. ? he is eating, drinking with no problems.? Pt denied any suicidal ideation,?
[2022-09-12] MEDS: LORazepam 1 MG TABLET PO (20:12)
[2022-09-12] MEDS: MELATONIN 3 MG TABLET PO (20:14)
[2022-09-12] MEDS: ATORVASTATIN CALCIUM 40 MG TABLET PO (20:15)
[2022-09-12] MEDS: SERTRALINE 100 MG TABLET 150 MG PO (20:15)
[2022-09-12] MEDS: QUETIAPINE 25 MG TABLET 50 MG PO (20:17)
[2022-09-12] MEDS: SENNOSIDES/DOCUSATE TABLET 2 TAB PO (20:18)
[2022-09-12 23:00] VITALS: RESP 16
--- NOTE | 2022-09-13 05:36 | PC.NURSE ---
VSS on RA. Patient is alert and oriented, able to call for help. Patient denies pain on assessment, tolerated scheduled medications without further concern. PRN Ativan given with good effect. Flores Cath in place, patent and draining well. Patient slept most of the shift and comfortable.
[2022-09-13 08:03] VITALS: BP 120/82; PULSE 64; RESP 18; TEMP 36.5; O2SAT 97
[2022-09-13] MEDS: ACETAMINOPHEN 500 MG TABLET 1000 MG PO ×2 (08:13→20:09)
[2022-09-13] MEDS: OMEPRAZOLE 20 MG CAPSULE DR 40 MG PO (08:14)
[2022-09-13] MEDS: FINASTERIDE 5 MG TABLET PO (08:15)
[2022-09-13] MEDS: TAMSULOSIN HCL 0.4 MG CAPSULE PO (08:15)
[2022-09-13] MEDS: ASPIRIN 81 MG TABLET EC PO (08:15)
[2022-09-13] MEDS: polyethylene glycoL 3350 17 GM PACK PO (08:16)
--- NOTE | 2022-09-13 09:19 | NUTR.NU ---
LOS Note day 23. Patient admitted with need for placement. Has history of cognitive impairment, now with guardian. Diet is Regular with meal intakes mainly 100% within past week. Weight has been stable during visit, current weight 161 lbs, BMI is normal at 21.8 kg/m2. With stable weight and good meal intakes, no nutrition interventions at this time. RDN will continue to monitor and follow-up prn.
--- NOTE | 2022-09-13 10:55 | PC.SOCIAL ---
Addendum entered by CHAY aPlma 09/14/22 20:35: Turkey Cleaner has reviewed and agrees with this note. Original Note: Social Work: Spoke with Nadeen at [facility] ([phone]), requested that we move in-person visit with pt. to 1pm on Saturday. Social work to follow up as needed.
[2022-09-13 15:30] VITALS: RESP 18
--- NOTE | 2022-09-13 15:30 | PM.IMPN1 ---
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 Chronic passive suicidal ideation Status: Acute (2) Guilty feelings: Problem details: Patient appears to have guilty feelings about thinks he may have done in the past as well as the possibility that he may have given COVID to somebody else. He has been reassured that he is not in trouble for this and he will not be punished for this. Status: Acute (3) Major depression: Problem details: Sertraline plus Seroquel. Status: Acute (4) Suicidal ideation: Problem details: Chronic concern. No specific plan. Agrees to contact care providers if thinking about acting on his suicidal ideation Status: Acute (5) Frontotemporal dementia: Problem details: - 08/10/22 MOCA - Will need assistance by social work and state representatives to assume care of this vulnerable adult; guardianship has been initiated - unclear how or when frontotemporal dementia was diagnosed (noted in chart review); patient certainly is presenting more as severely depressed Status: Acute (6) History of bipolar disorder: Problem details: Primarily exhibiting depression at this time. Sertraline plus Seroquel. Status: Acute (7) Lower extremity edema: Problem details: Chronic. Patient agrees to support hose for treatment. Status: Acute (8) Chronic indwelling Flores catheter: Problem details: - recent urine culture negative. Typically changed monthly by nursing staff and or outpatient urology, last changed 09/12/22 - change [id number] Status: Acute Plan - continue to seek out safe discharge plan, appreciate input from social work team - aspirin, ambulation, SCDs for prophylaxis Subjective Date Seen: 09/13/22 Interval history: No acute events overnight. No concerns from patient or nursing staff. Urinary catheter changed 09/12. Exam Narrative: Exam Narrative: Patient sitting comfortably in chair. We played cards during my visit today. Breathing comfortably. No tremor, fine motor movements within normal limits. Const: Vital Signs, click to edit/add: Vital Signs - 24 hr 09/12/22 15:55 09/12/22 23:00 09/13/22 08:03 Temperature 97.7 F Pulse Rate [Left A pical] 64 Pulse Rate [Pulse Oximeter] 64 Respiratory Rate 16 16 18 Blood Pressure [Le ft Arm] 120/82 Pulse Oximetry 97 Oxygen Delivery Me thod Room Air
--- NOTE | 2022-09-13 15:56 | PC.SOCIAL ---
Addendum entered by CHAY Palma 09/14/22 20:35: Cigarette Inspector has reviewed and agrees with this note. Original Note: Social work: Spoke with pt.'s Denise ed case manager Sabina Chang ([phone]), who requested to speak on the phone with pt. on Saturday to complete an ADL assessment. Phone call arranged for Saturday at 9:30am. Social work to follow up as needed.
--- NOTE | 2022-09-13 18:31 | PC.NURSE ---
End of Shift: 3p-7p ? Pt is pleasant.? no problems. ? pt is reading the BIBLE today also.? no pain. ?? Pt is up ab reyna,? Flores cath is patent,? right leg bag,? and it was emptied. ? he is eating, drinking with no problems.? Pt denied any suicidal ideation,
[2022-09-13] MEDS: QUETIAPINE 25 MG TABLET 50 MG PO (20:10)
[2022-09-13] MEDS: SERTRALINE 100 MG TABLET 150 MG PO (20:10)
[2022-09-13] MEDS: MELATONIN 3 MG TABLET PO (20:12)
[2022-09-13] MEDS: SENNOSIDES/DOCUSATE TABLET 2 TAB PO (20:12)
[2022-09-13] MEDS: LORazepam 1 MG TABLET PO (20:13)
[2022-09-13] MEDS: ATORVASTATIN CALCIUM 40 MG TABLET PO (20:13)
[2022-09-13 23:00] VITALS: PULSE 64; RESP 18
--- NOTE | 2022-09-14 05:49 | PC.NURSE ---
VSS on RA. Patient and oriented x3, able to call for help. Patient denies pain on assessment. Independent in room, continent with bowel and bladder using Flores cath. Flores in place and draining well. Patient is comfortable and slept throughout this shift. Staff will continue to monitor per plan of care.
[2022-09-14 07:00] VITALS: PULSE 76; RESP 18
[2022-09-14 08:00] VITALS: BP 110/65; PULSE 76; RESP 16; TEMP 36.6; O2SAT 99
[2022-09-14] MEDS: TAMSULOSIN HCL 0.4 MG CAPSULE PO (08:34)
[2022-09-14] MEDS: ACETAMINOPHEN 500 MG TABLET 1000 MG PO ×2 (08:34→21:34)
[2022-09-14] MEDS: polyethylene glycoL 3350 17 GM PACK PO (08:34)
[2022-09-14] MEDS: OMEPRAZOLE 20 MG CAPSULE DR 40 MG PO (08:34)
[2022-09-14] MEDS: FINASTERIDE 5 MG TABLET PO (08:34)
[2022-09-14] MEDS: ASPIRIN 81 MG TABLET EC PO (08:34)
--- NOTE | 2022-09-14 12:29 | PC.SOCIAL ---
Addendum entered by CHAY Palma 09/14/22 20:34: Medical Physiologist has reviewed and agrees with this note. Original Note: Social Work: Spoke with Nadeen at [facility] ([phone]), requested that we move in-person visit with pt. to 1pm on Saturday. Social work to follow up as needed.
[2022-09-14 15:00] VITALS: PULSE 76; RESP 16
--- NOTE | 2022-09-14 15:14 | P.IMPN_ITS ---
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 Chronic passive suicidal ideation Status: Acute (2) Guilty feelings: Problem details: - Patient appears to have guilty feelings about thinks he may have done in the past as well as the possibility that he may have given COVID to somebody else, has been provided reassurance by staff Status: Acute (3) Major depression: Problem details: - on Sertraline plus Seroquel. Status: Acute (4) Suicidal ideation: Problem details: - Chronic concern. No specific plan. Agrees to contact care providers if thinking about acting on his suicidal ideation Status: Acute (5) Frontotemporal dementia: Problem details: - 08/10/22 MOCA - Will need assistance by social work and state representatives to assume care of this vulnerable adult; guardianship has been initiated - unclear how or when frontotemporal dementia was diagnosed (noted in chart review); patient certainly is presenting more as severely depressed Status: Acute (6) History of bipolar disorder: Problem details: - no evidence of tristian at this time Status: Acute (7) Lower extremity edema: Problem details: - Chronic. Patient agrees to support hose for treatment. Status: Acute (8) Chronic indwelling Flores catheter: Problem details: - recent urine culture negative. Typically changed monthly by nursing staff an d or outpatient urology, last changed 09/12/22 - change [id number] Status: Acute Subjective Date Seen: 09/14/22 Interval history: William slept well overnight. He has no concerns for the hospitalist team. Exam Narrative: Exam Narrative: Sitting comfortably in chair No tachypnea No tremor at rest Const: Vital Signs, click to edit/add: Vital Signs - 24 hr 09/13/22 15:30 09/13/22 23:00 09/14/22 07:00 Temperature Pulse Rate [Pulse Oximeter] 64 76 Respiratory Rate 18 18 18 Blood Pressure [Le ft Arm] Pulse Oximetry Oxygen Delivery Me thod 09/14/22 08:00 Temperature 97.9 F Pulse Rate [Pulse Oximeter] 76 Respiratory Rate 16 Blood Pressure [Le ft Arm] 110/65 Pulse Oximetry 99 Oxygen Delivery Me thod Room Air
--- NOTE | 2022-09-14 18:50 | PC.NURSE ---
Nursing Care Hours: [id number] Pt this shift calm and cooperative. Allowed insurance underwriter sales to get vital signs and listen to lung sounds. Social Media Job Titles inspected Flores bag, it was empty and pt reported emptying it himself. Only c/o pain was in the bladder and prostate area. Reported that this is chronic and intermittent and that the morning dose of scheduled Tylenol helps. Declined walking the ferguson with insurance underwriter sales but agreed to play a game of cards. Ate 100 of all meals plus a snack. Pt pleasant and appreciative of care given.
[2022-09-14] MEDS: ATORVASTATIN CALCIUM 40 MG TABLET PO (21:34)
[2022-09-14] MEDS: SENNOSIDES/DOCUSATE TABLET 2 TAB PO (21:35)
[2022-09-14] MEDS: QUETIAPINE 25 MG TABLET 50 MG PO (21:35)
[2022-09-14] MEDS: MELATONIN 3 MG TABLET PO (21:35)
[2022-09-14] MEDS: SERTRALINE 100 MG TABLET 150 MG PO (21:36)
--- NOTE | 2022-09-15 04:37 | PC.NURSE ---
Shift note 19-: Pt cooperatively took HS meds and has been sleeping soundly since.
[2022-09-15 07:00] VITALS: PULSE 72; RESP 18
[2022-09-15 08:00] VITALS: BP 102/71; PULSE 72; RESP 18; O2SAT 97
[2022-09-15] MEDS: ACETAMINOPHEN 500 MG TABLET 1000 MG PO ×2 (08:34→21:36)
[2022-09-15] MEDS: OMEPRAZOLE 20 MG CAPSULE DR 40 MG PO (08:34)
[2022-09-15] MEDS: TAMSULOSIN HCL 0.4 MG CAPSULE PO (08:34)
[2022-09-15] MEDS: FINASTERIDE 5 MG TABLET PO (08:34)
[2022-09-15] MEDS: ASPIRIN 81 MG TABLET EC PO (08:34)
[2022-09-15] MEDS: polyethylene glycoL 3350 17 GM PACK PO (08:35)
[2022-09-15 15:00] VITALS: PULSE 75; RESP 18
--- NOTE | 2022-09-15 15:51 | P.IMPN_ITS ---
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 Chronic passive suicidal ideation Status: Acute (2) Guilty feelings: Problem details: - Patient appears to have guilty feelings about thinks he may have done in the past as well as the possibility that he may have given COVID to somebody else, has been provided reassurance by staff Status: Acute (3) Major depression: Problem details: - on Sertraline plus Seroquel. Status: Acute (4) Suicidal ideation: Problem details: - Chronic concern. No specific plan. Agrees to contact care providers if thinking about acting on his suicidal ideation Status: Acute (5) Frontotemporal dementia: Problem details: - 08/10/22 MOCA - Will need assistance by social work and state representatives to assume care of this vulnerable adult; guardianship has been initiated - unclear how or when frontotemporal dementia was diagnosed (noted in chart review); patient certainly is presenting more as severely depressed Status: Acute (6) History of bipolar disorder: Problem details: - no evidence of tristian at this time Status: Acute (7) Lower extremity edema: Problem details: - Chronic. Patient agrees to support hose for treatment. Status: Acute (8) Chronic indwelling Flores catheter: Problem details: - recent urine culture negative. Typically changed monthly by nursing staff an d or outpatient urology, last changed 09/12/22 - change [id number] Status: Acute Plan Continue to support patient as we await safe discharge disposition plan to be established. Time Spent With Patient Total time spent: 15 minutes Subjective Time Seen by Provider: 09:00 Date Seen: 09/15/22 Interval history: Hospital day number 26. Generally speaking he is doing well. No concerns. Awaiting safe discharge disposition plan. Eating and drinking without difficulties. Denies nausea or vomiting. Denies diarrhea or constipation. Denies dysuria, urgency, frequency, hematuria. Tolerating walking. Denies chest heaviness, pressure, tightness, or pain. Denies dyspnea at rest or dyspnea with exertion. Denies syncope or near- syncope. Denies palpitations or chest fluttering. Exam Narrative: Exam Narrative: Appears comfortable, no acute distress. Lungs are clear to auscultation. Heart tones with regular rhythm. Independent transfer, station, and gait. Independent with ADLs. Independent with feeding himself. Const: Vital Signs, click to edit/add: Vital Signs - 24 hr 09/15/22 07:00 09/15/22 08:00 Pulse Rate [Left A pical] 72 Pulse Rate [Pulse Oximeter] 72 Respiratory Rate 18 18 Blood Pressure [Le ft Arm] 102/71 Pulse Oximetry 97 Oxygen Delivery Me thod Room Air Documenting provider has reviewed patient's vital signs: yes
[2022-09-15 20:33] VITALS: BP 0/0; BP 113/76; PULSE 61; RESP 16; TEMP 36.7; O2SAT 99
[2022-09-15] MEDS: SERTRALINE 100 MG TABLET 150 MG PO (21:35)
[2022-09-15 21:36] VITALS: TEMP 36.7
[2022-09-15] MEDS: QUETIAPINE 25 MG TABLET 50 MG PO (21:37)
[2022-09-15] MEDS: SENNOSIDES/DOCUSATE TABLET 2 TAB PO (21:38)
[2022-09-15] MEDS: ATORVASTATIN CALCIUM 40 MG TABLET PO (21:38)
[2022-09-15] MEDS: MELATONIN 3 MG TABLET PO (21:38)
--- NOTE | 2022-09-15 23:30 | PC.NURSE ---
Pt resting comfortably at this time.
--- NOTE | 2022-09-16 05:42 | PC.NURSE ---
Pt pleasant and cooperative this shift.(). He has slept from 2330. VSS are stable. Flores draining without problems. Pt cont to empty own cath. He is just waiting for exceptance at a facility
[2022-09-16 07:00] VITALS: PULSE 61; PULSE 75; RESP 16
[2022-09-16] MEDS: FINASTERIDE 5 MG TABLET PO (09:03)
[2022-09-16] MEDS: OMEPRAZOLE 20 MG CAPSULE DR 40 MG PO (09:03)
[2022-09-16] MEDS: ASPIRIN 81 MG TABLET EC PO (09:03)
[2022-09-16] MEDS: ACETAMINOPHEN 500 MG TABLET 1000 MG PO ×2 (09:03→21:31)
[2022-09-16] MEDS: TAMSULOSIN HCL 0.4 MG CAPSULE PO (09:04)
[2022-09-16 15:00] VITALS: RESP 16
--- NOTE | 2022-09-16 16:28 | P.IMPN_ITS ---
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 Chronic passive suicidal ideation Status: Acute (2) Guilty feelings: Problem details: - Patient appears to have guilty feelings about thinks he may have done in the past as well as the possibility that he may have given COVID to somebody else, has been provided reassurance by staff Status: Acute (3) Major depression: Problem details: - on Sertraline plus Seroquel. Status: Acute (4) Suicidal ideation: Problem details: - Chronic concern. No specific plan. Agrees to contact care providers if thinking about acting on his suicidal ideation Status: Acute (5) Frontotemporal dementia: Problem details: - 08/10/22 MOCA - Will need assistance by social work and state representatives to assume care of this vulnerable adult; guardianship has been initiated - unclear how or when frontotemporal dementia was diagnosed (noted in chart review); patient certainly is presenting more as severely depressed Status: Acute (6) History of bipolar disorder: Problem details: - no evidence of tristian at this time Status: Acute (7) Lower extremity edema: Problem details: - Chronic. Patient agrees to support hose for treatment. Status: Acute (8) Chronic indwelling Flores catheter: Problem details: - recent urine culture negative. Typically changed monthly by nursing staff an d or outpatient urology, last changed 09/12/22 - change [id number] Status: Acute Plan 1. Continue to await establishment of a safe discharge disposition plan. emergency medical services coordinator assisting us with this effort. 2. Continue with other supportive efforts at this time. Time Spent With Patient Total time spent: 15 minutes Subjective Time Seen by Provider: 08:30 Date Seen: 09/16/22 Interval history: Hospital day number 27. He tells me his doing well. No concerns. Awaiting establishment of a safe discharge disposition plan. Eating and drinking without difficulties. Denies nausea or vomiting. Denies diarrhea or constipation. Denies dysuria, urgency, frequency, hematuria. Tolerating walking. Denies chest heaviness, pressure, tightness, or pain. Denies dyspnea at rest or dyspnea with exertion. Denies syncope or near- syncope. Denies palpitations or chest fluttering. Exam Narrative: Exam Narrative: Appears comfortable. No acute distress. Sitting in a chair in his dimly lit room. Eats independently. Ambulates in his room independently. Friendly, cooperative. Const: Vital Signs, click to edit/add: Vital Signs - 24 hr 09/15/22 20:33 09/15/22 21:36 09/16/22 07:00 Temperature 98.1 F 98.1 F Pulse Rate [Left A pical] 61 61 Pulse Rate [Pulse Oximeter] 75 Respiratory Rate 16 16 Blood Pressure [Le ft Arm] 0/0 L Blood Pressure [Ri ght Arm] 113/76 Pulse Oximetry 99 Oxygen Delivery Me thod Room Air Documenting provider has reviewed patient's vital signs: yes
--- NOTE | 2022-09-16 19:01 | PC.NURSE ---
Nursing Care Hours: [id number] Pt this shift does not report suicidal ideation, reports feeling nervous about meeting tomorrow for mental health placement. Declines walking in the halls today. Ate all meals, cooperative with daily vitals and assessment. In bed with light off before dinner, up to eat and then back to bed.
[2022-09-16] MEDS: SENNOSIDES/DOCUSATE TABLET 2 TAB PO (21:32)
[2022-09-16] MEDS: ATORVASTATIN CALCIUM 40 MG TABLET PO (21:32)
[2022-09-16] MEDS: MELATONIN 3 MG TABLET PO (21:32)
[2022-09-16] MEDS: SERTRALINE 100 MG TABLET 150 MG PO (21:32)
[2022-09-16] MEDS: QUETIAPINE 25 MG TABLET 50 MG PO (21:32)
[2022-09-16 21:39] VITALS: BP 122/72; PULSE 66; RESP 16; TEMP 36.7; O2SAT 97
[2022-09-16 23:14] VITALS: PULSE 61; RESP 16
--- NOTE | 2022-09-17 06:49 | PC.NURSE ---
End of shift status [id number] Pt remains with flat affect and withdrawn from activity. Pt has been cooperative with assessment and medication administration. Up independently in room. VSS on room air. Indwelling catheter patent. Denies suicidal ideation and plan. Pt sleeping bed the majority of the night. Plan for a meeting with [facility] today at 1300.
[2022-09-17 07:00] VITALS: PULSE 78; RESP 20
[2022-09-17 09:24] VITALS: BP 107/70; PULSE 78; RESP 20; TEMP 37; O2SAT 97
[2022-09-17] MEDS: OMEPRAZOLE 20 MG CAPSULE DR 40 MG PO (09:31)
[2022-09-17] MEDS: FINASTERIDE 5 MG TABLET PO (09:31)
[2022-09-17] MEDS: TAMSULOSIN HCL 0.4 MG CAPSULE PO (09:31)
[2022-09-17] MEDS: ASPIRIN 81 MG TABLET EC PO (09:31)
[2022-09-17] MEDS: ACETAMINOPHEN 500 MG TABLET 1000 MG PO ×2 (09:32→21:01)
--- NOTE | 2022-09-17 12:38 | PM.IMPN1 ---
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 Chronic passive suicidal ideation, not actively suicidal Status: Acute (2) Guilty feelings: Problem details: - Patient appears to have guilty feelings about thinks he may have done in the past as well as the possibility that he may have given COVID to somebody else, has been provided reassurance by staff Status: Acute (3) Major depression: Problem details: - on Sertraline plus Seroquel. Status: Acute (4) Suicidal ideation: Problem details: - Chronic concern. No specific plan. Agrees to contact care providers if thinking about acting on his suicidal ideation Status: Acute (5) Frontotemporal dementia: Problem details: - 08/10/22 MOCA - has an appointed guardian - unclear how or when frontotemporal dementia was diagnosed (noted in chart review); patient certainly is presenting more as severely depressed Status: Acute (6) History of bipolar disorder: Problem details: - no evidence of tristian at this time Status: Acute (7) Lower extremity edema: Problem details: - Chronic. Patient agrees to support hose for treatment. Status: Acute (8) Chronic indwelling Flores catheter: Problem details: - recent urine culture negative. Typically changed monthly by nursing staff and or outpatient urology, last changed 09/12/22 - change [id number] Status: Acute Plan Awaiting safe discharge disposition. Distributor Sales Manager is assisting us with this. Time Spent With Patient Total time spent: 15 minutes Subjective Time Seen by Provider: 08:30 Date Seen: 09/17/22 Interval history: Hospital day number 28. He tells me his doing well. No concerns. Awaiting establishment of a safe discharge disposition plan. Eating and drinking without difficulties. Enjoys eating his pancakes. Denies nausea or vomiting. Denies diarrhea or constipation. Denies dysuria, urgency, frequency, hematuria. Tolerating walking. Denies chest heaviness, pressure, tightness, or pain. Denies dyspnea at rest or dyspnea with exertion. Denies syncope or near-syncope. Denies palpitations or chest fluttering. Exam Narrative: Exam Narrative: Appears comfortable and in no acute distress. Independent in all activities. Able to feed self. Independent transfer, station and gait. No focal motor neurologic deficits. Const: Vital Signs, click to edit/add: Vital Signs - 24 hr 09/16/22 15:00 09/16/22 21:39 09/16/22 23:14 Temperature 98.1 F Pulse Rate [Left A pical] 61 Pulse Rate [Pulse Oximeter] 66 Respiratory Rate 16 16 16 Blood Pressure [Le ft Arm] 122/72 Pulse Oximetry 97 Oxygen Delivery Me thod Room Air 09/17/22 09:24 09/17/22 07:00 Temperature 98.6 F Pulse Rate [Left A pical] 78 78 Pulse Rate [Pulse Oximeter] Respiratory Rate 20 20 Blood Pressure [Le ft Arm] 107/70 Pulse Oximetry 97 Oxygen Delivery Me thod Room Air Documenting provider has reviewed patient's vital signs: yes
--- NOTE | 2022-09-17 13:05 | PC.NURSE ---
End of Shift Note: Damian has been up and about in his room. No complaints of anything. Have checked in with him a couple of times and he says I am fine. will continue to monitor
[2022-09-17 15:00] VITALS: PULSE 66; PULSE 78; RESP 20
--- NOTE | 2022-09-17 15:58 | PC.SOCIAL ---
Pt. has been accepted to [facility] in [place] for tomorrow. Spoke with Tamara in admitting at [phone], fax#[phone]. Nurses number at [facility] @ [phone]. They would like the order to admit and medication orders sent today, the physician is aware. The pharmacy that [facility] uses is [facility] @ [phone], fax# [phone]. Pt.'s guardian Sera Haywood at [employer] @ [phone] has been updated and will get pt.'s belonging's to him at his AL. Also updated pt.'s EW case managers Sukumar Chang @ [phone], and left a message for Nguyễn Webster mental health case manger at [phone]. [facility] transport will pick pack worker pt. at 1:30pm.
--- NOTE | 2022-09-17 17:59 | PC.NURSE ---
Medications for discharged faxed to [facility] per SS.
[2022-09-17] MEDS: QUETIAPINE 25 MG TABLET 50 MG PO (21:01)
[2022-09-17] MEDS: ATORVASTATIN CALCIUM 40 MG TABLET PO (21:01)
[2022-09-17] MEDS: MELATONIN 3 MG TABLET PO (21:01)
[2022-09-17] MEDS: SENNOSIDES/DOCUSATE TABLET 2 TAB PO (21:02)
[2022-09-17] MEDS: SERTRALINE 100 MG TABLET 150 MG PO (21:02)
--- NOTE | 2022-09-18 04:37 | PC.NURSE ---
Shift note 19-: Pt w/o any suicidal ideations or attempts at elopement, pleasant and cooperative, to bed @ 2130, appeared to rest quietly.
[2022-09-18 07:00] VITALS: PULSE 67; RESP 18
[2022-09-18 09:00] VITALS: BP 120/77; PULSE 67; RESP 18; TEMP 36.3; O2SAT 99
[2022-09-18] MEDS: TAMSULOSIN HCL 0.4 MG CAPSULE PO (09:02)
[2022-09-18] MEDS: FINASTERIDE 5 MG TABLET PO (09:02)
[2022-09-18] MEDS: ACETAMINOPHEN 500 MG TABLET 1000 MG PO (09:02)
[2022-09-18] MEDS: OMEPRAZOLE 20 MG CAPSULE DR 40 MG PO (09:02)
[2022-09-18] MEDS: ASPIRIN 81 MG TABLET EC PO (09:02)
--- NOTE | 2022-09-18 11:18 | PC.SOCIAL ---
Received a phone call from pt's sub acute care nurse, Sukumar Chang, requesting contact information for pt's guardian. Provided the guardian contact information. Pt's sub acute care nurse also requested pt's discharge time for today. Provided discharge time.
[2022-09-18 13:01] VITALS: RESP 18; TEMP 36.3
--- NOTE | 2022-09-18 13:56 | PC.NURSE ---
Discharge: Patient ambulating up and about in his room.? Pt. denies any pain, N/V/SOB. Pt. independently empties Flores catheter. RN has checked in with him a couple of times and he states I am fine.?Pt. discharged today at 1340 via [facility] to [facility]. Discharge papers signed by patient, ambulated well to the waiting [facility] ride.
--- NOTE | 2022-09-18 15:57 | PC.SOCIAL ---
Updated pt.'s brother Edwar @ [phone] and sister Tamiko @ [phone] on where pt. was discharged to per family and pt. request.
--- NOTE | 2022-09-20 20:51 | PM.DS1 ---
DS: Providers Provider Time Seen by Provider: 08:00 Date Seen: 09/18/22 Date of admission: 08/22/22 14:37 Primary care physician: Feli Babin MD Admitting Clinician: Jessa Perdomo MD Consults: 08/21/22 18:51 Consult to Manager Business Continuity [CONS] Routine Comment: Reason for Consult:: Social Service Consult Attending Physician on discharge: Pravin Kruse MD Date of Discharge: 09/18/22 DS: Diagnosis Discharge Diagnosis (1) Suicidal ideation: Status: Acute Problem details: - Chronic concern. No specific plan. Agrees to contact care providers if thinking about acting on his suicidal ideation (2) Major depression: Status: Acute Problem details: - on Sertraline plus Seroquel. 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 Chronic passive suicidal ideation, not actively suicidal (5) Guilty feelings: Status: Acute Problem details: - Patient appears to have guilty feelings about thinks he may have done in the past as well as the possibility that he may have given COVID to somebody else, has been provided reassurance by staff (6) C. difficile colitis: Status: Acute Problem details: + on 08/09, has completed 14 day course of oral Vanco. No current diarrhea (7) Lower extremity edema: Status: Acute Problem details: - Chronic. Patient agrees to support hose for treatment. (8) Low blood pressure: Status: Acute Problem details: - intermittent, improved after IV fluid bolus on 08/23. Patient remains asymptomatic with normal vital signs at this time - prn fluid boluses available (9) Thoracic aortic aneurysm: Status: Acute Problem details: - 08/09/2022 CT chest: Aneurysmal dilation of the ascending thoracic aorta measuring 4.2 cm - routine outpatient f/u by Cardiology or primary care (10) Benign prostatic hyperplasia with urinary retention: Status: Acute Problem details: - chronic indwelling catheter, outpatient f/u with urology - intermittently has had low urine output, prn IV fluid boluses (11) Chronic indwelling Chun catheter: Status: Acute Problem details: - recent urine culture negative. Typically changed monthly by nursing staff and or outpatient urology, last changed 09/12/22 - change [id number] (12) History of bipolar disorder: Status: Acute Problem details: - no evidence of tristian at this time (13) Bicuspid aortic valve: Status: Acute Problem details: - seen on ECHO 08/09/22, mild stenosis. Preserved EF. Normal LVEF. DS: Summary Hospital Course Hospital Course: This is a 72-year-old male here for mental illness and inability to care for himself.? He is currently being treated with sertraline and Seroquel for bipolar depression with suicidal ideation.? While in the hospital he noted that his suicidal thoughts and ideations abated. Additionally, he agreed to inform staff should these ideations recur. Geriatric psychiatric units had no bed availability. Additionally, several nursing home facilities, memory care units, and adult group homes assessed him for possible admission.? Eventually a safe discharge disposition plan was established as specified below. While in the hospital he developed diarrhea and was found to have C difficile colitis for which he was treated with oral vancomycin and the diarrhea resolved. On initial presentation as part of the screening process to assess his confusion a chest x-ray was obtained. Chest x-ray suggested the possibility of bilateral pneumothorax. CT scan of the chest without contrast was then obtained and demonstrated there was not in fact any pneumothorax. Additional findings of the CT scan of the chest are specified below. Status at Discharge Functional status at discharge: independent ambulation Overall status at discharge: patient is back to baseline Time Spent with Patient Time attestation: Total time spent providing and/or coordinating discharge services: Time spent: Less than 30 minutes Exam Narrative: Exam Narrative: Appears comfortable and in no acute distress.? Reserved disposition. Little spontaneous interaction. Responds to individuals to speak with him. Appropriate. Independent in all activities.? Able to feed self.? Independent transfer, station and gait. No focal motor neurologic deficits. Const: Documenting provider has reviewed patient's vital signs: yes DS: Data Imaging CT scan - head: Attestation: I have reviewed the pertinent imaging results. Radiologist's impression: FINDINGS: CSF spaces: Within normal limits for age.? Brain parenchyma: Mild generalized cerebral volume loss. The brown-white differentiation is maintained. No sign of mass, hemorrhage, or midline shift. Atherosclerotic calcifications of the cavernous carotids and carotid siphons. Skull base and calvarium: The visualized paranasal sinuses and mastoid air cells demonstrate no acute or significant findings. The visualized orbits are grossly unremarkable. No skull fractures. IMPRESSION: No acute intracranial abnormality. Chest x-ray: Attestation: I have reviewed the pertinent imaging results. Radiologist's impression: FINDINGS: Cardiovascular and mediastinum: Cardiomediastinal silhouette is within normal limits. Lungs and pleural spaces: Small to moderate right pneumothorax. Moderate left pneumothorax. No focal consolidation. No pleural effusion. Bones and soft tissues: Bilateral shoulder degenerative changes. IMPRESSION: Small to moderate right and moderate left pneumothoraces. CT scan - chest: Attestation: I have reviewed the pertinent imaging results. Radiologist's impression: FINDINGS: Lungs and pleura: No suspicious nodules or infiltrates.? No pleural effusions, pleural thickening, or pneumothorax. Small thin-walled cyst within the left upper lobe. Heart and vasculature: Heart size is normal. Aneurysmal dilation of the ascending thoracic aorta measuring 4.2 cm. Moderate the sclerosus of the thoracic aorta. Coronary artery calcifications and/or stents. Lymph nodes/mediastinum: No enlarged mediastinal or axillary adenopathy. Calcified right hilar nodes. Chest wall: No masses. Upper abdomen: No significant findings. Abdominal aortic calcifications. Bones: Mild multilevel degenerative spondylosis without acute fracture or aggressive osseous lesion. Multilevel anterior bridging osteophytosis which can be seen with DISH. IMPRESSION: Aneurysmal dilation of the ascending thoracic aorta measuring 4.2 cm. Atherosclerotic calcifications. No evidence of acute cardiopulmonary process on this limited unenhanced CT. Discharge Plan Discharge Disposition: [facility] Date of Admission: 08/22/22 14:37 Attending Provider on Discharge: Jessa Perdomo Primary Care Provider: Feli Babin Condition: Unchanged Anticipated Discharge Date/Time: 09/18/22 13:00 Discharge Medications: New sertraline 100 mg Tablet 150 mg PO HS Qty: 45 0RF melatonin 3 mg Tablet 3 mg PO HS Qty: 30 0RF quetiapine 25 mg Tablet 50 mg PO HS Qty: 60 0RF sennosides-docusate sodium [Stool Softener-Laxative] 8.6-50 mg Tablet 2 tab PO HS Qty: 60 0RF Continued atorvastatin [Lipitor] 40 mg Tablet 40 mg PO HS Qty: 30 0RF aspirin 81 mg Tablet,Delayed Release (Dr/Ec) 81 mg PO DAILY Qty: 100 0RF acetaminophen 325 mg tablet 650 mg PO Q4H PRN finasteride 5 mg tablet 5 mg PO DAILY multivitamin with folic acid [Tab-A-Jennifer] 400 mcg tablet 1 tab PO DAILY pantoprazole 40 mg tablet,delayed release (DR/EC) 40 mg PO DAILY Hold Instructions: Resume on 08/19/22. tamsulosin 0.4 mg capsule 0.4 mg PO DAILY Discontinued sertraline 100 mg tablet 200 mg PO HS vancomycin 125 mg Capsule 125 mg PO QID Qty: 56 0RF cefpodoxime 200 mg tablet 200 mg PO BID Qty: 16 0RF Rx Instructions: must administer with a meal/food Discharge Orders: Discharge Order (Routine); Ordered 09/18/22 Ordered By: Pravin Kruse Activity Level: Activity as Tolerated Discharge Diet: Regular Forms: [employer] Info Instructions Discharge Comments: 1. chun is exchanged monthly by outpatient urology or SNF staff. Last changed 09/12/22. 2. Echo showed mild aortic stenosis and a biscupid valve in addition to a mild aortic dilation. Both can be followed up in 1 year (Jul 2023) with primary care or referral to outpatient cardiology as needed. Admit to: Assisted Living Discharge Potential: Poor Length of Stay: >90 days Can use facility standing orders?: Yes Code Status: Full Code TEDs: N/A Rehab Potential: Fair Oxygen: No Urinary Catheter: Yes Orders are good >30 days: Yes
== END 2022-09-18 13:40 | DRG 57 ==
LOC: ED 08-21 16:36 → MEDSURG 08-21 17:44
PROVIDERS: Family Medicine; Admitting Provider Family Medicine; Emergency Provider Family Medicine; PCP Family Medicine; Visit Provider Family Medicine
DX: G31.09 Other frontotemporal neurocognitive disorder (principal); F02.83 Dementia in other diseases classified elsewhere, unspecified severity, with mood disturbance; F31.4 Bipolar disorder, current episode depressed, severe, without psychotic features; R45.851 Suicidal ideations; A04.72 Enterocolitis due to Clostridium difficile, not specified as recurrent; Q23.1 Congenital insufficiency of aortic valve; F41.1 Generalized anxiety disorder; I95.9 Hypotension, unspecified; R60.0 Localized edema; N40.1 Benign prostatic hyperplasia with lower urinary tract symptoms; R33.8 Other retention of urine; R39.198 Other difficulties with micturition; Z96.0 Presence of urogenital implants; K21.9 Gastro-esophageal reflux disease without esophagitis; I71.20 Thoracic aortic aneurysm, without rupture, unspecified; Z85.820 Personal history of malignant melanoma of skin
CPT/HCPCS: 36415; 80048; 80053; 80143; 80179; 80306; 81001; 82077; 83605; 84443; 85025; 86140; 87040; 87086; 87635; 99284; 99285; A9270; G0378; J7030; S0166